=== PATIENT | male | born 1945 | race Caucasian/White ===

== ENCOUNTER 2016-07-13 10:50 | Inpatient (IN) | payer MEDICARE ==
[2016-07-13 11:05] LABS: Glucose,Whole Blood 506 mg/dL (75-99)
[2016-07-13] MEDS ORDERED: SODIUM CHLORIDE 0.9% 1,000 ML IV STA (11:10)
--- NOTE | 2016-07-13 11:18 | ED ---
General Adult HPI - General Chief complaint: Abdominal Pain Stated complaint: high sugar diabetes Time Seen by Provider: 07/13/16 11:02 Source: patient, RN notes reviewed Mode of arrival: ambulatory Limitations: no limitations - History of Present Illness Initial comments: 71-year-old male presents emergency Department chief complaint of feeling off. Her last week he has just not felt like himself. It's been getting worse. He has had high glucoses at home but he is taking his insulin as prescribed. Patient states he was concerned because he just continues to act abnormally. Patient states that nothing seems to make him better or worse. Patient states that it just continues to cause him problems as well so he thought that he should be evaluated. Patient states is not currently having any other symptoms at this time. Patient denies any recent fever, chills, shortness of breath, chest pain, back pain, abdominal pain, nausea vomiting, numbness or tingling, dysuria or hematuria, constipation or diarrhea, headaches or visual changes, or any other current symptoms. - Related Data Home Medications Medication Instructions Recorded Confirmed Atorvastatin [Lipitor] 40 mg PO HS 01/21/16 07/13/16 Bumetanide [BUMEX] 6 mg PO QAM 01/21/16 07/13/16 Carvedilol [Coreg] 25 mg PO BID 01/21/16 07/13/16 Cholecalciferol [Vitamin D3] 5,000 unit PO DAILY 01/21/16 07/13/16 Insulin Detemir [Levemir] 60 unit SQ BID 01/21/16 07/13/16 Isosorbide Dinitrate 40 mg PO BID 01/21/16 07/13/16 Magnesium Oxide [Mag-Ox] 250 mg PO DAILY 01/21/16 07/13/16 Nitroglycerin Sl Tabs [Nitrostat] 0.4 mg SUBLINGUAL Q5M PRN 01/21/16 07/13/16 Pantoprazole Sodium [Protonix] 40 mg PO DAILY 01/21/16 07/13/16 Potassium Chloride ER [K-Dur 20] 20 meq PO BID 01/21/16 07/13/16 Warfarin [Coumadin] 3 mg PO PC-SUPPER 01/21/16 07/13/16 Aspirin 81 mg PO DAILY 07/13/16 07/13/16 Bumetanide [BUMEX] 4 mg PO DAILY@1830 07/13/16 07/13/16 Digoxin [Digoxin] 250 mcg PO DAILY 07/13/16 07/13/16 Insulin Aspart [Novolog Flexpen] 30 - 42 unit SQ AC-TID 07/13/16 07/13/16 Multivitamins, Thera [Multivitamin 1 tab PO DAILY 07/13/16 07/13/16 (formulary)] Allergies Allergy/AdvReac Type Severity Reaction Status Date / Time alprazolam [From Xanax] AdvReac Confusion Verified 07/13/16 12:06 morphine AdvReac Hallucinati Verified 07/13/16 12:06 ons Review of Systems ROS Statement: Those systems with pertinent positive or pertinent negative responses have been documented in the HPI. ROS Other: All systems not noted in ROS Statement are negative. Past Medical History Past Medical History: Atrial Fibrillation, Coronary Artery Disease (CAD), Diabetes Mellitus, Hyperlipidemia, Hypertension, Myocardial Infarction ([place]), Prostate Disorder, Renal Disease Additional Past Medical History / Comment(s): AAA 4.3 CM. ASKED IF PT HAD CHF BEFORE PT/ STATED NO BUT HE HAD OPEN HEART. Last Myocardial Infarction Date:: 04/18/15 History of Any Multi-Drug Resistant Organisms: None Reported Past Surgical History: Coronary Bypass/CABG, Heart Catheterization, Joint Replacement, Orthopedic Surgery Additional Past Surgical History / Comment(s): bilateral knee replacement, RT ROTATOR CUFF SX, STATED:" I THINK HIS OPEN HEART WAS 3 VESSELS". Past Anesthesia/Blood Transfusion Reactions: No Reported Reaction Additional Past Anesthesia/Blood Transfusion Reaction / Comment(s): CLAUSTERPHOBIA Past Psychological History: No Psychological Hx Reported Additional Psychological History / Comment(s): lives in the family home with his and grandson in [place]. 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 Tobacco smoker stopping about 16 years ago. Denied significant alcohol abuse. Denied animals in the home. 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 Relates mother of cancer and father of myocardial infarction in his 60s Smoking Status: Former smoker Past Alcohol Use History: Heavy Additional Past Alcohol Use History / Comment(s): STARTED SMOKING AGE 12 SMOKED LESS THAN 1 PPD, QUIT 10 YEARS AGO. WHEN YOUNGER WAS HEAVY BEER DRINKER BUT QUIT >20 YEARS AGO. DENIES ANY RECREATIONAL DRUG USE. Past Drug Use History: None Reported - Past Family History Father Family Medical History: Myocardial Infarction ([place]) Mother Family Medical History: Cancer Additional Family Medical History / Comment(s): LUNG CANCER General Exam Limitations: no limitations General appearance: alert, in no apparent distress Head exam: Present: atraumatic, normocephalic, normal inspection Eye exam: Present: normal appearance, PERRL, EOMI. Absent: scleral icterus, conjunctival injection, periorbital swelling ENT exam: Present: normal exam, mucous membranes moist Neck exam: Present: normal inspection. Absent: tenderness, meningismus, lymphadenopathy Respiratory exam: Present: normal lung sounds bilaterally. Absent: respiratory distress, wheezes, rales, rhonchi, stridor Cardiovascular Exam: Present: regular rate, normal rhythm, normal heart sounds. Absent: systolic murmur, diastolic murmur, rubs, gallop, clicks Extremities exam: Present: normal inspection, full ROM, normal capillary refill. Absent: tenderness, pedal edema, joint swelling, calf tenderness Back exam: Present: normal inspection Neurological exam: Present: alert, oriented X3 Psychiatric exam: Present: normal affect, normal mood Skin exam: Present: warm, dry, intact, normal color. Absent: rash Course Vital Signs 07/13/16 10:56 Temperature 97.9 F Pulse Rate 74 Respiratory 17 Rate Blood Pressure 186/82 O2 Sat by Pulse 95 Oximetry EKG Findings - EKG Comments: EKG Findings:: Paced rhythm ventricular rate 86 1. A 116, Respiration 176 Medical Decision Making - Medical Decision Making 71-year-old male presents emergency department with a chief complaint of hyperglycemia. This time lab work was reviewed. At this time patient appears to have hypokalemia acute CHF as well as hyper glycemia with an elevated troponin. At this time patient is on warfarin and INR is close to therapeutic. We will continue the patient on the warfarin. At this time we did give the patient 10 units of insulin for hyperglycemia. His potassium has been replaced. We will repeat cardiac syndrome the patient Lasix for CHF. We will be admitting the patient at this time for continued care and observation. Patient is in agreement with plan. - Lab Data Result diagrams: 07/13/16 11:25 07/13/16 11:25 Lab Results 07/13/16 07/13/16 07/13/16 Range/Units 11:00 11:25 11:25 WBC (3.8-10.6) k/uL RBC (4.30-5.90) m/uL Hgb (13.0-17.5) gm/dL Hct (39.0-53.0) % MCV (80.0-100.0) fL MCH (25.0-35.0) pg MCHC (31.0-37.0) g/dL RDW (11.5-15.5) % Plt Count (150-450) k/uL Neutrophils % % Lymphocytes % % Monocytes % % Eosinophils % % Basophils % % Neutrophils # (1.3-7.7) k/uL Lymphocytes # (1.0-4.8) k/uL Monocytes # (0-1.0) k/uL Eosinophils # (0-0.7) k/uL Basophils # (0-0.2) k/uL Hyperchromasia Poikilocytosis Anisocytosis PT (9.0-12.0) sec INR (<1.1) APTT (22.0-30.0) sec Sodium 131 L (137-145) mmol/L Potassium 3.0 L* (3.5-5.1) mmol/L Chloride 90 L (98-107) mmol/L Carbon Dioxide 25 (22-30) mmol/L Anion Gap 16 mmol/L BUN 84 H* (9-20) mg/dL Creatinine 1.77 H (0.66-1.25) mg/dL Est GFR (MDRD) Af Amer 46 (>60 ml/min/1.73 sqM) Est GFR (MDRD) Non-Af 38 (>60 ml/min/1.73 sqM) Glucose 492 H* (74-99) mg/dL POC Glucose (mg/dL) 506 H (75-99) mg/dL POC Glu [employer] ID Radha Landaverde Calcium 9.3 (8.4-10.2) mg/dL Magnesium 1.8 (1.6-2.3) mg/dL Total Bilirubin 1.8 H (0.2-1.3) mg/dL AST 33 (17-59) U/L ALT 27 (21-72) U/L Alkaline Phosphatase 101 (38-126) U/L Total Creatine Kinase 215 H (55-170) U/L CK-MB (CK-2) 5.4 H* (0.0-2.4) ng/mL CK-MB (CK-2) Rel Index 2.5 Troponin I 0.664 H* (0.000-0.034) ng/mL NT-Pro-B Natriuret Pep pg/mL Total Protein 7.7 (6.3-8.2) g/dL Albumin 4.1 (3.5-5.0) g/dL Amylase 101 (30-110) U/L Lipase 262 (23-300) U/L Acetone, Qual Negative (Negative) 07/13/16 07/13/16 07/13/16 Range/Units 11:25 11:25 11:25 WBC 9.8 (3.8-10.6) k/uL RBC 5.11 (4.30-5.90) m/uL Hgb 14.6 (13.0-17.5) gm/dL Hct 42.4 (39.0-53.0) % MCV 82.9 (80.0-100.0) fL MCH 28.6 (25.0-35.0) pg MCHC 34.5 (31.0-37.0) g/dL RDW 18.0 H (11.5-15.5) % Plt Count 173 (150-450) k/uL Neutrophils % 72 % Lymphocytes % 14 % Monocytes % 7 % Eosinophils % 3 % Basophils % 1 % Neutrophils # 7.1 (1.3-7.7) k/uL Lymphocytes # 1.4 (1.0-4.8) k/uL Monocytes # 0.7 (0-1.0) k/uL Eosinophils # 0.3 (0-0.7) k/uL Basophils # 0.1 (0-0.2) k/uL Hyperchromasia Slight Poikilocytosis Marked Anisocytosis Slight PT 16.9 H (9.0-12.0) sec INR 1.7 (<1.1) APTT 26.8 (22.0-30.0) sec Sodium (137-145) mmol/L Potassium (3.5-5.1) mmol/L Chloride (98-107) mmol/L Carbon Dioxide (22-30) mmol/L Anion Gap mmol/L BUN (9-20) mg/dL Creatinine (0.66-1.25) mg/dL Est GFR (MDRD) Af Amer (>60 ml/min/1.73 sqM) Est GFR (MDRD) Non-Af (>60 ml/min/1.73 sqM) Glucose (74-99) mg/dL POC Glucose (mg/dL) (75-99) mg/dL POC Glu [employer] Dist[employer] ID Calcium (8.4-10.2) mg/dL Magnesium (1.6-2.3) mg/dL Total Bilirubin (0.2-1.3) mg/dL AST (17-59) U/L ALT (21-72) U/L Alkaline Phosphatase (38-126) U/L Total Creatine Kinase (55-170) U/L CK-MB (CK-2) (0.0-2.4) ng/mL CK-MB (CK-2) Rel Index Troponin I (0.000-0.034) ng/mL NT-Pro-B Natriuret Pep 6880 pg/mL Total Protein (6.3-8.2) g/dL Albumin (3.5-5.0) g/dL Amylase (30-110) U/L Lipase (23-300) U/L Acetone, Qual (Negative) Critical Care Time Critical Care Time: Yes (CHF, hypokalemia, hyperglycemia, elevated troponin) Total Critical Care Time: 45 Disposition Clinical Impression: MAGGIE (acute kidney injury), Acute congestive heart failure, Hyperglycemia, Hypokalemia Disposition: ADMITTED IP TO THIS HOSP Condition: Stable Referrals: Anu Velasquez MD [Primary Care Provider] - 1-2 days Time of Disposition: 13:04 Decision Date: 07/13/16 Decision Time: :04
[2016-07-13 11:42] LABS: Anisocytosis Slight; Basophils # (A) 0.1 k/uL (0-0.2); Basophils % (A) 1 %; CH 29.6; Eosinophils # (A) 0.3 k/uL (0-0.7); Eosinophils % (A) 3 %; HCT 42.4 % (39.0-53.0); HDW 4.75; HGB 14.6 gm/dL (13.0-17.5); Hyperchromasia Slight; Luc # (Auto) 0.32; Luc % (Auto) 3; Lymphocytes # (A) 1.4 k/uL (1.0-4.8); Lymphocytes % (A) 14 %; MCH 28.6 pg (25.0-35.0); MCHC 34.5 g/dL (31.0-37.0); MCV 82.9 fL (80.0-100.0); Mean Platelet Volume 7.7; Monocytes # (A) 0.7 k/uL (0-1.0); Monocytes % (A) 7 %; Neutrophils # (A) 7.1 k/uL (1.3-7.7); Neutrophils % (A) 72 %; Poikilocytosis Marked; RBC 5.11 m/uL (4.30-5.90); WBC 9.8 k/uL (3.8-10.6); WBC (Perox) 9.71
[2016-07-13 11:52] LABS: INR 1.7 (<1.1); Partial Thromboplastin Time 26.8 sec (22.0-30.0); Prothrombin Time 16.9 sec (9.0-12.0)
[2016-07-13 11:54] LABS: ALT 27 U/L (21-72); AST 33 U/L (17-59); Alkaline Phosphatase 101 U/L (38-126); Amylase 101 U/L (30-110); Anion Gap 16 mmol/L; Calcium 9.3 mg/dL (8.4-10.2); Carbon Dioxide 25 mmol/L (22-30); Chloride 90 mmol/L (98-107); Magnesium 1.8 mg/dL (1.6-2.3); Non-African American GFR(MDRD) 38 (>60 ml/min/1.73 sqM); Sodium 131 mmol/L (137-145); Total Bilirubin 1.8 mg/dL (0.2-1.3); Total Protein 7.7 g/dL (6.3-8.2)
[2016-07-13 12:11] LABS: Glucose 492 mg/dL (74-99)
[2016-07-13 12:13] LABS: Blood Urea Nitrogen 84 mg/dL (9-20)
--- NOTE | 2016-07-13 12:21 | CT ---
EXAMINATION TYPE: CT brain wo con DATE OF EXAM: 07/13/2016 12:05 PM COMPARISON: Previous study dated 05/21/2015. HISTORY: Elevated blood sugar CT DLP: 1108.4 mGycm Automated exposure control for dose reduction was used. FINDINGS: There are generalized changes of sulcal prominence and ventriculomegaly, compatible with at rophic change. There is diffuse periventricular white matter lucency, compatible with small vessel is chemic change. There is no acute focal lesion, mass effect or midline shift identified. I do not see evidence of intracranial blood. There is near complete opacification of the left maxillary antrum. There is an air-fluid level in the right maxillary antrum. There is mild mucoperiosteal disease involving the posterior ethmoid air paul ls on the right. The mastoid air cells are clear. No depressed skull fracture is seen. IMPRESSION: 1. NO ACUTE INTRACRANIAL ABNORMALITY. 2. ATROPHIC CHANGE. 3. SMALL VESSEL ISCHEMIC CHANGE. 4. ACUTE ON CHRONIC SINUS MUCOSAL DISEASE.
[2016-07-13 12:34] LABS: Creatine Kinase MB 5.4 ng/mL (0.0-2.4)
[2016-07-13] MEDS ORDERED: POTASSIUM CHLORIDE ORAL LIQUID 40 MEQ/30 ML CUP PO ONE (12:34)
[2016-07-13 12:35] LABS: Troponin I 0.664 ng/mL (0.000-0.034)
[2016-07-13] MEDS ORDERED: ASPIRIN 325 MG TAB PO STA (12:36)
[2016-07-13] MEDS ORDERED: INSULIN LISPRO (humaLOG) 300 UNIT/3 ML VIAL SQ ONE (13:02)
[2016-07-13] MEDS ORDERED: NITROGLYCERIN SL TABS 0.4 MG TAB SUBLINGUAL PRN (13:06)
--- NOTE | 2016-07-13 13:09 | XR ---
EXAMINATION TYPE: XR chest 2V DATE OF EXAM: 07/13/2016 12:53 PM COMPARISON: Prior chest x-ray first of January 2016 HISTORY: Chest pain TECHNIQUE: Frontal and lateral views of the chest are obtained. FINDINGS: There is no focal air space opacity, pleural effusion, or pneumothorax seen. The cardiac silhouette size is within normal limits. Intracardiac defibrillator leads are in stable position. Pa tient is post median sternotomy. Postop change again noted to the proximal right humerus. Prominent l saul volume may be indicative of COPD. There are coronary artery calcifications. The osseous structure s are intact. IMPRESSION: No acute cardiopulmonary process.
[2016-07-13] MEDS ORDERED: FUROSEMIDE 10 MG/ML 2 ML VIAL IV ONE (13:15)
[2016-07-13] MEDS: POTASSIUM CHLORIDE 10 MEQ, LIDOCAINE 2% INJ 10 MG in SODIUM CHLORIDE 0.9% 100 ML IVPB SCH ×2 (13:25→14:41)
[2016-07-13] MEDS: SODIUM CHLORIDE 0.9% 1,000 ML IV SCH (13:25)
[2016-07-13 13:27] LABS: Appearance,Urine Clear (Clear); Bilirubin,Urine Negative (Negative); Glucose,Urine (UA) 4+ (Negative); Ketones,Urine Negative (Negative); Leukocyte Esterase,Urine Negative (Negative); Nitrite,Urine Negative (Negative); PH, Urine 6.5 (5.0-8.0); Protein,Urine Negative (Negative); Specific Gravity,Urine 1.005 (1.001-1.035); UA Billing (MACRO vs. MICRO) CHEM; Urobilinogen,Urine <2.0 mg/dL (<2.0)
[2016-07-13 14:00] LABS: Glucose,Whole Blood 410 mg/dL (75-99)
[2016-07-13 15:18] LABS: Hemoglobin A1C 10.1 % (4.2-6.1)
[2016-07-13 16:16] LABS: Glucose,Whole Blood 431 mg/dL (75-99)
[2016-07-13 16:48] LABS: Glucose,Whole Blood 445 mg/dL (75-99)
[2016-07-13] MEDS ORDERED: INSULIN LISPRO (humaLOG) 300 UNIT/3 ML VIAL SQ SCH (17:30)
[2016-07-13 17:43] LABS: Troponin I 0.522 ng/mL (0.000-0.034)
[2016-07-13] MEDS ORDERED: WARFARIN 3 MG TAB PO SCH (18:00)
[2016-07-13] MEDS ORDERED: BUMETANIDE 1 MG TAB PO SCH (18:30)
[2016-07-13] MEDS ORDERED: ENOXAPARIN 100 MG/ML SYRINGE SQ STA (19:29)
[2016-07-13] MEDS: ATORVASTATIN 40 MG TAB PO SCH (20:41)
[2016-07-13] MEDS: FUROSEMIDE 10 MG/ML 4 ML VIAL IV SCH (20:41)
[2016-07-13] MEDS: ISOSORBIDE DINITRATE 20 MG TAB PO SCH (20:41)
[2016-07-13] MEDS: CARVEDILOL 12.5 MG TAB PO SCH (20:41)
[2016-07-13] MEDS: POTASSIUM CHLORIDE ER 20 MEQ TAB.ER PO SCH (20:41)
[2016-07-13] MEDS: INSULIN REGULAR 100 UNIT in SODIUM CHLORIDE 0.9% 100 ML IV SCH (20:51)
[2016-07-13 21:35] LABS: Glucose,Whole Blood 407 mg/dL (75-99)
[2016-07-13 22:05] LABS: Glucose,Whole Blood 403 mg/dL (75-99)
[2016-07-13 22:37] LABS: Glucose,Whole Blood 361 mg/dL (75-99)
[2016-07-13 23:14] LABS: Glucose,Whole Blood 353 mg/dL (75-99)
[2016-07-13 23:33] LABS: Glucose,Whole Blood 324 mg/dL (75-99)
[2016-07-14] MEDS: INSULIN REGULAR 100 UNIT in SODIUM CHLORIDE 0.9% 100 ML IV SCH ×3 (00:18→20:28)
[2016-07-14 00:22] LABS: Glucose,Whole Blood 318 mg/dL (75-99)
[2016-07-14 00:28] LABS: Troponin I 0.533 ng/mL (0.000-0.034)
[2016-07-14 00:29] LABS: Creatine Kinase MB 4.9 ng/mL (0.0-2.4)
[2016-07-14 00:49] LABS: Glucose,Whole Blood 296 mg/dL (75-99)
[2016-07-14 01:05] LABS: Glucose,Whole Blood 277 mg/dL (75-99)
[2016-07-14 01:35] LABS: Glucose,Whole Blood 276 mg/dL (75-99)
[2016-07-14 02:03] LABS: Glucose,Whole Blood 272 mg/dL (75-99)
[2016-07-14 02:33] LABS: Glucose,Whole Blood 245 mg/dL (75-99)
[2016-07-14 04:48] LABS: Glucose,Whole Blood 256 mg/dL (75-99)
[2016-07-14 06:27] LABS: Glucose,Whole Blood 268 mg/dL (75-99)
[2016-07-14] MEDS: PANTOPRAZOLE 40 MG TABLET PO SCH (06:29)
[2016-07-14 07:06] LABS: Anisocytosis Slight; Basophils # (A) 0.1 k/uL (0-0.2); Basophils % (A) 1 %; CH 29.1; CHCM 36.1; Eosinophils # (A) 0.3 k/uL (0-0.7); Eosinophils % (A) 3 %; HCT 41.8 % (39.0-53.0); HDW 4.81; HGB 14.8 gm/dL (13.0-17.5); Hyperchromasia Moderate; Luc # (Auto) 0.34; Luc % (Auto) 4; Lymphocytes # (A) 1.5 k/uL (1.0-4.8); Lymphocytes % (A) 19 %; MCH 28.9 pg (25.0-35.0); MCHC 35.5 g/dL (31.0-37.0); MCV 81.5 fL (80.0-100.0); Mean Platelet Volume 7.3; Monocytes # (A) 0.5 k/uL (0-1.0); Monocytes % (A) 7 %; Neutrophils # (A) 5.5 k/uL (1.3-7.7); Neutrophils % (A) 67 %; Poikilocytosis Marked; RBC 5.12 m/uL (4.30-5.90); WBC 8.2 k/uL (3.8-10.6); WBC (Perox) 8.28
[2016-07-14 07:19] LABS: INR 1.9 (<1.1); Prothrombin Time 18.7 sec (9.0-12.0)
[2016-07-14 07:23] LABS: Calcium 9.4 mg/dL (8.4-10.2); Total Bilirubin 1.3 mg/dL (0.2-1.3); Total Protein 7.3 g/dL (6.3-8.2)
[2016-07-14 07:33] LABS: Potassium 2.9 mmol/L (3.5-5.1)
[2016-07-14] MEDS: CARVEDILOL 12.5 MG TAB PO SCH ×2 (08:29→20:57)
[2016-07-14] MEDS: ISOSORBIDE DINITRATE 20 MG TAB PO SCH ×2 (08:30→20:56)
[2016-07-14] MEDS: MAGNESIUM OXIDE 400 MG TAB PO SCH (08:31)
[2016-07-14] MEDS: POTASSIUM CHLORIDE ER 20 MEQ TAB.ER PO SCH ×5 (08:31→20:57)
[2016-07-14] MEDS: CHOLECALCIFEROL 1,000 UNIT TAB PO SCH (08:31)
[2016-07-14] MEDS: MULTIVITAMINS, THERA 1 EACH TAB PO SCH (08:32)
[2016-07-14] MEDS: FUROSEMIDE 10 MG/ML 4 ML VIAL IV SCH ×2 (08:32→20:53)
[2016-07-14 08:43] LABS: Glucose,Whole Blood 268 mg/dL (75-99)
[2016-07-14] MEDS ORDERED: DIGOXIN 250 MCG TAB PO SCH (09:00)
[2016-07-14] MEDS ORDERED: ASPIRIN 325 MG TAB PO SCH (09:00)
[2016-07-14] MEDS ORDERED: BUMETANIDE 1 MG TAB PO SCH (09:00)
[2016-07-14] MEDS: MAGNESIUM SULFATE-D5W PMX 1 GM in DEXTROSE/WATER 1 100ML.BAG IVPB SCH ×2 (09:22→10:21)
[2016-07-14] MEDS: SODIUM CHLORIDE 0.9% 1,000 ML IV SCH (09:24)
--- NOTE | 2016-07-14 09:26 | P.CRDCN ---
<Ruth Schmitt E - Last Filed: 07/14/16 09:28> History of Present Illness Consult date: 07/14/16 Requesting physician: Thomas Coy Consult reason: congestive heart failure Chief complaint: Malaise and fatigue History of present illness: This is a 71-year-old gentleman who follows regularly with Dr. Elias at [facility], primary care doctor is Dr. Velasquez, he has a history of paroxysmal atrial fibrillation, coronary artery disease or bypass surgery in 2000, AICD, diabetes, hypertension, hyperlipidemia, renal disease, AAA, he presents to the hospital mainly with complaints of generalized malaise and tiredness. He also states that he feels more short of breath than usual, he denies any PND or orthopnea, denies any chest discomfort. No peripheral edema. According to the patient, he also states that his blood sugars have been quite high at home. EKG on arrival here shows a ventricular paced rhythm with a right bundle branch block pattern. Patient is noted to have brief runs of nonsustained VT on the monitor. Asked x-ray did not reveal any acute process. CAT scan of the brain did not reveal any acute intracranial abnormality, small vessel ischemic change noted. Blood pressure on arrival here 186/82 with a heart rate in the 70s. 95% on room air. White blood cell count 8.2, hemoglobin 14.8, platelet count 145. INR 1.9. Potassium on admission 3.4, 2.9 this morning. BUN on admission 84 creatinine 1.7, this morning 75 and 1.5 . blood glucose on arrival 492. Hemoglobin A1c 10.1. Magnesium level I.8. BNP level 6880. Troponins 0.6, 0.5, 0.5. Dig level 2.9. At the time of my examination this morning, patient still complains of mild shortness of breath, lying comfortably in bed at the time of my examination. Past Medical History Past Medical History: Atrial Fibrillation, Coronary Artery Disease (CAD), Heart Failure, Diabetes Mellitus, GERD/Reflux, Hyperlipidemia, Hypertension, Myocardial Infarction (SC), Prostate Disorder, Renal Disease Additional Past Medical History / Comment(s): AAA 4.3 CM. ASKED IF PT HAD CHF BEFORE PT/ STATED NO BUT HE HAD OPEN HEART., cellulitis/abcess rt groin post porcedure. Last Myocardial Infarction Date:: 04/18/15 History of Any Multi-Drug Resistant Organisms: None Reported Past Surgical History: Coronary Bypass/CABG, Heart Catheterization, Joint Replacement, Orthopedic Surgery Additional Past Surgical History / Comment(s): bilateral knee replacement, RT ROTATOR CUFF SX, STATED:" I THINK HIS OPEN HEART WAS 3 VESSELS".'dec 2015 had a procedure rt groin arterypt stated haresh faird it out" Past Anesthesia/Blood Transfusion Reactions: No Reported Reaction Additional Past Anesthesia/Blood Transfusion Reaction / Comment(s): CLAUSTERPHOBIA Past Psychological History: No Psychological Hx Reported Additional Psychological History / Comment(s): lives in the family home with his and grandson in [place]. 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 Tobacco smoker stopping about 16 years ago. Denied significant alcohol abuse. Denied animals in the home. Retired from the [employer] many years ago. Relates mother of cancer and father of myocardial infarction in his 60s Smoking Status: Former smoker Past Alcohol Use History: Heavy Additional Past Alcohol Use History / Comment(s): STARTED SMOKING AGE 12 SMOKED LESS THAN 1 PPD, QUIT 10 YEARS AGO. WHEN YOUNGER WAS HEAVY BEER DRINKER BUT QUIT >20 YEARS AGO. DENIES ANY RECREATIONAL DRUG USE. Past Drug Use History: None Reported - Past Family History Father Family Medical History: Myocardial Infarction (SC) Mother Family Medical History: Cancer Additional Family Medical History / Comment(s): LUNG CANCER Medications and Allergies Home Medications Medication Instructions Recorded Confirmed Type Atorvastatin [Lipitor] 40 mg PO HS 01/21/16 07/13/16 History Bumetanide [BUMEX] 6 mg PO QAM 01/21/16 07/13/16 History Carvedilol [Coreg] 25 mg PO BID 01/21/16 07/13/16 History Cholecalciferol [Vitamin D3] 5,000 unit PO DAILY 01/21/16 07/13/16 History Insulin Detemir [Levemir] 60 unit SQ BID 01/21/16 07/13/16 History Isosorbide Dinitrate 40 mg PO BID 01/21/16 07/13/16 History Magnesium Oxide [Mag-Ox] 250 mg PO DAILY 01/21/16 07/13/16 History Nitroglycerin Sl Tabs [Nitrostat] 0.4 mg SUBLINGUAL Q5M PRN 01/21/16 07/13/16 History Pantoprazole Sodium [Protonix] 40 mg PO DAILY 01/21/16 07/13/16 History Potassium Chloride ER [K-Dur 20] 20 meq PO BID 01/21/16 07/13/16 History Warfarin [Coumadin] 3 mg PO PC-SUPPER 01/21/16 07/13/16 History Aspirin 81 mg PO DAILY 07/13/16 07/13/16 History Bumetanide [BUMEX] 4 mg PO DAILY@1830 07/13/16 07/13/16 History Digoxin [Digoxin] 250 mcg PO DAILY 07/13/16 07/13/16 History Insulin Aspart [Novolog Flexpen] 30 - 42 unit SQ AC-TID 07/13/16 07/13/16 History Multivitamins, Thera [Multivitamin 1 tab PO DAILY 07/13/16 07/13/16 History (formulary)] Allergies Allergy/AdvReac Type Severity Reaction Status Date / Time alprazolam [From Xanax] AdvReac Confusion Verified 07/13/16 12:06 morphine AdvReac Hallucinati Verified 07/13/16 12:06 ons Physical Exam Vitals: Vital Signs Temp Pulse Pulse Resp BP BP Pulse Ox 07/14/16 04:00 88 16 132/67 93 L 07/14/16 00:00 54 L 18 146/64 95 07/13/16 20:00 97.4 F L 75 18 161/67 94 L 07/13/16 19:14 94 L 07/13/16 18:15 97.3 F L 104 H 18 140/75 94 L 07/13/16 16:25 97.7 F 65 16 140/65 96 07/13/16 16:23 97.7 F 65 16 140/65 96 07/13/16 13:26 82 18 150/67 97 07/13/16 10:56 97.9 F 74 17 186/82 95 Intake and Output 07/13/16 07/14/16 07/14/16 22:59 06:59 14:59 Intake Total 174.035 445.525 18.842 Balance 174.035 445.525 18.842 Intake: IV 350 Insulin Regular 100 unit 150 In Sodium Chloride 0.9% 100 ml @ Titrate IV .Q0M [facility] Rx#:[id number] Sodium Chloride 0.9% 1, 200 000 ml @ 20 mls/hr IV . Q24H [facility] Rx#:[id number] Intake, IV Titration 54.035 95.525 18.842 Amount Insulin Regular 100 unit 54.035 95.525 18.842 In Sodium Chloride 0.9% 100 ml @ Titrate IV .Q0M [facility] Rx#:[id number] Oral 120 Other: # Voids 1 2 Weight 100.9 kg 98.9 kg PHYSICAL EXAMINATION: HEENT: Head is atraumatic, normocephalic. Pupils equal, round. Neck is supple. There is no elevated jugular venous pressure. HEART EXAMINATION: Heart S1 and S2 systolic murmur heard CHEST EXAMINATION: Lungs are clear to auscultation and precussion. No chest wall tenderness is noted on palpation or with deep breathing. ABDOMEN: Soft, nontender. Bowel sounds are heard. No organomegaly noted. EXTREMITIES: 2+ peripheral pulses with no evidence of peripheral edema and no calf tenderness noted. NEUROLOGIC patient is awake, alert and oriented -3. . Results 07/14/16 06:47 07/14/16 06:47 Cardiac Enzymes 07/13/16 07/13/16 07/13/16 Range/Units 11:25 11:25 16:39 AST 33 (17-59) U/L CK-MB (CK-2) 5.4 H* 5.4 H* (0.0-2.4) ng/mL Troponin I 0.664 H* 0.522 H* (0.000-0.034) ng/mL 07/13/16 07/14/16 Range/Units 23:40 06:47 AST 34 (17-59) U/L CK-MB (CK-2) 4.9 H* (0.0-2.4) ng/mL Troponin I 0.533 H* (0.000-0.034) ng/mL Coagulation 07/13/16 07/14/16 Range/Units 11:25 06:47 PT 16.9 H 18.7 H (9.0-12.0) sec APTT 26.8 (22.0-30.0) sec CBC 07/13/16 07/14/16 Range/Units 11:25 06:47 WBC 9.8 8.2 (3.8-10.6) k/uL RBC 5.11 5.12 (4.30-5.90) m/uL Hgb 14.6 14.8 (13.0-17.5) gm/dL Hct 42.4 41.8 (39.0-53.0) % Plt Count 173 145 L (150-450) k/uL Comprehensive Metabolic Panel 07/13/16 07/13/16 07/14/16 Range/Units 11:25 16:39 06:47 Sodium 131 L 135 L (137-145) mmol/L Potassium 3.0 L* 3.4 L 2.9 L* (3.5-5.1) mmol/L Chloride 90 L 98 (98-107) mmol/L Carbon Dioxide 25 25 (22-30) mmol/L BUN 84 H* 75 H (9-20) mg/dL Creatinine 1.77 H 1.53 H (0.66-1.25) mg/dL Glucose 492 H* 247 H (74-99) mg/dL Calcium 9.3 9.4 (8.4-10.2) mg/dL AST 33 34 (17-59) U/L ALT 27 29 (21-72) U/L Alkaline Phosphatase 101 85 (38-126) U/L Total Protein 7.7 7.3 (6.3-8.2) g/dL Albumin 4.1 3.9 (3.5-5.0) g/dL Current Medications Generic Name Dose Route Start Last Admin Trade Name Freq PRN Reason Stop Dose Admin Aspirin 325 mg 07/14/16 09:00 07/14/16 08:29 Aspirin PO 325 mg DAILY [facility] Administration Atorvastatin Calcium 40 mg 07/13/16 21:00 07/13/16 20:41 Lipitor PO 40 mg HS [facility] Administration Bumetanide 4 mg 07/13/16 18:30 07/13/16 17:51 Bumex PO 4 mg DAILY@1830 [facility] Administration Bumetanide 6 mg 07/14/16 09:00 Bumex PO QAM [facility] Carvedilol 25 mg 07/13/16 21:00 07/14/16 08:29 Coreg PO 25 mg BID [facility] Administration Cholecalciferol 5,000 unit 07/14/16 09:00 07/14/16 08:31 Vitamin D3 PO 5,000 unit DAILY [facility] Administration Furosemide 40 mg 07/13/16 21:00 07/14/16 08:32 Lasix IV 40 mg Q12H [facility] Administration Sodium Chloride 1,000 mls @ 20 mls/hr 07/13/16 13:15 07/13/16 13:25 Saline 0.9% IV 20 mls/hr .Q24H [facility] Administration Insulin Human Regular 100 unit 101 mls @ 0 mls/hr 07/13/16 20:00 07/14/16 08: 40 / Sodium Chloride IV 8.41 units/hr .Q0M [facility] 8.5 mls/hr Protocol Titration Titrate Magnesium Sulfate/Dextrose 1 100 mls @ 100 mls/hr 07/14/16 09:00 gm/ IV Solution IVPB 07/14/16 10:59 Q1H [facility] Isosorbide Dinitrate 40 mg 07/13/16 21:00 07/14/16 08:30 Isordil PO 40 mg BID [facility] Administration Magnesium Oxide 400 mg 07/14/16 09:00 07/14/16 08:31 Mag-Ox PO 400 mg DAILY [facility] Administration Multivitamins 1 each 07/14/16 12:00 07/14/16 08:32 Theragran PO 1 each DAILY@1200 [facility] Administration Nitroglycerin 0.4 mg 07/13/16 13:06 Nitrostat SUBLINGUAL Q5M PRN Chest Pain Pantoprazole Sodium 40 mg 07/14/16 07:30 07/14/16 06:29 Protonix PO 40 mg AC-BRKFST [facility] Administration Potassium Chloride 20 meq 07/13/16 21:00 07/14/16 08:31 K-Dur 20 PO 20 meq BID [facility] Administration Warfarin Sodium 3 mg 07/13/16 18:00 07/13/16 17:51 Coumadin PO 3 mg DAILY@1800 [facility] Administration Intake and Output 07/13/16 07/14/16 07/14/16 22:59 06:59 14:59 Intake Total 174.035 445.525 18.842 Balance 174.035 445.525 18.842 Intake: IV 350 Insulin Regular 100 unit 150 In Sodium Chloride 0.9% 100 ml @ Titrate IV .Q0M [facility] Rx#:[id number] Sodium Chloride 0.9% 1, 200 000 ml @ 20 mls/hr IV . Q24H [facility] Rx#:[id number] Intake, IV Titration 54.035 95.525 18.842 Amount Insulin Regular 100 unit 54.035 95.525 18.842 In Sodium Chloride 0.9% 100 ml @ Titrate IV .Q0M [facility] Rx#:[id number] Oral 120 Other: # Voids 1 2 Weight 100.9 kg 98.9 kg 07/14/16 06:47 07/14/16 06:47 EKG Interpretations (text) EKG shows ventricular paced rhythm with right bundle branch block pattern PVCs. Assessment and Plan Plan: Assessment and Plan #1 symptoms of generalized malaise and fatigue #2 systolic congestive heart failure acute on chronic #3 hyperglycemia #4 known history of coronary artery disease with prior bypass surgery # 5 AICD implant #6 digitoxicity #7 hypokalemia #8 hypomagnesemia #9 acute on chronic renal failure #10 hypertension #11 diabetes history #12 paroxysmal atrial fibrillation, on Coumadin, INR subtherapeutic #13 hyperlipidemia #14 abnormal troponins not suggestive of acute coronary syndrome, no significant rise and fall noted. Patient denies having any chest discomfort could be secondary to abnormal renal function. Plan We'll request an echocardiogram with Doppler study be performed. Give 4mg of Coumadin today. Continue IV Lasix but hold the oral Bumex. Hold Lanoxin. Replace potassium and magnesium. Also obtain records from [facility]. Decrease aspirin 81 mg daily. Daily lytes BUN creatinine PT and INR. Further recommendations to follow. DNP note has been reviewed, I agree with a documented findings and plan of care. Patient was seen and examined. <George Lopez - Last Filed: 07/14/16 10:33> Physical Exam Vitals: Vital Signs Temp Pulse Pulse Resp BP BP Pulse Ox 07/14/16 09:23 94 L 07/14/16 08:00 97.0 F L 90 18 133/90 94 L 07/14/16 04:00 88 16 132/67 93 L 07/14/16 00:00 54 L 18 146/64 95 07/13/16 20:00 97.4 F L 75 18 161/67 94 L 07/13/16 19:14 94 L 07/13/16 18:15 97.3 F L 104 H 18 140/75 94 L 07/13/16 16:25 97.7 F 65 16 140/65 96 07/13/16 16:23 97.7 F 65 16 140/65 96 07/13/16 13:26 82 18 150/67 97 07/13/16 10:56 97.9 F 74 17 186/82 95 Intake and Output 07/13/16 07/14/16 07/14/16 22:59 06:59 14:59 Intake Total 174.035 445.525 18.842 Balance 174.035 445.525 18.842 Intake: IV 350 Insulin Regular 100 unit 150 In Sodium Chloride 0.9% 100 ml @ Titrate IV .Q0M [facility] Rx#:[id number] Sodium Chloride 0.9% 1, 200 000 ml @ 20 mls/hr IV . Q24H [facility] Rx#:[id number] Intake, IV Titration 54.035 95.525 18.842 Amount Insulin Regular 100 unit 54.035 95.525 18.842 In Sodium Chloride 0.9% 100 ml @ Titrate IV .Q0M [facility] Rx#:[id number] Oral 120 Other: # Voids 1 2 Weight 100.9 kg 98.9 kg Results 07/14/16 06:47 07/14/16 06:47 Cardiac Enzymes 07/13/16 07/13/16 07/13/16 Range/Units 11:25 11:25 16:39 AST 33 (17-59) U/L CK-MB (CK-2) 5.4 H* 5.4 H* (0.0-2.4) ng/mL Troponin I 0.664 H* 0.522 H* (0.000-0.034) ng/mL 07/13/16 07/14/16 Range/Units 23:40 06:47 AST 34 (17-59) U/L CK-MB (CK-2) 4.9 H* (0.0-2.4) ng/mL Troponin I 0.533 H* (0.000-0.034) ng/mL Coagulation 07/13/16 07/14/16 Range/Units 11:25 06:47 PT 16.9 H 18.7 H (9.0-12.0) sec APTT 26.8 (22.0-30.0) sec CBC 07/13/16 07/14/16 Range/Units 11:25 06:47 WBC 9.8 8.2 (3.8-10.6) k/uL RBC 5.11 5.12 (4.30-5.90) m/uL Hgb 14.6 14.8 (13.0-17.5) gm/dL Hct 42.4 41.8 (39.0-53.0) % Plt Count 173 145 L (150-450) k/uL Comprehensive Metabolic Panel 07/13/16 07/13/16 07/14/16 Range/Units 11:25 16:39 06:47 Sodium 131 L 135 L (137-145) mmol/L Potassium 3.0 L* 3.4 L 2.9 L* (3.5-5.1) mmol/L Chloride 90 L 98 (98-107) mmol/L Carbon Dioxide 25 25 (22-30) mmol/L BUN 84 H* 75 H (9-20) mg/dL Creatinine 1.77 H 1.53 H (0.66-1.25) mg/dL Glucose 492 H* 247 H (74-99) mg/dL Calcium 9.3 9.4 (8.4-10.2) mg/dL AST 33 34 (17-59) U/L ALT 27 29 (21-72) U/L Alkaline Phosphatase 101 85 (38-126) U/L Total Protein 7.7 7.3 (6.3-8.2) g/dL Albumin 4.1 3.9 (3.5-5.0) g/dL Current Medications Generic Name Dose Route Start Last Admin Trade Name Freq PRN Reason Stop Dose Admin Aspirin 81 mg 07/15/16 09:00 Aspirin PO DAILY [facility] Atorvastatin Calcium 40 mg 07/13/16 21:00 07/13/16 20:41 Lipitor PO 40 mg HS [facility] Administration Carvedilol 25 mg 07/13/16 21:00 07/14/16 08:29 Coreg PO 25 mg BID [facility] Administration Cholecalciferol 5,000 unit 07/14/16 09:00 07/14/16 08:31 Vitamin D3 PO 5,000 unit DAILY [facility] Administration Furosemide 40 mg 07/13/16 21:00 07/14/16 08:32 Lasix IV 40 mg Q12H [facility] Administration Sodium Chloride 1,000 mls @ 20 mls/hr 07/13/16 13:15 07/14/16 09:24 Saline 0.9% IV 20 mls/hr .Q24H [facility] Administration Insulin Human Regular 100 unit 101 mls @ 0 mls/hr 07/13/16 20:00 07/14/16 08: 40 / Sodium Chloride IV 8.41 units/hr .Q0M [facility] 8.5 mls/hr Protocol Titration Titrate Magnesium Sulfate/Dextrose 1 100 mls @ 100 mls/hr 07/14/16 09:00 07/14/16 10: 21 gm/ IV Solution IVPB 07/14/16 10:59 100 mls/hr Q1H [facility] Administration Isosorbide Dinitrate 40 mg 07/13/16 21:00 07/14/16 08:30 Isordil PO 40 mg BID [facility] Administration Magnesium Oxide 400 mg 07/14/16 09:00 07/14/16 08:31 Mag-Ox PO 400 mg DAILY [facility] Administration Multivitamins 1 each 07/14/16 12:00 07/14/16 08:32 Theragran PO 1 each DAILY@1200 [facility] Administration Nitroglycerin 0.4 mg 07/13/16 13:06 Nitrostat SUBLINGUAL Q5M PRN Chest Pain Pantoprazole Sodium 40 mg 07/14/16 07:30 07/14/16 06:29 Protonix PO 40 mg AC-BRKFST [facility] Administration Potassium Chloride 20 meq 07/13/16 21:00 07/14/16 08:31 K-Dur 20 PO 20 meq BID [facility] Administration Potassium Chloride 20 meq 07/14/16 10:00 07/14/16 10:21 K-Dur 20 PO 07/14/16 14:01 20 meq Q2HR [facility] Administration Warfarin Sodium 4 mg 07/14/16 18:00 Coumadin PO 07/14/16 18:01 ONCE@1800 [facility] Intake and Output 07/13/16 07/14/16 07/14/16 22:59 06:59 14:59 Intake Total 174.035 445.525 18.842 Balance 174.035 445.525 18.842 Intake: IV 350 Insulin Regular 100 unit 150 In Sodium Chloride 0.9% 100 ml @ Titrate IV .Q0M [facility] Rx#:[id number] Sodium Chloride 0.9% 1, 200 000 ml @ 20 mls/hr IV . Q24H [facility] Rx#:[id number] Intake, IV Titration 54.035 95.525 18.842 Amount Insulin Regular 100 unit 54.035 95.525 18.842 In Sodium Chloride 0.9% 100 ml @ Titrate IV .Q0M [facility] Rx#:[id number] Oral 120 Other: # Voids 1 2 Weight 100.9 kg 98.9 kg 07/14/16 06:47 07/14/16 06:47
[2016-07-14 11:56] LABS: Glucose,Whole Blood 385 mg/dL (75-99)
[2016-07-14] MEDS ORDERED: INSULIN DETEMIR 100 UNIT/ML 10 ML VIAL SQ SCH (12:00)
[2016-07-14] MEDS ORDERED: Potassium Replacement Protocol 1 EACH MISC MISCELLANE PRN (12:33)
[2016-07-14] MEDS ORDERED: Magnesium Replacement Protocol 1 EACH MISC MISCELLANE PRN (12:33)
--- NOTE | 2016-07-14 12:40 | P.HPIM ---
History of Present Illness H&P Date: 07/14/16 This is a 71-year-old gentleman with a history of paroxysmal atrial fibrillation, coronary artery disease or bypass surgery in 2000, AICD, diabetes , hypertension, hyperlipidemia, renal disease, AAA, he presents to the hospital mainly with complaints of generalized malaise and tiredness. He also states that he feels more short of breath than usual, he denies any PND or orthopnea, denies any chest discomfort. No peripheral edema. According to the patient, he also states that his blood sugars have been quite high at home. EKG on arrival here shows a ventricular paced rhythm with a right bundle branch block pattern. Patient is noted to have brief runs of nonsustained VT on the monitor. Chest x-ray did not reveal any acute process. CAT scan of the brain did not reveal any acute intracranial abnormality, small vessel ischemic change noted. Blood pressure on arrival on presentation 186/82 with a heart rate in the 70s. Blood glucose persisted Of 400 requiring insulin drip. Today, patient denies any chest pain. He said that he is mostly bloated and is having gas sensation. He is currently on Lasix IV twice daily. Echocardiogram ordered by cardiology Review of Systems Review of system: 14 points review of systems were obtained and were negative except to what were mentioned in the HPI. Past Medical History Past Medical History: Atrial Fibrillation, Coronary Artery Disease (CAD), Heart Failure, Diabetes Mellitus, GERD/Reflux, Hyperlipidemia, Hypertension, Myocardial Infarction ([place]), Prostate Disorder, Renal Disease Additional Past Medical History / Comment(s): AAA 4.3 CM. ASKED IF PT HAD CHF BEFORE PT/ STATED NO BUT HE HAD OPEN HEART., cellulitis/abcess rt groin post porcedure. Last Myocardial Infarction Date:: 04/18/15 History of Any Multi-Drug Resistant Organisms: None Reported Past Surgical History: Coronary Bypass/CABG, Heart Catheterization, Joint Replacement, Orthopedic Surgery Additional Past Surgical History / Comment(s): bilateral knee replacement, RT ROTATOR CUFF SX, STATED:" I THINK HIS OPEN HEART WAS 3 VESSELS".'dec 2015 had a procedure rt groin arterypt stated haresh faird it out" Past Anesthesia/Blood Transfusion Reactions: No Reported Reaction Additional Past Anesthesia/Blood Transfusion Reaction / Comment(s): CLAUSTERPHOBIA Past Psychological History: No Psychological Hx Reported Additional Psychological History / Comment(s): lives in the family home with his and grandson in [place]. 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 Tobacco smoker stopping about 16 years ago. Denied significant alcohol abuse. Denied animals in the home. Retired from the [employer] force many years ago. Relates mother of cancer and father of myocardial infarction in his 60s Smoking Status: Former smoker Past Alcohol Use History: Heavy Additional Past Alcohol Use History / Comment(s): STARTED SMOKING AGE 12 SMOKED LESS THAN 1 PPD, QUIT 10 YEARS AGO. WHEN YOUNGER WAS HEAVY BEER DRINKER BUT QUIT >20 YEARS AGO. DENIES ANY RECREATIONAL DRUG USE. Past Drug Use History: None Reported - Past Family History Father Family Medical History: Myocardial Infarction ([place]) Mother Family Medical History: Cancer Additional Family Medical History / Comment(s): LUNG CANCER Medications and Allergies Home Medications Medication Instructions Recorded Confirmed Type Atorvastatin [Lipitor] 40 mg PO HS 01/21/16 07/13/16 History Bumetanide [BUMEX] 6 mg PO QAM 01/21/16 07/13/16 History Carvedilol [Coreg] 25 mg PO BID 01/21/16 07/13/16 History Cholecalciferol [Vitamin D3] 5,000 unit PO DAILY 01/21/16 07/13/16 History Insulin Detemir [Levemir] 60 unit SQ BID 01/21/16 07/13/16 History Isosorbide Dinitrate 40 mg PO BID 01/21/16 07/13/16 History Magnesium Oxide [Mag-Ox] 250 mg PO DAILY 01/21/16 07/13/16 History Nitroglycerin Sl Tabs [Nitrostat] 0.4 mg SUBLINGUAL Q5M PRN 01/21/16 07/13/16 History Pantoprazole Sodium [Protonix] 40 mg PO DAILY 01/21/16 07/13/16 History Potassium Chloride ER [K-Dur 20] 20 meq PO BID 01/21/16 07/13/16 History Warfarin [Coumadin] 3 mg PO PC-SUPPER 01/21/16 07/13/16 History Aspirin 81 mg PO DAILY 07/13/16 07/13/16 History Bumetanide [BUMEX] 4 mg PO DAILY@1830 07/13/16 07/13/16 History Digoxin [Digoxin] 250 mcg PO DAILY 07/13/16 07/13/16 History Insulin Aspart [Novolog Flexpen] 30 - 42 unit SQ AC-TID 07/13/16 07/13/16 History Multivitamins, Thera [Multivitamin 1 tab PO DAILY 07/13/16 07/13/16 History (formulary)] Allergies Allergy/AdvReac Type Severity Reaction Status Date / Time alprazolam [From Xanax] AdvReac Confusion Verified 07/13/16 12:06 morphine AdvReac Hallucinati Verified 07/13/16 12:06 ons Physical Exam Vitals: Vital Signs Temp Pulse Pulse Resp BP BP Pulse Ox 07/14/16 09:23 94 L 07/14/16 08:00 97.0 F L 90 18 133/90 94 L 07/14/16 04:00 88 16 132/67 93 L 07/14/16 00:00 54 L 18 146/64 95 07/13/16 20:00 97.4 F L 75 18 161/67 94 L 07/13/16 19:14 94 L 07/13/16 18:15 97.3 F L 104 H 18 140/75 94 L 07/13/16 16:25 97.7 F 65 16 140/65 96 07/13/16 16:23 97.7 F 65 16 140/65 96 07/13/16 13:26 82 18 150/67 97 Intake and Output 07/13/16 07/14/16 07/14/16 22:59 06:59 14:59 Intake Total 174.035 445.525 38.330 Output Total 400 Balance 174.035 445.525 -361.670 Intake: IV 350 Insulin Regular 100 unit 150 In Sodium Chloride 0.9% 100 ml @ Titrate IV .Q0M [facility] Rx#:[id number] Sodium Chloride 0.9% 1, 200 000 ml @ 20 mls/hr IV . Q24H [facility] Rx#:[id number] Intake, IV Titration 54.035 95.525 38.330 Amount Insulin Regular 100 unit 54.035 95.525 38.330 In Sodium Chloride 0.9% 100 ml @ Titrate IV .Q0M [facility] Rx#:[id number] Oral 120 Output: Urine 400 Other: # Voids 1 2 # Bowel Movements 0 Weight 100.9 kg 98.9 kg 98.9 kg Patient Weight 07/15/16 06:59 Weight 98.9 kg General: The patient is awake and alert, in no distress Eye: there is normal conjunctiva bilaterally. Neck: The neck is supple, there is no JVD. Cardiovascular: Normal S1-S2, no S3-S4, no murmurs. Respiratory: Lungs clear to auscultation bilaterally Gastrointestinal: Abdomen is soft but distended with no tenderness Musculoskeletal: There is no pedal edema. Neurological:. Speech is normal. Skin: Skin is warm and dry Results CBC & Chem 7: 07/14/16 06:47 07/14/16 06:47 Labs: Abnormal Lab Results - Last 24 Hours (Table) 07/13/16 07/13/16 07/13/16 Range/Units 11:25 11:25 11:25 RDW (11.5-15.5) % Plt Count (150-450) k/uL PT (9.0-12.0) sec Sodium (137-145) mmol/L Potassium (3.5-5.1) mmol/L BUN (9-20) mg/dL Creatinine (0.66-1.25) mg/dL Glucose (74-99) mg/dL POC Glucose (mg/dL) (75-99) mg/dL Hemoglobin A1c 10.1 H (4.2-6.1) % Total Creatine Kinase 215 H (55-170) U/L CK-MB (CK-2) 5.4 H* (0.0-2.4) ng/mL Troponin I 0.664 H* (0.000-0.034) ng/mL Urine Glucose (UA) (Negative) Digoxin 2.9 H* ng/mL 07/13/16 07/13/16 07/13/16 Range/Units 13:05 13:52 16:12 RDW (11.5-15.5) % Plt Count (150-450) k/uL PT (9.0-12.0) sec Sodium (137-145) mmol/L Potassium (3.5-5.1) mmol/L BUN (9-20) mg/dL Creatinine (0.66-1.25) mg/dL Glucose (74-99) mg/dL POC Glucose (mg/dL) 410 H 431 H (75-99) mg/dL Hemoglobin A1c (4.2-6.1) % Total Creatine Kinase (55-170) U/L CK-MB (CK-2) (0.0-2.4) ng/mL Troponin I (0.000-0.034) ng/mL Urine Glucose (UA) 4+ H (Negative) Digoxin ng/mL 07/13/16 07/13/16 07/13/16 Range/Units 16:33 16:39 16:39 RDW (11.5-15.5) % Plt Count (150-450) k/uL PT (9.0-12.0) sec Sodium (137-145) mmol/L Potassium 3.4 L (3.5-5.1) mmol/L BUN (9-20) mg/dL Creatinine (0.66-1.25) mg/dL Glucose (74-99) mg/dL POC Glucose (mg/dL) 445 H (75-99) mg/dL Hemoglobin A1c (4.2-6.1) % Total Creatine Kinase (55-170) U/L CK-MB (CK-2) 5.4 H* (0.0-2.4) ng/mL Troponin I 0.522 H* (0.000-0.034) ng/mL Urine Glucose (UA) (Negative) Digoxin ng/mL 07/13/16 07/13/16 07/13/16 Range/Units 21:34 22:03 22:36 RDW (11.5-15.5) % Plt Count (150-450) k/uL PT (9.0-12.0) sec Sodium (137-145) mmol/L Potassium (3.5-5.1) mmol/L BUN (9-20) mg/dL Creatinine (0.66-1.25) mg/dL Glucose (74-99) mg/dL POC Glucose (mg/dL) 407 H 403 H 361 H (75-99) mg/dL Hemoglobin A1c (4.2-6.1) % Total Creatine Kinase (55-170) U/L CK-MB (CK-2) (0.0-2.4) ng/mL Troponin I (0.000-0.034) ng/mL Urine Glucose (UA) (Negative) Digoxin ng/mL 07/13/16 07/13/1617 Range/Units 23:02 23:31 23:40 RDW (11.5-15.5) % Plt Count (150-450) k/uL PT (9.0-12.0) sec Sodium (137-145) mmol/L Potassium (3.5-5.1) mmol/L BUN (9-20) mg/dL Creatinine (0.66-1.25) mg/dL Glucose (74-99) mg/dL POC Glucose (mg/dL) 353 H 324 H (75-99) mg/dL Hemoglobin A1c (4.2-6.1) % Total Creatine Kinase (55-170) U/L CK-MB (CK-2) 4.9 H* (0.0-2.4) ng/mL Troponin I 0.533 H* (0.000-0.034) ng/mL Urine Glucose (UA) (Negative) Digoxin ng/mL 07/14/16 07/14/16 07/14/16 Range/Units 00:08 00:37 01:03 RDW (11.5-15.5) % Plt Count (150-450) k/uL PT (9.0-12.0) sec Sodium (137-145) mmol/L Potassium (3.5-5.1) mmol/L BUN (9-20) mg/dL Creatinine (0.66-1.25) mg/dL Glucose (74-99) mg/dL POC Glucose (mg/dL) 318 H 296 H 277 H (75-99) mg/dL Hemoglobin A1c (4.2-6.1) % Total Creatine Kinase (55-170) U/L CK-MB (CK-2) (0.0-2.4) ng/mL Troponin I (0.000-0.034) ng/mL Urine Glucose (UA) (Negative) Digoxin ng/mL 07/14/16 07/14/16 07/14/16 Range/Units 01:33 02:02 02:32 RDW (11.5-15.5) % Plt Count (150-450) k/uL PT (9.0-12.0) sec Sodium (137-145) mmol/L Potassium (3.5-5.1) mmol/L BUN (9-20) mg/dL Creatinine (0.66-1.25) mg/dL Glucose (74-99) mg/dL POC Glucose (mg/dL) 276 H 272 H 245 H (75-99) mg/dL Hemoglobin A1c (4.2-6.1) % Total Creatine Kinase (55-170) U/L CK-MB (CK-2) (0.0-2.4) ng/mL Troponin I (0.000-0.034) ng/mL Urine Glucose (UA) (Negative) Digoxin ng/mL 07/14/16 07/14/16 07/14/16 Range/Units 04:36 06:26 06:47 RDW 18.0 H (11.5-15.5) % Plt Count 145 L (150-450) k/uL PT (9.0-12.0) sec Sodium (137-145) mmol/L Potassium (3.5-5.1) mmol/L BUN (9-20) mg/dL Creatinine (0.66-1.25) mg/dL Glucose (74-99) mg/dL POC Glucose (mg/dL) 256 H 268 H (75-99) mg/dL Hemoglobin A1c (4.2-6.1) % Total Creatine Kinase (55-170) U/L CK-MB (CK-2) (0.0-2.4) ng/mL Troponin I (0.000-0.034) ng/mL Urine Glucose (UA) (Negative) Digoxin ng/mL 07/14/16 07/14/16 07/14/16 Range/Units 06:47 06:47 08:40 RDW (11.5-15.5) % Plt Count (150-450) k/uL PT 18.7 H (9.0-12.0) sec Sodium 135 L (137-145) mmol/L Potassium 2.9 L* (3.5-5.1) mmol/L BUN 75 H (9-20) mg/dL Creatinine 1.53 H (0.66-1.25) mg/dL Glucose 247 H (74-99) mg/dL POC Glucose (mg/dL) 268 H (75-99) mg/dL Hemoglobin A1c (4.2-6.1) % Total Creatine Kinase (55-170) U/L CK-MB (CK-2) (0.0-2.4) ng/mL Troponin I (0.000-0.034) ng/mL Urine Glucose (UA) (Negative) Digoxin ng/mL 07/14/16 Range/Units 11:05 RDW (11.5-15.5) % Plt Count (150-450) k/uL PT (9.0-12.0) sec Sodium (137-145) mmol/L Potassium (3.5-5.1) mmol/L BUN (9-20) mg/dL Creatinine (0.66-1.25) mg/dL Glucose (74-99) mg/dL POC Glucose (mg/dL) 385 H (75-99) mg/dL Hemoglobin A1c (4.2-6.1) % Total Creatine Kinase (55-170) U/L CK-MB (CK-2) (0.0-2.4) ng/mL Troponin I (0.000-0.034) ng/mL Urine Glucose (UA) (Negative) Digoxin ng/mL Assessment and Plan Plan: 1. Acute systolic heart failure exacerbation currently on IV Lasix awaiting echocardiogram 2. Paroxysmal atrial fibrillation on anticoagulation with Coumadin. We will continue to monitor INR daily 3. Hypokalemia and hypomagnesemia, will be replaced by protocol 4. Type 2 diabetes mellitus, uncontrolled. A1c 10.6. Currently on insulin drip. Patient reports good compliance at home with his regimen. 5. Digoxin toxicity with slightly elevated digoxin level above therapeutic range. We will repeat levels today. 6. Acute on chronic kidney failure with monitor kidney function closely now that the patient is on IV Lasix 7. Elevated troponin most likely not thrombotic troponin leak. Patient was seen and evaluated by cardiology. Today, I reviewed his medication list and lab work results. Continue current regimen. Attempt to wean off insulin drip possibly toward the end of the day. Replace electrolytes by protocol. Repeat lab work in the morning. Continue telemetry monitoring.
[2016-07-14 12:42] LABS: Glucose,Whole Blood 397 mg/dL (75-99)
[2016-07-14 14:35] LABS: Creatine Kinase MB 5.4 ng/mL (0.0-2.4)
[2016-07-14 14:47] LABS: Glucose,Whole Blood 401 mg/dL (75-99)
[2016-07-14 16:52] LABS: Glucose,Whole Blood 357 mg/dL (75-99)
[2016-07-14] MEDS ORDERED: WARFARIN 2 MG TAB PO ONE (18:00)
[2016-07-14 19:10] LABS: Glucose,Whole Blood 334 mg/dL (75-99)
[2016-07-14 20:25] LABS: Glucose,Whole Blood 304 mg/dL (75-99)
[2016-07-14] MEDS: ATORVASTATIN 40 MG TAB PO SCH (20:56)
[2016-07-14] MEDS: INSULIN DETEMIR 100 UNIT/ML 10 ML VIAL SQ SCH (20:57)
[2016-07-14 22:27] LABS: Glucose,Whole Blood 259 mg/dL (75-99)
[2016-07-15 00:35] LABS: Glucose,Whole Blood 222 mg/dL (75-99)
[2016-07-15 02:26] LABS: Glucose,Whole Blood 235 mg/dL (75-99)
[2016-07-15 04:39] LABS: Glucose,Whole Blood 248 mg/dL (75-99)
[2016-07-15 06:29] LABS: Glucose,Whole Blood 291 mg/dL (75-99)
[2016-07-15] MEDS: PANTOPRAZOLE 40 MG TABLET PO SCH (06:29)
[2016-07-15 06:37] LABS: Anisocytosis Slight; Basophils # (A) 0.1 k/uL (0-0.2); Basophils % (A) 0 %; CH 29.5; CHCM 35.8; Eosinophils # (A) 0.4 k/uL (0-0.7); Eosinophils % (A) 3 %; HDW 4.79; HGB 15.1 gm/dL (13.0-17.5); Hyperchromasia Slight; INR 2.3 (<1.1); Luc # (Auto) 0.42; Luc % (Auto) 4; Lymphocytes # (A) 1.5 k/uL (1.0-4.8); Lymphocytes % (A) 14 %; MCH 28.6 pg (25.0-35.0); MCHC 34.4 g/dL (31.0-37.0); MCV 83.1 fL (80.0-100.0); Mean Platelet Volume 7.4; Monocytes # (A) 0.6 k/uL (0-1.0); Monocytes % (A) 6 %; Neutrophils # (A) 7.8 k/uL (1.3-7.7); Neutrophils % (A) 72 %; Poikilocytosis Marked; Prothrombin Time 21.7 sec (9.0-12.0); RDW 18.3 % (11.5-15.5); WBC 10.8 k/uL (3.8-10.6); WBC (Perox) 10.17
[2016-07-15 06:38] LABS: Calcium 9.7 mg/dL (8.4-10.2); Magnesium 2.1 mg/dL (1.6-2.3); Potassium 3.1 mmol/L (3.5-5.1)
[2016-07-15 08:29] LABS: Glucose,Whole Blood 412 mg/dL (75-99)
[2016-07-15] MEDS: INSULIN REGULAR 100 UNIT in SODIUM CHLORIDE 0.9% 100 ML IV SCH (08:29)
[2016-07-15] MEDS: CHOLECALCIFEROL 1,000 UNIT TAB PO SCH (08:35)
[2016-07-15] MEDS: CARVEDILOL 12.5 MG TAB PO SCH ×2 (08:35→20:53)
[2016-07-15] MEDS: FUROSEMIDE 10 MG/ML 4 ML VIAL IV SCH ×2 (08:36→20:53)
[2016-07-15] MEDS: ASPIRIN 81 MG CHEW PO SCH (08:36)
[2016-07-15] MEDS: ISOSORBIDE DINITRATE 20 MG TAB PO SCH ×2 (08:37→20:53)
[2016-07-15] MEDS: MULTIVITAMINS, THERA 1 EACH TAB PO SCH (08:37)
[2016-07-15] MEDS: MAGNESIUM OXIDE 400 MG TAB PO SCH (08:37)
[2016-07-15] MEDS: POTASSIUM CHLORIDE ER 20 MEQ TAB.ER PO SCH ×4 (08:38→20:54)
[2016-07-15] MEDS: INSULIN DETEMIR 100 UNIT/ML 10 ML VIAL SQ SCH ×2 (08:40→21:03)
--- NOTE | 2016-07-15 11:27 | P.PN ---
Subjective Patient is doing well today. He started on the insulin drip. His shortness of breath has improved since presentation. Echocardiogram is still pending. Objective - Vital Signs Vital signs: Vital Signs Temp 97.8 F 07/15/16 08:00 Pulse 72 07/15/16 08:00 Resp 18 07/15/16 08:00 BP 173/74 07/15/16 08:00 Pulse Ox 95 07/15/16 08:00 Intake & Output 07/14/16 07/15/16 07/15/16 18:59 06:59 18:59 Intake Total 959.330 278.957 19.425 Output Total 400 Balance 559.330 278.957 19.425 Weight 98.9 kg 98.2 kg Intake: IV 340 Insulin Regular 100 unit 100 In Sodium Chloride 0.9% 100 ml @ Titrate IV .Q0M [facility] Rx#:[id number] Sodium Chloride 0.9% 1, 240 000 ml @ 20 mls/hr IV . Q24H [facility] Rx#:[id number] Intake, IV Titration 139.330 78.957 19.425 Amount Insulin Regular 100 unit 139.330 78.957 19.425 In Sodium Chloride 0.9% 100 ml @ Titrate IV .Q0M [facility] Rx#:[id number] Oral 480 200 Output: Urine 400 Other: # Voids 1 # Bowel Movements 0 - Exam General: The patient is awake and alert, in no distress Eye: there is normal conjunctiva bilaterally. Neck: The neck is supple, there is no JVD. Cardiovascular: Normal S1-S2, no S3-S4, no murmurs. Respiratory: Lungs clear to auscultation bilaterally Gastrointestinal: Abdomen is soft, nontender. There is mild distention Musculoskeletal: There is no pedal edema. Neurological:. Speech is normal. Skin: Skin is warm and dry - Labs CBC & Chem 7: 07/15/16 05:47 07/15/16 05:47 Labs: Abnormal Lab Results - Last 24 Hours (Table) 07/13/16 07/14/16 07/14/16 Range/Units 16:39 11:05 12:30 WBC (3.8-10.6) k/uL RDW (11.5-15.5) % Neutrophils # (1.3-7.7) k/uL PT (9.0-12.0) sec Potassium (3.5-5.1) mmol/L Chloride (98-107) mmol/L BUN (9-20) mg/dL Creatinine (0.66-1.25) mg/dL Glucose (74-99) mg/dL POC Glucose (mg/dL) 385 H 397 H (75-99) mg/dL CK-MB (CK-2) 5.4 H* (0.0-2.4) ng/mL 07/14/16 07/14/16 07/14/16 Range/Units 14:35 16:21 18:49 WBC (3.8-10.6) k/uL RDW (11.5-15.5) % Neutrophils # (1.3-7.7) k/uL PT (9.0-12.0) sec Potassium (3.5-5.1) mmol/L Chloride (98-107) mmol/L BUN (9-20) mg/dL Creatinine (0.66-1.25) mg/dL Glucose (74-99) mg/dL POC Glucose (mg/dL) 401 H 357 H 334 H (75-99) mg/dL CK-MB (CK-2) (0.0-2.4) ng/mL 07/14/16 07/14/16 07/15/16 Range/Units 20:24 22:26 00:24 WBC (3.8-10.6) k/uL RDW (11.5-15.5) % Neutrophils # (1.3-7.7) k/uL PT (9.0-12.0) sec Potassium (3.5-5.1) mmol/L Chloride (98-107) mmol/L BUN (9-20) mg/dL Creatinine (0.66-1.25) mg/dL Glucose (74-99) mg/dL POC Glucose (mg/dL) 304 H 259 H 222 H (75-99) mg/dL CK-MB (CK-2) (0.0-2.4) ng/mL 07/15/16 07/15/16 07/15/16 Range/Units 02:25 04:27 05:47 WBC 10.8 H (3.8-10.6) k/uL RDW 18.3 H (11.5-15.5) % Neutrophils # 7.8 H (1.3-7.7) k/uL PT (9.0-12.0) sec Potassium (3.5-5.1) mmol/L Chloride (98-107) mmol/L BUN (9-20) mg/dL Creatinine (0.66-1.25) mg/dL Glucose (74-99) mg/dL POC Glucose (mg/dL) 235 H 248 H (75-99) mg/dL CK-MB (CK-2) (0.0-2.4) ng/mL 07/15/16 07/15/16 07/15/16 Range/Units 05:47 05:47 06:28 WBC (3.8-10.6) k/uL RDW (11.5-15.5) % Neutrophils # (1.3-7.7) k/uL PT 21.7 H (9.0-12.0) sec Potassium 3.1 L (3.5-5.1) mmol/L Chloride 97 L (98-107) mmol/L BUN 73 H (9-20) mg/dL Creatinine 1.64 H (0.66-1.25) mg/dL Glucose 250 H (74-99) mg/dL POC Glucose (mg/dL) 291 H (75-99) mg/dL CK-MB (CK-2) (0.0-2.4) ng/mL 07/15/16 Range/Units 08:25 WBC (3.8-10.6) k/uL RDW (11.5-15.5) % Neutrophils # (1.3-7.7) k/uL PT (9.0-12.0) sec Potassium (3.5-5.1) mmol/L Chloride (98-107) mmol/L BUN (9-20) mg/dL Creatinine (0.66-1.25) mg/dL Glucose (74-99) mg/dL POC Glucose (mg/dL) 412 H (75-99) mg/dL CK-MB (CK-2) (0.0-2.4) ng/mL Assessment and Plan Plan: 1. Acute systolic heart failure exacerbation currently on IV Lasix awaiting echocardiogram report 2. Paroxysmal atrial fibrillation on anticoagulation with Coumadin. We will continue to monitor INR daily 3. Hypokalemia and hypomagnesemia, will be replaced by protocol 4. Type 2 diabetes mellitus, uncontrolled. A1c 10.6. Currently on insulin drip. Patient reports good compliance at home with his regimen. 5. Digoxin toxicity with slightly elevated digoxin level above therapeutic range. We will repeat levels today. 6. Acute on chronic kidney failure with monitor kidney function closely now that the patient is on IV Lasix 7. Elevated troponin most likely not thrombotic troponin leak. Patient was seen and evaluated by cardiology. Today, I reviewed his medication list and lab work results. Continue current regimen. Discontinue insulin drip and start Levemir and Humalog as ordered. Replace electrolytes by protocol. Repeat lab work in the morning. Continue telemetry monitoring.
[2016-07-15 11:41] LABS: Glucose,Whole Blood 313 mg/dL (75-99)
[2016-07-15] MEDS: INSULIN LISPRO (humaLOG) 300 UNIT/3 ML VIAL SQ SCH ×5 (12:25→22:07)
[2016-07-15] MEDS: SODIUM CHLORIDE 0.9% 1,000 ML IV SCH (12:31)
--- NOTE | 2016-07-15 14:01 | P.PN ---
Subjective This is a 71-year-old gentleman who follows regularly with Dr. Elias at [facility], primary care doctor is Dr. Velasquez, he has a history of paroxysmal atrial fibrillation, coronary artery disease or bypass surgery in 2000, AICD, diabetes, hypertension, hyperlipidemia, renal disease, AAA, he presents to the hospital mainly with complaints of generalized malaise and tiredness. He also states that he feels more short of breath than usual, he denies any PND or orthopnea, denies any chest discomfort. No peripheral edema. According to the patient, he also states that his blood sugars have been quite high at home. EKG on arrival here shows a ventricular paced rhythm with a right bundle branch block pattern. Patient is noted to have brief runs of nonsustained VT on the monitor. Asked x-ray did not reveal any acute process. CAT scan of the brain did not reveal any acute intracranial abnormality, small vessel ischemic change noted. 07/15/2016 Patient has been diuresing well on IV Lasix. States that his breathing is improving, however after he eats he feels significantly bloated, has pressure in his upper abdominal area and feels short of breath. He also states that he feels very constipated. Blood pressure 173/74 this morning with a heart rate in the 70s. WBC 10.8, hemoglobin 15.1, INR 2.3, potassium 3.1, BUN 73, creatinine 1.6. Objective - Vital Signs Vital signs: Vital Signs Temp 97.8 F 07/15/16 08:00 Pulse 72 07/15/16 08:00 Resp 18 07/15/16 08:00 BP 173/74 07/15/16 08:00 Pulse Ox 95 07/15/16 08:00 Intake & Output 07/14/16 07/15/16 07/15/16 18:59 06:59 18:59 Intake Total 959.330 278.957 119.425 Output Total 400 Balance 559.330 278.957 119.425 Weight 98.9 kg 98.2 kg Intake: IV 340 Insulin Regular 100 unit 100 In Sodium Chloride 0.9% 100 ml @ Titrate IV .Q0M [facility] Rx#:[id number] Sodium Chloride 0.9% 1, 240 000 ml @ 20 mls/hr IV . Q24H [facility] Rx#:[id number] Intake, IV Titration 139.330 78.957 19.425 Amount Insulin Regular 100 unit 139.330 78.957 19.425 In Sodium Chloride 0.9% 100 ml @ Titrate IV .Q0M [facility] Rx#:[id number] Oral 480 200 100 Output: Urine 400 Other: # Voids 1 1 # Bowel Movements 0 - Exam PHYSICAL EXAMINATION: HEENT: Head is atraumatic, normocephalic. Pupils equal, round. Neck is supple. There is no elevated jugular venous pressure. HEART EXAMINATION: Heart S1 and S2 systolic murmur heard CHEST EXAMINATION: Lungs are clear to auscultation and precussion. No chest wall tenderness is noted on palpation or with deep breathing. ABDOMEN: Distended, mid upper abdominal tenderness and bloating EXTREMITIES: 2+ peripheral pulses with no evidence of peripheral edema and no calf tenderness noted. NEUROLOGIC patient is awake, alert and oriented -3. - Labs CBC & Chem 7: 07/15/16 05:47 07/15/16 05:47 Labs: Abnormal Lab Results - Last 24 Hours (Table) 07/13/16 07/14/16 07/14/16 Range/Units 16:39 14:35 16:21 WBC (3.8-10.6) k/uL RDW (11.5-15.5) % Neutrophils # (1.3-7.7) k/uL PT (9.0-12.0) sec Potassium (3.5-5.1) mmol/L Chloride (98-107) mmol/L BUN (9-20) mg/dL Creatinine (0.66-1.25) mg/dL Glucose (74-99) mg/dL POC Glucose (mg/dL) 401 H 357 H (75-99) mg/dL CK-MB (CK-2) 5.4 H* (0.0-2.4) ng/mL 07/14/16 07/14/16 07/14/16 Range/Units 18:49 20:24 22:26 WBC (3.8-10.6) k/uL RDW (11.5-15.5) % Neutrophils # (1.3-7.7) k/uL PT (9.0-12.0) sec Potassium (3.5-5.1) mmol/L Chloride (98-107) mmol/L BUN (9-20) mg/dL Creatinine (0.66-1.25) mg/dL Glucose (74-99) mg/dL POC Glucose (mg/dL) 334 H 304 H 259 H (75-99) mg/dL CK-MB (CK-2) (0.0-2.4) ng/mL 07/15/16 07/15/16 07/15/16 Range/Units 00:24 02:25 04:27 WBC (3.8-10.6) k/uL RDW (11.5-15.5) % Neutrophils # (1.3-7.7) k/uL PT (9.0-12.0) sec Potassium (3.5-5.1) mmol/L Chloride (98-107) mmol/L BUN (9-20) mg/dL Creatinine (0.66-1.25) mg/dL Glucose (74-99) mg/dL POC Glucose (mg/dL) 222 H 235 H 248 H (75-99) mg/dL CK-MB (CK-2) (0.0-2.4) ng/mL 07/15/16 07/15/16 07/15/16 Range/Units 05:47 05:47 05:47 WBC 10.8 H (3.8-10.6) k/uL RDW 18.3 H (11.5-15.5) % Neutrophils # 7.8 H (1.3-7.7) k/uL PT 21.7 H (9.0-12.0) sec Potassium 3.1 L (3.5-5.1) mmol/L Chloride 97 L (98-107) mmol/L BUN 73 H (9-20) mg/dL Creatinine 1.64 H (0.66-1.25) mg/dL Glucose 250 H (74-99) mg/dL POC Glucose (mg/dL) (75-99) mg/dL CK-MB (CK-2) (0.0-2.4) ng/mL 07/15/16 07/15/16 07/15/16 Range/Units 06:28 08:25 11:39 WBC (3.8-10.6) k/uL RDW (11.5-15.5) % Neutrophils # (1.3-7.7) k/uL PT (9.0-12.0) sec Potassium (3.5-5.1) mmol/L Chloride (98-107) mmol/L BUN (9-20) mg/dL Creatinine (0.66-1.25) mg/dL Glucose (74-99) mg/dL POC Glucose (mg/dL) 291 H 412 H 313 H (75-99) mg/dL CK-MB (CK-2) (0.0-2.4) ng/mL Assessment and Plan Plan: Assessment and Plan #1 symptoms of generalized malaise and fatigue #2 systolic congestive heart failure acute on chronic #3 hyperglycemia #4 known history of coronary artery disease with prior bypass surgery # 5 AICD implant #6 digitoxicity #7 hypokalemia #8 hypomagnesemia #9 acute on chronic renal failure #10 hypertension #11 diabetes history #12 paroxysmal atrial fibrillation, on Coumadin, INR subtherapeutic #13 hyperlipidemia #14 abnormal troponins not suggestive of acute coronary syndrome, no significant rise and fall noted. Patient denies having any chest discomfort could be secondary to abnormal renal function. Plan We'll continue IV Lasix for another 24 hours. Check lytes BUN and creatinine in the morning. DNP note has been reviewed, I agree with a documented findings and plan of care. Patient was seen and examined.
--- NOTE | 2016-07-15 15:42 | ECHOF ---
Referral Reason:chf MEASUREMENTS -------- HEIGHT: 182.9 cm WEIGHT: 98.9 kg BP: 132/67 RVIDd: 3.5 cm (< 3.3) Ao Diam: 3.5 cm (2.0 - 3.7) AV Cusp: 1.3 cm (1.5 - 2.6) LA Diam: 4.2 cm (2.7 - 3.8) MV E Jad: 0.46 m/s MV DecT: 133 ms MV A Jad: 0.66 m/s MV E/A Ratio: 0.70 AV maxP.56 mmHg AV meanP.50 mmHg FINDINGS -------- Sinus rhythm. This was a technically difficult study with suboptimal views. There is severe global hypokinesis of LV . Overall left ventricular systolic function is severely impaired with, an EF between 20 - 25 %. The right ventricle is mildly enlarged. The left atrium is mildly dilated. The right atrium was not well visualized. 1.5mg of Definity was utilized for enhancement of images Aortic valve is trileaflet and is mildly thickened. There is mild aortic stenosis present. Peak/mean gradient across the Aortic Valve is 17.56mmHg / 10.50mmHg. The mitral valve leaflets are mildly thickened. There is trace mitral regurgitation. Trace tricuspid regurgitation present. The right ventricular systolic pressure, as measured by Doppler, is {RVSP}. Pulmonic valve appears structurally normal. The aortic root size is normal. The pericardium is normal. CONCLUSIONS -------- 1. Sinus rhythm. 2. There is mild aortic stenosis present. 3. Peak/mean gradient across the Aortic Valve is 17.56mmHg / 10.50mmHg. 4. The mitral valve leaflets are mildly thickened. 5. There is trace mitral regurgitation. 6. Trace tricuspid regurgitation present. 7. The right ventricular systolic pressure, as measured by Doppler, is {RVSP}. 8. Pulmonic valve appears structurally normal. 9. The aortic root size is normal. 10. The pericardium is normal. 11. This was a technically difficult study with suboptimal views. 12. There is severe global hypokinesis of LV . 13. Overall left ventricular systolic function is severely impaired with, an EF between 20 - 25 %. 14. The right ventricle is mildly enlarged. 15. The left atrium is mildly dilated. 16. The right atrium was not well visualized. 17. 1.5mg of Definity was utilized for enhancement of images 18. Aortic valve is trileaflet and is mildly thickened. [employer]ER: Yadira Toscano RDCS
[2016-07-15 16:47] LABS: Glucose,Whole Blood 306 mg/dL (75-99)
[2016-07-15] MEDS: WARFARIN 3 MG TAB PO SCH (17:28)
[2016-07-15] MEDS: ATORVASTATIN 40 MG TAB PO SCH (20:53)
[2016-07-15 21:12] LABS: Glucose,Whole Blood 318 mg/dL (75-99)
[2016-07-15] MEDS ORDERED: POTASSIUM CHLORIDE ER 20 MEQ TAB.ER PO STA (22:10)
[2016-07-16] MEDS: INSULIN LISPRO (humaLOG) 300 UNIT/3 ML VIAL SQ SCH ×7 (06:22→21:20)
[2016-07-16 06:33] LABS: Anisocytosis Slight; Basophils % (A) 0 %; CHCM 35.3; Eosinophils # (A) 0.3 k/uL (0-0.7); Eosinophils % (A) 4 %; HCT 43.6 % (39.0-53.0); HDW 4.91; HGB 14.4 gm/dL (13.0-17.5); Hyperchromasia Slight; Luc # (Auto) 0.32; Luc % (Auto) 4; Lymphocytes # (A) 1.5 k/uL (1.0-4.8); Lymphocytes % (A) 17 %; MCH 27.3 pg (25.0-35.0); MCV 82.9 fL (80.0-100.0); Mean Platelet Volume 7.7; Monocytes # (A) 0.5 k/uL (0-1.0); Monocytes % (A) 6 %; Neutrophils # (A) 6.2 k/uL (1.3-7.7); Neutrophils % (A) 70 %; Poikilocytosis Marked; RBC 5.26 m/uL (4.30-5.90); RDW 18.5 % (11.5-15.5); WBC 8.9 k/uL (3.8-10.6); WBC (Perox) 9.34
[2016-07-16 06:43] LABS: INR 2.3 (<1.1); Prothrombin Time 21.9 sec (9.0-12.0)
[2016-07-16 06:45] LABS: Calcium 9.4 mg/dL (8.4-10.2); Magnesium 2.1 mg/dL (1.6-2.3); Potassium 3.4 mmol/L (3.5-5.1)
[2016-07-16 07:01] LABS: Glucose,Whole Blood 384 mg/dL (75-99)
[2016-07-16] MEDS: PANTOPRAZOLE 40 MG TABLET PO SCH (07:11)
[2016-07-16] MEDS: CARVEDILOL 12.5 MG TAB PO SCH ×2 (09:35→21:17)
[2016-07-16] MEDS: MAGNESIUM OXIDE 400 MG TAB PO SCH (09:35)
[2016-07-16] MEDS: ASPIRIN 81 MG CHEW PO SCH (09:35)
[2016-07-16] MEDS: FUROSEMIDE 10 MG/ML 4 ML VIAL IV SCH ×2 (09:35→21:17)
[2016-07-16] MEDS: CHOLECALCIFEROL 1,000 UNIT TAB PO SCH (09:35)
[2016-07-16] MEDS: POTASSIUM CHLORIDE ER 20 MEQ TAB.ER PO SCH ×4 (09:36→21:16)
[2016-07-16] MEDS: MULTIVITAMINS, THERA 1 EACH TAB PO SCH (09:36)
[2016-07-16] MEDS: ISOSORBIDE DINITRATE 20 MG TAB PO SCH ×2 (09:36→21:18)
[2016-07-16] MEDS: INSULIN DETEMIR 100 UNIT/ML 10 ML VIAL SQ SCH ×2 (09:39→21:17)
--- NOTE | 2016-07-16 11:35 | P.PN ---
Subjective This is a 71-year-old gentleman who follows regularly with Dr. Elias at [facility], primary care doctor is Dr. Velasquez, he has a history of paroxysmal atrial fibrillation, coronary artery disease or bypass surgery in 2000, AICD, diabetes, hypertension, hyperlipidemia, renal disease, AAA, he presents to the hospital mainly with complaints of generalized malaise and tiredness. He also states that he feels more short of breath than usual, he denies any PND or orthopnea, denies any chest discomfort. No peripheral edema. According to the patient, he also states that his blood sugars have been quite high at home. EKG on arrival here shows a ventricular paced rhythm with a right bundle branch block pattern. Patient is noted to have brief runs of nonsustained VT on the monitor. Asked x-ray did not reveal any acute process. CAT scan of the brain did not reveal any acute intracranial abnormality, small vessel ischemic change noted. 07/15/2016 Patient has been diuresing well on IV Lasix. States that his breathing is improving, however after he eats he feels significantly bloated, has pressure in his upper abdominal area and feels short of breath. He also states that he feels very constipated. Blood pressure 173/74 this morning with a heart rate in the 70s. WBC 10.8, hemoglobin 15.1, INR 2.3, potassium 3.1, BUN 73, creatinine 1.6. 07/16/2016. Patient continues to diurese well on IV Lasix. Creatinine today is 1.6. 2000 out through the night last night. We will add an [place] inhibitor to his medication regime. Check lytes BUN and creatinine in the morning. Objective - Vital Signs Vital signs: Vital Signs Temp 97.7 F 07/16/16 08:00 Pulse 97 07/16/16 08:00 Resp 18 07/16/16 08:00 BP 140/69 07/16/16 08:00 Pulse Ox 95 07/16/16 08:00 Intake & Output 07/15/16 07/16/16 07/16/16 18:59 06:59 18:59 Intake Total 359.425 560 Output Total 0 Balance 359.425 -1490 Weight 99.1 kg Intake: IV 160 Sodium Chloride 0.9% 1, 160 000 ml @ 20 mls/hr IV . Q24H [facility] Rx#:[id number] Intake, IV Titration 19.425 Amount Insulin Regular 100 unit 19.425 In Sodium Chloride 0.9% 100 ml @ Titrate IV .Q0M [facility] Rx#:[id number] Oral 340 400 Output: Urine 2049 Other: Voiding Method Toilet Toilet # Voids 1 1 - Exam PHYSICAL EXAMINATION: HEENT: Head is atraumatic, normocephalic. Pupils equal, round. Neck is supple. There is no elevated jugular venous pressure. HEART EXAMINATION: Heart S1 and S2 systolic murmur heard CHEST EXAMINATION: Lungs are clear to auscultation and precussion. No chest wall tenderness is noted on palpation or with deep breathing. ABDOMEN: Distended, mid upper abdominal tenderness and bloating EXTREMITIES: 2+ peripheral pulses with no evidence of peripheral edema and no calf tenderness noted. NEUROLOGIC patient is awake, alert and oriented -3. - Labs CBC & Chem 7: 07/16/16 06:18 07/16/16 06:18 Labs: Abnormal Lab Results - Last 24 Hours (Table) 07/15/16 07/15/16 07/15/16 Range/Units 11:39 16:46 21:10 RDW (11.5-15.5) % PT (9.0-12.0) sec Potassium (3.5-5.1) mmol/L Carbon Dioxide (22-30) mmol/L BUN (9-20) mg/dL Creatinine (0.66-1.25) mg/dL Glucose (74-99) mg/dL POC Glucose (mg/dL) 313 H 306 H 318 H (75-99) mg/dL 07/16/16 07/16/16 07/16/16 Range/Units 06:17 06:18 06:18 RDW 18.5 H (11.5-15.5) % PT 21.9 H (9.0-12.0) sec Potassium (3.5-5.1) mmol/L Carbon Dioxide (22-30) mmol/L BUN (9-20) mg/dL Creatinine (0.66-1.25) mg/dL Glucose (74-99) mg/dL POC Glucose (mg/dL) 384 H (75-99) mg/dL 07/16/16 Range/Units 06:18 RDW (11.5-15.5) % PT (9.0-12.0) sec Potassium 3.4 L (3.5-5.1) mmol/L Carbon Dioxide 21 L (22-30) mmol/L BUN 67 H (9-20) mg/dL Creatinine 1.61 H (0.66-1.25) mg/dL Glucose 343 H (74-99) mg/dL POC Glucose (mg/dL) (75-99) mg/dL Assessment and Plan Plan: Assessment and Plan #1 symptoms of generalized malaise and fatigue #2 systolic congestive heart failure acute on chronic #3 hyperglycemia #4 known history of coronary artery disease with prior bypass surgery # 5 AICD implant #6 digitoxicity #7 hypokalemia #8 hypomagnesemia #9 acute on chronic renal failure #10 hypertension #11 diabetes history #12 paroxysmal atrial fibrillation, on Coumadin, INR subtherapeutic #13 hyperlipidemia #14 abnormal troponins not suggestive of acute coronary syndrome, no significant rise and fall noted. Patient denies having any chest discomfort could be secondary to abnormal renal function. Plan We'll continue IV Lasix for another 24 hours. Check lytes BUN and creatinine in the morning. Add Prinivil 10 mg by mouth daily to his medication regime. DNP note has been reviewed, I agree with a documented findings and plan of care. Patient was seen and examined.
--- NOTE | 2016-07-16 11:37 | P.PN ---
Subjective patient is feeling slightly better today. He had a lot of relief after having a bowel movement earlier. Shortness of breath is improving. Objective - Vital Signs Vital signs: Vital Signs Temp 97.7 F 07/16/16 08:00 Pulse 97 07/16/16 08:00 Resp 18 07/16/16 08:00 BP 140/69 07/16/16 08:00 Pulse Ox 95 07/16/16 08:00 Intake & Output 07/15/16 07/16/16 07/16/16 18:59 06:59 18:59 Intake Total 359.425 560 Output Total 2049 Balance 359.425 -1490 Weight 99.1 kg Intake: IV 160 Sodium Chloride 0.9% 1, 160 000 ml @ 20 mls/hr IV . Q24H [facility] Rx#:[id number] Intake, IV Titration 19.425 Amount Insulin Regular 100 unit 19.425 In Sodium Chloride 0.9% 100 ml @ Titrate IV .Q0M [facility] Rx#:[id number] Oral 340 400 Output: Urine 2049 Other: Voiding Method Toilet Toilet # Voids 1 1 - Exam General: The patient is awake and alert, in no distress Eye: there is normal conjunctiva bilaterally. Neck: The neck is supple, there is no JVD. Cardiovascular: Normal S1-S2, no S3-S4, no murmurs. Respiratory: Lungs clear to auscultation bilaterally Gastrointestinal: Abdomen is soft, nontender. There is mild distention Musculoskeletal: There is no pedal edema. Neurological:. Speech is normal. Skin: Skin is warm and dry - Labs CBC & Chem 7: 07/16/16 06:18 07/16/16 06:18 Labs: Abnormal Lab Results - Last 24 Hours (Table) 07/15/16 07/15/16 07/15/16 Range/Units 11:39 16:46 21:10 RDW (11.5-15.5) % PT (9.0-12.0) sec Potassium (3.5-5.1) mmol/L Carbon Dioxide (22-30) mmol/L BUN (9-20) mg/dL Creatinine (0.66-1.25) mg/dL Glucose (74-99) mg/dL POC Glucose (mg/dL) 313 H 306 H 318 H (75-99) mg/dL 07/16/16 07/16/16 07/16/16 Range/Units 06:17 06:18 06:18 RDW 18.5 H (11.5-15.5) % PT 21.9 H (9.0-12.0) sec Potassium (3.5-5.1) mmol/L Carbon Dioxide (22-30) mmol/L BUN (9-20) mg/dL Creatinine (0.66-1.25) mg/dL Glucose (74-99) mg/dL POC Glucose (mg/dL) 384 H (75-99) mg/dL 07/16/16 Range/Units 06:18 RDW (11.5-15.5) % PT (9.0-12.0) sec Potassium 3.4 L (3.5-5.1) mmol/L Carbon Dioxide 21 L (22-30) mmol/L BUN 67 H (9-20) mg/dL Creatinine 1.61 H (0.66-1.25) mg/dL Glucose 343 H (74-99) mg/dL POC Glucose (mg/dL) (75-99) mg/dL Assessment and Plan Plan: 1. Acute systolic heart failure exacerbation currently on IV Lasix awaiting echocardiogram report 2. Paroxysmal atrial fibrillation on anticoagulation with Coumadin. We will continue to monitor INR daily 3. Hypokalemia and hypomagnesemia, will be replaced by protocol 4. Type 2 diabetes mellitus, uncontrolled. A1c 10.6. Insulin regimen adjusted given uncontrolled blood glucose. Increase Levemir 40 units twice a day. 5. Digoxin toxicity with slightly elevated digoxin level above therapeutic range. We will repeat levels today. 6. Acute on chronic kidney failure with monitor kidney function closely now that the patient is on IV Lasix 7. Elevated troponin most likely not thrombotic troponin leak. Patient was seen and evaluated by cardiology. Today, I reviewed his medication list and lab work results. Continue current regimen. Replace electrolytes by protocol. Repeat lab work in the morning. Continue telemetry monitoring.
[2016-07-16 11:40] LABS: Glucose,Whole Blood 481 mg/dL (75-99)
[2016-07-16] MEDS: SODIUM CHLORIDE 0.9% 1,000 ML IV SCH (13:06)
[2016-07-16 13:23] LABS: Glucose,Whole Blood 455 mg/dL (75-99)
[2016-07-16 14:19] LABS: Glucose,Whole Blood 451 mg/dL (75-99)
[2016-07-16 15:31] LABS: Glucose,Whole Blood 373 mg/dL (75-99)
[2016-07-16 16:25] LABS: Glucose,Whole Blood 373 mg/dL (75-99)
[2016-07-16] MEDS ORDERED: Potassium Replacement Protocol 1 EACH MISC MISCELLANE PRN (16:27)
[2016-07-16] MEDS: WARFARIN 3 MG TAB PO SCH (18:35)
[2016-07-16] MEDS: ATORVASTATIN 40 MG TAB PO SCH (21:16)
[2016-07-16 21:30] LABS: Glucose,Whole Blood 333 mg/dL (75-99)
[2016-07-16] MEDS ORDERED: POTASSIUM CHLORIDE ER 20 MEQ TAB.ER PO STA (21:35)
[2016-07-17 01:33] LABS: Glucose,Whole Blood 344 mg/dL (75-99)
[2016-07-17 06:11] LABS: Glucose,Whole Blood 372 mg/dL (75-99)
[2016-07-17 06:31] LABS: Anisocytosis Slight; Basophils % (A) 1 %; CH 29.6; CHCM 36.5; Eosinophils # (A) 0.3 k/uL (0-0.7); Eosinophils % (A) 3 %; HCT 38.4 % (39.0-53.0); HDW 5.11; HGB 13.6 gm/dL (13.0-17.5); Hyperchromasia Moderate; INR 2.5 (<1.1); Luc # (Auto) 0.33; Luc % (Auto) 4; Lymphocytes # (A) 1.6 k/uL (1.0-4.8); Lymphocytes % (A) 20 %; MCH 29.1 pg (25.0-35.0); MCHC 35.4 g/dL (31.0-37.0); MCV 82.1 fL (80.0-100.0); Mean Platelet Volume 7.5; Microcytosis Slight; Monocytes # (A) 0.5 k/uL (0-1.0); Monocytes % (A) 6 %; Neutrophils # (A) 5.2 k/uL (1.3-7.7); Neutrophils % (A) 65 %; Poikilocytosis Marked; Prothrombin Time 23.9 sec (9.0-12.0); RBC 4.67 m/uL (4.30-5.90); RDW 19.1 % (11.5-15.5); WBC (Perox) 8.35
[2016-07-17 06:35] LABS: Anion Gap 13 mmol/L; Blood Urea Nitrogen 52 mg/dL (9-20); Calcium 9.1 mg/dL (8.4-10.2); Carbon Dioxide 23 mmol/L (22-30); Chloride 101 mmol/L (98-107); Glucose 316 mg/dL (74-99); Magnesium 1.8 mg/dL (1.6-2.3); Non-African American GFR(MDRD) 50 (>60 ml/min/1.73 sqM); Potassium 3.3 mmol/L (3.5-5.1); Sodium 137 mmol/L (137-145)
[2016-07-17] MEDS: INSULIN LISPRO (humaLOG) 300 UNIT/3 ML VIAL SQ SCH ×7 (06:47→21:18)
[2016-07-17] MEDS: PANTOPRAZOLE 40 MG TABLET PO SCH (06:56)
[2016-07-17] MEDS: INSULIN DETEMIR 100 UNIT/ML 10 ML VIAL SQ SCH ×2 (09:30→21:17)
[2016-07-17] MEDS: POTASSIUM CHLORIDE ER 20 MEQ TAB.ER PO SCH ×6 (11:19→22:44)
[2016-07-17] MEDS: CHOLECALCIFEROL 1,000 UNIT TAB PO SCH (11:19)
[2016-07-17] MEDS: CARVEDILOL 12.5 MG TAB PO SCH ×2 (11:20→21:10)
[2016-07-17] MEDS: MULTIVITAMINS, THERA 1 EACH TAB PO SCH (11:20)
[2016-07-17] MEDS: FUROSEMIDE 10 MG/ML 4 ML VIAL IV SCH (11:20)
[2016-07-17] MEDS: MAGNESIUM OXIDE 400 MG TAB PO SCH (11:21)
[2016-07-17] MEDS: LISINOPRIL 10 MG TAB PO SCH (11:21)
[2016-07-17] MEDS: ASPIRIN 81 MG CHEW PO SCH (11:21)
[2016-07-17] MEDS: ISOSORBIDE DINITRATE 20 MG TAB PO SCH ×2 (11:21→21:10)
[2016-07-17] MEDS: SODIUM CHLORIDE 0.9% 1,000 ML IV SCH (11:22)
[2016-07-17 11:28] LABS: Glucose,Whole Blood 420 mg/dL (75-99)
--- NOTE | 2016-07-17 11:44 | PN ---
Mr. Taylor is doing well. He is lying flat in bed and is comfortable. Blood pressure 148/68 mmHg. Temperature 96.8 degrees Fahrenheit. Pulse rate in the 80s. Head and neck examination normal. Heart sounds are normal. Lungs are clear on auscultation. SUGGEST: Continue current medications and from a heart failure standpoint, he is definitely showing improvement. He normally takes Bumex 6 mg in the morning and 4 mg in the evening. This should be increased to 6 mg twice a day and Lasix will be discontinued in the next 12 to 24 hours. I will sign off. Please call as needed.
[2016-07-17 13:12] LABS: Glucose,Whole Blood 381 mg/dL (75-99)
--- NOTE | 2016-07-17 14:01 | P.PN ---
Subjective patient is feeling better today. Shortness of breath is improving. Objective - Vital Signs Vital signs: Vital Signs Temp 96.6 F L 07/17/16 12:00 Pulse 67 07/17/16 12:00 Resp 18 07/17/16 12:00 BP 164/77 07/17/16 12:00 Pulse Ox 94 L 07/17/16 12:00 Intake & Output 07/16/16 07/17/16 07/17/16 18:59 06:59 18:59 Intake Total 400 480 640 Output Total 400 1500 Balance 0 -1020 640 Weight 99 kg Intake: IV 160 160 Sodium Chloride 0.9% 1, 160 160 000 ml @ 20 mls/hr IV . Q24H [facility] Rx#:[id number] Oral 240 480 480 Output: Urine 400 1500 Other: Voiding Method Toilet Toilet Toilet # Voids 1 1 - Exam General: The patient is awake and alert, in no distress Eye: there is normal conjunctiva bilaterally. Neck: The neck is supple, there is no JVD. Cardiovascular: Normal S1-S2, no S3-S4, no murmurs. Respiratory: Lungs clear to auscultation bilaterally Gastrointestinal: Abdomen is soft, nontender. There is mild distention Musculoskeletal: There is no pedal edema. Neurological:. Speech is normal. Skin: Skin is warm and dry - Labs CBC & Chem 7: 07/17/16 06:14 07/17/16 06:14 Labs: Abnormal Lab Results - Last 24 Hours (Table) 07/16/16 07/16/16 07/16/16 Range/Units 14:06 15:26 16:21 Hct (39.0-53.0) % RDW (11.5-15.5) % Plt Count (150-450) k/uL PT (9.0-12.0) sec Potassium (3.5-5.1) mmol/L BUN (9-20) mg/dL Creatinine (0.66-1.25) mg/dL Glucose (74-99) mg/dL POC Glucose (mg/dL) 451 H 373 H 373 H (75-99) mg/dL 07/16/16 07/16/16 07/17/16 Range/Units 20:48 21:14 01:31 Hct (39.0-53.0) % RDW (11.5-15.5) % Plt Count (150-450) k/uL PT (9.0-12.0) sec Potassium 3.3 L (3.5-5.1) mmol/L BUN (9-20) mg/dL Creatinine (0.66-1.25) mg/dL Glucose (74-99) mg/dL POC Glucose (mg/dL) 333 H 344 H (75-99) mg/dL 07/17/16 07/17/16 07/17/16 Range/Units 05:59 06:14 06:14 Hct 38.4 L (39.0-53.0) % RDW 19.1 H (11.5-15.5) % Plt Count 139 L (150-450) k/uL PT 23.9 H (9.0-12.0) sec Potassium (3.5-5.1) mmol/L BUN (9-20) mg/dL Creatinine (0.66-1.25) mg/dL Glucose (74-99) mg/dL POC Glucose (mg/dL) 372 H (75-99) mg/dL 07/17/16 07/17/16 07/17/16 Range/Units 06:14 11:26 12:59 Hct (39.0-53.0) % RDW (11.5-15.5) % Plt Count (150-450) k/uL PT (9.0-12.0) sec Potassium 3.3 L (3.5-5.1) mmol/L BUN 52 H (9-20) mg/dL Creatinine 1.41 H (0.66-1.25) mg/dL Glucose 316 H (74-99) mg/dL POC Glucose (mg/dL) 420 H 381 H (75-99) mg/dL Assessment and Plan Plan: 1. Acute systolic heart failure exacerbation currently on IV Lasix awaiting echocardiogram report 2. Paroxysmal atrial fibrillation on anticoagulation with Coumadin. We will continue to monitor INR daily 3. Hypokalemia and hypomagnesemia, will be replaced by protocol 4. Type 2 diabetes mellitus, uncontrolled. A1c 10.6. Insulin regimen adjusted given uncontrolled blood glucose. Increase Levemir 40 units twice a day. 5. Digoxin toxicity with slightly elevated digoxin level above therapeutic range. We will repeat levels today. 6. Acute on chronic kidney failure with monitor kidney function closely now that the patient is on IV Lasix 7. Elevated troponin most likely not thrombotic troponin leak. Patient was seen and evaluated by cardiology. Today, I reviewed his medication list and lab work results. Change IV Lasix to oral Bumex 6 mg twice daily. Insulin regimen adjusted and increased. Continue current regimen otherwise. Replace electrolytes by protocol. Repeat lab work in the morning. Continue telemetry monitoring.
[2016-07-17 16:37] LABS: Glucose,Whole Blood 342 mg/dL (75-99)
[2016-07-17] MEDS: BUMETANIDE 1 MG TAB PO SCH (17:21)
[2016-07-17] MEDS: WARFARIN 3 MG TAB PO SCH (17:22)
[2016-07-17] MEDS: ATORVASTATIN 40 MG TAB PO SCH (21:10)
[2016-07-17 21:43] LABS: Glucose,Whole Blood 355 mg/dL (75-99)
[2016-07-18] MEDS ORDERED: Potassium Replacement Protocol 1 EACH MISC MISCELLANE PRN (01:42)
[2016-07-18] MEDS: POTASSIUM CHLORIDE ER 20 MEQ TAB.ER PO SCH ×4 (04:07→20:57)
[2016-07-18] MEDS: PANTOPRAZOLE 40 MG TABLET PO SCH (05:11)
[2016-07-18] MEDS: BUMETANIDE 1 MG TAB PO SCH (05:11)
[2016-07-18 05:51] LABS: Glucose,Whole Blood 277 mg/dL (75-99)
[2016-07-18 07:22] LABS: Anisocytosis Slight; Basophils % (A) 1 %; CH 29.2; CHCM 34.6; Eosinophils # (A) 0.3 k/uL (0-0.7); Eosinophils % (A) 3 %; HCT 39.5 % (39.0-53.0); HDW 4.83; HGB 13.4 gm/dL (13.0-17.5); Hyperchromasia Slight; Luc # (Auto) 0.33; Luc % (Auto) 4; Lymphocytes # (A) 1.5 k/uL (1.0-4.8); Lymphocytes % (A) 16 %; MCHC 33.9 g/dL (31.0-37.0); MCV 85.6 fL (80.0-100.0); Mean Platelet Volume 7.8; Monocytes # (A) 0.6 k/uL (0-1.0); Monocytes % (A) 6 %; Neutrophils # (A) 6.7 k/uL (1.3-7.7); Neutrophils % (A) 71 %; Poikilocytosis Marked; RBC 4.62 m/uL (4.30-5.90); RDW 19.6 % (11.5-15.5); WBC 9.4 k/uL (3.8-10.6); WBC (Perox) 9.64
[2016-07-18 07:26] LABS: INR 2.4 (<1.1); Prothrombin Time 22.9 sec (9.0-12.0)
[2016-07-18 07:28] LABS: Calcium 8.8 mg/dL (8.4-10.2); Magnesium 1.7 mg/dL (1.6-2.3)
[2016-07-18] MEDS: INSULIN LISPRO (humaLOG) 300 UNIT/3 ML VIAL SQ SCH ×7 (07:48→21:36)
[2016-07-18] MEDS: ISOSORBIDE DINITRATE 20 MG TAB PO SCH ×2 (08:51→20:57)
[2016-07-18] MEDS: ASPIRIN 81 MG CHEW PO SCH (08:51)
[2016-07-18] MEDS: CHOLECALCIFEROL 1,000 UNIT TAB PO SCH (08:51)
[2016-07-18] MEDS: MAGNESIUM OXIDE 400 MG TAB PO SCH (08:52)
[2016-07-18] MEDS: CARVEDILOL 12.5 MG TAB PO SCH ×2 (08:53→20:57)
[2016-07-18] MEDS: LISINOPRIL 10 MG TAB PO SCH (08:53)
[2016-07-18] MEDS: INSULIN DETEMIR 100 UNIT/ML 10 ML VIAL SQ SCH ×2 (09:12→20:58)
[2016-07-18 09:18] LABS: Glucose,Whole Blood 407 mg/dL (75-99)
[2016-07-18 11:58] LABS: Glucose,Whole Blood 384 mg/dL (75-99)
[2016-07-18] MEDS: MULTIVITAMINS, THERA 1 EACH TAB PO SCH (12:17)
--- NOTE | 2016-07-18 14:07 | P.PN ---
Subjective patient is feeling well today. Shortness of breath is improving. Blood glucose remained not well controlled. Creatinine has significantly worse overnight. Objective - Vital Signs Vital signs: Vital Signs Temp 97.5 F L 07/18/16 12:00 Pulse 62 07/18/16 12:00 Resp 18 07/18/16 12:00 BP 107/54 07/18/16 12:00 Pulse Ox 98 07/18/16 12:00 Intake & Output 07/17/16 07/18/16 07/18/16 18:59 06:59 18:59 Intake Total 640 920 320 Balance 640 920 320 Weight 98.5 kg Intake: IV 160 320 Sodium Chloride 0.9% 1, 160 320 000 ml @ 20 mls/hr IV . Q24H [facility] Rx#:[id number] Oral 480 600 320 Other: Voiding Method Toilet Toilet # Voids 2 1 - Exam General: The patient is awake and alert, in no distress Eye: there is normal conjunctiva bilaterally. Neck: The neck is supple, there is no JVD. Cardiovascular: Normal S1-S2, no S3-S4, no murmurs. Respiratory: Lungs clear to auscultation bilaterally Gastrointestinal: Abdomen is soft, nontender. There is mild distention Musculoskeletal: There is no pedal edema. Neurological:. Speech is normal. Skin: Skin is warm and dry - Labs CBC & Chem 7: 07/18/16 06:45 07/18/16 06:45 Labs: Abnormal Lab Results - Last 24 Hours (Table) 07/17/16 07/17/16 07/18/16 Range/Units 16:34 20:35 01:02 RDW (11.5-15.5) % Plt Count (150-450) k/uL PT (9.0-12.0) sec Sodium (137-145) mmol/L Potassium 3.4 L (3.5-5.1) mmol/L BUN (9-20) mg/dL Creatinine (0.66-1.25) mg/dL Glucose (74-99) mg/dL POC Glucose (mg/dL) 342 H 355 H (75-99) mg/dL 07/18/16 07/18/16 07/18/16 Range/Units 05:49 06:45 06:45 RDW 19.6 H (11.5-15.5) % Plt Count 148 L (150-450) k/uL PT 22.9 H (9.0-12.0) sec Sodium (137-145) mmol/L Potassium (3.5-5.1) mmol/L BUN (9-20) mg/dL Creatinine (0.66-1.25) mg/dL Glucose (74-99) mg/dL POC Glucose (mg/dL) 277 H (75-99) mg/dL 07/18/16 07/18/16 07/18/16 Range/Units 06:45 09:16 11:57 RDW (11.5-15.5) % Plt Count (150-450) k/uL PT (9.0-12.0) sec Sodium 134 L (137-145) mmol/L Potassium (3.5-5.1) mmol/L BUN 55 H (9-20) mg/dL Creatinine 2.76 H (0.66-1.25) mg/dL Glucose 259 H (74-99) mg/dL POC Glucose (mg/dL) 407 H 384 H (75-99) mg/dL Assessment and Plan Plan: 1. Acute systolic heart failure exacerbation currently on IV Lasix awaiting echocardiogram report 2. Paroxysmal atrial fibrillation on anticoagulation with Coumadin. We will continue to monitor INR daily 3. Hypokalemia and hypomagnesemia, will be replaced by protocol 4. Type 2 diabetes mellitus, uncontrolled. A1c 10.6. Insulin regimen adjusted given uncontrolled blood glucose. Increase Levemir 40 units twice a day. 5. Digoxin toxicity with slightly elevated digoxin level above therapeutic range. We will repeat levels today. 6. Acute on chronic kidney failure with monitor kidney function closely now that the patient is on IV Lasix 7. Elevated troponin most likely not thrombotic troponin leak. Patient was seen and evaluated by cardiology. Patient had an acute on chronic kidney injury with significantly elevated creatinine today. I would stop his nighttime dose of Bumex. Discontinue lisinopril. Repeat lab work in the morning. Today, I reviewed his medication list and lab work results. Insulin regimen adjusted and increased. Continue current regimen otherwise. Replace electrolytes by protocol. Repeat lab work in the morning. Continue telemetry monitoring.
[2016-07-18 14:54] LABS: Glucose,Whole Blood 346 mg/dL (75-99)
[2016-07-18 16:47] LABS: Glucose,Whole Blood 280 mg/dL (75-99)
[2016-07-18] MEDS: WARFARIN 3 MG TAB PO SCH (17:18)
[2016-07-18 20:32] LABS: Glucose,Whole Blood 240 mg/dL (75-99)
[2016-07-18] MEDS: ATORVASTATIN 40 MG TAB PO SCH (20:57)
[2016-07-19 06:20] LABS: Glucose,Whole Blood 255 mg/dL (75-99)
[2016-07-19 06:46] LABS: Anisocytosis Slight; Basophils % (A) 1 %; CHCM 34.4; Eosinophils # (A) 0.3 k/uL (0-0.7); Eosinophils % (A) 3 %; HGB 12.9 gm/dL (13.0-17.5); Hyperchromasia Slight; Luc # (Auto) 0.33; Luc % (Auto) 4; Lymphocytes # (A) 1.5 k/uL (1.0-4.8); Lymphocytes % (A) 18 %; MCH 28.3 pg (25.0-35.0); MCHC 33.1 g/dL (31.0-37.0); MCV 85.3 fL (80.0-100.0); Mean Platelet Volume 7.7; Monocytes # (A) 0.5 k/uL (0-1.0); Monocytes % (A) 6 %; Neutrophils # (A) 5.5 k/uL (1.3-7.7); Neutrophils % (A) 68 %; Poikilocytosis Marked; RBC 4.57 m/uL (4.30-5.90); RDW 19.5 % (11.5-15.5); WBC 8.2 k/uL (3.8-10.6); WBC (Perox) 8.41
[2016-07-19 06:51] LABS: Prothrombin Time 29.1 sec (9.0-12.0)
[2016-07-19 06:57] LABS: Calcium 8.7 mg/dL (8.4-10.2); Magnesium 1.7 mg/dL (1.6-2.3); Potassium 4.2 mmol/L (3.5-5.1)
[2016-07-19] MEDS: INSULIN LISPRO (humaLOG) 300 UNIT/3 ML VIAL SQ SCH ×7 (07:03→21:04)
[2016-07-19] MEDS: PANTOPRAZOLE 40 MG TABLET PO SCH (07:03)
[2016-07-19] MEDS: SODIUM CHLORIDE 0.9% 1,000 ML IV SCH ×2 (07:51→11:56)
[2016-07-19] MEDS: CARVEDILOL 12.5 MG TAB PO SCH ×2 (08:07→21:04)
[2016-07-19] MEDS: ASPIRIN 81 MG CHEW PO SCH (08:07)
[2016-07-19] MEDS: CHOLECALCIFEROL 1,000 UNIT TAB PO SCH (08:08)
[2016-07-19] MEDS: POTASSIUM CHLORIDE ER 20 MEQ TAB.ER PO SCH ×2 (08:08→21:05)
[2016-07-19] MEDS: ISOSORBIDE DINITRATE 20 MG TAB PO SCH ×2 (08:08→21:05)
[2016-07-19] MEDS: MAGNESIUM OXIDE 400 MG TAB PO SCH (08:09)
[2016-07-19] MEDS: MULTIVITAMINS, THERA 1 EACH TAB PO SCH (08:09)
[2016-07-19] MEDS: INSULIN DETEMIR 100 UNIT/ML 10 ML VIAL SQ SCH ×2 (08:12→21:04)
[2016-07-19] MEDS ORDERED: BUMETANIDE 1 MG TAB PO SCH (09:00)
--- NOTE | 2016-07-19 11:11 | P.PN ---
Subjective Unfortunately patient's creatinine continued to trend up to date. His postvoid residual did not exceed 80 mL when checked yesterday and this morning. Patient is drinking enough fluids throughout the day. His Bumex dose was decreased from 6 mg twice daily to 6 mg once a day and his lisinopril was discontinued but unfortunately kidney function continued to get worse. Objective - Vital Signs Vital signs: Vital Signs Temp 96.8 F L 07/19/16 08:00 Pulse 68 07/19/16 08:00 Resp 18 07/19/16 08:00 BP 125/60 07/19/16 08:00 Pulse Ox 97 07/19/16 08:00 Intake & Output 07/18/16 07/19/16 07/19/16 18:59 06:59 18:59 Intake Total 1220 180 Output Total 383 Balance 1220 -383 180 Weight 102.8 kg Intake: Oral 1220 180 Output: Urine 300 Post Void Residual 83 Other: Voiding Method Toilet Toilet Toilet # Voids 1 1 - Exam General: The patient is awake and alert, in no distress Eye: there is normal conjunctiva bilaterally. Neck: The neck is supple, there is no JVD. Cardiovascular: Normal S1-S2, no S3-S4, no murmurs. Respiratory: Lungs clear to auscultation bilaterally Gastrointestinal: Abdomen is soft, nontender. There is mild distention Musculoskeletal: There is no pedal edema. Neurological:. Speech is normal. Skin: Skin is warm and dry - Labs CBC & Chem 7: 07/19/16 06:12 07/19/16 06:12 Labs: Abnormal Lab Results - Last 24 Hours (Table) 07/18/16 07/18/16 07/18/16 Range/Units 11:57 14:42 16:46 Hgb (13.0-17.5) gm/dL RDW (11.5-15.5) % Plt Count (150-450) k/uL PT (9.0-12.0) sec Sodium (137-145) mmol/L BUN (9-20) mg/dL Creatinine (0.66-1.25) mg/dL Glucose (74-99) mg/dL POC Glucose (mg/dL) 384 H 346 H 280 H (75-99) mg/dL 07/18/16 07/19/16 07/19/16 Range/Units 20:26 06:12 06:12 Hgb 12.9 L (13.0-17.5) gm/dL RDW 19.5 H (11.5-15.5) % Plt Count 135 L (150-450) k/uL PT 29.1 H (9.0-12.0) sec Sodium (137-145) mmol/L BUN (9-20) mg/dL Creatinine (0.66-1.25) mg/dL Glucose (74-99) mg/dL POC Glucose (mg/dL) 240 H (75-99) mg/dL 07/19/16 07/19/16 Range/Units 06:12 06:18 Hgb (13.0-17.5) gm/dL RDW (11.5-15.5) % Plt Count (150-450) k/uL PT (9.0-12.0) sec Sodium 134 L (137-145) mmol/L BUN 61 H (9-20) mg/dL Creatinine 3.53 H (0.66-1.25) mg/dL Glucose 234 H (74-99) mg/dL POC Glucose (mg/dL) 255 H (75-99) mg/dL Assessment and Plan Plan: 1. Acute systolic heart failure exacerbation currently on IV Lasix awaiting echocardiogram report 2. Paroxysmal atrial fibrillation on anticoagulation with Coumadin. We will continue to monitor INR daily 3. Hypokalemia and hypomagnesemia, will be replaced by protocol 4. Type 2 diabetes mellitus, uncontrolled. A1c 10.6. Insulin regimen adjusted given uncontrolled blood glucose. Increase Levemir 40 units twice a day. 5. Digoxin toxicity with slightly elevated digoxin level above therapeutic range. We will repeat levels today. 6. Acute on chronic kidney failure with monitor kidney function closely now that the patient is on IV Lasix 7. Elevated troponin most likely not thrombotic troponin leak. Patient was seen and evaluated by cardiology. Patient had an acute on chronic kidney injury with significantly elevated creatinine today. I would discontinue Bumex and continue to hold lisinopril for now. I would order a kidney ultrasound. I would also consult nephrology. Acute kidney injury most likely related to diuretics. I would hold off on IV fluid hydration for now until evaluated by nephrology as patient is having good by mouth intake and has an ejection fraction of 20% Today, I reviewed his medication list and lab work results. Insulin regimen adjusted and increased. Continue current regimen otherwise. Replace electrolytes by protocol. Repeat lab work in the morning. Continue telemetry monitoring.
--- NOTE | 2016-07-19 11:36 | P.NPCON ---
History of Present Illness - Reason for Consult acute renal failure - History of Present Illness Reason for consultation: Acute kidney injury History of present illness: Patient is a 71-year-old male seen in renal consultation for acute kidney injury on chronic kidney disease. It appears patient has chronic kidney disease stage III. Baseline creatinine in the range of 1-1.2 due to cardiorenal syndrome. Patient does have systolic CHF with an ejection fraction of 20-25%. Patient came to the hospital on July 14 with generalized weakness. He should was dyspneic as well. Denies any lower extremity edema. Patient was receiving IV Lasix and then was receiving Bumex 6 mg twice daily. The Bumex was decreased to 6 mg once daily yesterday and has been held today. His creatinine was 1.7 on admission and came down to 1.4 as of July 17. However today's up to 3.53. He admits to good urine output without any hematuria or dysuria. There is no evidence of urinary retention as bladder scan this morning was only 80 mL. His urinalysis on admission was benign. Denies vomiting or diarrhea. Oral intake is good. Denies chest pain or shortness of breath. Vital signs are stable. General: The patient appeared well nourished and normally developed. HEENT: Head exam is unremarkable. Neck is without jugular venous distension. LUNGS: Lungs are clear to auscultation and percussion. Breath sounds decreased. HEART: Rate and Rhythm are regular. First and second heart sounds normal. No murmurs, rubs or gallops. ABDOMEN: Abdominal exam reveals normal bowel sounds. Non-tender and non- distended. No evidence of peritonitis. EXTREMITITES: No clubbing, cyanosis, or edema. Past Medical History Past Medical History: Atrial Fibrillation, Coronary Artery Disease (CAD), Heart Failure, Diabetes Mellitus, GERD/Reflux, Hyperlipidemia, Hypertension, Myocardial Infarction (CO), Prostate Disorder, Renal Disease Additional Past Medical History / Comment(s): AAA 4.3 CM. ASKED IF PT HAD CHF BEFORE PT/ STATED NO BUT HE HAD OPEN HEART., cellulitis/abcess rt groin post porcedure. Last Myocardial Infarction Date:: 04/18/15 History of Any Multi-Drug Resistant Organisms: None Reported Past Surgical History: Coronary Bypass/CABG, Heart Catheterization, Joint Replacement, Orthopedic Surgery Additional Past Surgical History / Comment(s): bilateral knee replacement, RT ROTATOR CUFF SX, STATED:" I THINK HIS OPEN HEART WAS 3 VESSELS".'dec 2015 had a procedure rt groin arterypt stated haresh faird it out" Past Anesthesia/Blood Transfusion Reactions: No Reported Reaction Additional Past Anesthesia/Blood Transfusion Reaction / Comment(s): CLAUSTERPHOBIA Past Psychological History: No Psychological Hx Reported Additional Psychological History / Comment(s): lives in the family home with his and grandson in [place]. 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 Tobacco smoker stopping about 16 years ago. Denied significant alcohol abuse. Denied animals in the home. Retired from the [employer] force many years ago. Relates mother of cancer and father of myocardial infarction in his 60s Smoking Status: Former smoker Past Alcohol Use History: Heavy Additional Past Alcohol Use History / Comment(s): STARTED SMOKING AGE 12 SMOKED LESS THAN 1 PPD, QUIT 10 YEARS AGO. WHEN YOUNGER WAS HEAVY BEER DRINKER BUT QUIT >20 YEARS AGO. DENIES ANY RECREATIONAL DRUG USE. Past Drug Use History: None Reported - Past Family History Father Family Medical History: Myocardial Infarction (CO) Mother Family Medical History: Cancer Additional Family Medical History / Comment(s): LUNG CANCER Medications and Allergies Home Medications Medication Instructions Recorded Confirmed Type Atorvastatin [Lipitor] 40 mg PO HS 01/21/16 07/13/16 History Bumetanide [BUMEX] 6 mg PO QAM 01/21/16 07/13/16 History Carvedilol [Coreg] 25 mg PO BID 01/21/16 07/13/16 History Cholecalciferol [Vitamin D3] 5,000 unit PO DAILY 01/21/16 07/13/16 History Insulin Detemir [Levemir] 60 unit SQ BID 01/21/16 07/13/16 History Isosorbide Dinitrate 40 mg PO BID 01/21/16 07/13/16 History Magnesium Oxide [Mag-Ox] 250 mg PO DAILY 01/21/16 07/13/16 History Nitroglycerin Sl Tabs [Nitrostat] 0.4 mg SUBLINGUAL Q5M PRN 01/21/16 07/13/16 History Pantoprazole Sodium [Protonix] 40 mg PO DAILY 01/21/16 07/13/16 History Potassium Chloride ER [K-Dur 20] 20 meq PO BID 01/21/16 07/13/16 History Warfarin [Coumadin] 3 mg PO PC-SUPPER 01/21/16 07/13/16 History Aspirin 81 mg PO DAILY 07/13/16 07/13/16 History Bumetanide [BUMEX] 4 mg PO DAILY@1830 07/13/16 07/13/16 History Digoxin [Digoxin] 250 mcg PO DAILY 07/13/16 07/13/16 History Insulin Aspart [Novolog Flexpen] 30 - 42 unit SQ AC-TID 07/13/16 07/13/16 History Multivitamins, Thera [Multivitamin 1 tab PO DAILY 07/13/16 07/13/16 History (formulary)] Allergies Allergy/AdvReac Type Severity Reaction Status Date / Time alprazolam [From Xanax] AdvReac Confusion Verified 07/13/16 12:06 morphine AdvReac Hallucinati Verified 07/13/16 12:06 ons Physical Exam Vitals: Vital Signs Temp Pulse Resp BP Pulse Ox 07/19/16 08:00 96.8 F L 67 18 125/60 97 07/19/16 03:10 96.5 F L 68 18 103/51 96 07/18/16 23:30 98.0 F 61 18 101/53 96 07/18/16 20:30 96.1 F L 69 18 161/82 97 07/18/16 16:00 98 F 68 18 118/58 96 07/18/16 12:00 97.5 F L 62 18 107/54 98 Intake and Output 07/18/16 07/19/16 07/19/16 22:59 06:59 14:59 Intake Total 900 180 Output Total 233 150 Balance 667 -150 180 Intake: Oral 900 180 Output: Urine 150 150 Post Void Residual 83 Other: Voiding Method Toilet Toilet Toilet # Voids 1 Weight 102.8 kg Results - Lab Results Most recent lab results Calcium 8.7 mg/dL (8.4-10.2) 07/19/16 06:12 Magnesium 1.7 mg/dL (1.6-2.3) 07/19/16 06:12 07/19/16 06:12 07/19/16 06:12 Assessment and Plan Plan: Assessment: #1. Nonoliguric acute kidney injury mostly prerenal in nature secondary to diuresis/hypovolemia. Creatinine 3.53 today. Urinalysis on admission noted to be benign. No evidence of urinary retention. #2. Chronic kidney disease stage III with baseline creatinine in the range of 1 -1.2 secondary to cardiorenal syndrome. #3. Systolic CHF with ejection fraction of 20-25%. Compensated. #4. Insulin-dependent diabetes mellitus. No evidence of proteinuria noted on UA. Plan: Hold all diuretics. Avoid nephrotoxic agents and hypotensive episodes. [place] inhibitor held. I will give him normal saline to be run at 50 mL an hour for 5 hours and then to Hep-Lock IV fluids. Encourage oral intake. Follow-up renal ultrasound. Repeat electrolytes in the morning. Thank you for the consultation. I will continue to follow the patient with you during his hospital stay.
--- NOTE | 2016-07-19 11:51 | US ---
EXAMINATION TYPE: US kidneys/renal and bladder DATE OF EXAM: 07/19/2016 COMPARISON: Previous ultrasound 05/15/2015 CLINICAL HISTORY: MAGGIE r/o hydro. EXAM MEASUREMENTS: Right Kidney: 12.7 x 6.0 x 5.4 cm Left Kidney: 13.4 x 6.2 x 5.6 cm Right Kidney: No hydronephrosis or masses seen, enlarged, cyst measuring 1.7 x 1.2 x 1.5cm Left Kidney: No hydronephrosis or masses seen, enlarged Bladder: not fully distended No nephrolithiasis is seen. No masses are identified. The urinary bladder is anechoic. Ureteral jet s were not identified. Cyst in the right kidney appears simple. Cortical medullary differentiation is maintained bilaterally. IMPRESSION: No abnormality evident to account for patient's symptoms. Possible cyst right kidney.
[2016-07-19 11:53] LABS: Glucose,Whole Blood 288 mg/dL (75-99)
[2016-07-19 16:55] LABS: Glucose,Whole Blood 294 mg/dL (75-99)
[2016-07-19] MEDS: WARFARIN 3 MG TAB PO SCH (17:09)
[2016-07-19 20:44] LABS: Glucose,Whole Blood 250 mg/dL (75-99)
[2016-07-19] MEDS: ATORVASTATIN 40 MG TAB PO SCH (21:04)
[2016-07-20 05:58] LABS: Glucose,Whole Blood 341 mg/dL (75-99)
[2016-07-20] MEDS: INSULIN LISPRO (humaLOG) 300 UNIT/3 ML VIAL SQ SCH ×7 (07:23→22:03)
[2016-07-20] MEDS: PANTOPRAZOLE 40 MG TABLET PO SCH (07:23)
[2016-07-20] MEDS: MULTIVITAMINS, THERA 1 EACH TAB PO SCH (08:15)
[2016-07-20] MEDS: ASPIRIN 81 MG CHEW PO SCH (08:15)
[2016-07-20] MEDS: CARVEDILOL 12.5 MG TAB PO SCH ×2 (08:16→22:02)
[2016-07-20] MEDS: POTASSIUM CHLORIDE ER 20 MEQ TAB.ER PO SCH ×2 (08:16→22:03)
[2016-07-20] MEDS: ISOSORBIDE DINITRATE 20 MG TAB PO SCH ×2 (08:16→22:03)
[2016-07-20] MEDS: MAGNESIUM OXIDE 400 MG TAB PO SCH (08:16)
[2016-07-20] MEDS: CHOLECALCIFEROL 1,000 UNIT TAB PO SCH (08:17)
[2016-07-20] MEDS: INSULIN DETEMIR 100 UNIT/ML 10 ML VIAL SQ SCH ×2 (08:18→22:02)
--- NOTE | 2016-07-20 09:25 | P.PN ---
Subjective Patient is seen in follow-up for acute kidney injury. Patient has chronic kidney disease stage III with baseline creatinine in the range of 1-1.2 secondary to cardiorenal syndrome. He does of systolic CHF with an ejection fraction of 20-25%. Patient was receiving high dose of Bumex at 6 mg twice daily this admission. His renal function gradually worsened and creatinine was up to 3.53 yesterday. Diuretics were held yesterday and he did receive 5 hours of hydration with 0.9 saline. Labs from today are pending at this time. He is currently resting in bed. Denies chest pain or shortness of breath. Admits to good urine output. Vital signs are stable. General: The patient appeared well nourished and normally developed. HEENT: Head exam is unremarkable. Neck is without jugular venous distension. LUNGS: Lungs are clear to auscultation and percussion. Breath sounds decreased. HEART: Rate and Rhythm are regular. First and second heart sounds normal. No murmurs, rubs or gallops. ABDOMEN: Abdominal exam reveals normal bowel sounds. Non-tender and non- distended. No evidence of peritonitis. EXTREMITITES: No clubbing, cyanosis, or edema. Objective - Vital Signs Vital signs: Vital Signs Temp 96.7 F L 07/20/16 08:00 Pulse 66 07/20/16 08:00 Resp 18 07/20/16 08:00 BP 121/53 07/20/16 08:00 Pulse Ox 98 07/20/16 08:00 Intake & Output 07/19/16 07/20/16 07/20/16 18:59 06:59 18:59 Intake Total 180 300 480 Output Total 820 Balance -640 300 480 Weight 103.7 kg Intake: Oral 180 300 480 Output: Urine 820 Other: Voiding Method Toilet Toilet Toilet # Voids 1 1 - Labs CBC & Chem 7: 07/19/16 06:12 07/19/16 06:12 Labs: Abnormal Lab Results - Last 24 Hours (Table) 07/19/16 07/19/16 07/19/16 Range/Units 11:51 16:50 20:42 POC Glucose (mg/dL) 288 H 294 H 250 H (75-99) mg/dL 07/20/16 Range/Units 05:56 POC Glucose (mg/dL) 341 H (75-99) mg/dL Assessment and Plan Plan: Assessment: #1. Nonoliguric acute kidney injury mostly prerenal in nature secondary to diuresis/hypovolemia. Creatinine 3.53 yesterday. Urinalysis on admission noted to be benign. No evidence of urinary retention. No hydronephrosis on renal ultrasound. #2. Chronic kidney disease stage III with baseline creatinine in the range of 1 -1.2 secondary to cardiorenal syndrome. #3. Systolic CHF with ejection fraction of 20-25%. Compensated. #4. Insulin-dependent diabetes mellitus. No evidence of proteinuria noted on UA. Plan: Hold all diuretics. Avoid nephrotoxic agents and hypotensive episodes. [place] inhibitor held. Encourage oral intake. Follow-up morning labs. He did receive 5 hours of IV hydration yesterday.
[2016-07-20 09:45] LABS: INR 3.6 (<1.1); Prothrombin Time 34.6 sec (9.0-12.0)
[2016-07-20 10:04] LABS: Calcium 9.1 mg/dL (8.4-10.2); Potassium 4.5 mmol/L (3.5-5.1)
[2016-07-20 10:28] LABS: Anisocytosis Slight; Basophils % (A) 0 %; CHCM 33.4; Eosinophils # (A) 0.3 k/uL (0-0.7); Eosinophils % (A) 4 %; HCT 43.3 % (39.0-53.0); HGB 14.1 gm/dL (13.0-17.5); Hypochromasia Slight; Luc # (Auto) 0.14; Luc % (Auto) 2; Lymphocytes # (A) 1.2 k/uL (1.0-4.8); Lymphocytes % (A) 16 %; MCH 28.6 pg (25.0-35.0); MCHC 32.5 g/dL (31.0-37.0); MCV 88.1 fL (80.0-100.0); Monocytes # (A) 0.3 k/uL (0-1.0); Monocytes % (A) 5 %; Neutrophils # (A) 5.4 k/uL (1.3-7.7); Neutrophils % (A) 73 %; Poikilocytosis Moderate; RBC 4.92 m/uL (4.30-5.90); RDW 19.5 % (11.5-15.5); WBC 7.4 k/uL (3.8-10.6); WBC (Perox) 6.93
--- NOTE | 2016-07-20 10:58 | P.PN ---
Subjective Patient is doing well today. No events overnight. Blood glucose remained not well controlled. Objective - Vital Signs Vital signs: Vital Signs Temp 96.7 F L 07/20/16 08:00 Pulse 66 07/20/16 08:00 Resp 18 07/20/16 08:00 BP 121/53 07/20/16 08:00 Pulse Ox 98 07/20/16 08:00 Intake & Output 07/19/16 07/20/16 07/20/16 18:59 06:59 18:59 Intake Total 180 300 480 Output Total 820 Balance -640 300 480 Weight 103.7 kg Intake: Oral 180 300 480 Output: Urine 820 Other: Voiding Method Toilet Toilet Toilet # Voids 1 1 - Exam General: The patient is awake and alert, in no distress Eye: there is normal conjunctiva bilaterally. Neck: The neck is supple, there is no JVD. Cardiovascular: Normal S1-S2, no S3-S4, no murmurs. Respiratory: Lungs clear to auscultation bilaterally Gastrointestinal: Abdomen is soft, nontender. There is mild distention Musculoskeletal: There is no pedal edema. Neurological:. Speech is normal. Skin: Skin is warm and dry - Labs CBC & Chem 7: 07/20/16 09:22 07/20/16 09:22 Labs: Abnormal Lab Results - Last 24 Hours (Table) 07/19/16 07/19/16 07/19/16 Range/Units 11:51 16:50 20:42 RDW (11.5-15.5) % PT (9.0-12.0) sec Sodium (137-145) mmol/L Carbon Dioxide (22-30) mmol/L BUN (9-20) mg/dL Creatinine (0.66-1.25) mg/dL Glucose (74-99) mg/dL POC Glucose (mg/dL) 288 H 294 H 250 H (75-99) mg/dL 07/20/16 07/20/16 07/20/16 Range/Units 05:56 09:22 09:22 RDW 19.5 H (11.5-15.5) % PT (9.0-12.0) sec Sodium 136 L (137-145) mmol/L Carbon Dioxide 20 L (22-30) mmol/L BUN 61 H (9-20) mg/dL Creatinine 2.77 H (0.66-1.25) mg/dL Glucose 390 H (74-99) mg/dL POC Glucose (mg/dL) 341 H (75-99) mg/dL 07/20/16 Range/Units 09:22 RDW (11.5-15.5) % PT 34.6 H (9.0-12.0) sec Sodium (137-145) mmol/L Carbon Dioxide (22-30) mmol/L BUN (9-20) mg/dL Creatinine (0.66-1.25) mg/dL Glucose (74-99) mg/dL POC Glucose (mg/dL) (75-99) mg/dL Assessment and Plan Plan: 1. Acute systolic heart failure exacerbation currently on IV Lasix awaiting echocardiogram report 2. Paroxysmal atrial fibrillation on anticoagulation with Coumadin. We will continue to monitor INR daily 3. Hypokalemia and hypomagnesemia, will be replaced by protocol 4. Type 2 diabetes mellitus, uncontrolled. A1c 10.6. Insulin regimen adjusted given uncontrolled blood glucose. Increase Levemir 40 units twice a day. 5. Digoxin toxicity with slightly elevated digoxin level above therapeutic range. We will repeat levels today. 6. Acute on chronic kidney failure with monitor kidney function closely now that the patient is on IV Lasix 7. Elevated troponin most likely not thrombotic troponin leak. Patient was seen and evaluated by cardiology. Creatinine level is trending down. Diuretics and lisinopril remain on hold. Kidney ultrasound showed normal evidence of hydronephrosis. No evidence of urinary retention on PVR. Awaiting nephrology recommendation for diuretics and possible discharge home tomorrow. Today, I reviewed his medication list and lab work results. Insulin regimen adjusted and increased. Continue current regimen otherwise. Replace electrolytes by protocol. Repeat lab work in the morning. Continue telemetry monitoring.
[2016-07-20 11:45] LABS: Glucose,Whole Blood 333 mg/dL (75-99)
[2016-07-20] MEDS: glipiZIDE 5 MG TAB PO SCH ×2 (11:54→17:30)
[2016-07-20] MEDS: SODIUM CHLORIDE 0.9% 1,000 ML IV SCH (11:55)
[2016-07-20 16:48] LABS: Glucose,Whole Blood 256 mg/dL (75-99)
[2016-07-20 20:51] LABS: Glucose,Whole Blood 210 mg/dL (75-99)
[2016-07-20] MEDS: ATORVASTATIN 40 MG TAB PO SCH (22:02)
[2016-07-21 06:06] LABS: Glucose,Whole Blood 234 mg/dL (75-99)
[2016-07-21 06:41] LABS: Anisocytosis Slight; Basophils % (A) 0 %; CH 28.9; CHCM 34.1; Eosinophils # (A) 0.2 k/uL (0-0.7); Eosinophils % (A) 3 %; HCT 37.7 % (39.0-53.0); HDW 4.48; HGB 12.4 gm/dL (13.0-17.5); Luc # (Auto) 0.21; Luc % (Auto) 4; Lymphocytes # (A) 1.1 k/uL (1.0-4.8); Lymphocytes % (A) 18 %; MCH 28.2 pg (25.0-35.0); MCHC 32.8 g/dL (31.0-37.0); MCV 85.8 fL (80.0-100.0); Mean Platelet Volume 7.8; Monocytes # (A) 0.4 k/uL (0-1.0); Monocytes % (A) 6 %; Neutrophils # (A) 4.1 k/uL (1.3-7.7); Neutrophils % (A) 68 %; Poikilocytosis Moderate; RDW 19.4 % (11.5-15.5); WBC (Perox) 6.11
[2016-07-21 06:50] LABS: Calcium 9.1 mg/dL (8.4-10.2); Potassium 4.5 mmol/L (3.5-5.1)
[2016-07-21 06:58] LABS: INR 3.2 (<1.1); Prothrombin Time 30.6 sec (9.0-12.0)
[2016-07-21] MEDS: INSULIN LISPRO (humaLOG) 300 UNIT/3 ML VIAL SQ SCH ×4 (07:34→12:48)
[2016-07-21] MEDS: glipiZIDE 5 MG TAB PO SCH (07:35)
[2016-07-21] MEDS: PANTOPRAZOLE 40 MG TABLET PO SCH (07:35)
[2016-07-21 08:14] VITALS: TEMP 97.1
[2016-07-21] MEDS: CARVEDILOL 12.5 MG TAB PO SCH (08:29)
[2016-07-21] MEDS: ISOSORBIDE DINITRATE 20 MG TAB PO SCH (08:29)
[2016-07-21] MEDS: CHOLECALCIFEROL 1,000 UNIT TAB PO SCH (08:29)
[2016-07-21] MEDS: POTASSIUM CHLORIDE ER 20 MEQ TAB.ER PO SCH (08:29)
[2016-07-21] MEDS: ASPIRIN 81 MG CHEW PO SCH (08:29)
[2016-07-21] MEDS: MAGNESIUM OXIDE 400 MG TAB PO SCH (08:29)
[2016-07-21] MEDS: INSULIN DETEMIR 100 UNIT/ML 10 ML VIAL SQ SCH (08:30)
--- NOTE | 2016-07-21 11:27 | P.DS ---
Providers Date of admission: 07/13/16 13:18 Expected date of discharge: 07/21/16 Attending physician: Thoams Coy Consults: 07/13/16 13:04 Consult Physician Routine Consulting Provider: Mor Nolan Consult Reason/Comments: CHF Do you want consulting provider notified?: Yes 07/19/16 10:16 Consult Physician Routine Consulting Provider: Ramandeep Stroud Consult Reason/Comments: MAGGIE on CKD Do you want consulting provider notified?: Yes Primary care physician: Aun [facility] Hospital Course: This is a 71-year-old gentleman with past medical history noted below who presented to the hospital initially with shortness of breath and bloating. Patient was found to have acute systolic heart failure exacerbation and was admitted to the hospital was seen and evaluated by cardiology. He was started on IV diuresis but unfortunately kidney function deteriorated so diuresis was stopped. He was seen by multiple specialists including cardiology and nephrology. Kidney function improved and was back to normal baseline creatinine. Patient has chronic kidney disease and his creatinine usually is around 1.5-1.8. He was also noted to have uncontrolled diabetes and his insulin regimen was adjusted. Please refer to the medication reconciliation form for medication list. Patient will be discharged home in a stable condition. He will follow-up with his primary care physician for repeat creatinine within the next 2-3 days. Below is a list of his medical problems addressed during this hospitalization. 1. Acute systolic heart failure exacerbation 2. Paroxysmal atrial fibrillation on anticoagulation with Coumadin. 3. Hypokalemia and hypomagnesemia, replaced by hospital protocol 4. Type 2 diabetes mellitus, uncontrolled. A1c 10.6. Insulin regimen adjusted 5. Digoxin toxicity with slightly elevated digoxin level above therapeutic range. Digoxin was discontinued 6. Acute on chronic kidney failure 7. Elevated troponin most likely not thrombotic troponin leak. Patient was seen and evaluated by cardiology. Patient Condition at Discharge: Stable Plan - Discharge Summary New Discharge Prescriptions: New glipiZIDE [Glucotrol] 5 mg PO AC-BID #60 tab Warfarin Sodium [Coumadin] 2.5 mg PO HS #30 tablet Continue Nitroglycerin Sl Tabs [Nitrostat] 0.4 mg SUBLINGUAL Q5M PRN PRN Reason: Chest Pain Magnesium Oxide [Mag-Ox] 250 mg PO DAILY Insulin Detemir [Levemir] 60 unit SQ BID Cholecalciferol [Vitamin D3] 5,000 unit PO DAILY Potassium Chloride ER [K-Dur 20] 20 meq PO BID Pantoprazole Sodium [Protonix] 40 mg PO DAILY Carvedilol [Coreg] 25 mg PO BID Isosorbide Dinitrate 40 mg PO BID Atorvastatin [Lipitor] 40 mg PO HS Aspirin 81 mg PO DAILY Multivitamins, Thera [Multivitamin (formulary)] 1 tab PO DAILY Changed Bumetanide [BUMEX] 4 mg PO QAM #0 Bumetanide [BUMEX] 2 mg PO DAILY@1830 #0 Insulin Aspart [NovoLOG Flexpen] 40 unit SQ AC-TID #0 Discontinued Warfarin [Coumadin] 3 mg PO PC-SUPPER Digoxin [Digoxin] 250 mcg PO DAILY Discharge Medication List Atorvastatin [Lipitor] 40 mg PO HS 01/21/16 [History] Carvedilol [Coreg] 25 mg PO BID 01/21/16 [History] Cholecalciferol [Vitamin D3] 5,000 unit PO DAILY 01/21/16 [History] Insulin Detemir [Levemir] 60 unit SQ BID 01/21/16 [History] Isosorbide Dinitrate 40 mg PO BID 01/21/16 [History] Magnesium Oxide [Mag-Ox] 250 mg PO DAILY 01/21/16 [History] Nitroglycerin Sl Tabs [Nitrostat] 0.4 mg SUBLINGUAL Q5M PRN 01/21/16 [History] Pantoprazole Sodium [Protonix] 40 mg PO DAILY 01/21/16 [History] Potassium Chloride ER [K-Dur 20] 20 meq PO BID 01/21/16 [History] Aspirin 81 mg PO DAILY 07/13/16 [History] Multivitamins, Thera [Multivitamin (formulary)] 1 tab PO DAILY 07/13/16 [History ] Bumetanide [BUMEX] 2 mg PO DAILY@1830 #0 07/21/16 [Rx] Bumetanide [BUMEX] 4 mg PO QAM #0 07/21/16 [Rx] Insulin Aspart [NovoLOG Flexpen] 40 unit SQ AC-TID #0 07/21/16 [Rx] Warfarin Sodium [Coumadin] 2.5 mg PO HS #30 tablet 07/21/16 [Rx] glipiZIDE [Glucotrol] 5 mg PO AC-BID #60 tab 07/21/16 [Rx] Follow up Appointment(s)/Referral(s): Anu Velasquez MD [Primary Care Provider] - 1-2 days Discharge Disposition: HOME SELF-CARE
[2016-07-21 11:34] VITALS: BMI 32.6
[2016-07-21 11:57] LABS: Glucose,Whole Blood 271 mg/dL (75-99)
[2016-07-21 12:10] VITALS: BP 131/71; PULSE 71; RESP 16
[2016-07-21] MEDS: MULTIVITAMINS, THERA 1 EACH TAB PO SCH (12:48)
--- NOTE | 2016-07-22 07:12 | PN ---
Patient is seen for followup for acute kidney injury. His renal function has improved with creatinine down to 1.8 from 3.5 mg/dL. He may be actually going home today. On examination, the patient is comfortable. Blood pressure is 131/71, heart rate 71 per minute. He is afebrile. EXAMINATION OF THE HEART: S1 and S2. EXAMINATION OF THE LUNGS: Bilateral breath sounds are heard. ABDOMEN: Soft, nontender. Examination of the lower extremities shows no significant edema. Labs show sodium 140, potassium 4.5, BUN 48, serum creatinine 1.8. Hemoglobin 12.4 g/dL. ASSESSMENT: 1. Acute kidney injury mainly prerenal, currently improved. 2. Chronic kidney disease stage III with baseline creatinine about 1 to 1.2 mg/dL, mainly secondary to cardiorenal syndrome. 3. Systolic heart failure with ejection fraction 20% to 25%. PLAN: The patient is stable for discharge. Follow up as outpatient if renal function does not improve.
== END 2016-07-21 14:08 | disposition home or self-care (01) | DRG 291 ==
LOC: EC 10:50 → 6SEL 13:18
PROVIDERS: ADMIT Internal Medicine; ATTEND Internal Medicine
DX: I13.0 Hypertensive heart and chronic kidney disease with heart failure and stage 1 through stage 4 chronic kidney disease, or unspecified chronic kidney disease (principal); I50.23 Acute on chronic systolic (congestive) heart failure; N17.9 Acute kidney failure, unspecified; E11.22 Type 2 diabetes mellitus with diabetic chronic kidney disease; E11.65 Type 2 diabetes mellitus with hyperglycemia; E86.1 Hypovolemia; I48.0 Paroxysmal atrial fibrillation; E78.5 Hyperlipidemia, unspecified; E83.42 Hypomagnesemia; E87.6 Hypokalemia; I25.2 Old myocardial infarction; I25.10 Atherosclerotic heart disease of native coronary artery without angina pectoris; I45.10 Unspecified right bundle-branch block; K21.9 Gastro-esophageal reflux disease without esophagitis; K59.00 Constipation, unspecified; N18.3 Chronic kidney disease, stage 3 (moderate); T46.0X5A Adverse effect of cardiac-stimulant glycosides and drugs of similar action, initial encounter; T50.2X5A Adverse effect of carbonic-anhydrase inhibitors, benzothiadiazides and other diuretics, initial encounter; Z96.653 Presence of artificial knee joint, bilateral; Z79.01 Long term (current) use of anticoagulants; Z79.4 Long term (current) use of insulin; Z79.82 Long term (current) use of aspirin; Z79.899 Other long term (current) drug therapy; Z80.1 Family history of malignant neoplasm of trachea, bronchus and lung; Z82.49 Family history of ischemic heart disease and other diseases of the circulatory system; Z87.891 Personal history of nicotine dependence; Z95.1 Presence of aortocoronary bypass graft; Z95.810 Presence of automatic (implantable) cardiac defibrillator
CPT/HCPCS: 36415; 70450; 71020; 76770; 80048; 80053; 80162; 81003; 82009; 82150; 82550; 82553; 83036; 83690; 83735; 83880; 84132; 84484; 85025; 85610; 85730; 93005; 93306; 94760

== ENCOUNTER 2016-07-30 07:45 | Inpatient (IN) | payer MEDICARE ==
[2016-07-30] MEDS ORDERED: NITROGLYCERIN OINT 1 INCH/GM PACKET TOPICAL STA (08:25)
[2016-07-30] MEDS ORDERED: FUROSEMIDE 10 MG/ML 4 ML VIAL IV STA (08:25)
[2016-07-30 09:00] LABS: Anisocytosis Slight; Basophils % (A) 0 %; CH 29.2; CHCM 34.1; Eosinophils # (A) 0.3 k/uL (0-0.7); Eosinophils % (A) 3 %; HCT 39.2 % (39.0-53.0); HDW 4.06; HGB 13.3 gm/dL (13.0-17.5); Luc # (Auto) 0.23; Luc % (Auto) 3; Lymphocytes % (A) 12 %; MCH 29.3 pg (25.0-35.0); MCHC 33.9 g/dL (31.0-37.0); MCV 86.3 fL (80.0-100.0); Mean Platelet Volume 7.3; Monocytes # (A) 0.5 k/uL (0-1.0); Monocytes % (A) 5 %; Neutrophils # (A) 6.7 k/uL (1.3-7.7); Neutrophils % (A) 77 %; Poikilocytosis Moderate; RBC 4.55 m/uL (4.30-5.90); WBC 8.7 k/uL (3.8-10.6); WBC (Perox) 9.09
--- NOTE | 2016-07-30 09:12 | XR ---
EXAMINATION TYPE: XR chest 2V DATE OF EXAM: 07/30/2016 COMPARISON: Chest x-ray July 13, 2016. HISTORY: Shortness of breath. TECHNIQUE: Frontal and lateral views of the chest are obtained. FINDINGS: Sternal wires are redemonstrated. Cardiac silhouette size is upper limits of normal curren tly with multi lead pacemaker redemonstrated. There is chronic parenchymal change without suspicious new focal airspace opacity, pleural effusion, or pneumothorax seen. Degenerative change right glenohu meral joint is present. Metallic anchors from rotator cuff surgery right humeral head are redemonstra ricci. IMPRESSION: Chronic emphysematous change without acute pulmonary process.
[2016-07-30 09:15] LABS: INR 1.7 (<1.1); Partial Thromboplastin Time 26.6 sec (22.0-30.0); Prothrombin Time 16.5 sec (9.0-12.0)
[2016-07-30 09:44] LABS: Creatine Kinase MB 3.1 ng/mL (0.0-2.4)
[2016-07-30 09:45] LABS: Troponin I 0.129 ng/mL (0.000-0.034)
[2016-07-30 10:26] LABS: ALT 74 U/L (21-72); AST 68 U/L (17-59); Alkaline Phosphatase 100 U/L (38-126); Anion Gap 13 mmol/L; Blood Urea Nitrogen 23 mg/dL (9-20); Calcium 7.9 mg/dL (8.4-10.2); Carbon Dioxide 24 mmol/L (22-30); Chloride 104 mmol/L (98-107); Glucose 297 mg/dL (74-99); Non-African American GFR(MDRD) 57 (>60 ml/min/1.73 sqM); Potassium 3.7 mmol/L (3.5-5.1); Sodium 141 mmol/L (137-145); Total Bilirubin 2.6 mg/dL (0.2-1.3); Total Protein 7.1 g/dL (6.3-8.2)
--- NOTE | 2016-07-30 10:30 | ED ---
SOB HPI - General Chief Complaint: Shortness of Breath Stated Complaint: SOB Time Seen by Provider: 07/30/16 08:17 Source: patient Mode of arrival: wheelchair Limitations: no limitations - History of Present Illness Initial Comments: Shortness of breath for the last 3 days, worse today I denies any chest pain does have a bit of discomfort when he takes a deep breath no fever no chills no nausea no vomiting no cold sweats history of heart disease and wheezes status post CABG as well as pacemaker and defibrillator and he has smoked off and on for 30+ years according to the patient. Some of changes is made in his medications I he thinks his Bumex dose was decreased recently and since then he has gained some weight he is wondering if this if heart failure - Related Data Home Medications Medication Instructions Recorded Confirmed Atorvastatin [Lipitor] 40 mg PO HS 01/21/16 07/30/16 Carvedilol [Coreg] 25 mg PO BID 01/21/16 07/30/16 Cholecalciferol [Vitamin D3] 5,000 unit PO DAILY 01/21/16 07/30/16 Insulin Detemir [Levemir] 55 unit SQ BID 01/21/16 07/30/16 Isosorbide Dinitrate 40 mg PO BID 01/21/16 07/30/16 Magnesium Oxide [Mag-Ox] 250 mg PO DAILY 01/21/16 07/30/16 Nitroglycerin Sl Tabs [Nitrostat] 0.4 mg SUBLINGUAL Q5M PRN 01/21/16 07/30/16 Pantoprazole Sodium [Protonix] 40 mg PO DAILY 01/21/16 07/30/16 Potassium Chloride ER [K-Dur 20] 20 meq PO BID 01/21/16 07/30/16 Aspirin 81 mg PO DAILY 07/13/16 07/30/16 Multivitamins, Thera [Multivitamin 1 tab PO DAILY 07/13/16 07/30/16 (formulary)] Insulin Aspart [NovoLOG Flexpen] See Protocol SQ AC-TID 07/30/16 07/30/16 Previous Rx's Medication Instructions Recorded Bumetanide [BUMEX] 2 mg PO DAILY@1830 #0 07/21/16 Bumetanide [BUMEX] 4 mg PO QAM #0 07/21/16 Warfarin Sodium [Coumadin] 2.5 mg PO HS #30 tablet 07/21/16 glipiZIDE [Glucotrol] 5 mg PO AC-BID #60 tab 07/21/16 Allergies Allergy/AdvReac Type Severity Reaction Status Date / Time alprazolam [From Xanax] AdvReac Confusion Verified 07/30/16 10:28 morphine AdvReac Hallucinati Verified 07/30/16 10:28 ons Review of Systems ROS Statement: Those systems with pertinent positive or pertinent negative responses have been documented in the HPI. ROS Other: All systems not noted in ROS Statement are negative. Past Medical History Past Medical History: Atrial Fibrillation, Coronary Artery Disease (CAD), Heart Failure, Diabetes Mellitus, GERD/Reflux, Hyperlipidemia, Hypertension, Myocardial Infarction ([place]), Prostate Disorder, Renal Disease Additional Past Medical History / Comment(s): AAA 4.3 CM. ASKED IF PT HAD CHF BEFORE PT/ STATED NO BUT HE HAD OPEN HEART., cellulitis/abcess rt groin post porcedure. Last Myocardial Infarction Date:: 04/18/15 History of Any Multi-Drug Resistant Organisms: None Reported Past Surgical History: Coronary Bypass/CABG, Heart Catheterization, Joint Replacement, Orthopedic Surgery Additional Past Surgical History / Comment(s): bilateral knee replacement, RT ROTATOR CUFF SX, STATED:" I THINK HIS OPEN HEART WAS 3 VESSELS".'dec 2015 had a procedure rt groin arterypt stated haresh faird it out" Past Anesthesia/Blood Transfusion Reactions: No Reported Reaction Additional Past Anesthesia/Blood Transfusion Reaction / Comment(s): CLAUSTERPHOBIA Past Psychological History: No Psychological Hx Reported Additional Psychological History / Comment(s): lives in the family home with his and grandson in [place]. 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 Tobacco smoker stopping about 16 years ago. Denied significant alcohol abuse. Denied animals in the home. 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 Relates mother of cancer and father of myocardial infarction in his 60s Smoking Status: Former smoker Past Alcohol Use History: Heavy Additional Past Alcohol Use History / Comment(s): STARTED SMOKING AGE 12 SMOKED LESS THAN 1 PPD, QUIT 10 YEARS AGO. WHEN YOUNGER WAS HEAVY BEER DRINKER BUT QUIT >20 YEARS AGO. DENIES ANY RECREATIONAL DRUG USE. Past Drug Use History: None Reported - Past Family History Father Family Medical History: Myocardial Infarction ([place]) Mother Family Medical History: Cancer Additional Family Medical History / Comment(s): LUNG CANCER General Exam - General Exam Comments Initial Comments: General: The patient is awake and alert, in no distress, and does not appear acutely ill. Skin: Skin is warm and dry and no rashes or lesions are noted. Eye: Pupils are equal, round and reactive to light, extra-ocular movements are intact; there is normal conjunctiva bilaterally. Ears, nose, mouth and throat: There are moist mucous membranes and no oral lesions. Neck: The neck is supple, there is no tenderness Cardiovascular: There is a regular rate and rhythm. No murmur, rub or gallop is appreciated. Respiratory: To auscultation bilateral, consistent with some COPD Gastrointestinal: Soft, non-distended, non-tender abdomen without masses or organomegaly noted. There is no rebound or guarding present. Bowel sounds are unremarkable. Back: There is no tenderness to palpation in the midline. There is no obvious deformity. Musculoskeletal: Normal ROM, no tenderness, There is no pedal edema. There is no calf tenderness or swelling. No cords were appreciated. Neurological: CN II-XII intact, Cranial nerves III through XII are intact. There are no obvious motor or sensory deficits. Coordination appears grossly intact. Speech is normal. Psychiatric: Cooperative, appropriate mood & affect, normal judgment. Limitations: no limitations Course Vital Signs 07/30/16 07/30/16 07/30/16 07:47 07:55 08:25 Temperature 97.8 F Pulse Rate 86 84 86 Respiratory 22 Rate Blood Pressure 126/92 122/65 130/72 O2 Sat by Pulse 96 98 Oximetry 07/30/16 07/30/16 07/30/16 08:51 08:55 09:25 Temperature Pulse Rate 86 86 Respiratory 20 Rate Blood Pressure 139/79 133/78 O2 Sat by Pulse 96 95 Oximetry 07/30/16 09:55 Temperature Pulse Rate 84 Respiratory Rate Blood Pressure 134/76 O2 Sat by Pulse 96 Oximetry His EKG is paced, ventricular rate is 86 AR interval is 150 QRS duration is 140 QT/QTc is 440/495 Medical Decision Making - Lab Data Result diagrams: 07/30/16 08:10 07/30/16 08:10 Lab Results 07/30/16 07/30/16 07/30/16 Range/Units 08:10 08:10 08:10 WBC 8.7 (3.8-10.6) k/uL RBC 4.55 (4.30-5.90) m/uL Hgb 13.3 (13.0-17.5) gm/dL Hct 39.2 (39.0-53.0) % MCV 86.3 (80.0-100.0) fL MCH 29.3 (25.0-35.0) pg MCHC 33.9 (31.0-37.0) g/dL RDW 19.0 H (11.5-15.5) % Plt Count 170 (150-450) k/uL Neutrophils % 77 % Lymphocytes % 12 % Monocytes % 5 % Eosinophils % 3 % Basophils % 0 % Neutrophils # 6.7 (1.3-7.7) k/uL Lymphocytes # 1.0 (1.0-4.8) k/uL Monocytes # 0.5 (0-1.0) k/uL Eosinophils # 0.3 (0-0.7) k/uL Basophils # 0.0 (0-0.2) k/uL Poikilocytosis Moderate Anisocytosis Slight PT (9.0-12.0) sec INR (<1.1) APTT (22.0-30.0) sec D-Dimer (<0.60) mg/L FEU Sodium 141 (137-145) mmol/L Potassium 3.7 (3.5-5.1) mmol/L Chloride 104 (98-107) mmol/L Carbon Dioxide 24 (22-30) mmol/L Anion Gap 13 mmol/L BUN 23 H (9-20) mg/dL Creatinine 1.25 (0.66-1.25) mg/dL Est GFR (MDRD) Af Amer >60 (>60 ml/min/1.73 sqM) Est GFR (MDRD) Non-Af 57 (>60 ml/min/1.73 sqM) Glucose 297 H (74-99) mg/dL Calcium 7.9 L (8.4-10.2) mg/dL Total Bilirubin 2.6 H (0.2-1.3) mg/dL AST 68 H (17-59) U/L ALT 74 H (21-72) U/L Alkaline Phosphatase 100 (38-126) U/L Total Creatine Kinase 248 H (55-170) U/L CK-MB (CK-2) 3.1 H* (0.0-2.4) ng/mL CK-MB (CK-2) Rel Index 1.3 Troponin I 0.129 H* (0.000-0.034) ng/mL NT-Pro-B Natriuret Pep pg/mL Total Protein 7.1 (6.3-8.2) g/dL Albumin 3.9 (3.5-5.0) g/dL 07/30/16 07/30/16 Range/Units 08:10 08:10 WBC (3.8-10.6) k/uL RBC (4.30-5.90) m/uL Hgb (13.0-17.5) gm/dL Hct (39.0-53.0) % MCV (80.0-100.0) fL MCH (25.0-35.0) pg MCHC (31.0-37.0) g/dL RDW (11.5-15.5) % Plt Count (150-450) k/uL Neutrophils % % Lymphocytes % % Monocytes % % Eosinophils % % Basophils % % Neutrophils # (1.3-7.7) k/uL Lymphocytes # (1.0-4.8) k/uL Monocytes # (0-1.0) k/uL Eosinophils # (0-0.7) k/uL Basophils # (0-0.2) k/uL Poikilocytosis Anisocytosis PT 16.5 H (9.0-12.0) sec INR 1.7 (<1.1) APTT 26.6 (22.0-30.0) sec D-Dimer 0.49 (<0.60) mg/L FEU Sodium (137-145) mmol/L Potassium (3.5-5.1) mmol/L Chloride (98-107) mmol/L Carbon Dioxide (22-30) mmol/L Anion Gap mmol/L BUN (9-20) mg/dL Creatinine (0.66-1.25) mg/dL Est GFR (MDRD) Af Amer (>60 ml/min/1.73 sqM) Est GFR (MDRD) Non-Af (>60 ml/min/1.73 sqM) Glucose (74-99) mg/dL Calcium (8.4-10.2) mg/dL Total Bilirubin (0.2-1.3) mg/dL AST (17-59) U/L ALT (21-72) U/L Alkaline Phosphatase (38-126) U/L Total Creatine Kinase (55-170) U/L CK-MB (CK-2) (0.0-2.4) ng/mL CK-MB (CK-2) Rel Index Troponin I (0.000-0.034) ng/mL NT-Pro-B Natriuret Pep 9830 pg/mL Total Protein (6.3-8.2) g/dL Albumin (3.5-5.0) g/dL Critical Care Time Total Critical Care Time: 45 Critical Care Time: Center presented with a distended, he has a history of congestive heart failure as well as coronary artery disease as well as CABG and pacemaker and defibrillator placement. His chest x-ray is compatible with some mom COPD and his troponin is elevated his 0.129 his EKG is paced considering his a history of heart disease and shortness of breath him an environment heparinized him. Middle of the Dr. Contreras and cardiology consult will be on as well. He is on a Coumadin for is history of atrial fibrillation so will hold off the heparin at this point and let the geomagnetician decide we will definitely get his aspirin and now nitro in the beta blockers and [place] inhibitor is part of his ACLS protocol Disposition Clinical Impression: Myocardial infarction, COPD exacerbation Disposition: ADMITTED IP TO THIS HOSP Referrals: Anu Velasquez MD [Primary Care Provider] - 1-2 days
[2016-07-30] MEDS ORDERED: RX INFO: IV CONTRAST WAS GIVEN 1 EACH MISC MISCELLANE PRN (10:39)
[2016-07-30] MEDS ORDERED: NITROGLYCERIN SL TABS 0.4 MG TAB SUBLINGUAL PRN (10:45)
[2016-07-30] MEDS: SODIUM CHLORIDE 0.9% 1,000 ML IV SCH (11:17)
--- NOTE | 2016-07-30 11:35 | CT ---
EXAMINATION TYPE: CT abdomen pelvis w con DATE OF EXAM: 07/30/2016 COMPARISON: NONE HISTORY: Right upper quadrant pain for the past month. CT DLP: 1680.3 mGycm, Automated Exposure Control for Dose Reduction was Utilized. CONTRAST: CT scan of the abdomen and pelvis is performed with oral and with IV Contrast, patient injected with 100 mL of Omnipaque 300. FINDINGS: LUNG BASES: There is tiny left-sided pleural effusion. There is partial visualization of pacemaker/de fibrillator wires throughout the heart. LIVER/GB: Liver is diffusely low dense consistent with fatty infiltration. Some low dense lesions lef t hepatic lobe are felt to reflect small cysts. Calcified gallstones are seen in gallbladder. Suggestion of perhaps mild wall thickening and surround ing inflammatory change seen best on coronal images with blurring of the adjacent fat planes. Acute c holecystitis needs to BE considered given patient history. No biliary dilatation is identified. PANCREAS: No significant abnormality is seen. SPLEEN: Spleen is mildly enlarged at 14.3 cm on long axis on coronal image 64. ADRENALS: No significant abnormality is seen. KIDNEYS: There is 1.6 cm simple appearing cyst laterally mid pole level right kidney on axial image 4 5 series 3. BOWEL: Evaluation bowel is slightly suboptimal secondary to lack of enteric contrast. Normal-appearin g appendix is seen from cecum. There is no suspicious small or large bowel dilatation. Stomach is poo rly distended and thus suboptimally evaluated. Diverticula are seen in the sigmoid colon. There is mi ld fat stranding and fluid along course of the left colon, A colitis at this level is not entirely ex cluded. Similar small amount of fluid left infracolic gutter and upper pelvis near axial image 67 is noted. PROSTATE/SEMINAL VESICLES: Prostate gland is heterogeneous appears enlarged in size bulging on bladde r base, underlying BPH is suspected, clinical correlation advised. LYMPH NODES: No greater than 1cm abdominal or pelvic lymph nodes are appreciated. OSSEOUS STRUCTURES: There is multilevel spurring throughout the thoracolumbar spine. There is grade 1 retrolisthesis L3 and L4. There is moderate multilevel disc space narrowing with vacuum disc phenome non most prominent at L3-L4 and L4-L5 levels. Multilevel facet arthropathy is present. There is spina l canal stenosis L3-L4 and L4-L5 levels noted. OTHER: There is moderate to severe atherosclerotic change of the abdominal aorta extending into branc h vessels. There is focal aneurysm of the infrarenal abdominal aorta measuring 4.3 x 3.7 cm on axial image 41 noted. Length of the aneurysm is 3 to 4 cm on coronal image 59 and sagittal image 63. IMPRESSION: 1. Gallstones with secondary CT findings suggesting acute cholecystitis especially given patient's sy mptoms of right upper quadrant pain. Consider surgical exploration. 2. Possible mild left-sided and/or sigmoid colitis, clinical correlation advised. 3. Note is made of 4.3 cm focal aneurysm is infrarenal abdominal aorta
[2016-07-30 11:54] LABS: Glucose,Whole Blood 192 mg/dL (75-99)
[2016-07-30] MEDS ORDERED: cefTRIAXone 2,000 MG in SODIUM CHLORIDE 0.9% 100 ML IVPB STA (12:19)
[2016-07-30] MEDS: INSULIN LISPRO (humaLOG) 300 UNIT/3 ML VIAL SQ SCH ×3 (13:51→21:51)
[2016-07-30 15:02] LABS: Creatine Kinase MB 2.8 ng/mL (0.0-2.4)
[2016-07-30 15:03] LABS: Troponin I 0.115 ng/mL (0.000-0.034)
[2016-07-30] MEDS ORDERED: MAGNESIUM SULFATE-D5W PMX 1 GM in DEXTROSE/WATER 1 100ML.BAG IVPB ONE (16:15)
[2016-07-30 16:41] LABS: Glucose,Whole Blood 268 mg/dL (75-99)
[2016-07-30 17:24] LABS: Hemoglobin A1C 8.7 % (4.2-6.1)
[2016-07-30] MEDS: BUMETANIDE 1 MG TAB PO SCH (17:47)
[2016-07-30] MEDS: glipiZIDE 5 MG TAB PO SCH (17:48)
[2016-07-30] MEDS: POTASSIUM CHLORIDE ER 20 MEQ TAB.ER PO SCH ×3 (17:48→21:52)
[2016-07-30] MEDS: CARVEDILOL 12.5 MG TAB PO SCH (17:48)
[2016-07-30] MEDS ORDERED: WARFARIN 2.5 MG TAB PO SCH (18:00)
[2016-07-30 20:57] LABS: Creatine Kinase MB 3.1 ng/mL (0.0-2.4); Troponin I 0.102 ng/mL (0.000-0.034)
[2016-07-30] MEDS ORDERED: METOPROLOL TARTRATE 25 MG TAB PO SCH (21:00)
[2016-07-30] MEDS ORDERED: ATORVASTATIN 40 MG TAB PO SCH (21:00)
[2016-07-30 21:05] LABS: Glucose,Whole Blood 254 mg/dL (75-99)
[2016-07-30] MEDS: INSULIN DETEMIR 100 UNIT/ML 10 ML VIAL SQ SCH (21:51)
[2016-07-30] MEDS: ISOSORBIDE DINITRATE 20 MG TAB PO SCH (21:52)
[2016-07-30] MEDS: IPRATROPIUM-ALBUTEROL 3 ML NEB INHALATION SCH (22:34)
[2016-07-31] MEDS: IPRATROPIUM-ALBUTEROL 3 ML NEB INHALATION SCH ×5 (03:54→20:34)
[2016-07-31 06:05] LABS: Anisocytosis Slight; Basophils % (A) 0 %; CH 28.8; CHCM 34.6; Eosinophils # (A) 0.3 k/uL (0-0.7); Eosinophils % (A) 3 %; HCT 37.1 % (39.0-53.0); HDW 4.13; HGB 12.6 gm/dL (13.0-17.5); Luc # (Auto) 0.23; Luc % (Auto) 3; Lymphocytes # (A) 1.1 k/uL (1.0-4.8); Lymphocytes % (A) 13 %; MCH 28.7 pg (25.0-35.0); MCV 84.2 fL (80.0-100.0); Mean Platelet Volume 7.7; Monocytes # (A) 0.4 k/uL (0-1.0); Monocytes % (A) 5 %; Neutrophils # (A) 6.4 k/uL (1.3-7.7); Neutrophils % (A) 76 %; Poikilocytosis Moderate; RBC 4.41 m/uL (4.30-5.90); RDW 18.7 % (11.5-15.5); WBC 8.5 k/uL (3.8-10.6); WBC (Perox) 9.07
[2016-07-31 06:20] LABS: Glucose,Whole Blood 182 mg/dL (75-99)
[2016-07-31 06:22] LABS: ALT 76 U/L (21-72); AST 44 U/L (17-59); Alkaline Phosphatase 94 U/L (38-126); Anion Gap 13 mmol/L; Blood Urea Nitrogen 24 mg/dL (9-20); Calcium 8.6 mg/dL (8.4-10.2); Carbon Dioxide 24 mmol/L (22-30); Chloride 105 mmol/L (98-107); Cholesterol 127 mg/dL (<200); Glucose 177 mg/dL (74-99); HDL Cholesterol 37 mg/dL (40-60); Magnesium 1.5 mg/dL (1.6-2.3); Non-African American GFR(MDRD) >60 (>60 ml/min/1.73 sqM); Potassium 3.9 mmol/L (3.5-5.1); Sodium 142 mmol/L (137-145); Total Bilirubin 1.5 mg/dL (0.2-1.3); Triglycerides 223 mg/dL (<150)
[2016-07-31] MEDS: PANTOPRAZOLE 40 MG TABLET PO SCH (06:47)
[2016-07-31] MEDS: INSULIN LISPRO (humaLOG) 300 UNIT/3 ML VIAL SQ SCH ×5 (06:47→21:38)
[2016-07-31] MEDS: CARVEDILOL 12.5 MG TAB PO SCH ×2 (06:47→16:39)
[2016-07-31] MEDS: BUMETANIDE 1 MG TAB PO SCH (08:37)
[2016-07-31] MEDS: POTASSIUM CHLORIDE ER 20 MEQ TAB.ER PO SCH ×2 (08:38→21:30)
[2016-07-31] MEDS: glipiZIDE 5 MG TAB PO SCH ×2 (08:38→16:39)
[2016-07-31] MEDS: ISOSORBIDE DINITRATE 20 MG TAB PO SCH ×2 (08:38→21:30)
[2016-07-31] MEDS: CHOLECALCIFEROL 1,000 UNIT TAB PO SCH (08:40)
[2016-07-31] MEDS: MAGNESIUM OXIDE 400 MG TAB PO SCH (08:40)
[2016-07-31] MEDS: MULTIVITAMINS, THERA 1 EACH TAB PO SCH (08:41)
[2016-07-31] MEDS: INSULIN DETEMIR 100 UNIT/ML 10 ML VIAL SQ SCH ×2 (08:45→21:30)
[2016-07-31] MEDS: SODIUM CHLORIDE 0.9% 1,000 ML IV SCH (08:45)
--- NOTE | 2016-07-31 08:56 | US ---
EXAMINATION TYPE: US abdomen limited DATE OF EXAM: 07/31/2016 COMPARISON: CT abdomen and pelvis from yesterday. CLINICAL HISTORY: Rule out cholecystitis. Epigastric pain, history of gallstone EXAM MEASUREMENTS: Liver Length: 21.8cm Gallbladder Wall: 0.4cm CBD: 0.3cm Right Kidney: 12.6 x 5.8 x 5.5cm Pancreas: tail obscured by overlying bowel content, possible cystic area body = 1.1 x 0.9 x 1.0cm Liver: enlarged, attenuating Gallbladder: stones noted, thickened edematous wall Evidence for sonographic Stockton's sign: Yes CBD: appears wnl Right Kidney: enlarged, with cystic area laterally = 2.4 x 1.5 x 2.1cm Liver is heterogeneously hyperechoic in appearance consistent with diffuse fatty infiltration as seen on recent CT. No worrisome intrahepatic ductal dilatation is seen. Shadowing mobile gallstones are s een in gallbladder. Gallbladder wall is mildly to minimally thickened up to almost 5 mm. No perichole cystic fluid is present. Sonographic Stockton's sign is positive. IMPRESSION: Gallstones with abnormal gallbladder wall thickening and positive sonographic Stockton's si gn all increase suspicion for acute cholecystitis as suspected on recent CT
[2016-07-31] MEDS ORDERED: Magnesium Replacement Protocol 1 EACH MISC MISCELLANE PRN ×2 (10:54→13:18)
[2016-07-31 11:33] LABS: Glucose,Whole Blood 273 mg/dL (75-99)
[2016-07-31] MEDS: FUROSEMIDE 10 MG/ML 4 ML VIAL IV SCH ×3 (11:55→23:28)
[2016-07-31] MEDS: MAGNESIUM SULFATE-D5W PMX 1 GM in DEXTROSE/WATER 1 100ML.BAG IVPB SCH ×4 (11:56→20:22)
[2016-07-31] MEDS: LOSARTAN 25 MG TAB PO SCH (11:56)
--- NOTE | 2016-07-31 12:30 | P.GSCN ---
History of Present Illness Consult date: 07/31/16 Reason for Consult: Cholecystitis History of present illness: Patient presents to the hospital yesterday evening with progressive shortness of breath. He apparently was told he has atrial fibrillation and pulmonary edema. He was taking exostosis of his diuretics while at home. In the ER apparently he was found to have slight tenderness in the upper abdomen. A CAT scan was performed which suggests the presence of acute cholecystitis. An ultrasound was done this morning which also shows inflammatory changes of the gallbladder. The patient admits to having mild upper abdominal pain intermittently over the last several months. Denies fevers or chills. No change in the color of his skin urine or stool. He does take Coumadin. INR yesterday was 1.7. White blood cell count is normal. His bilirubin was elevated initially at 2.6 today is 1.5. No nausea or vomiting. No change in appetite. The patient states he was surprised to hear that there was anything wrong with his gallbladder. Review of Systems The patient denies any acute changes in his vision or hearing, no dysphagia or odynophagia, no dysuria or hematuria, no headache, no runny nose, no rectal bleeding or melena, no unexplained weight loss Past Medical History Past Medical History: Atrial Fibrillation, Coronary Artery Disease (CAD), Heart Failure, Diabetes Mellitus, GERD/Reflux, Hyperlipidemia, Hypertension, Myocardial Infarction ([place]), Prostate Disorder, Renal Disease Additional Past Medical History / Comment(s): AAA 4.3 CM. ASKED IF PT HAD CHF BEFORE PT/ STATED NO BUT HE HAD OPEN HEART., cellulitis/abcess rt groin post porcedure. Last Myocardial Infarction Date:: 04/18/15 History of Any Multi-Drug Resistant Organisms: None Reported Past Surgical History: Coronary Bypass/CABG, Heart Catheterization, Joint Replacement, Orthopedic Surgery Additional Past Surgical History / Comment(s): bilateral knee replacement, RT ROTATOR CUFF SX, STATED:" I THINK HIS OPEN HEART WAS 3 VESSELS".'dec 2015 had a procedure rt groin arterypt stated haresh faird it out" Past Anesthesia/Blood Transfusion Reactions: No Reported Reaction Additional Past Anesthesia/Blood Transfusion Reaction / Comm: CLAUSTERPHOBIA Past Psychological History: No Psychological Hx Reported Additional Psychological History / Comment(s): lives in the family home with his and grandson in [place]. 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 Tobacco smoker stopping about 16 years ago. Denied significant alcohol abuse. Denied animals in the home. Retired from the [employer] force many years ago. Relates mother of cancer and father of myocardial infarction in his 60s Smoking Status: Former smoker Past Alcohol Use History: Heavy Additional Past Alcohol Use History / Comment(s): STARTED SMOKING AGE 12 SMOKED LESS THAN 1 PPD, QUIT 10 YEARS AGO. WHEN YOUNGER WAS HEAVY BEER DRINKER BUT QUIT >20 YEARS AGO. DENIES ANY RECREATIONAL DRUG USE. Past Drug Use History: None Reported - Past Family History Father Family Medical History: Myocardial Infarction ([place]) Mother Family Medical History: Cancer Additional Family Medical History / Comment(s): LUNG CANCER Medications and Allergies Home Medications Medication Instructions Recorded Confirmed Type Atorvastatin [Lipitor] 40 mg PO HS 01/21/16 07/30/16 History Carvedilol [Coreg] 25 mg PO BID 01/21/16 07/30/16 History Cholecalciferol [Vitamin D3] 5,000 unit PO DAILY 01/21/16 07/30/16 History Insulin Detemir [Levemir] 55 unit SQ BID 01/21/16 07/30/16 History Isosorbide Dinitrate 40 mg PO BID 01/21/16 07/30/16 History Magnesium Oxide [Mag-Ox] 250 mg PO DAILY 01/21/16 07/30/16 History Nitroglycerin Sl Tabs [Nitrostat] 0.4 mg SUBLINGUAL Q5M PRN 01/21/16 07/30/16 History Pantoprazole Sodium [Protonix] 40 mg PO DAILY 01/21/16 07/30/16 History Potassium Chloride ER [K-Dur 20] 20 meq PO BID 01/21/16 07/30/16 History Aspirin 81 mg PO DAILY 07/13/16 07/30/16 History Multivitamins, Thera [Multivitamin 1 tab PO DAILY 07/13/16 07/30/16 History (formulary)] Insulin Aspart [NovoLOG Flexpen] See Protocol SQ AC-TID 07/30/16 07/30/16 History Allergies Allergy/AdvReac Type Severity Reaction Status Date / Time alprazolam [From Xanax] AdvReac Confusion Verified 07/30/16 10:28 morphine AdvReac Hallucinati Verified 07/30/16 10:28 ons Surgical - Exam Vital Signs Temp Pulse Resp BP Pulse Ox 97.8 F 86 22 126/92 96 07/30/16 07:47 07/30/16 07:47 07/30/16 07:47 07/30/16 07:47 07/30/16 07:47 Physical exam: General: Well-developed, well-nourished HEENT: Normocephalic, sclerae nonicteric Abdomen: Very mild upper abdominal tenderness, nondistended Extremities: No edema Neuro: Alert and oriented Results - Labs 07/31/16 05:48 07/31/16 05:46 Abnormal Lab Results - Last 24 Hours (Table) 07/30/16 07/30/16 07/30/16 Range/Units 08:10 08:10 14:02 Hgb (13.0-17.5) gm/dL Hct (39.0-53.0) % RDW (11.5-15.5) % Plt Count (150-450) k/uL BUN (9-20) mg/dL Glucose (74-99) mg/dL POC Glucose (mg/dL) (75-99) mg/dL Hemoglobin A1c 8.7 H (4.2-6.1) % Magnesium 1.2 L (1.6-2.3) mg/dL Total Bilirubin (0.2-1.3) mg/dL ALT (21-72) U/L Total Creatine Kinase 234 H (55-170) U/L CK-MB (CK-2) 2.8 H* (0.0-2.4) ng/mL Troponin I 0.115 H* (0.000-0.034) ng/mL Triglycerides (<150) mg/dL HDL Cholesterol (40-60) mg/dL 07/30/16 07/30/16 07/30/16 Range/Units 16:40 19:53 21:03 Hgb (13.0-17.5) gm/dL Hct (39.0-53.0) % RDW (11.5-15.5) % Plt Count (150-450) k/uL BUN (9-20) mg/dL Glucose (74-99) mg/dL POC Glucose (mg/dL) 268 H 254 H (75-99) mg/dL Hemoglobin A1c (4.2-6.1) % Magnesium (1.6-2.3) mg/dL Total Bilirubin (0.2-1.3) mg/dL ALT (21-72) U/L Total Creatine Kinase 206 H (55-170) U/L CK-MB (CK-2) 3.1 H* (0.0-2.4) ng/mL Troponin I 0.102 H* (0.000-0.034) ng/mL Triglycerides (<150) mg/dL HDL Cholesterol (40-60) mg/dL 07/31/16 07/31/16 07/31/16 Range/Units 05:46 05:48 06:19 Hgb 12.6 L (13.0-17.5) gm/dL Hct 37.1 L (39.0-53.0) % RDW 18.7 H (11.5-15.5) % Plt Count 148 L (150-450) k/uL BUN 24 H (9-20) mg/dL Glucose 177 H (74-99) mg/dL POC Glucose (mg/dL) 182 H (75-99) mg/dL Hemoglobin A1c (4.2-6.1) % Magnesium 1.5 L (1.6-2.3) mg/dL Total Bilirubin 1.5 H (0.2-1.3) mg/dL ALT 76 H (21-72) U/L Total Creatine Kinase (55-170) U/L CK-MB (CK-2) (0.0-2.4) ng/mL Troponin I (0.000-0.034) ng/mL Triglycerides 223 H (<150) mg/dL HDL Cholesterol 37 L (40-60) mg/dL 07/31/16 Range/Units 11:31 Hgb (13.0-17.5) gm/dL Hct (39.0-53.0) % RDW (11.5-15.5) % Plt Count (150-450) k/uL BUN (9-20) mg/dL Glucose (74-99) mg/dL POC Glucose (mg/dL) 273 H (75-99) mg/dL Hemoglobin A1c (4.2-6.1) % Magnesium (1.6-2.3) mg/dL Total Bilirubin (0.2-1.3) mg/dL ALT (21-72) U/L Total Creatine Kinase (55-170) U/L CK-MB (CK-2) (0.0-2.4) ng/mL Troponin I (0.000-0.034) ng/mL Triglycerides (<150) mg/dL HDL Cholesterol (40-60) mg/dL Diabetes panel 07/30/16 07/31/16 Range/Units 08:10 05:46 Sodium 142 (137-145) mmol/L Potassium 3.9 (3.5-5.1) mmol/L Chloride 105 (98-107) mmol/L Carbon Dioxide 24 (22-30) mmol/L BUN 24 H (9-20) mg/dL Creatinine 1.10 (0.66-1.25) mg/dL Glucose 177 H (74-99) mg/dL Hemoglobin A1c 8.7 H (4.2-6.1) % Calcium 8.6 (8.4-10.2) mg/dL AST 44 (17-59) U/L ALT 76 H (21-72) U/L Alkaline Phosphatase 94 (38-126) U/L Total Protein 7.0 (6.3-8.2) g/dL Albumin 3.9 (3.5-5.0) g/dL Triglycerides 223 H (<150) mg/dL HDL Cholesterol 37 L (40-60) mg/dL Calcium panel 07/31/16 Range/Units 05:46 Calcium 8.6 (8.4-10.2) mg/dL Albumin 3.9 (3.5-5.0) g/dL Pituitary panel 07/31/16 Range/Units 05:46 Sodium 142 (137-145) mmol/L Potassium 3.9 (3.5-5.1) mmol/L Chloride 105 (98-107) mmol/L Carbon Dioxide 24 (22-30) mmol/L BUN 24 H (9-20) mg/dL Creatinine 1.10 (0.66-1.25) mg/dL Glucose 177 H (74-99) mg/dL Calcium 8.6 (8.4-10.2) mg/dL Adrenal panel 07/31/16 Range/Units 05:46 Sodium 142 (137-145) mmol/L Potassium 3.9 (3.5-5.1) mmol/L Chloride 105 (98-107) mmol/L Carbon Dioxide 24 (22-30) mmol/L BUN 24 H (9-20) mg/dL Creatinine 1.10 (0.66-1.25) mg/dL Glucose 177 H (74-99) mg/dL Calcium 8.6 (8.4-10.2) mg/dL Total Bilirubin 1.5 H (0.2-1.3) mg/dL AST 44 (17-59) U/L ALT 76 H (21-72) U/L Alkaline Phosphatase 94 (38-126) U/L Total Protein 7.0 (6.3-8.2) g/dL Albumin 3.9 (3.5-5.0) g/dL Assessment and Plan (1) Cholecystitis Narrative/Plan: The clinical scenario was discussed in detail with the patient. His CAT scan and ultrasound reports were reviewed. We will resume IV antibiotics. Once the patient is medically stable would consider cholecystectomy. Associated risks were reviewed. Status: Acute
--- NOTE | 2016-07-31 13:17 | P.HPIM ---
History of Present Illness H&P Date: 07/31/16 Chief Complaint: Right upper quadrant pain This is a 71-year-old gentleman with a complex past medical history noted below who was recently discharged from the hospital and was doing fairly well up until couple of days ago when he noted that he is having right upper quadrant pain and what he described as right-sided chest pain. Patient presented to the emergency room and was evaluated. Repeat EKG showed no acute ischemic changes. Troponin was elevated but significantly lower and appeared to be trending down since his last admission when he was treated for an acute myocardial infarction. With further evaluation patient was found to have evidence of acute cholecystitis with positive Stock[place] sign. Patient was admitted to the hospital was seen and evaluated by general surgery and cardiology. He is complaining of some shortness of breath this morning. Review of Systems Review of system: 14 points review of systems were obtained and were negative except to what were mentioned in the HPI. Past Medical History Past Medical History: Atrial Fibrillation, Coronary Artery Disease (CAD), Heart Failure, Diabetes Mellitus, GERD/Reflux, Hyperlipidemia, Hypertension, Myocardial Infarction (MO), Prostate Disorder, Renal Disease Additional Past Medical History / Comment(s): AAA 4.3 CM. ASKED IF PT HAD CHF BEFORE PT/ STATED NO BUT HE HAD OPEN HEART., cellulitis/abcess rt groin post porcedure. Last Myocardial Infarction Date:: 04/18/15 History of Any Multi-Drug Resistant Organisms: None Reported Past Surgical History: Coronary Bypass/CABG, Heart Catheterization, Joint Replacement, Orthopedic Surgery Additional Past Surgical History / Comment(s): bilateral knee replacement, RT ROTATOR CUFF SX, STATED:" I THINK HIS OPEN HEART WAS 3 VESSELS".'dec 2015 had a procedure rt groin arterypt stated haresh faird it out" Past Anesthesia/Blood Transfusion Reactions: No Reported Reaction Additional Past Anesthesia/Blood Transfusion Reaction / Comment(s): CLAUSTERPHOBIA Past Psychological History: No Psychological Hx Reported Additional Psychological History / Comment(s): lives in the family home with his and grandson in [place]. 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 Tobacco smoker stopping about 16 years ago. Denied significant alcohol abuse. Denied animals in the home. Retired from the [employer] force many years ago. Relates mother of cancer and father of myocardial infarction in his 60s Smoking Status: Former smoker Past Alcohol Use History: Heavy Additional Past Alcohol Use History / Comment(s): STARTED SMOKING AGE 12 SMOKED LESS THAN 1 PPD, QUIT 10 YEARS AGO. WHEN YOUNGER WAS HEAVY BEER DRINKER BUT QUIT >20 YEARS AGO. DENIES ANY RECREATIONAL DRUG USE. Past Drug Use History: None Reported - Past Family History Father Family Medical History: Myocardial Infarction (MO) Mother Family Medical History: Cancer Additional Family Medical History / Comment(s): LUNG CANCER Medications and Allergies Home Medications Medication Instructions Recorded Confirmed Type Atorvastatin [Lipitor] 40 mg PO HS 01/21/16 07/30/16 History Carvedilol [Coreg] 25 mg PO BID 01/21/16 07/30/16 History Cholecalciferol [Vitamin D3] 5,000 unit PO DAILY 01/21/16 07/30/16 History Insulin Detemir [Levemir] 55 unit SQ BID 01/21/16 07/30/16 History Isosorbide Dinitrate 40 mg PO BID 01/21/16 07/30/16 History Magnesium Oxide [Mag-Ox] 250 mg PO DAILY 01/21/16 07/30/16 History Nitroglycerin Sl Tabs [Nitrostat] 0.4 mg SUBLINGUAL Q5M PRN 01/21/16 07/30/16 History Pantoprazole Sodium [Protonix] 40 mg PO DAILY 01/21/16 07/30/16 History Potassium Chloride ER [K-Dur 20] 20 meq PO BID 01/21/16 07/30/16 History Aspirin 81 mg PO DAILY 07/13/16 07/30/16 History Multivitamins, Thera [Multivitamin 1 tab PO DAILY 07/13/16 07/30/16 History (formulary)] Insulin Aspart [NovoLOG Flexpen] See Protocol SQ AC-TID 07/30/16 07/30/16 History Allergies Allergy/AdvReac Type Severity Reaction Status Date / Time alprazolam [From Xanax] AdvReac Confusion Verified 07/30/16 10:28 morphine AdvReac Hallucinati Verified 07/30/16 10:28 ons Physical Exam Vitals: Vital Signs Temp Pulse Pulse Resp BP Pulse Ox 07/31/16 11:12 96 07/31/16 11:04 96 96 07/31/16 03:57 92 07/31/16 03:56 98.2 F 96 20 122/58 96 07/31/16 03:48 92 07/31/16 00:00 96.7 F L 92 20 115/67 94 L 07/30/16 22:38 80 07/30/16 22:26 80 07/30/16 20:00 96.6 F L 96 18 155/73 96 07/30/16 16:00 97.1 F L 86 18 130/68 97 Intake and Output 07/30/16 07/31/16 07/31/16 22:59 06:59 14:59 Intake Total 488 260 400 Balance 488 260 400 Intake: IV 248 260 Magnesium Sulfate-D5w Pmx 105 100 1 gm In Dextrose/Water 1 100ml.bag @ 100 mls/hr IVPB ONCE ONE Rx#: [id number] Sodium Chloride 0.9% 1, 40 160 000 ml @ 20 mls/hr IV . Q24H [facility] Rx#:[id number] cefTRIAXone 2,000 mg In 103 Sodium Chloride 0.9% 100 ml @ 100 mls/hr IVPB ONCE STA Rx#:[id number] Oral 240 400 Other: Voiding Method Toilet Urinal # Voids 1 1 Weight 104.1 kg General: The patient is awake and alert, in no distress Eye: there is normal conjunctiva bilaterally. Neck: The neck is supple, there is no JVD. Cardiovascular: Normal S1-S2, no S3-S4, no murmurs. Respiratory: Lungs clear to auscultation bilaterally Gastrointestinal: Abdomen is soft, nontender Musculoskeletal: There is no pedal edema. Neurological:. Speech is normal. Skin: Skin is warm and dry Results CBC & Chem 7: 07/31/16 05:48 07/31/16 05:46 Labs: Abnormal Lab Results - Last 24 Hours (Table) 07/30/16 07/30/16 07/30/16 Range/Units 08:10 08:10 14:02 Hgb (13.0-17.5) gm/dL Hct (39.0-53.0) % RDW (11.5-15.5) % Plt Count (150-450) k/uL BUN (9-20) mg/dL Glucose (74-99) mg/dL POC Glucose (mg/dL) (75-99) mg/dL Hemoglobin A1c 8.7 H (4.2-6.1) % Magnesium 1.2 L (1.6-2.3) mg/dL Total Bilirubin (0.2-1.3) mg/dL ALT (21-72) U/L Total Creatine Kinase 234 H (55-170) U/L CK-MB (CK-2) 2.8 H* (0.0-2.4) ng/mL Troponin I 0.115 H* (0.000-0.034) ng/mL Triglycerides (<150) mg/dL HDL Cholesterol (40-60) mg/dL 07/30/16 07/30/16 07/30/16 Range/Units 16:40 19:53 21:03 Hgb (13.0-17.5) gm/dL Hct (39.0-53.0) % RDW (11.5-15.5) % Plt Count (150-450) k/uL BUN (9-20) mg/dL Glucose (74-99) mg/dL POC Glucose (mg/dL) 268 H 254 H (75-99) mg/dL Hemoglobin A1c (4.2-6.1) % Magnesium (1.6-2.3) mg/dL Total Bilirubin (0.2-1.3) mg/dL ALT (21-72) U/L Total Creatine Kinase 206 H (55-170) U/L CK-MB (CK-2) 3.1 H* (0.0-2.4) ng/mL Troponin I 0.102 H* (0.000-0.034) ng/mL Triglycerides (<150) mg/dL HDL Cholesterol (40-60) mg/dL 07/31/16 07/31/16 07/31/16 Range/Units 05:46 05:48 06:19 Hgb 12.6 L (13.0-17.5) gm/dL Hct 37.1 L (39.0-53.0) % RDW 18.7 H (11.5-15.5) % Plt Count 148 L (150-450) k/uL BUN 24 H (9-20) mg/dL Glucose 177 H (74-99) mg/dL POC Glucose (mg/dL) 182 H (75-99) mg/dL Hemoglobin A1c (4.2-6.1) % Magnesium 1.5 L (1.6-2.3) mg/dL Total Bilirubin 1.5 H (0.2-1.3) mg/dL ALT 76 H (21-72) U/L Total Creatine Kinase (55-170) U/L CK-MB (CK-2) (0.0-2.4) ng/mL Troponin I (0.000-0.034) ng/mL Triglycerides 223 H (<150) mg/dL HDL Cholesterol 37 L (40-60) mg/dL 07/31/16 Range/Units 11:31 Hgb (13.0-17.5) gm/dL Hct (39.0-53.0) % RDW (11.5-15.5) % Plt Count (150-450) k/uL BUN (9-20) mg/dL Glucose (74-99) mg/dL POC Glucose (mg/dL) 273 H (75-99) mg/dL Hemoglobin A1c (4.2-6.1) % Magnesium (1.6-2.3) mg/dL Total Bilirubin (0.2-1.3) mg/dL ALT (21-72) U/L Total Creatine Kinase (55-170) U/L CK-MB (CK-2) (0.0-2.4) ng/mL Troponin I (0.000-0.034) ng/mL Triglycerides (<150) mg/dL HDL Cholesterol (40-60) mg/dL Thrombosis Risk Factor Assmnt - Choose All That Apply Each Factor Represents 1 point: Heart failure (<1month) Each Risk Factor Represents 2 Points: Age 61-74 years Thrombosis Risk Factor Assessment Total Risk Factor Score: 3 Thrombosis Risk Factor Assessment Level: Moderate Risk Assessment and Plan Plan: 1. Acute cholecystitis: Seen and evaluated by neurosurgery. Awaiting cardiology clearance for possible cholecystectomy 2. Paroxysmal atrial fibrillation on anticoagulation with Coumadin at home currently on hold with anticipation of possible surgery 3. Ischemic cardiomyopathy with evidence of acute systolic heart failure exacerbation and to give 3 doses of IV Lasix as ordered by cardiology: 4. Type 2 diabetes mellitus, uncontrolled. A1c 10.6. continue home dose of Levemir and sliding scale insulin 5. elevated troponin: Trending down since last admission.
[2016-07-31] MEDS ORDERED: Potassium Replacement Protocol 1 EACH MISC MISCELLANE PRN (13:18)
[2016-07-31] MEDS: PIPERACILLIN-TAZOBACTAM 3.375 GM in DEXTROSE/WATER 1 50ML.BAG IVPB SCH ×2 (13:23→23:25)
[2016-07-31 16:48] LABS: Glucose,Whole Blood 237 mg/dL (75-99)
--- NOTE | 2016-07-31 17:45 | CONS ---
DATE OF CONSULTATION: This is a 71-year-old gentleman came in through the emergency room with increasing shortness of breath for the last 3 days, denied chest pain, had some sharp pains in the chest when he took a deep breath. No fever or chills. He has a history of CAD, previous bypass surgery and known ejection fraction in the 25% range with the defibrillator. He sees a parts runner in the [place] area by the name of Dr. Sepulveda. He thinks his Bumex dose was decreased. He came in with mainly increasing shortness of breath. He has a modest elevation of his BNP. He also had troponins that were higher but they were all pretty much flat. After arrival, he also complained of some right upper quadrant pain and was found to have some tenderness went on to have ultrasound, which reveals evidence of gallstones. He has had ischemic cardiomyopathy with possible acute or subacute cholecystitis with history of diabetes. However, the patient is resting comfortably. He seems to be comfortable and not in any distress. Denies any chest pain. Laboratory data suggested that his troponin was elevated and all of them were 0.1, 0.1 and 0.1. His BNP was elevated to over 9000. PAST MEDICAL HISTORY: 1. Ischemic heart disease with prior bypass surgery and known ejection fraction of 25% with ICD. 2. He has persistent atrial fibrillation. 3. Hypertension. 4. Hyperlipidemia. 5. Benign prosthetic hypertrophy. 6. He is also known to have stable abdominal aortic aneurysm of less than 4.5 cm. Medications at home include: 1. Atorvastatin 40 mg daily. 2. Carvedilol 25 mg b.i.d. 3. Levemir insulin. 4. Magnesium oxide tablets. 5. Imdur 40 mg daily. 6. Potassium supplements. 7. Protonix. 8. Insulin for his diabetes. On examination, blood pressure is 128/70, pulse rate is about 80 per minute. HEENT: Unremarkable. Fundus was not examined by me. Neck is supple. There is JVD of 1 cm. No carotid bruit. Heart exam reveals S1, S2 with a short systolic murmur at the base. Lungs reveal diminished air entry. Abdomen distended. There is mild right upper quadrant tenderness. Lower extremities reveal diminished pulses. Central nervous system is normal. EKG revealed sinus ventricular paced rhythm with nonspecific ST abnormality. IMPRESSION: 1. Abnormal troponin. Profile does not suggest any myocardial injury. 2. History of cholecystitis. 3. Ischemic cardiomyopathy with ICD and previous bypass surgery. RECOMMENDATIONS: I am recommending that we will continue to supplement his magnesium. Rhythm strip reviewed suggests a run of wide QRS tachycardia. We will optimize and arrange for potassium to be supplemented, and magnesium also to be supplemented. We will give him some magnesium supplements. Recheck levels in the morning. I explained to the patient that if the surgeon wishes to proceed with cholecystectomy, the risk is high, given multiple comorbid conditions, but no absolute contraindications. We will await input from surgeon. Cardiac-mercado he is stable. We will give same medications, but I will also switch him over to Lasix 40 mg IV push q.8 hours for 3 doses, then switch him back to oral medications in the form of Bumex as before. Will check a BMP in the morning. Thank you very much for the consult.
[2016-07-31 21:15] LABS: Glucose,Whole Blood 158 mg/dL (75-99)
[2016-08-01 06:03] LABS: Glucose,Whole Blood 117 mg/dL (75-99)
[2016-08-01] MEDS: INSULIN LISPRO (humaLOG) 300 UNIT/3 ML VIAL SQ SCH ×7 (06:10→21:09)
[2016-08-01 07:16] LABS: INR 1.3 (<1.1); Prothrombin Time 13.1 sec (9.0-12.0)
[2016-08-01] MEDS: PANTOPRAZOLE 40 MG TABLET PO SCH (07:18)
[2016-08-01] MEDS: CARVEDILOL 12.5 MG TAB PO SCH ×2 (07:18→18:23)
[2016-08-01] MEDS: glipiZIDE 5 MG TAB PO SCH ×2 (07:18→17:55)
[2016-08-01 07:26] LABS: Anisocytosis Slight; Basophils % (A) 1 %; CH 29.3; Eosinophils # (A) 0.3 k/uL (0-0.7); Eosinophils % (A) 5 %; HCT 34.2 % (39.0-53.0); HDW 3.93; HGB 11.5 gm/dL (13.0-17.5); Luc # (Auto) 0.16; Luc % (Auto) 2; Lymphocytes # (A) 1.1 k/uL (1.0-4.8); Lymphocytes % (A) 16 %; MCHC 33.5 g/dL (31.0-37.0); MCV 86.8 fL (80.0-100.0); Mean Platelet Volume 7.5; Monocytes # (A) 0.4 k/uL (0-1.0); Monocytes % (A) 5 %; Neutrophils # (A) 4.9 k/uL (1.3-7.7); Neutrophils % (A) 71 %; Poikilocytosis Slight; RBC 3.95 m/uL (4.30-5.90); RDW 18.7 % (11.5-15.5); WBC 6.9 k/uL (3.8-10.6); WBC (Perox) 7.28
[2016-08-01 07:34] LABS: Calcium 8.7 mg/dL (8.4-10.2); Magnesium 2.2 mg/dL (1.6-2.3); Total Bilirubin 1.6 mg/dL (0.2-1.3); Total Protein 6.1 g/dL (6.3-8.2)
[2016-08-01] MEDS: PIPERACILLIN-TAZOBACTAM 3.375 GM in DEXTROSE/WATER 1 50ML.BAG IVPB SCH ×3 (08:12→23:17)
[2016-08-01] MEDS: BUMETANIDE 1 MG TAB PO SCH ×2 (08:12→17:55)
[2016-08-01] MEDS: POTASSIUM CHLORIDE ER 20 MEQ TAB.ER PO SCH ×2 (08:13→21:12)
[2016-08-01] MEDS: ISOSORBIDE DINITRATE 20 MG TAB PO SCH ×2 (08:13→21:11)
[2016-08-01] MEDS: LOSARTAN 25 MG TAB PO SCH (08:13)
[2016-08-01] MEDS: IPRATROPIUM-ALBUTEROL 3 ML NEB INHALATION SCH ×4 (08:34→20:25)
[2016-08-01] MEDS: SODIUM CHLORIDE 0.9% 1,000 ML IV SCH (10:33)
[2016-08-01] MEDS: INSULIN DETEMIR 100 UNIT/ML 10 ML VIAL SQ SCH ×2 (10:33→21:09)
[2016-08-01 11:31] LABS: Glucose,Whole Blood 120 mg/dL (75-99)
--- NOTE | 2016-08-01 11:38 | P.PN ---
Subjective Patient reported that his shortness of breath is not improving today. He had an acute kidney injury this morning with elevated creatinine. No abdominal pain at this time. Objective - Vital Signs Vital signs: Vital Signs Temp 97 F L 08/01/16 08:00 Pulse 88 08/01/16 08:47 Resp 18 08/01/16 08:00 BP 111/68 08/01/16 08:00 Pulse Ox 96 08/01/16 08:00 Intake & Output 07/31/16 08/01/16 08/01/16 18:59 06:59 18:59 Intake Total 880 250 240 Balance 880 250 240 Weight 105.6 kg Intake: IV 250 Magnesium Sulfate-D5w Pmx 200 1 gm In Dextrose/Water 1 100ml.bag @ 100 mls/hr IVPB Q1H [facility] Rx#: [id number] Piperacillin-Tazobactam 3 50 .375 gm In Dextrose/Water 1 50ml.bag @ 12.5 mls/hr IVPB Q8HR [facility] Rx#: [id number] Oral 880 240 Other: Voiding Method Toilet # Voids 1 1 - Exam General: The patient is awake and alert, in no distress Eye: there is normal conjunctiva bilaterally. Neck: The neck is supple, there is no JVD. Cardiovascular: Normal S1-S2, no S3-S4, no murmurs. Respiratory: Lungs clear to auscultation bilaterally Gastrointestinal: Abdomen is soft, nontender Musculoskeletal: There is no pedal edema. Neurological:. Speech is normal. Skin: Skin is warm and dry - Labs CBC & Chem 7: 08/01/16 06:12 08/01/16 06:12 Labs: Abnormal Lab Results - Last 24 Hours (Table) 07/31/16 07/31/16 08/01/16 Range/Units 16:47 21:14 06:02 RBC (4.30-5.90) m/uL Hgb (13.0-17.5) gm/dL Hct (39.0-53.0) % RDW (11.5-15.5) % Plt Count (150-450) k/uL PT (9.0-12.0) sec BUN (9-20) mg/dL Creatinine (0.66-1.25) mg/dL Glucose (74-99) mg/dL POC Glucose (mg/dL) 237 H 158 H 117 H (75-99) mg/dL Total Bilirubin (0.2-1.3) mg/dL Total Protein (6.3-8.2) g/dL Albumin (3.5-5.0) g/dL 08/01/16 08/01/16 08/01/16 Range/Units 06:12 06:12 06:12 RBC 3.95 L (4.30-5.90) m/uL Hgb 11.5 L (13.0-17.5) gm/dL Hct 34.2 L (39.0-53.0) % RDW 18.7 H (11.5-15.5) % Plt Count 142 L (150-450) k/uL PT 13.1 H (9.0-12.0) sec BUN 33 H (9-20) mg/dL Creatinine 1.89 H (0.66-1.25) mg/dL Glucose 106 H (74-99) mg/dL POC Glucose (mg/dL) (75-99) mg/dL Total Bilirubin 1.6 H (0.2-1.3) mg/dL Total Protein 6.1 L (6.3-8.2) g/dL Albumin 3.3 L (3.5-5.0) g/dL 08/01/16 Range/Units 11:24 RBC (4.30-5.90) m/uL Hgb (13.0-17.5) gm/dL Hct (39.0-53.0) % RDW (11.5-15.5) % Plt Count (150-450) k/uL PT (9.0-12.0) sec BUN (9-20) mg/dL Creatinine (0.66-1.25) mg/dL Glucose (74-99) mg/dL POC Glucose (mg/dL) 120 H (75-99) mg/dL Total Bilirubin (0.2-1.3) mg/dL Total Protein (6.3-8.2) g/dL Albumin (3.5-5.0) g/dL Assessment and Plan Plan: 1. Acute cholecystitis: Seen and evaluated by neurosurgery. Awaiting cardiology clearance for possible cholecystectomy 2. Paroxysmal atrial fibrillation on anticoagulation with Coumadin at home currently on hold with anticipation of possible surgery 3. Ischemic cardiomyopathy with evidence of acute systolic heart failure exacerbation given 3 doses of IV Lasix as ordered by cardiology: 4. Type 2 diabetes mellitus, uncontrolled. A1c 10.6. continue home dose of Levemir and sliding scale insulin 5. elevated troponin: Trending down since last admission. 6. Acute kidney injury: Secondary to diuretic use. Discontinue diuretics for now. Encouraged oral hydration. Repeat lab work in the morning.
[2016-08-01] MEDS: MULTIVITAMINS, THERA 1 EACH TAB PO SCH (13:00)
[2016-08-01] MEDS: CHOLECALCIFEROL 1,000 UNIT TAB PO SCH (13:00)
[2016-08-01] MEDS: MAGNESIUM OXIDE 400 MG TAB PO SCH (13:01)
--- NOTE | 2016-08-01 15:21 | P.PN ---
Subjective Principal diagnosis: Shortness of breath This is a 71-year-old gentleman who presented to the hospital with symptoms of progressively worsening shortness of breath but, he denied having any chest discomfort. Patient has known history of coronary artery disease with prior bypass surgery, ischemic cardiomyopathy with prior defibrillator. He follows with a formula mixer in the [place] area. Patient also has history of chronic persistent atrial fibrillation, hypertension, hyperlipidemia, and stable aortic aneurysm of less than 4.5 cm. After arrival here patient did complain of some right upper quadrant abdominal pain, ultrasound of the abdomen revealed gallstones with abnormal gallbladder wall thickening and positive sonographic Murphyy sign. All increasing the suspicion for acute cholecystitis. Patient was eating in consultation by surgery. He was also seen yesterday in consultation by SONYA Nolan and obdulia to proceed with surgery if necessary. Objective - Vital Signs Vital signs: Vital Signs Temp 97 F L 08/01/16 08:00 Pulse 92 08/01/16 12:34 Resp 18 08/01/16 12:00 BP 99/60 08/01/16 12:00 Pulse Ox 96 08/01/16 12:00 Intake & Output 07/31/16 08/01/16 08/01/16 18:59 06:59 18:59 Intake Total 880 250 760 Balance 880 250 760 Weight 105.6 kg Intake: IV 250 160 Magnesium Sulfate-D5w Pmx 200 1 gm In Dextrose/Water 1 100ml.bag @ 100 mls/hr IVPB Q1H [facility] Rx#: [id number] Piperacillin-Tazobactam 3 50 25 .375 gm In Dextrose/Water 1 50ml.bag @ 12.5 mls/hr IVPB Q8HR [facility] Rx#: [id number] Sodium Chloride 0.9% 1, 135 000 ml @ 20 mls/hr IV . Q24H [facility] Rx#:[id number] Oral 880 600 Other: Voiding Method Toilet # Voids 1 1 1 - Exam PHYSICAL EXAMINATION: HEENT: Head is atraumatic, normocephalic. Pupils equal, round. Neck is supple. There is no elevated jugular venous pressure. HEART EXAMINATION: Heart S1 S2 1 systolic murmur is heard. CHEST EXAMINATION: Lungs reveal diminished air entry bilaterally. ABDOMEN: Soft, postiive RUQ tenderness. Bowel sounds are heard. No organomegaly noted. EXTREMITIES: 2+ peripheral pulses with no evidence of peripheral edema and no calf tenderness noted. NEUROLOGIC patient is awake, alert and oriented -3.] . - Labs CBC & Chem 7: 08/01/16 06:12 08/01/16 06:12 Labs: Abnormal Lab Results - Last 24 Hours (Table) 07/31/16 07/31/16 08/01/16 Range/Units 16:47 21:14 06:02 RBC (4.30-5.90) m/uL Hgb (13.0-17.5) gm/dL Hct (39.0-53.0) % RDW (11.5-15.5) % Plt Count (150-450) k/uL PT (9.0-12.0) sec BUN (9-20) mg/dL Creatinine (0.66-1.25) mg/dL Glucose (74-99) mg/dL POC Glucose (mg/dL) 237 H 158 H 117 H (75-99) mg/dL Total Bilirubin (0.2-1.3) mg/dL Total Protein (6.3-8.2) g/dL Albumin (3.5-5.0) g/dL 08/01/16 08/01/16 08/01/16 Range/Units 06:12 06:12 06:12 RBC 3.95 L (4.30-5.90) m/uL Hgb 11.5 L (13.0-17.5) gm/dL Hct 34.2 L (39.0-53.0) % RDW 18.7 H (11.5-15.5) % Plt Count 142 L (150-450) k/uL PT 13.1 H (9.0-12.0) sec BUN 33 H (9-20) mg/dL Creatinine 1.89 H (0.66-1.25) mg/dL Glucose 106 H (74-99) mg/dL POC Glucose (mg/dL) (75-99) mg/dL Total Bilirubin 1.6 H (0.2-1.3) mg/dL Total Protein 6.1 L (6.3-8.2) g/dL Albumin 3.3 L (3.5-5.0) g/dL 08/01/16 Range/Units 11:24 RBC (4.30-5.90) m/uL Hgb (13.0-17.5) gm/dL Hct (39.0-53.0) % RDW (11.5-15.5) % Plt Count (150-450) k/uL PT (9.0-12.0) sec BUN (9-20) mg/dL Creatinine (0.66-1.25) mg/dL Glucose (74-99) mg/dL POC Glucose (mg/dL) 120 H (75-99) mg/dL Total Bilirubin (0.2-1.3) mg/dL Total Protein (6.3-8.2) g/dL Albumin (3.5-5.0) g/dL Assessment and Plan (1) Shortness of breath Status: Acute (2) Elevated troponin Status: Acute (3) Acute cholecystitis Status: Acute (4) Ischemic cardiomyopathy Status: Acute (5) AICD (automatic cardioverter/defibrillator) present Status: Acute (6) Ischemic cardiomyopathy Status: Acute Plan: From cardiology's perspective, although at increased risks patient may proceed with cholecystectomy. DNP note has been reviewed, I agree with a documented findings and plan of care. Patient was seen and examined.
[2016-08-01 16:07] LABS: Glucose,Whole Blood 104 mg/dL (75-99)
--- NOTE | 2016-08-01 18:19 | P.PN ---
Subjective Principal diagnosis: Cholecystitis Patient transferred from [facility]. Denies abdominal pain. INR 1.6. Bilirubin 1.3. Shortness of breath is about the same may be slightly worse today he states. Objective - Vital Signs Vital signs: Vital Signs Temp 98.3 F 08/01/16 16:47 Pulse 83 08/01/16 16:47 Resp 19 08/01/16 16:47 BP 96/63 08/01/16 16:47 Pulse Ox 94 L 08/01/16 16:47 Intake & Output 07/31/16 08/01/16 08/01/16 18:59 06:59 18:59 Intake Total 880 250 760 Balance 880 250 760 Weight 105.6 kg Intake: IV 250 160 Magnesium Sulfate-D5w Pmx 200 1 gm In Dextrose/Water 1 100ml.bag @ 100 mls/hr IVPB Q1H [facility] Rx#: [id number] Piperacillin-Tazobactam 3 50 25 .375 gm In Dextrose/Water 1 50ml.bag @ 12.5 mls/hr IVPB Q8HR [facility] Rx#: [id number] Sodium Chloride 0.9% 1, 135 000 ml @ 20 mls/hr IV . Q24H [facility] Rx#:[id number] Oral 880 600 Other: Voiding Method Toilet # Voids 1 1 1 - Exam Abdomen: Soft, nondistended, nontender - Labs CBC & Chem 7: 08/01/16 06:12 08/01/16 06:12 Labs: Abnormal Lab Results - Last 24 Hours (Table) 07/31/16 08/01/16 08/01/16 Range/Units 21:14 06:02 06:12 RBC 3.95 L (4.30-5.90) m/uL Hgb 11.5 L (13.0-17.5) gm/dL Hct 34.2 L (39.0-53.0) % RDW 18.7 H (11.5-15.5) % Plt Count 142 L (150-450) k/uL PT (9.0-12.0) sec BUN (9-20) mg/dL Creatinine (0.66-1.25) mg/dL Glucose (74-99) mg/dL POC Glucose (mg/dL) 158 H 117 H (75-99) mg/dL Total Bilirubin (0.2-1.3) mg/dL Total Protein (6.3-8.2) g/dL Albumin (3.5-5.0) g/dL 08/01/16 08/01/16 08/01/16 Range/Units 06:12 06:12 11:24 RBC (4.30-5.90) m/uL Hgb (13.0-17.5) gm/dL Hct (39.0-53.0) % RDW (11.5-15.5) % Plt Count (150-450) k/uL PT 13.1 H (9.0-12.0) sec BUN 33 H (9-20) mg/dL Creatinine 1.89 H (0.66-1.25) mg/dL Glucose 106 H (74-99) mg/dL POC Glucose (mg/dL) 120 H (75-99) mg/dL Total Bilirubin 1.6 H (0.2-1.3) mg/dL Total Protein 6.1 L (6.3-8.2) g/dL Albumin 3.3 L (3.5-5.0) g/dL 08/01/16 Range/Units 16:06 RBC (4.30-5.90) m/uL Hgb (13.0-17.5) gm/dL Hct (39.0-53.0) % RDW (11.5-15.5) % Plt Count (150-450) k/uL PT (9.0-12.0) sec BUN (9-20) mg/dL Creatinine (0.66-1.25) mg/dL Glucose (74-99) mg/dL POC Glucose (mg/dL) 104 H (75-99) mg/dL Total Bilirubin (0.2-1.3) mg/dL Total Protein (6.3-8.2) g/dL Albumin (3.5-5.0) g/dL Assessment and Plan (1) Cholecystitis Narrative/Plan: Continue antibiotics for suspected cholecystitis. Continue to optimize the patient from a respiratory and cardiac standpoint. Status: Acute
[2016-08-01 20:53] LABS: Glucose,Whole Blood 166 mg/dL (75-99)
[2016-08-02] MEDS: ZOLPIDEM 5 MG TAB PO PRN ×2 (03:30→23:33)
[2016-08-02 07:19] LABS: Glucose,Whole Blood 103 mg/dL (75-99)
[2016-08-02] MEDS: INSULIN LISPRO (humaLOG) 300 UNIT/3 ML VIAL SQ SCH ×7 (07:20→21:04)
[2016-08-02] MEDS: IPRATROPIUM-ALBUTEROL 3 ML NEB INHALATION SCH ×4 (07:47→19:40)
[2016-08-02 08:17] LABS: Anisocytosis Slight; Basophils % (A) 1 %; CH 28.9; CHCM 32.7; Eosinophils # (A) 0.4 k/uL (0-0.7); Eosinophils % (A) 6 %; HCT 36.7 % (39.0-53.0); HDW 3.76; Hypochromasia Slight; Luc # (Auto) 0.18; Luc % (Auto) 3; Lymphocytes # (A) 0.9 k/uL (1.0-4.8); Lymphocytes % (A) 14 %; MCHC 32.6 g/dL (31.0-37.0); MCV 89.1 fL (80.0-100.0); Mean Platelet Volume 7.8; Monocytes # (A) 0.3 k/uL (0-1.0); Monocytes % (A) 5 %; Neutrophils # (A) 4.8 k/uL (1.3-7.7); Neutrophils % (A) 72 %; Poikilocytosis Slight; RBC 4.12 m/uL (4.30-5.90); RDW 18.5 % (11.5-15.5); WBC 6.7 k/uL (3.8-10.6); WBC (Perox) 6.98
[2016-08-02 08:28] LABS: INR 1.2 (<1.1)
[2016-08-02 08:32] LABS: Calcium 8.9 mg/dL (8.4-10.2); Magnesium 2.1 mg/dL (1.6-2.3); Potassium 4.3 mmol/L (3.5-5.1); Total Bilirubin 1.3 mg/dL (0.2-1.3); Total Protein 6.7 g/dL (6.3-8.2)
[2016-08-02] MEDS: CHOLECALCIFEROL 1,000 UNIT TAB PO SCH (08:44)
[2016-08-02] MEDS: PANTOPRAZOLE 40 MG TABLET PO SCH (08:44)
[2016-08-02] MEDS: MULTIVITAMINS, THERA 1 EACH TAB PO SCH (08:44)
[2016-08-02] MEDS: CARVEDILOL 12.5 MG TAB PO SCH ×2 (08:44→16:40)
[2016-08-02] MEDS: glipiZIDE 5 MG TAB PO SCH (08:45)
[2016-08-02] MEDS: LOSARTAN 25 MG TAB PO SCH (08:45)
[2016-08-02] MEDS: ISOSORBIDE DINITRATE 20 MG TAB PO SCH ×2 (08:45→20:57)
[2016-08-02] MEDS: MAGNESIUM OXIDE 400 MG TAB PO SCH (08:45)
[2016-08-02] MEDS: POTASSIUM CHLORIDE ER 20 MEQ TAB.ER PO SCH ×2 (08:45→20:58)
[2016-08-02] MEDS: INSULIN DETEMIR 100 UNIT/ML 10 ML VIAL SQ SCH ×2 (08:50→21:07)
[2016-08-02] MEDS: PIPERACILLIN-TAZOBACTAM 3.375 GM in DEXTROSE/WATER 1 50ML.BAG IVPB SCH ×3 (09:44→23:13)
[2016-08-02] MEDS: SODIUM CHLORIDE 0.9% 1,000 ML IV SCH (09:46)
[2016-08-02 12:01] LABS: Glucose,Whole Blood 140 mg/dL (75-99)
--- NOTE | 2016-08-02 13:07 | P.PN ---
Subjective Principal diagnosis: Cholecystitis Patient is still complaining shortness of breath. Denies any significant abdominal pain. Tolerating his diet. Today creatinine has elevated. White blood cell count normal. Bilirubin is normal. Objective - Vital Signs Vital signs: Vital Signs Temp 96.2 F L 08/02/16 07:00 Pulse 82 08/02/16 11:45 Resp 19 08/02/16 08:00 BP 109/66 08/02/16 07:00 Pulse Ox 91 L 08/02/16 07:00 Intake & Output 08/01/16 08/02/16 08/02/16 18:59 06:59 18:59 Intake Total 760 360 Balance 760 360 Weight 106.6 kg Intake: IV 160 Piperacillin-Tazobactam 3 25 .375 gm In Dextrose/Water 1 50ml.bag @ 12.5 mls/hr IVPB Q8HR [facility] Rx#: [id number] Sodium Chloride 0.9% 1, 135 000 ml @ 20 mls/hr IV . Q24H [facility] Rx#:[id number] Oral 600 360 Other: Voiding Method Toilet # Voids 1 2 - Exam Abdomen: Soft, nondistended, mild right upper quadrant tenderness - Labs CBC & Chem 7: 08/02/16 07:46 08/02/16 07:46 Labs: Abnormal Lab Results - Last 24 Hours (Table) 08/01/16 08/01/16 08/02/16 Range/Units 16:06 20:51 07:10 RBC (4.30-5.90) m/uL Hgb (13.0-17.5) gm/dL Hct (39.0-53.0) % RDW (11.5-15.5) % Lymphocytes # (1.0-4.8) k/uL BUN (9-20) mg/dL Creatinine (0.66-1.25) mg/dL POC Glucose (mg/dL) 104 H 166 H 103 H (75-99) mg/dL 08/02/16 08/02/16 08/02/16 Range/Units 07:46 07:46 11:52 RBC 4.12 L (4.30-5.90) m/uL Hgb 12.0 L (13.0-17.5) gm/dL Hct 36.7 L (39.0-53.0) % RDW 18.5 H (11.5-15.5) % Lymphocytes # 0.9 L (1.0-4.8) k/uL BUN 37 H (9-20) mg/dL Creatinine 2.07 H (0.66-1.25) mg/dL POC Glucose (mg/dL) 140 H (75-99) mg/dL Assessment and Plan (1) Cholecystitis Narrative/Plan: Continue antibiotics. Continue to optimize medically. Tentatively plan cholecystectomy in the next 24-48 hours. Status: Acute
[2016-08-02] MEDS: DEXTROSE 5%-0.45% NACL 1,000 ML IV SCH (13:08)
--- NOTE | 2016-08-02 14:13 | P.PN ---
Subjective Patient is doing fairly well today. He said that his shortness of breath has improved. He still complaining of abdominal discomfort and bloating. kidney function did not improve significantly compared to yesterday. Objective - Vital Signs Vital signs: Vital Signs Temp 96.2 F L 08/02/16 07:00 Pulse 82 08/02/16 11:45 Resp 19 08/02/16 08:00 BP 109/66 08/02/16 07:00 Pulse Ox 91 L 08/02/16 07:00 Intake & Output 08/01/16 08/02/16 08/02/16 18:59 06:59 18:59 Intake Total 760 360 Balance 760 360 Weight 106.6 kg 106.6 kg Intake: IV 160 Piperacillin-Tazobactam 3 25 .375 gm In Dextrose/Water 1 50ml.bag @ 12.5 mls/hr IVPB Q8HR [facility] Rx#: [id number] Sodium Chloride 0.9% 1, 135 000 ml @ 20 mls/hr IV . Q24H [facility] Rx#:[id number] Oral 600 360 Other: Voiding Method Toilet # Voids 1 2 2 - Exam General: The patient is awake and alert, in no distress Eye: there is normal conjunctiva bilaterally. Neck: The neck is supple, there is no JVD. Cardiovascular: Normal S1-S2, no S3-S4, no murmurs. Respiratory: Lungs clear to auscultation bilaterally Gastrointestinal: Abdomen is soft, nontender Musculoskeletal: There is no pedal edema. Neurological:. Speech is normal. Skin: Skin is warm and dry - Labs CBC & Chem 7: 08/02/16 07:46 08/02/16 07:46 Labs: Abnormal Lab Results - Last 24 Hours (Table) 08/01/16 08/01/16 08/02/16 Range/Units 16:06 20:51 07:10 RBC (4.30-5.90) m/uL Hgb (13.0-17.5) gm/dL Hct (39.0-53.0) % RDW (11.5-15.5) % Lymphocytes # (1.0-4.8) k/uL BUN (9-20) mg/dL Creatinine (0.66-1.25) mg/dL POC Glucose (mg/dL) 104 H 166 H 103 H (75-99) mg/dL 08/02/16 08/02/16 08/02/16 Range/Units 07:46 07:46 11:52 RBC 4.12 L (4.30-5.90) m/uL Hgb 12.0 L (13.0-17.5) gm/dL Hct 36.7 L (39.0-53.0) % RDW 18.5 H (11.5-15.5) % Lymphocytes # 0.9 L (1.0-4.8) k/uL BUN 37 H (9-20) mg/dL Creatinine 2.07 H (0.66-1.25) mg/dL POC Glucose (mg/dL) 140 H (75-99) mg/dL Assessment and Plan Plan: 1. Acute cholecystitis: Seen and evaluated by general surgery. 2. Paroxysmal atrial fibrillation on anticoagulation with Coumadin at home currently on hold with anticipation of possible surgery 3. Ischemic cardiomyopathy with estimated ejection fraction of 20% 4. Type 2 diabetes mellitus, uncontrolled. A1c 10.6. continue home dose of Levemir and sliding scale insulin 5. elevated troponin: Trending down since last admission. 6. Acute kidney injury: Secondary to diuretic use. Discontinue diuretics for now. Encouraged oral hydration. Repeat lab work in the morning. Today, I had a prolonged discussion with the patient and his . I truly believe that most of his shortness of breath secondary to underlying emphysema and is chronic. There is no evidence of fluid overload either now nor on presentation. I truly doubt that the patient is in the chest of heart failure exacerbation based on the clinical evidence. I advised to hydrate him gently with IV fluids in an attempt to improve his kidney function. If that improved within the next day or 2 and his creatinine is below 2 I believe that the patient would be at an acceptable risk according to the revised cardiac risk index for preoperative risk. I discussed with him and his that he will remain at the risk about an average patient given his underlying comorbidities with congestive heart failure and type 2 diabetes.
[2016-08-02 17:43] LABS: Glucose,Whole Blood 91 mg/dL (75-99)
[2016-08-02 21:19] LABS: Glucose,Whole Blood 79 mg/dL (75-99)
[2016-08-03 05:04] LABS: Glucose,Whole Blood 132 mg/dL (75-99)
[2016-08-03 07:27] LABS: Glucose,Whole Blood 172 mg/dL (75-99)
[2016-08-03] MEDS: IPRATROPIUM-ALBUTEROL 3 ML NEB INHALATION SCH ×4 (07:35→20:26)
[2016-08-03] MEDS: PIPERACILLIN-TAZOBACTAM 3.375 GM in DEXTROSE/WATER 1 50ML.BAG IVPB SCH ×2 (08:41→16:13)
[2016-08-03] MEDS: CARVEDILOL 12.5 MG TAB PO SCH ×2 (08:41→17:59)
[2016-08-03] MEDS: POTASSIUM CHLORIDE ER 20 MEQ TAB.ER PO SCH ×2 (08:41→22:37)
[2016-08-03] MEDS: LOSARTAN 25 MG TAB PO SCH (08:41)
[2016-08-03] MEDS: PANTOPRAZOLE 40 MG TABLET PO SCH (08:42)
[2016-08-03] MEDS: INSULIN LISPRO (humaLOG) 300 UNIT/3 ML VIAL SQ SCH ×7 (08:42→22:40)
[2016-08-03] MEDS: ISOSORBIDE DINITRATE 20 MG TAB PO SCH ×2 (08:42→22:37)
[2016-08-03] MEDS: INSULIN DETEMIR 100 UNIT/ML 10 ML VIAL SQ SCH (08:44)
[2016-08-03] MEDS: DEXTROSE 5%-0.45% NACL 1,000 ML IV SCH (08:49)
[2016-08-03 09:09] LABS: INR 1.2 (<1.1); Prothrombin Time 12.4 sec (9.0-12.0)
[2016-08-03 09:12] LABS: Anisocytosis Slight; Basophils # (A) 0.1 k/uL (0-0.2); Basophils % (A) 1 %; CH 28.7; CHCM 32.8; Eosinophils # (A) 0.4 k/uL (0-0.7); Eosinophils % (A) 5 %; HCT 40.7 % (39.0-53.0); HDW 3.92; Hypochromasia Slight; Luc # (Auto) 0.25; Luc % (Auto) 3; Lymphocytes # (A) 1.4 k/uL (1.0-4.8); Lymphocytes % (A) 15 %; MCH 28.2 pg (25.0-35.0); MCV 88.2 fL (80.0-100.0); Mean Platelet Volume 7.3; Monocytes # (A) 0.5 k/uL (0-1.0); Monocytes % (A) 5 %; Neutrophils # (A) 6.3 k/uL (1.3-7.7); Neutrophils % (A) 71 %; Poikilocytosis Slight; RBC 4.62 m/uL (4.30-5.90); RDW 18.3 % (11.5-15.5); WBC 8.8 k/uL (3.8-10.6); WBC (Perox) 8.84
[2016-08-03 09:29] LABS: Calcium 9.4 mg/dL (8.4-10.2); Magnesium 2.1 mg/dL (1.6-2.3); Potassium 4.9 mmol/L (3.5-5.1); Total Bilirubin 1.5 mg/dL (0.2-1.3); Total Protein 7.2 g/dL (6.3-8.2)
[2016-08-03 12:30] LABS: Glucose,Whole Blood 145 mg/dL (75-99)
--- NOTE | 2016-08-03 12:44 | P.PN ---
Subjective Patient continues to complain of shortness of breath today. His O2 sat duration is within acceptable range on room air. He appeared dyspneic when I saw him. He was dozing off. His at bedside told me that he is diagnosed with obstructive sleep apnea but never uses CPAP machine at home. His kidney function is not significantly better since yesterday despite stopping his diuretics and giving him 24 hours of IV fluid hydration. Objective - Vital Signs Vital signs: Vital Signs Temp 96.3 F L 08/03/16 07:00 Pulse 84 08/03/16 07:47 Resp 16 08/03/16 07:00 BP 132/84 08/03/16 07:00 Pulse Ox 97 08/03/16 07:00 Intake & Output 08/02/16 08/03/16 08/03/16 18:59 06:59 18:59 Intake Total 720 500 Output Total 500 Balance 720 0 Weight 106.6 kg 108.3 kg Intake: Oral 720 500 Output: Urine 500 Other: Voiding Method Toilet # Voids 3 4 1 - Exam General: The patient is awake and alert, in no distress Eye: there is normal conjunctiva bilaterally. Neck: The neck is supple, there is no JVD. Cardiovascular: Normal S1-S2, no S3-S4, no murmurs. Respiratory: Lungs clear to auscultation bilaterally Gastrointestinal: Abdomen is soft, nontender Musculoskeletal: There is no pedal edema. Neurological:. Speech is normal. Skin: Skin is warm and dry - Labs CBC & Chem 7: 08/03/16 08:25 08/03/16 08:25 Labs: Abnormal Lab Results - Last 24 Hours (Table) 08/03/16 08/03/16 08/03/16 Range/Units 05:00 07:25 08:25 RDW (11.5-15.5) % PT 12.4 H (9.0-12.0) sec BUN (9-20) mg/dL Creatinine (0.66-1.25) mg/dL Glucose (74-99) mg/dL POC Glucose (mg/dL) 132 H 172 H (75-99) mg/dL Total Bilirubin (0.2-1.3) mg/dL AST (17-59) U/L ALT (21-72) U/L Alkaline Phosphatase (38-126) U/L 06/08/03/16 08/03/16 Range/Units 08:25 08:25 12:24 RDW 18.3 H (11.5-15.5) % PT (9.0-12.0) sec BUN 39 H (9-20) mg/dL Creatinine 1.83 H (0.66-1.25) mg/dL Glucose 171 H (74-99) mg/dL POC Glucose (mg/dL) 145 H (75-99) mg/dL Total Bilirubin 1.5 H (0.2-1.3) mg/dL AST 162 H (17-59) U/L ALT 185 H (21-72) U/L Alkaline Phosphatase 155 H (38-126) U/L Assessment and Plan Plan: 1. Acute cholecystitis: Seen and evaluated by general surgery. Surgery on hold awaiting to optimize his overall medical condition. 2. Paroxysmal atrial fibrillation on anticoagulation with Coumadin at home currently on hold with anticipation of possible surgery 3. Ischemic cardiomyopathy with estimated ejection fraction of 20%: Now with suspected exacerbation. I am very limited with diuretic use given acute kidney failure. Patient had an acute kidney failure after being given IV Lasix on presentation. I would obtain a repeat chest x-ray and BNP level. I will start low-dose Lasix 20 mg every 8 hours. 4. Type 2 diabetes mellitus, uncontrolled. A1c 10.6. continue home dose of Levemir and sliding scale insulin 5. elevated troponin: Trending down since last admission. 6. Acute kidney injury: Secondary to diuretic use. I would consult nephrology Patient and his said that he was diagnosed with obstructive sleep apnea untreated at home. He is dozing off while I was talking to him today in the room. X-ray showed evidence of emphysema and patient has a long history of smoking. There is no wheezing on exam. I will consult pulmonology for further evaluation I would recommend to hold off on surgery right now.
--- NOTE | 2016-08-03 13:06 | P.PN ---
Subjective Principal diagnosis: Cholecystitis Patient with increased shortness of breath today. Denies abdominal pain. Bilirubin and liver enzymes are slightly elevated today. Objective - Vital Signs Vital signs: Vital Signs Temp 96.3 F L 08/03/16 07:00 Pulse 84 08/03/16 07:47 Resp 16 08/03/16 07:00 BP 132/84 08/03/16 07:00 Pulse Ox 97 08/03/16 07:00 Intake & Output 08/02/16 08/03/16 08/03/16 18:59 06:59 18:59 Intake Total 720 500 Output Total 500 Balance 720 0 Weight 106.6 kg 108.3 kg Intake: Oral 720 500 Output: Urine 500 Other: Voiding Method Toilet # Voids 3 4 1 - Exam Abdomen: Soft, nondistended, nontender - Labs CBC & Chem 7: 08/03/16 08:25 08/03/16 08:25 Labs: Abnormal Lab Results - Last 24 Hours (Table) 08/03/16 08/03/16 08/03/16 Range/Units 05:00 07:25 08:25 RDW (11.5-15.5) % PT 12.4 H (9.0-12.0) sec BUN (9-20) mg/dL Creatinine (0.66-1.25) mg/dL Glucose (74-99) mg/dL POC Glucose (mg/dL) 132 H 172 H (75-99) mg/dL Total Bilirubin (0.2-1.3) mg/dL AST (17-59) U/L ALT (21-72) U/L Alkaline Phosphatase (38-126) U/L 08/03/16 08/03/16 08/03/16 Range/Units 08:25 08:25 12:24 RDW 18.3 H (11.5-15.5) % PT (9.0-12.0) sec BUN 39 H (9-20) mg/dL Creatinine 1.83 H (0.66-1.25) mg/dL Glucose 171 H (74-99) mg/dL POC Glucose (mg/dL) 145 H (75-99) mg/dL Total Bilirubin 1.5 H (0.2-1.3) mg/dL AST 162 H (17-59) U/L ALT 185 H (21-72) U/L Alkaline Phosphatase 155 H (38-126) U/L Assessment and Plan (1) Cholecystitis Narrative/Plan: Agree with plans for pulmonary evaluation. Await chest x-ray results. Repeat CMP tomorrow. Will follow. Status: Acute
--- NOTE | 2016-08-03 13:07 | XR ---
EXAMINATION TYPE: XR chest 2V DATE OF EXAM: 08/03/2016 COMPARISON: 07/30/2016 TECHNIQUE: PA and lateral views submitted. HISTORY: Shortness of breath FINDINGS: The lungs are clear and there is no pneumothorax, pleural effusion, or focal pneumonia. Heart is en larged. Multiple lead cardiac device and postsurgical changes are seen. Leads are stable in position. Previous surgery involving the right shoulder and bilateral shoulder arthropathy. Underlying COPD noted. Rib deformities and pleural based thickening is noted on the right and appears stable. Hypertrophic and degenerative change of the spine. IMPRESSION: 1. No acute process. Correlate for COPD. 2. Stable pleural-based thickening laterally on the right. 3. Cardiomegaly.
[2016-08-03] MEDS: CHOLECALCIFEROL 1,000 UNIT TAB PO SCH (13:14)
[2016-08-03] MEDS: MAGNESIUM OXIDE 400 MG TAB PO SCH (13:15)
[2016-08-03] MEDS: MULTIVITAMINS, THERA 1 EACH TAB PO SCH (13:15)
[2016-08-03] MEDS: SODIUM CHLORIDE 0.9% 1,000 ML IV SCH (13:17)
--- NOTE | 2016-08-03 13:32 | P.CNPUL ---
History of Present Illness Consult date: 08/03/16 Requesting physician: Thomas Coy Reason for consult: dyspnea Chief complaint: Shortness of breath History of present illness: This is a 71-year-old white male with a remote smoking history, patient had a 30 -pack-year smoking history, quit smoking over 21 years ago. Patient is also known to have history of ischemic cardiomyopathy, documented coronary artery disease and previous CABG, history of ICD placement history of chronic atrial fibrillation, history of chronic congestive heart failure, previous [place], history of hypertension, and history of cardiorenal syndrome. Patient was recently in the hospital for acute on chronic systolic congestive heart failure, and acute on chronic kidney failure. Patient was discharged home on acute on chronic systolic heart failure multiple medications including Bumex 2 mg in a.m., and 4 mg in p.m. Coronary to the patient he was usually on a higher dose of Bumex which was given to him by his instructor private Dr. Elias in [place]. Patient was also discharged home on multiple meds including Coreg, isosorbide dinitrate, Coumadin, and glipizide as well as insulin. Over the last few days, patient has been developing more shortness of breath, cough which is productive with whitish and sometimes brownish phlegm, a few pillows orthopnea, increased abdominal bloating and some swelling in lower extremities. patient has been using his nebulizer medication at home and seems to be making his shortness of breath even worse. Patient becomes more anxious and more tachycardic with every updraft treatment that he takes. Hence he was brought in back on 2016, chest x-ray showed mild prominence of the interstitium, no evidence of focal airspace disease or pleural effusion noted. His proBNP level was significantly elevated, ultrasound of the abdomen showed gallstones with abnormal gallbladder wall thickening and felt that the patient may have acute cholecystitis. Hence patient was seen by Dr. brewer on consultation, recommended antibiotics and recommended surgery was the patient is medically stable and cleared by cardiology for cholecystectomy. Cardiac consultation was done on 12/[address] SONYA Nolan, he recommended Lasix 40 mg IV push every 8 hours for 3 doses, and he planned to switch him to Bumex/his usual dose on outpatient basis. However the patient developed worsening renal profile and worsening liver profile over the last few days since admission. Chest x-ray done today continues to show mild prominence of the pulmonary vasculature, no evidence of pleural effusions, there is evidence of cardiomegaly, and possibly some component of COPD. D-dimer on admission was normal. Patient remains on DuoNeb which is not benefiting the patient much, he remains on Coreg, Lasix 20 mg IV push every 8 hours, insulin, Isordil, Cozaar, Zosyn, and Protonix. Patient continues to have shortness of breath, seems to be getting worse over the last 1 year, and more so in the last few days. Again the patient has symptoms of orthopnea, PND, and chronic intermittent swelling in lower extremities. Considering his shortness of breath, I was asked to see him on consultation. I have recommended a bedside PFT I have also recommended ABG on room air to be done on this patient. Clinically however, I believe his shortness of breath is mostly secondary to chronic LV dysfunction/ischemic cardiomyopathy and intermittently some component of congestive heart failure. Review of Systems 14 point review of systems were obtained, please refer to pertinent positives and negatives in HPI. Past Medical History Past Medical History: Atrial Fibrillation, Coronary Artery Disease (CAD), Heart Failure, Diabetes Mellitus, GERD/Reflux, Hyperlipidemia, Hypertension, Myocardial Infarction ([place]), Prostate Disorder, Renal Disease Additional Past Medical History / Comment(s): AAA 4.3 CM. ASKED IF PT HAD CHF BEFORE PT/ STATED NO BUT HE HAD OPEN HEART., cellulitis/abcess rt groin post porcedure. Last Myocardial Infarction Date:: 04/18/15 History of Any Multi-Drug Resistant Organisms: None Reported Past Surgical History: Coronary Bypass/CABG, Heart Catheterization, Joint Replacement, Orthopedic Surgery Additional Past Surgical History / Comment(s): bilateral knee replacement, RT ROTATOR CUFF SX, STATED:" I THINK HIS OPEN HEART WAS 3 VESSELS".'dec 2015 had a procedure rt groin arterypt stated haresh faird it out" Past Anesthesia/Blood Transfusion Reactions: No Reported Reaction Additional Past Anesthesia/Blood Transfusion Reaction / Comment(s): CLAUSTERPHOBIA Past Psychological History: No Psychological Hx Reported Additional Psychological History / Comment(s): lives in the family home with his and grandson in [place]. 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 Tobacco smoker stopping about 16 years ago. Denied significant alcohol abuse. Denied animals in the home. Retired from the [employer] force many years ago. Relates mother of cancer and father of myocardial infarction in his 60s Smoking Status: Former smoker Past Alcohol Use History: Heavy Additional Past Alcohol Use History / Comment(s): STARTED SMOKING AGE 12 SMOKED LESS THAN 1 PPD, QUIT 10 YEARS AGO. WHEN YOUNGER WAS HEAVY BEER DRINKER BUT QUIT >20 YEARS AGO. DENIES ANY RECREATIONAL DRUG USE. Past Drug Use History: None Reported - Past Family History Father Family Medical History: Myocardial Infarction ([place]) Mother Family Medical History: Cancer Additional Family Medical History / Comment(s): LUNG CANCER Medications and Allergies Home Medications Medication Instructions Recorded Confirmed Type Atorvastatin [Lipitor] 40 mg PO HS 01/21/16 07/30/16 History Carvedilol [Coreg] 25 mg PO BID 01/21/16 07/30/16 History Cholecalciferol [Vitamin D3] 5,000 unit PO DAILY 01/21/16 07/30/16 History Insulin Detemir [Levemir] 55 unit SQ BID 01/21/16 07/30/16 History Isosorbide Dinitrate 40 mg PO BID 01/21/16 07/30/16 History Magnesium Oxide [Mag-Ox] 250 mg PO DAILY 01/21/16 07/30/16 History Nitroglycerin Sl Tabs [Nitrostat] 0.4 mg SUBLINGUAL Q5M PRN 01/21/16 07/30/16 History Pantoprazole Sodium [Protonix] 40 mg PO DAILY 01/21/16 07/30/16 History Potassium Chloride ER [K-Dur 20] 20 meq PO BID 01/21/16 07/30/16 History Aspirin 81 mg PO DAILY 07/13/16 07/30/16 History Multivitamins, Thera [Multivitamin 1 tab PO DAILY 07/13/16 07/30/16 History (formulary)] Insulin Aspart [NovoLOG Flexpen] See Protocol SQ AC-TID 07/30/16 07/30/16 History Allergies Allergy/AdvReac Type Severity Reaction Status Date / Time alprazolam [From Xanax] AdvReac Confusion Verified 07/30/16 10:28 morphine AdvReac Hallucinati Verified 07/30/16 10:28 ons Physical Exam Vitals: Vital Signs Temp Pulse Pulse Resp BP BP Pulse Ox 08/03/16 07:47 84 08/03/16 07:37 84 08/03/16 07:00 96.3 F L 91 16 132/84 97 08/02/16 23:00 96.6 F L 84 20 133/56 96 08/02/16 20:56 84 119/82 08/02/16 19:49 88 08/02/16 19:40 84 08/02/16 17:06 93 19 08/02/16 16:08 88 08/02/16 15:55 88 08/02/16 15:00 96.8 F L 93 19 98/66 90 L Intake and Output 08/02/16 08/03/16 08/03/16 22:59 06:59 14:59 Intake Total 760 100 Output Total 500 Balance 760 -400 Intake: Oral 760 100 Output: Urine 500 Other: Voiding Method Toilet # Voids 3 4 1 Weight 106.6 kg 108.3 kg Physical Exam: Revealed a 71-year-old white male, obese, in no distress at rest , noted to be dyspneic with any activity. HEENT:[Neck is supple.] [No neck masses.] [No thyromegaly.] [No JVD.] Chest: [Minimal fine crackles at the bases, no rhonchi, no wheezes.] Cardiac Exam: [Irregular irregular rhythm Normal S1 and S2, no S3 gallop, no murmur.] Abdomen: [Obese, Soft, nontender, no megaly, no rebound, no guarding, normal bowel sounds.] Extremities: [No clubbing, 1+ bipedal edema, no cyanosis.] Neurological Exam: [No focal neurologic deficit.] Results - Laboratory Findings CBC and BMP: 08/03/16 08:25 08/03/16 08:25 PT/INR, D-dimer PT 12.4 sec (9.0-12.0) H 08/03/16 08:25 INR 1.2 (<1.1) 08/03/16 08:25 D-Dimer 0.49 mg/L FEU (<0.60) 07/30/16 08:10 Abnormal lab findings: Abnormal Labs 07/30/16 07/30/16 07/30/16 08:10 08:10 08:10 RBC Hgb Hct RDW 19.0 H Plt Count Lymphocytes # PT BUN 23 H Creatinine Glucose 297 H POC Glucose (mg/dL) Hemoglobin A1c Calcium 7.9 L Magnesium Total Bilirubin 2.6 H AST 68 H ALT 74 H Alkaline Phosphatase Total Creatine Kinase 248 H CK-MB (CK-2) 3.1 H* Troponin I 0.129 H* Total Protein Albumin Triglycerides HDL Cholesterol 07/30/16 07/30/16 07/30/16 08:10 08:10 08:10 RBC Hgb Hct RDW Plt Count Lymphocytes # PT 16.5 H BUN Creatinine Glucose POC Glucose (mg/dL) Hemoglobin A1c 8.7 H Calcium Magnesium 1.2 L Total Bilirubin AST ALT Alkaline Phosphatase Total Creatine Kinase CK-MB (CK-2) Troponin I Total Protein Albumin Triglycerides HDL Cholesterol 07/30/16 07/30/16 07/30/16 11:52 14:02 16:40 RBC Hgb Hct RDW Plt Count Lymphocytes # PT BUN Creatinine Glucose POC Glucose (mg/dL) 192 H 268 H Hemoglobin A1c Calcium Magnesium Total Bilirubin AST ALT Alkaline Phosphatase Total Creatine Kinase 234 H CK-MB (CK-2) 2.8 H* Troponin I 0.115 H* Total Protein Albumin Triglycerides HDL Cholesterol 07/30/16 07/30/16 07/31/16 19:53 21:03 05:46 RBC Hgb Hct RDW Plt Count Lymphocytes # PT BUN 24 H Creatinine Glucose 177 H POC Glucose (mg/dL) 254 H Hemoglobin A1c Calcium Magnesium 1.5 L Total Bilirubin 1.5 H AST ALT 76 H Alkaline Phosphatase Total Creatine Kinase 206 H CK-MB (CK-2) 3.1 H* Troponin I 0.102 H* Total Protein Albumin Triglycerides 223 H HDL Cholesterol 37 L 07/31/16 07/31/16 07/31/16 05:48 06:19 11:31 RBC Hgb 12.6 L Hct 37.1 L RDW 18.7 H Plt Count 148 L Lymphocytes # PT BUN Creatinine Glucose POC Glucose (mg/dL) 182 H 273 H Hemoglobin A1c Calcium Magnesium Total Bilirubin AST ALT Alkaline Phosphatase Total Creatine Kinase CK-MB (CK-2) Troponin I Total Protein Albumin Triglycerides HDL Cholesterol 07/31/16 07/31/16 08/01/16 16:47 21:14 06:02 RBC Hgb Hct RDW Plt Count Lymphocytes # PT BUN Creatinine Glucose POC Glucose (mg/dL) 237 H 158 H 117 H Hemoglobin A1c Calcium Magnesium Total Bilirubin AST ALT Alkaline Phosphatase Total Creatine Kinase CK-MB (CK-2) Troponin I Total Protein Albumin Triglycerides HDL Cholesterol 08/01/16 08/01/16 08/01/16 06:12 06:12 06:12 RBC 3.95 L Hgb 11.5 L Hct 34.2 L RDW 18.7 H Plt Count 142 L Lymphocytes # PT 13.1 H BUN 33 H Creatinine 1.89 H Glucose 106 H POC Glucose (mg/dL) Hemoglobin A1c Calcium Magnesium Total Bilirubin 1.6 H AST ALT Alkaline Phosphatase Total Creatine Kinase CK-MB (CK-2) Troponin I Total Protein 6.1 L Albumin 3.3 L Triglycerides HDL Cholesterol 08/01/16 08/01/16 08/01/16 11:24 16:06 20:51 RBC Hgb Hct RDW Plt Count Lymphocytes # PT BUN Creatinine Glucose POC Glucose (mg/dL) 120 H 104 H 166 H Hemoglobin A1c Calcium Magnesium Total Bilirubin AST ALT Alkaline Phosphatase Total Creatine Kinase CK-MB (CK-2) Troponin I Total Protein Albumin Triglycerides HDL Cholesterol 08/02/16 08/02/16 08/02/16 07:10 07:46 07:46 RBC 4.12 L Hgb 12.0 L Hct 36.7 L RDW 18.5 H Plt Count Lymphocytes # 0.9 L PT BUN 37 H Creatinine 2.07 H Glucose POC Glucose (mg/dL) 103 H Hemoglobin A1c Calcium Magnesium Total Bilirubin AST ALT Alkaline Phosphatase Total Creatine Kinase CK-MB (CK-2) Troponin I Total Protein Albumin Triglycerides HDL Cholesterol 08/02/16 08/03/16 08/03/16 11:52 05:00 07:25 RBC Hgb Hct RDW Plt Count Lymphocytes # PT BUN Creatinine Glucose POC Glucose (mg/dL) 140 H 132 H 172 H Hemoglobin A1c Calcium Magnesium Total Bilirubin AST ALT Alkaline Phosphatase Total Creatine Kinase CK-MB (CK-2) Troponin I Total Protein Albumin Triglycerides HDL Cholesterol 08/03/16 08/03/16 08/03/16 08:25 08:25 08:25 RBC Hgb Hct RDW 18.3 H Plt Count Lymphocytes # PT 12.4 H BUN 39 H Creatinine 1.83 H Glucose 171 H POC Glucose (mg/dL) Hemoglobin A1c Calcium Magnesium Total Bilirubin 1.5 H AST 162 H ALT 185 H Alkaline Phosphatase 155 H Total Creatine Kinase CK-MB (CK-2) Troponin I Total Protein Albumin Triglycerides HDL Cholesterol 08/03/16 12:24 RBC Hgb Hct RDW Plt Count Lymphocytes # PT BUN Creatinine Glucose POC Glucose (mg/dL) 145 H Hemoglobin A1c Calcium Magnesium Total Bilirubin AST ALT Alkaline Phosphatase Total Creatine Kinase CK-MB (CK-2) Troponin I Total Protein Albumin Triglycerides HDL Cholesterol - Diagnostic Findings Chest x-ray: image reviewed (Cardiomegaly, mild prominence of the interstitium, possibly some component of COPD) Assessment and Plan Plan: Impression: 1 acute on chronic shortness of breath multifactorial, but mostly secondary to chronic systolic cardiac dysfunction and ischemic cardiomyopathy. Patient had a previous ICD placement over a year ago. 2 suspect some component of COPD, however based on the clinical history, and based on the fact that the patient does not improve much with bronchodilators, and based on the fact that the patient quit smoking over 21 years ago, I believe his shortness of breath is mostly cardiac in nature. 3 acute cardiorenal syndrome, worsened with aggressive diuresis. Apparently the patient had previous issues with Lasix, but did not have the same issue with Bumex, hence I would recommend avoiding Lasix and adjust the Bumex dose accordingly. With strict I's and O's and daily weights. 4 morbid obesity and chronic deconditioning is also another contributing factor to his chronic shortness of breath. 5 acute cholecystitis 6 worsening liver enzymes, suspect congestive hepatopathy. 7 acute on chronic renal failure related to his underlying congestive heart failure/cardiorenal, and worsened with diuretics/Lasix. 8 history of chronic atrial fibrillation, patient has been on anticoagulation therapy Recommendation: Continue present treatment plan, in the meantime the patient will need to be reevaluated by cardiology to clear for surgery, pulmonary-mercado patient will have a bedside PFT and would have room air ABG done and we will address accordingly. Prognosis is definitely poor and guarded, patient is definitely high surgical risk based on his underlying severe cardiomyopathy and renal failure. We will continue to follow. Discussed his condition with him and his at bedside. Time with Patient: Greater than 30
[2016-08-03 13:45] LABS: ABG PH 7.48 (7.35-7.45)
[2016-08-03 13:46] LABS: ABG Base Excess -2.3 mmol/L; ABG HCO3 21 mmol/L (21-25); ABG Oxygen Saturation 95.5 % (94-97); ABG PCO2 29 mmHg (35-45); ABG PO2 71 mmHg (83-108); ABG TCO2 22 mmol/L (19-24)
[2016-08-03] MEDS: FUROSEMIDE 10 MG/ML 2 ML VIAL IV SCH (16:13)
[2016-08-03 17:09] LABS: Glucose,Whole Blood 80 mg/dL (75-99)
[2016-08-03 20:42] LABS: Glucose,Whole Blood 91 mg/dL (75-99)
[2016-08-03] MEDS: MELATONIN 3 MG TABLET PO SCH (22:38)
[2016-08-04] MEDS: PIPERACILLIN-TAZOBACTAM 3.375 GM in DEXTROSE/WATER 1 50ML.BAG IVPB SCH ×3 (00:06→15:49)
[2016-08-04] MEDS: FUROSEMIDE 10 MG/ML 2 ML VIAL IV SCH ×3 (00:06→15:49)
[2016-08-04 00:37] LABS: Glucose,Whole Blood 131 mg/dL (75-99)
[2016-08-04] MEDS: INSULIN DETEMIR 100 UNIT/ML 10 ML VIAL SQ SCH ×3 (01:03→21:26)
[2016-08-04] MEDS: IPRATROPIUM-ALBUTEROL 3 ML NEB INHALATION SCH ×4 (07:27→20:17)
[2016-08-04 07:55] LABS: Glucose,Whole Blood 79 mg/dL (75-99)
[2016-08-04] MEDS: INSULIN LISPRO (humaLOG) 300 UNIT/3 ML VIAL SQ SCH ×7 (08:44→21:26)
[2016-08-04 08:51] LABS: Anisocytosis Slight; Basophils % (A) 0 %; CH 28.7; CHCM 32.4; Eosinophils # (A) 0.4 k/uL (0-0.7); Eosinophils % (A) 5 %; HCT 40.1 % (39.0-53.0); HDW 3.71; HGB 12.7 gm/dL (13.0-17.5); Hypochromasia Slight; INR 1.2 (<1.1); Luc % (Auto) 2; Lymphocytes # (A) 1.2 k/uL (1.0-4.8); Lymphocytes % (A) 14 %; MCH 28.3 pg (25.0-35.0); MCHC 31.7 g/dL (31.0-37.0); MCV 89.3 fL (80.0-100.0); Mean Platelet Volume 7.8; Monocytes # (A) 0.4 k/uL (0-1.0); Monocytes % (A) 5 %; Neutrophils # (A) 6.7 k/uL (1.3-7.7); Neutrophils % (A) 74 %; Poikilocytosis Slight; Prothrombin Time 12.2 sec (9.0-12.0); RBC 4.49 m/uL (4.30-5.90); RDW 18.4 % (11.5-15.5); WBC (Perox) 9.02
[2016-08-04 09:15] LABS: Calcium 9.3 mg/dL (8.4-10.2); Magnesium 2.2 mg/dL (1.6-2.3); Potassium 4.4 mmol/L (3.5-5.1); Total Bilirubin 1.6 mg/dL (0.2-1.3); Total Protein 7.1 g/dL (6.3-8.2)
[2016-08-04] MEDS: CARVEDILOL 12.5 MG TAB PO SCH ×2 (09:20→17:16)
[2016-08-04] MEDS: PANTOPRAZOLE 40 MG TABLET PO SCH (09:20)
[2016-08-04] MEDS: POTASSIUM CHLORIDE ER 20 MEQ TAB.ER PO SCH ×2 (09:22→21:27)
[2016-08-04] MEDS: ISOSORBIDE DINITRATE 20 MG TAB PO SCH ×2 (09:22→21:27)
[2016-08-04] MEDS: SODIUM CHLORIDE 0.9% 1,000 ML IV SCH (09:30)
[2016-08-04] MEDS: LOSARTAN 25 MG TAB PO SCH (09:34)
--- NOTE | 2016-08-04 10:19 | ECHOF ---
Referral Reason:elevated trop MEASUREMENTS -------- HEIGHT: 182.9 cm WEIGHT: 102.5 kg BP: Ao Diam: 3.4 cm (2.0 - 3.7) AV Cusp: 1.5 cm (1.5 - 2.6) LA Diam: 4.5 cm (2.7 - 3.8) MV EXCURSION: 17.961 mm (> 18.000) MV EF SLOPE: 124 mm/s (70 - 150) EPSS: 1.1 cm MV E Jad: 0.85 m/s MV DecT: 213 ms MV A Jad: 0.33 m/s MV E/A Ratio: 2.55 AV maxP.71 mmHg AV meanP.35 mmHg RAP: 5.00 mmHg RVSP: 18.70 mmHg FINDINGS -------- Sinus rhythm. AICD This was a technically difficult study with suboptimal views. No subcostals due to surgery Ejection fraction difficult to estimate due to cardiac arrhythmia. Overall left ventricular systolic function is moderately impaired with, an EF between 35 - 40 %. [place] Hypokinesis. The RV was not well visualized. The left atrium is moderately dilated. The right atrium was not well visualized. 1.5mg of Definity was utilized for enhancement of images Aortic valve is trileaflet and is mildly thickened. There is mild aortic stenosis present. Peak/mean gradient across the Aortic Valve is 17.71mmHg / 11.35mmHg. The mitral valve leaflets are mildly thickened. Mild mitral regurgitation is present. Mild tricuspid regurgitation present. The right ventricular systolic pressure, as measured by Doppler, is 18.70mmHg. Pulmonic valve appears structurally normal. The pericardium is normal. CONCLUSIONS -------- 1. Sinus rhythm. 2. There is mild aortic stenosis present. 3. Peak/mean gradient across the Aortic Valve is 17.71mmHg / 11.35mmHg. 4. The mitral valve leaflets are mildly thickened. 5. Mild mitral regurgitation is present. 6. Mild tricuspid regurgitation present. 7. The right ventricular systolic pressure, as measured by Doppler, is 18.70mmHg. 8. Pulmonic valve appears structurally normal. 9. The pericardium is normal. 10. AICD 11. This was a technically difficult study with suboptimal views. 12. [place] Hypokinesis. 13. The RV was not well visualized. 14. The left atrium is moderately dilated. 15. The right atrium was not well visualized. 16. 1.5mg of Definity was utilized for enhancement of images 17. Aortic valve is trileaflet and is mildly thickened. MEMBER OF THE LEGISLATIVE COUNCIL: Yadira Toscano RDCS
[2016-08-04] MEDS: MULTIVITAMINS, THERA 1 EACH TAB PO SCH (11:45)
[2016-08-04] MEDS: CHOLECALCIFEROL 1,000 UNIT TAB PO SCH (11:45)
[2016-08-04] MEDS: MAGNESIUM OXIDE 400 MG TAB PO SCH (11:45)
[2016-08-04 12:40] LABS: Glucose,Whole Blood 138 mg/dL (75-99)
--- NOTE | 2016-08-04 13:47 | P.PN ---
Subjective This is a 71-year-old white male with a remote smoking history, patient had a 30 -pack-year smoking history, quit smoking over 21 years ago. Patient is also known to have history of ischemic cardiomyopathy, documented coronary artery disease and previous CABG, history of ICD placement history of chronic atrial fibrillation, history of chronic congestive heart failure, previous ME, history of hypertension, and history of cardiorenal syndrome. Patient was recently in the hospital for acute on chronic systolic congestive heart failure, and acute on chronic kidney failure. Patient was discharged home on acute on chronic systolic heart failure multiple medications including Bumex 2 mg in a.m., and 4 mg in p.m. Coronary to the patient he was usually on a higher dose of Bumex which was given to him by his target setter Dr. Elias in [place]. Patient was also discharged home on multiple meds including Coreg, isosorbide dinitrate, Coumadin, and glipizide as well as insulin. Over the last few days, patient has been developing more shortness of breath, cough which is productive with whitish and sometimes brownish phlegm, a few pillows orthopnea, increased abdominal bloating and some swelling in lower extremities. patient has been using his nebulizer medication at home and seems to be making his shortness of breath even worse. Patient becomes more anxious and more tachycardic with every updraft treatment that he takes. Hence he was brought in back on 2016, chest x-ray showed mild prominence of the interstitium, no evidence of focal airspace disease or pleural effusion noted. His proBNP level was significantly elevated, ultrasound of the abdomen showed gallstones with abnormal gallbladder wall thickening and felt that the patient may have acute cholecystitis. Hence patient was seen by Dr. brewer on consultation, recommended antibiotics and recommended surgery was the patient is medically stable and cleared by cardiology for cholecystectomy. Cardiac consultation was done on 12/[address] SONYA Nolan, he recommended Lasix 40 mg IV push every 8 hours for 3 doses, and he planned to switch him to Bumex/his usual dose on outpatient basis. However the patient developed worsening renal profile and worsening liver profile over the last few days since admission. Chest x-ray done today continues to show mild prominence of the pulmonary vasculature, no evidence of pleural effusions, there is evidence of cardiomegaly, and possibly some component of COPD. D-dimer on admission was normal. Patient remains on DuoNeb which is not benefiting the patient much, he remains on Coreg, Lasix 20 mg IV push every 8 hours, insulin, Isordil, Cozaar, Zosyn, and Protonix. Patient continues to have shortness of breath, seems to be getting worse over the last 1 year, and more so in the last few days. Again the patient has symptoms of orthopnea, PND, and chronic intermittent swelling in lower extremities. Considering his shortness of breath, I was asked to see him on consultation. I have recommended a bedside PFT I have also recommended ABG on room air to be done on this patient. Clinically however, I believe his shortness of breath is mostly secondary to chronic LV dysfunction/ischemic cardiomyopathy and intermittently some component of congestive heart failure. The patient is seen again today 08/04/2016 in follow-up on the regular medical floor. He is awake and alert in no acute distress. He is breathing easier today as compared to yesterday. He is maintaining good O2 saturations in the 90s on room air. He's been afebrile. FEV1 value is 45% of predicted. Gold stage III COPD. Arterial blood gases revealed a PaO2 of 71, pCO2 29, pH 7.48. These were on room air. Bicarb is 25, no significant hypercapnia. He is tolerating his bronchodilators today. Continues to be diuresed with Lasix 20 mg IV every 8 hours. Currently in a negative balance. Current creatinine 1.71. LFTs continue to climb. Objective - Vital Signs Vital signs: Vital Signs Temp 97.9 F 08/04/16 07:00 Pulse 88 08/04/16 11:27 Resp 14 08/04/16 07:00 BP 112/66 08/04/16 07:00 Pulse Ox 92 L 08/04/16 07:00 Intake & Output 08/03/16 08/04/16 08/04/16 18:59 06:59 18:59 Output Total 450 650 Balance -450 -650 Weight 84.5 kg Output: Urine 450 650 Other: Voiding Method Toilet # Voids 1 - Exam GENERAL EXAM: Morbidly obese. Alert, comfortable in no apparent distress. HEAD: Normocephalic. EYES: Normal reaction of pupils, equal size. NOSE: Clear with pink turbinates. THROAT: Some crowding of the posterior pharynx. No erythema or exudates. NECK: Short. No masses, positive JVD. CHEST: No chest wall deformity. LUNGS: Equal air entry with no crackles, wheeze, rhonchi or dullness. Diminished. CVS: S1 and S2 normal with no audible mumurs, regular rhythm. ABDOMEN: Obese, distended, normal bowel sounds, no guarding or rigidity. SPINE: No scoliosis or deformity SKIN: No rashes CENTRAL NERVOUS SYSTEM: No focal deficits, tone is normal in all 4 extremities. Extremities: There is 1-2+ lower extremity peripheral edema. No clubbing, no cyanosis. Peripheral pulses are intact. - Labs CBC & Chem 7: 08/04/16 08:04 08/04/16 08:04 Labs: Abnormal Lab Results - Last 24 Hours (Table) 08/03/16 08/04/16 08/04/16 Range/Units 13:36 00:35 08:04 Hgb (13.0-17.5) gm/dL RDW (11.5-15.5) % PT 12.2 H (9.0-12.0) sec ABG pH 7.48 H (7.35-7.45) ABG pCO2 29 L (35-45) mmHg ABG pO2 71 L (83-108) mmHg BUN (9-20) mg/dL Creatinine (0.66-1.25) mg/dL POC Glucose (mg/dL) 131 H (75-99) mg/dL Total Bilirubin (0.2-1.3) mg/dL AST (17-59) U/L ALT (21-72) U/L Alkaline Phosphatase (38-126) U/L 08/04/16 08/04/16 08/04/16 Range/Units 08:04 08:04 12:34 Hgb 12.7 L (13.0-17.5) gm/dL RDW 18.4 H (11.5-15.5) % PT (9.0-12.0) sec ABG pH (7.35-7.45) ABG pCO2 (35-45) mmHg ABG pO2 (83-108) mmHg BUN 36 H (9-20) mg/dL Creatinine 1.71 H (0.66-1.25) mg/dL POC Glucose (mg/dL) 138 H (75-99) mg/dL Total Bilirubin 1.6 H (0.2-1.3) mg/dL AST 181 H (17-59) U/L ALT 219 H (21-72) U/L Alkaline Phosphatase 133 H (38-126) U/L Assessment and Plan Plan: Impression: 1 acute on chronic shortness of breath multifactorial, but mostly secondary to chronic systolic cardiac dysfunction and ischemic cardiomyopathy. Patient had a previous ICD placement over a year ago. 2 suspect some component of COPD, FEV1 45% of predicted. 3 acute cardiorenal syndrome, worsened with aggressive diuresis. Apparently the patient had previous issues with Lasix, but did not have the same issue with Bumex, hence I would recommend avoiding Lasix and adjust the Bumex dose accordingly. With strict I's and O's and daily weights. 4 morbid obesity and chronic deconditioning is also another contributing factor to his chronic shortness of breath. 5 acute cholecystitis 6 worsening liver enzymes, suspect congestive hepatopathy. 7 acute on chronic renal failure related to his underlying congestive heart failure/cardiorenal, and worsened with diuretics/Lasix. 8 history of chronic atrial fibrillation, patient has been on anticoagulation therapy Plan: The patient was seen and evaluated by Dr. Alvarado. The patient is FEV1 value is 45% of predicted. ABGs were reviewed. We'll continue with DuoNeb inhalations 4 times a day and when necessary. We will add Pulmicort and Perforomist inhalations twice a day. He could follow-up in our office for full pulmonary function testing to make recommendations for maintenance medications at that time. We will await further input and clearance from cardiology in regards to the planned cholecystectomy. We'll continue to follow and make further recommendations based on his clinical status.
[2016-08-04] MEDS: SIMETHICONE 80 MG CHEWABLE PO SCH ×3 (15:43→21:28)
[2016-08-04 15:50] LABS: Appearance,Urine Clear (Clear); Bilirubin,Urine Negative (Negative); Glucose,Urine (UA) Negative (Negative); Ketones,Urine Negative (Negative); Leukocyte Esterase,Urine Negative (Negative); Nitrite,Urine Negative (Negative); PH, Urine 5.5 (5.0-8.0); Protein,Urine Negative (Negative); Specific Gravity,Urine 1.013 (1.001-1.035); UA Billing (MACRO vs. MICRO) CHEM; Urobilinogen,Urine <2.0 mg/dL (<2.0)
--- NOTE | 2016-08-04 16:18 | CONS ---
DATE OF CONSULTATION: REASON FOR CONSULTATION: Renal failure. HISTORY OF PRESENT ILLNESS: Patient is a 71-year-old male who was admitted initially on 07/30/2016 with complaints of shortness of breath. He appeared to be fluid-overloaded and was diuresed. Patient also had abdominal pain in the right upper quadrant at the time of admission. He was noted to have acute cholecystitis and is being evaluated by General Surgery. Serum creatinine was 1.7 mg/dL today. It was 1.25 at the time of admission and peaked to 2.07 on 08/02/2016. Patient's blood pressure has been running on the lower side with systolic around 103 to 112 mmHg. He is currently not on any IV fluids. Patient had been on Cozaar, which has been held. Past medical history is significant for: 1. Coronary artery disease. 2. Cardiomyopathy. 3. Type 2 diabetes. 4. Hypertension. 5. Hyperlipidemia. 6. Abdominal aortic aneurysm. 7. Osteoarthritis. PAST SURGICAL HISTORY: 1. Bilateral knee arthroplasty. 2. Rotator cuff surgery. 3. Cardiac catheterization. 4. Coronary artery bypass surgery. SOCIAL HISTORY: Patient is an ex-smoker. No history of drug abuse or alcohol abuse. Medications prior to admission included: 1. Lipitor. 2. Coreg. 3. Vitamin D3. 4. Insulin. 5. Magnesium. 6. Nitrostat. 7. Protonix. 8. Potassium. 9. Aspirin. 10. Multivitamins. ALLERGIES include XANAX. REVIEW OF SYSTEMS: Negative for fevers or chills. Patient did have abdominal pain. No current chest pains. Shortness of breath has improved. No urinary symptoms. No dizziness, lightheadedness. On examination, patient is currently comfortable, awake, not in any acute distress. Blood pressure is 130/71, heart rate 78 per minute. He is afebrile. EXAMINATION OF THE HEART: S1 and S2. EXAMINATION OF THE LUNGS: Bilateral breath sounds are heard. ABDOMEN: Soft, nontender. Examination of lower extremities shows no significant edema. GENERAL COUNSELOR exam is grossly intact. Patient is moving all 4 extremities. Labs reveal from today sodium 142, potassium 4.4, chloride 105, BUN 36, serum creatinine 1.7. Hemoglobin 12.7 g/dL. UA is not available from this admission. Previous UA on his last admission about 2 weeks ago showed no protein, no blood. He had significant WBCs with a urinary tract infection. ASSESSMENT: 1. Acute kidney injury, prerenal, associated with hypoperfusion. Blood pressure had been low. Currently it is improved. Cozaar is held. Serum creatinine is down from 2.0 to 1.7 mg/dL now. Patient is being diuresed, which we can continue. 2. Volume overload on initial admission, currently improved. Chest x-ray from yesterday shows no acute process. 3. Cholecystitis, being followed by Surgery and awaiting pulmonary clearance for surgery. 4. Acute kidney injury during his last admission about 2 weeks ago, which had improved with creatinine down to 1.1 mg/dL on 07/31/2016. PLAN: Continue off of Cozaar. Consider decreasing Lasix by tomorrow. Renal function so far continues to improve. Repeat labs in a.m. Check urinalysis again this admission. Thank you for this consultation. Will continue to follow the patient with you during his hospitalization.
--- NOTE | 2016-08-04 16:33 | P.PN ---
Subjective Principal diagnosis: Cholecystitis Patient complaining of shortness of breath. Also complaining today of some indigestion and gassy comfort. Discomfort seems to be centralized in the upper mid abdomen. Liver enzymes today is without significant change. Objective - Vital Signs Vital signs: Vital Signs Temp 97.1 F L 08/04/16 15:00 Pulse 82 08/04/16 15:00 Resp 16 08/04/16 15:00 BP 107/72 08/04/16 15:00 Pulse Ox 93 L 08/04/16 15:00 Intake & Output 08/03/16 08/04/16 08/04/16 18:59 06:59 18:59 Output Total 450 650 Balance -450 -650 Weight 84.5 kg Output: Urine 450 650 Other: Voiding Method Toilet # Voids 1 3 - Exam Abdomen: Soft, slightly distended, mild epigastric tenderness - Labs CBC & Chem 7: 08/04/16 08:04 08/04/16 08:04 Labs: Abnormal Lab Results - Last 24 Hours (Table) 08/04/16 08/04/16 08/04/16 Range/Units 00:35 08:04 08:04 Hgb 12.7 L (13.0-17.5) gm/dL RDW 18.4 H (11.5-15.5) % PT 12.2 H (9.0-12.0) sec BUN (9-20) mg/dL Creatinine (0.66-1.25) mg/dL POC Glucose (mg/dL) 131 H (75-99) mg/dL Total Bilirubin (0.2-1.3) mg/dL AST (17-59) U/L ALT (21-72) U/L Alkaline Phosphatase (38-126) U/L 08/04/16 08/04/16 Range/Units 08:04 12:34 Hgb (13.0-17.5) gm/dL RDW (11.5-15.5) % PT (9.0-12.0) sec BUN 36 H (9-20) mg/dL Creatinine 1.71 H (0.66-1.25) mg/dL POC Glucose (mg/dL) 138 H (75-99) mg/dL Total Bilirubin 1.6 H (0.2-1.3) mg/dL AST 181 H (17-59) U/L ALT 219 H (21-72) U/L Alkaline Phosphatase 133 H (38-126) U/L Assessment and Plan (1) Cholecystitis Narrative/Plan: Continue antibiotics for suspected cholecystitis. Recheck CMP and will add amylase and lipase for tomorrow's lab values. We'll make patient nothing by mouth after midnight in case the patient is optimized for surgical intervention. Status: Acute
[2016-08-04 17:13] LABS: Glucose,Whole Blood 97 mg/dL (75-99)
[2016-08-04] MEDS: FORMOTEROL FUMARATE 20 MCG/2 ML NEBU INHALATION SCH (20:17)
[2016-08-04] MEDS: BUDESONIDE 1 MG/2 ML NEBU INHALATION SCH (20:17)
[2016-08-04 20:44] LABS: Glucose,Whole Blood 176 mg/dL (75-99)
[2016-08-04] MEDS: MELATONIN 3 MG TABLET PO SCH (21:27)
[2016-08-05] MEDS: PIPERACILLIN-TAZOBACTAM 3.375 GM in DEXTROSE/WATER 1 50ML.BAG IVPB SCH ×3 (00:28→15:16)
[2016-08-05] MEDS: FUROSEMIDE 10 MG/ML 2 ML VIAL IV SCH ×2 (00:28→07:59)
[2016-08-05 07:21] LABS: Glucose,Whole Blood 93 mg/dL (75-99)
[2016-08-05] MEDS: IPRATROPIUM-ALBUTEROL 3 ML NEB INHALATION SCH ×4 (07:23→20:28)
[2016-08-05] MEDS: FORMOTEROL FUMARATE 20 MCG/2 ML NEBU INHALATION SCH ×2 (07:23→20:28)
[2016-08-05] MEDS: BUDESONIDE 1 MG/2 ML NEBU INHALATION SCH ×2 (07:23→20:28)
[2016-08-05] MEDS: INSULIN LISPRO (humaLOG) 300 UNIT/3 ML VIAL SQ SCH ×7 (07:58→22:17)
[2016-08-05] MEDS: INSULIN DETEMIR 100 UNIT/ML 10 ML VIAL SQ SCH ×2 (07:58→22:17)
[2016-08-05] MEDS: POTASSIUM CHLORIDE ER 20 MEQ TAB.ER PO SCH ×2 (07:59→22:18)
[2016-08-05] MEDS: ISOSORBIDE DINITRATE 20 MG TAB PO SCH ×2 (07:59→22:17)
[2016-08-05] MEDS: CARVEDILOL 12.5 MG TAB PO SCH ×2 (07:59→17:07)
[2016-08-05] MEDS: PANTOPRAZOLE 40 MG TABLET PO SCH (07:59)
[2016-08-05] MEDS: SIMETHICONE 80 MG CHEWABLE PO SCH ×4 (08:00→22:18)
[2016-08-05 08:35] LABS: Anisocytosis Slight; Basophils # (A) 0.1 k/uL (0-0.2); Basophils % (A) 1 %; CH 28.6; CHCM 31.5; Eosinophils # (A) 0.4 k/uL (0-0.7); Eosinophils % (A) 4 %; HDW 3.64; HGB 12.8 gm/dL (13.0-17.5); Hypochromasia Moderate; Luc # (Auto) 0.22; Luc % (Auto) 2; Lymphocytes # (A) 1.2 k/uL (1.0-4.8); Lymphocytes % (A) 13 %; MCH 27.7 pg (25.0-35.0); MCHC 30.3 g/dL (31.0-37.0); MCV 91.4 fL (80.0-100.0); Mean Platelet Volume 8.1; Monocytes # (A) 0.6 k/uL (0-1.0); Monocytes % (A) 6 %; Neutrophils # (A) 7.3 k/uL (1.3-7.7); Neutrophils % (A) 75 %; Poikilocytosis Slight; RDW 18.5 % (11.5-15.5); WBC 9.8 k/uL (3.8-10.6); WBC (Perox) 9.74
[2016-08-05 08:40] LABS: INR 1.2 (<1.1)
[2016-08-05 08:41] LABS: Prothrombin Time 12.2 sec (9.0-12.0)
[2016-08-05 08:52] LABS: Calcium 9.2 mg/dL (8.4-10.2); Magnesium 2.2 mg/dL (1.6-2.3); Potassium 4.3 mmol/L (3.5-5.1); Total Bilirubin 1.7 mg/dL (0.2-1.3); Total Protein 7.3 g/dL (6.3-8.2)
[2016-08-05] MEDS: SODIUM CHLORIDE 0.9% 1,000 ML IV SCH (10:39)
[2016-08-05] MEDS: CHOLECALCIFEROL 1,000 UNIT TAB PO SCH (11:11)
[2016-08-05] MEDS: MAGNESIUM OXIDE 400 MG TAB PO SCH (11:11)
[2016-08-05] MEDS: MULTIVITAMINS, THERA 1 EACH TAB PO SCH (11:11)
[2016-08-05 12:19] LABS: Glucose,Whole Blood 90 mg/dL (75-99)
--- NOTE | 2016-08-05 13:27 | PN ---
Patient is seen for followup for acute kidney injury which appeared to be mainly prerenal. Patient's blood pressure had been running low. His angiotensin receptor blockers were held. Serum creatinine was up to 2.0, it is now down to 1.7 mg/dL. It has been as low as 1.1 on 07/31/2016. Patient is being evaluated for possible surgery for cholecystitis. He remains on antibiotics currently. On examination, he is comfortable this morning, not in any acute distress. He denies any pain, nausea or vomiting. Blood pressure is 127/74, heart rate 82 per minute. He is afebrile. EXAMINATION OF THE HEART: S1 and S2. EXAMINATION OF THE LUNGS: Bilateral breath sounds are heard. ABDOMEN: Soft, nontender. Examination of lower extremities shows no evidence of edema. GEOTECHNICAL LABORATORY TECHNICIAN exam is grossly intact. Labs show sodium 143, potassium 4.3, BUN 35, serum creatinine 1.7. Hemoglobin 12.8 g/dL. ASSESSMENT: 1. Acute kidney injury, prerenal associated with hypoperfusion. Serum creatinine has improved; however, it is staying at 1.7 since yesterday. Patient has good urine output. He is maintained on Lasix, which we can decrease and switch to p.o. Lasix. 2. Cholecystitis, awaiting decision regarding surgery. Currently maintained on IV antibiotics. PLAN: Switch Lasix to p.o. and repeat labs in a.m.
--- NOTE | 2016-08-05 13:46 | P.PN ---
Subjective Patient presented with right upper quadrant abdominal pain. Abdominal ultrasound showing abnormal gallbladder with gallstones with gallbladder wall thickening and positive [place] sign. A suspicious for acute cholecystitis. Patient does have right upper quadrant abdominal pain and elevated LFTs. He is being followed for possible cholecystectomy today. He has been seen by cardiology and pulmonary service. Patient is a high risk for surgery. But he has been cleared to proceed with surgery. Objective - Vital Signs Vital signs: Vital Signs Temp 98.0 F 08/05/16 07:00 Pulse 84 08/05/16 11:44 Resp 18 08/05/16 07:00 BP 127/74 08/05/16 07:00 Pulse Ox 96 08/05/16 07:00 Intake & Output 08/04/16 08/05/16 08/05/16 18:59 06:59 18:59 Output Total 1200 Balance -1200 Weight 67 kg Output: Urine 1200 Other: Voiding Method Toilet # Voids 3 3 # Bowel Movements 1 - Exam Head normocephalic Neck supple Lungs diminished bilaterally Heart regular rate and rhythm S1-S2, no rub or gallop Abdomen is soft right upper quadrant tenderness nondistended positive bowel sounds no hepatosplenomegaly Extremities no edema Neuro alert and orientated to 3 - Labs CBC & Chem 7: 08/05/16 08:13 08/05/16 08:13 Labs: Abnormal Lab Results - Last 24 Hours (Table) 08/04/16 08/05/16 08/05/16 Range/Units 20:43 08:13 08:13 Hgb 12.8 L (13.0-17.5) gm/dL MCHC 30.3 L (31.0-37.0) g/dL RDW 18.5 H (11.5-15.5) % PT 12.2 H (9.0-12.0) sec BUN (9-20) mg/dL Creatinine (0.66-1.25) mg/dL POC Glucose (mg/dL) 176 H (75-99) mg/dL Total Bilirubin (0.2-1.3) mg/dL AST (17-59) U/L ALT (21-72) U/L Alkaline Phosphatase (38-126) U/L 08/05/16 Range/Units 08:13 Hgb (13.0-17.5) gm/dL MCHC (31.0-37.0) g/dL RDW (11.5-15.5) % PT (9.0-12.0) sec BUN 35 H (9-20) mg/dL Creatinine 1.77 H (0.66-1.25) mg/dL POC Glucose (mg/dL) (75-99) mg/dL Total Bilirubin 1.7 H (0.2-1.3) mg/dL AST 110 H (17-59) U/L ALT 195 H (21-72) U/L Alkaline Phosphatase 150 H (38-126) U/L Microbiology - Last 24 Hours (Table) 08/04/16 15:30 Urine Culture - Preliminary Urine,Clean Catch Assessment and Plan Plan: 1. Acute cholecystitis: Seen and evaluated by general surgery. Possible cholecystectomy later today. Continue IV antibiotics 2. Paroxysmal atrial fibrillation on anticoagulation with Coumadin at home currently on hold with anticipation of possible surgery 3. Ischemic cardiomyopathy with estimated ejection fraction of 20%: Now with suspected exacerbation. I am very limited with diuretic use given acute kidney failure. Patient had an acute kidney failure after being given IV Lasix on presentation. I would obtain a repeat chest x-ray and BNP level. I will start low-dose Lasix 20 mg every 8 hours. 4. Type 2 diabetes mellitus, uncontrolled. A1c 10.6. continue home dose of Levemir and sliding scale insulin 5. elevated troponin: Trending down since last admission. Recent myocardial infarction on last mission. Has been evaluated by cardiology. They reported that patient is high risk for surgery. 6. Acute kidney injury: Finger to diuretics and hypoperfusion. Nephrology is following. They switched him over to oral Lasix. Cozaar on hold. Creatinine 1.77 7. Shortness of breath lately secondary to CHF exacerbation and ischemic cardiomyopathy. Patient was evaluated by pulmonary service and cardiology 8. Acute on chronic systolic CHF exacerbation. Patient is been switched over to oral Lasix. 9. Acute cardiorenal syndrome 10. Morbid obesity can also be contributing to patient's chronic shortness of breath. 11. COPD with mild exacerbation continue [facility]. Pulmonary following. They will follow with him outpatient for further pulmonary function test I performed an examination of the patient and discussed their management with the physician Marine Steamfitter. I have reviewed the Physician Marine Steamfitter's notes and agree with the documented findings and plan of care
--- NOTE | 2016-08-05 14:14 | P.PN ---
Subjective This is a 71-year-old white male with a remote smoking history, patient had a 30 -pack-year smoking history, quit smoking over 21 years ago. Patient is also known to have history of ischemic cardiomyopathy, documented coronary artery disease and previous CABG, history of ICD placement history of chronic atrial fibrillation, history of chronic congestive heart failure, previous [place], history of hypertension, and history of cardiorenal syndrome. Patient was recently in the hospital for acute on chronic systolic congestive heart failure, and acute on chronic kidney failure. Patient was discharged home on acute on chronic systolic heart failure multiple medications including Bumex 2 mg in a.m., and 4 mg in p.m. Coronary to the patient he was usually on a higher dose of Bumex which was given to him by his facility maintenance worker Dr. Elias in [place]. Patient was also discharged home on multiple meds including Coreg, isosorbide dinitrate, Coumadin, and glipizide as well as insulin. Over the last few days, patient has been developing more shortness of breath, cough which is productive with whitish and sometimes brownish phlegm, a few pillows orthopnea, increased abdominal bloating and some swelling in lower extremities. patient has been using his nebulizer medication at home and seems to be making his shortness of breath even worse. Patient becomes more anxious and more tachycardic with every updraft treatment that he takes. Hence he was brought in back on 2016, chest x-ray showed mild prominence of the interstitium, no evidence of focal airspace disease or pleural effusion noted. His proBNP level was significantly elevated, ultrasound of the abdomen showed gallstones with abnormal gallbladder wall thickening and felt that the patient may have acute cholecystitis. Hence patient was seen by Dr. brewer on consultation, recommended antibiotics and recommended surgery was the patient is medically stable and cleared by cardiology for cholecystectomy. Cardiac consultation was done on 12/[address] SONYA Nolan, he recommended Lasix 40 mg IV push every 8 hours for 3 doses, and he planned to switch him to Bumex/his usual dose on outpatient basis. However the patient developed worsening renal profile and worsening liver profile over the last few days since admission. Chest x-ray done today continues to show mild prominence of the pulmonary vasculature, no evidence of pleural effusions, there is evidence of cardiomegaly, and possibly some component of COPD. D-dimer on admission was normal. Patient remains on DuoNeb which is not benefiting the patient much, he remains on Coreg, Lasix 20 mg IV push every 8 hours, insulin, Isordil, Cozaar, Zosyn, and Protonix. Patient continues to have shortness of breath, seems to be getting worse over the last 1 year, and more so in the last few days. Again the patient has symptoms of orthopnea, PND, and chronic intermittent swelling in lower extremities. Considering his shortness of breath, I was asked to see him on consultation. I have recommended a bedside PFT I have also recommended ABG on room air to be done on this patient. Clinically however, I believe his shortness of breath is mostly secondary to chronic LV dysfunction/ischemic cardiomyopathy and intermittently some component of congestive heart failure. The patient is seen again today 08/04/2016 in follow-up on the regular medical floor. He is awake and alert in no acute distress. He is breathing easier today as compared to yesterday. He is maintaining good O2 saturations in the 90s on room air. He's been afebrile. FEV1 value is 45% of predicted. Gold stage III COPD. Arterial blood gases revealed a PaO2 of 71, pCO2 29, pH 7.48. These were on room air. Bicarb is 25, no significant hypercapnia. He is tolerating his bronchodilators today. Continues to be diuresed with Lasix 20 mg IV every 8 hours. Currently in a negative balance. Current creatinine 1.71. LFTs continue to climb. The patient was seen again today 08/05/2016 in follow-up on the regular medical floor. He states he is feeling better today as compared to yesterday as his breathing is concerned. He is less short of breath. Dr. Dorsey does feel most of his dyspnea is secondary to his cardiac disease. He does have some restrictive lung disease which is also secondary to the congestive heart failure. He continues to diurese well. He remains in a negative balance. He is currently maintaining good O2 saturations in the 90s on room air. He is afebrile. No leukocytosis. He continues to have some epigastric discomfort. Liver enzymes and alk phos remain elevated. The plan is for possible cholecystectomy by Dr. Hernandez today. Objective - Vital Signs Vital signs: Vital Signs Temp 98.0 F 08/05/16 07:00 Pulse 84 08/05/16 11:44 Resp 18 08/05/16 07:00 BP 127/74 08/05/16 07:00 Pulse Ox 96 08/05/16 07:00 Intake & Output 08/04/16 08/05/16 08/05/16 18:59 06:59 18:59 Output Total 1200 Balance -1200 Weight 67 kg Output: Urine 1200 Other: Voiding Method Toilet # Voids 3 3 # Bowel Movements 1 - Exam GENERAL EXAM: Morbidly obese. Alert, comfortable in no apparent distress. HEAD: Normocephalic. EYES: Normal reaction of pupils, equal size. NOSE: Clear with pink turbinates. THROAT: Some crowding of the posterior pharynx. No erythema or exudates. NECK: Short. No masses, positive JVD. CHEST: No chest wall deformity. LUNGS: Equal air entry with no crackles, wheeze, rhonchi or dullness. Diminished. CVS: S1 and S2 normal with no audible mumurs, regular rhythm. ABDOMEN: Obese, distended, normal bowel sounds, no guarding or rigidity with some epigastric discomfort. SPINE: No scoliosis or deformity SKIN: No rashes CENTRAL NERVOUS SYSTEM: No focal deficits, tone is normal in all 4 extremities. Extremities: There is 1-2+ lower extremity peripheral edema. No clubbing, no cyanosis. Peripheral pulses are intact. - Labs CBC & Chem 7: 08/05/16 08:13 08/05/16 08:13 Labs: Abnormal Lab Results - Last 24 Hours (Table) 08/04/16 08/05/16 08/05/16 Range/Units 20:43 08:13 08:13 Hgb 12.8 L (13.0-17.5) gm/dL MCHC 30.3 L (31.0-37.0) g/dL RDW 18.5 H (11.5-15.5) % PT 12.2 H (9.0-12.0) sec BUN (9-20) mg/dL Creatinine (0.66-1.25) mg/dL POC Glucose (mg/dL) 176 H (75-99) mg/dL Total Bilirubin (0.2-1.3) mg/dL AST (17-59) U/L ALT (21-72) U/L Alkaline Phosphatase (38-126) U/L 08/05/16 Range/Units 08:13 Hgb (13.0-17.5) gm/dL MCHC (31.0-37.0) g/dL RDW (11.5-15.5) % PT (9.0-12.0) sec BUN 35 H (9-20) mg/dL Creatinine 1.77 H (0.66-1.25) mg/dL POC Glucose (mg/dL) (75-99) mg/dL Total Bilirubin 1.7 H (0.2-1.3) mg/dL AST 110 H (17-59) U/L ALT 195 H (21-72) U/L Alkaline Phosphatase 150 H (38-126) U/L Microbiology - Last 24 Hours (Table) 08/04/16 15:30 Urine Culture - Preliminary Urine,Clean Catch Assessment and Plan Plan: Impression: 1 acute on chronic shortness of breath multifactorial, but mostly secondary to chronic systolic cardiac dysfunction and ischemic cardiomyopathy. Patient had a previous ICD placement over a year ago. 2 suspect some component of COPD, FEV1 45% of predicted. 3 acute cardiorenal syndrome, worsened with aggressive diuresis. With strict I 's and O's and daily weights. 4 morbid obesity and chronic deconditioning is also another contributing factor to his chronic shortness of breath. 5 acute cholecystitis 6 worsening liver enzymes, suspect congestive hepatopathy. 7 acute on chronic renal failure related to his underlying congestive heart failure/cardiorenal, and worsened with diuretics/Lasix. 8 history of chronic atrial fibrillation, patient has been on anticoagulation therapy Plan: The patient was seen and evaluated by Dr. Alvarado. He is cleared for cholecystectomy from the pulmonary standpoint. We'll continue with DuoNeb inhalations 4 times a day and when necessary and Pulmicort and Perforomist inhalations twice a day. We'll continue to follow and make further recommendations based on his clinical status.
--- NOTE | 2016-08-05 14:23 | P.PN ---
Subjective Principal diagnosis: Cholecystitis Patient feels better today from a shortness of breath standpoint and also from and indigestion/pain standpoint his liver enzymes remain slightly elevated. He has been cleared although high risk from cardiology and pulmonary. Patient's is present at the bedside. They're expressing an interest in proceeding with surgery at this time. Objective - Vital Signs Vital signs: Vital Signs Temp 98.0 F 08/05/16 07:00 Pulse 84 08/05/16 11:44 Resp 18 08/05/16 07:00 BP 127/74 08/05/16 07:00 Pulse Ox 96 08/05/16 07:00 Intake & Output 08/04/16 08/05/16 08/05/16 18:59 06:59 18:59 Output Total 1200 Balance -1200 Weight 67 kg Output: Urine 1200 Other: Voiding Method Toilet # Voids 3 3 # Bowel Movements 1 - Exam Abdomen: Soft, nondistended, mild epigastric tenderness - Labs CBC & Chem 7: 08/05/16 08:13 08/05/16 08:13 Labs: Abnormal Lab Results - Last 24 Hours (Table) 08/04/16 08/05/16 08/05/16 Range/Units 20:43 08:13 08:13 Hgb 12.8 L (13.0-17.5) gm/dL MCHC 30.3 L (31.0-37.0) g/dL RDW 18.5 H (11.5-15.5) % PT 12.2 H (9.0-12.0) sec BUN (9-20) mg/dL Creatinine (0.66-1.25) mg/dL POC Glucose (mg/dL) 176 H (75-99) mg/dL Total Bilirubin (0.2-1.3) mg/dL AST (17-59) U/L ALT (21-72) U/L Alkaline Phosphatase (38-126) U/L 08/05/16 Range/Units 08:13 Hgb (13.0-17.5) gm/dL MCHC (31.0-37.0) g/dL RDW (11.5-15.5) % PT (9.0-12.0) sec BUN 35 H (9-20) mg/dL Creatinine 1.77 H (0.66-1.25) mg/dL POC Glucose (mg/dL) (75-99) mg/dL Total Bilirubin 1.7 H (0.2-1.3) mg/dL AST 110 H (17-59) U/L ALT 195 H (21-72) U/L Alkaline Phosphatase 150 H (38-126) U/L Microbiology - Last 24 Hours (Table) 08/04/16 15:30 Urine Culture - Preliminary Urine,Clean Catch Assessment and Plan (1) Cholecystitis Narrative/Plan: Clinical scenario once again discussed with the patient and his . We decided to proceed with cholecystectomy at this time. We will attempt a laparoscopic approach. Conversion to an open procedure is a real possibility given the CAT scan findings. The risks of bleeding, infection, bile duct injury , bile leak, retained common bile duct stone, respiratory failure, cardiac failure, and were all discussed. He understands and wishes to proceed. Status: Acute
[2016-08-05] MEDS ORDERED: IV FLUID CONTINUATION 1,000 ML IV ONE (16:59)
[2016-08-05 17:36] LABS: Glucose,Whole Blood 78 mg/dL (75-99)
[2016-08-05] MEDS ORDERED: HEPARIN SODIUM,PORCINE 5,000 UNIT/ML 1 ML VIAL SQ ONE (17:49)
[2016-08-05] MEDS ORDERED: ROCURONIUM BROMIDE 10 MG/ML 10 ML VIAL IV ONE (17:57)
[2016-08-05] MEDS ORDERED: NEOSTIGMINE 1 MG/ML 10 ML VIAL ONE (17:57)
[2016-08-05] MEDS ORDERED: GLYCOPYRROLATE 0.2 MG/ML 2 ML VIAL ONE (17:57)
[2016-08-05] MEDS ORDERED: SUCCINYLCHOLINE CHLORIDE 100 MG/5 ML SYR IV ONE (17:57)
[2016-08-05] MEDS ORDERED: PROPOFOL 10 MG/ML 20 ML VIAL IV ONE (17:57)
[2016-08-05] MEDS ORDERED: fentaNYL (PF) 50 MCG/ML 2 ML AMP ONE (17:57)
[2016-08-05] MEDS ORDERED: LIDOCAINE 1% INJ 10MG/ML (20 ML MDV) ONE (17:57)
[2016-08-05] MEDS ORDERED: PHENYLEPHRINE-0.9% NACL SYG 1 MG/10 ML SYRINGE ONE (17:57)
[2016-08-05] MEDS ORDERED: LACTATED RINGERS 1,000 ML IV ONE (18:04)
[2016-08-05] MEDS ORDERED: BUPIVACAIN-EPI 0.25%-1:200,000 30 ML VIAL SQ ONE ×2 (18:17)
[2016-08-05] MEDS ORDERED: traMADol 50 MG TAB PO PRN (19:22)
--- NOTE | 2016-08-05 19:24 | P.OP ---
Date of Procedure: 08/05/16 Preoperative Diagnosis: Postoperative Diagnosis: Procedure(s) Performed: PREOPERATIVE DIAGNOSIS: Acute cholecystitis POSTOPERATIVE DIAGNOSIS: Same PROCEDURE: Laparoscopic cholecystectomy SURGEON: David EBL: Minimal see anesthesia record ANESTHESIA: Gen. COMPLICATIONS: None OPERATIVE PROCEDURE: The patient was brought and placed on the operating room table in the supine position. The patient was placed under general anesthesia at that time. The abdomen was prepped and draped in the usual sterile fashion. A small horizontal supraumbilical incision was made. The fascia was grasped with the Bruno forceps. The fascia was retracted anteriorly. The Veress needle was advanced into the peritoneal cavity. The saline drop test was normal. Insufflation took place up to 15 mmHg. A 5 mm optical trocar was advanced and the peritoneal cavity. 2 additional 5 mm trochars were placed in the right upper quadrant under direct visualization. A 10 mm trocar was advanced into the epigastric incision site. The liver had a very congested almost ischemic appearance. There was evidence of significant fatty infiltration of the liver as well. There was a large amount of fat surrounding the gallbladder that required careful dissection using both blunt dissection and cautery. The gallbladder was retracted superiorly and laterally. The peritoneum overlying the infundibulum was bluntly dissected. The patient's cystic duct was visualized. The junction between the cystic duct common and hepatic duct was identified. The cystic duct was then divided after placement of 3 12 mm clips on the patient's side and one on the specimen side. The cystic artery was identified and clipped as well. A small vessel was seen along the gallbladder fossa and clipped as well. The gallbladder was then removed from the liver bed using electrocautery. The gallbladder was then removed from the epigastric trocar site with an Endo Catch bag. The gallbladder fossa was irrigated with saline. There was no evidence of any bleeding or biliary drainage seen. The trochars were then removed. The fascia at the 12 millimeter site was closed using a Feliz-Oscar 0 Vicryl stitch. The skin at all 4 sites was closed using a 4-0 Monocryl stitch. At the end of this procedure the sponge and needle counts were correct. DISPOSITION: Stable to the recovery room Implants: Indications for Procedure: Operative Findings: Description of Procedure:
[2016-08-05 21:42] LABS: Glucose,Whole Blood 107 mg/dL (75-99)
[2016-08-05] MEDS: MELATONIN 3 MG TABLET PO SCH ×2 (22:18→23:47)
[2016-08-06] MEDS: PIPERACILLIN-TAZOBACTAM 3.375 GM in DEXTROSE/WATER 1 50ML.BAG IVPB SCH ×4 (00:51→23:21)
[2016-08-06] MEDS: HYDROmorphone 1 MG/ML 1 ML SYRINGE IVP PRN (03:54)
[2016-08-06 04:57] LABS: Anisocytosis Slight; Basophils % (A) 0 %; CH 28.5; CHCM 31.8; Eosinophils # (A) 0.2 k/uL (0-0.7); Eosinophils % (A) 3 %; HCT 38.6 % (39.0-53.0); HGB 12.1 gm/dL (13.0-17.5); Hypochromasia Moderate; Luc # (Auto) 0.21; Luc % (Auto) 2; Lymphocytes % (A) 12 %; MCH 28.5 pg (25.0-35.0); MCHC 31.5 g/dL (31.0-37.0); MCV 90.6 fL (80.0-100.0); Monocytes # (A) 0.5 k/uL (0-1.0); Monocytes % (A) 6 %; Neutrophils # (A) 6.8 k/uL (1.3-7.7); Neutrophils % (A) 77 %; Poikilocytosis Slight; RBC 4.26 m/uL (4.30-5.90); RDW 18.5 % (11.5-15.5); WBC 8.9 k/uL (3.8-10.6); WBC (Perox) 9.33
[2016-08-06 05:15] LABS: Magnesium 2.1 mg/dL (1.6-2.3); Phosphorous 4.9 mg/dL (2.5-4.5); Potassium 4.4 mmol/L (3.5-5.1); Total Bilirubin 1.8 mg/dL (0.2-1.3); Total Protein 6.2 g/dL (6.3-8.2)
--- NOTE | 2016-08-06 07:58 | XR ---
EXAMINATION TYPE: XR chest 1V DATE OF EXAM: 08/06/2016 COMPARISON: 08/03/2016 HISTORY: Shortness of breath TECHNIQUE: Single frontal view of the chest is obtained. FINDINGS: Heart is enlarged and there is postoperative change and cardiac device. Left lower lobe in filtrate and small effusion noted. Rib deformities are seen and pleural-based thickening with changes of COPD noted. Arthropathy of the shoulders. IMPRESSION: 1. There now is evidence of left lower lobe infiltrate and small effusion. 2. Cardiomegaly. 3. Correlate for COPD.
[2016-08-06] MEDS: CHOLECALCIFEROL 1,000 UNIT TAB PO SCH (08:13)
[2016-08-06] MEDS: PANTOPRAZOLE 40 MG TABLET PO SCH (08:14)
[2016-08-06] MEDS: SIMETHICONE 80 MG CHEWABLE PO SCH ×4 (08:14→20:54)
[2016-08-06] MEDS: MULTIVITAMINS, THERA 1 EACH TAB PO SCH (08:14)
[2016-08-06] MEDS: CARVEDILOL 12.5 MG TAB PO SCH ×2 (08:14→17:24)
[2016-08-06] MEDS: ISOSORBIDE DINITRATE 20 MG TAB PO SCH ×2 (08:14→20:54)
[2016-08-06] MEDS: ENOXAPARIN 40 MG/0.4 ML SYRINGE SQ SCH (08:15)
[2016-08-06] MEDS: MAGNESIUM OXIDE 400 MG TAB PO SCH (08:15)
[2016-08-06] MEDS: IPRATROPIUM-ALBUTEROL 3 ML NEB INHALATION SCH ×4 (08:44→19:57)
[2016-08-06] MEDS: FORMOTEROL FUMARATE 20 MCG/2 ML NEBU INHALATION SCH ×2 (08:46→19:57)
[2016-08-06] MEDS: BUDESONIDE 1 MG/2 ML NEBU INHALATION SCH ×2 (08:46→19:57)
[2016-08-06] MEDS ORDERED: FUROSEMIDE 40 MG TAB PO SCH (09:00)
--- NOTE | 2016-08-06 09:37 | P.PN ---
Progress Note - Text The patient had a laparoscopic cholecystectomy yesterday. Fairly stable. He feels hungry. No nausea or vomiting. On examination patient is stable awake alert in no distress. Abdomen the somewhat obese. No localized tenderness or guarding. Lap isacc sites the fine with no evidence of infection or complication. Impression. From a surgical standpoint patient is doing fairly well. We will advance his diet to a low fat type diet. Continued the monitoring of his the multiple & complex medical issues.
[2016-08-06] MEDS: INSULIN LISPRO (humaLOG) 300 UNIT/3 ML VIAL SQ SCH ×7 (10:01→20:53)
--- NOTE | 2016-08-06 10:05 | PN ---
Patient is seen for followup for acute kidney injury. He is currently status post laparoscopic cholecystectomy. He is doing fairly well. Blood pressure 107/55, heart rate 72 per minute. He is afebrile. HEART: S1 and S2. LUNGS: Bilateral breath sounds are heard. ABDOMEN: Soft, mildly tender. Lower extremities show no significant edema. Labs show sodium 143, potassium 4.4, chloride 109, BUN 33, serum creatinine 1.7. Hemoglobin 12.1 g/dL. ASSESSMENT: 1. Acute kidney injury secondary to hypotension secondary to hypoperfusion, currently off of angiotensin receptor razia, serum creatinine staying at about 1.7 mg/dL. Patient is maintained on oral Lasix. He is not on any IV fluids. His Lasix was decreased yesterday and we can hold off on Lasix for tomorrow. He did get his dose today. 2. Status post laparoscopic cholecystectomy for cholecystitis. 3. Volume overload, currently improved. PLAN: Hold Lasix after today's dose. Repeat labs in a.m. The patient is stable for transfer out of the ICU.
--- NOTE | 2016-08-06 11:09 | P.PN ---
Subjective Principal diagnosis: Acute on chronic congestive heart failure This is a 71-year-old white male with a remote smoking history, patient had a 30 -pack-year smoking history, quit smoking over 21 years ago. Patient is also known to have history of ischemic cardiomyopathy, documented coronary artery disease and previous CABG, history of ICD placement history of chronic atrial fibrillation, history of chronic congestive heart failure, previous [place], history of hypertension, and history of cardiorenal syndrome. Patient was recently in the hospital for acute on chronic systolic congestive heart failure, and acute on chronic kidney failure. Patient was discharged home on acute on chronic systolic heart failure multiple medications including Bumex 2 mg in a.m., and 4 mg in p.m. Coronary to the patient he was usually on a higher dose of Bumex which was given to him by his signal and communications maintainer Dr. Elias in [place]. Patient was also discharged home on multiple meds including Coreg, isosorbide dinitrate, Coumadin, and glipizide as well as insulin. Over the last few days, patient has been developing more shortness of breath, cough which is productive with whitish and sometimes brownish phlegm, a few pillows orthopnea, increased abdominal bloating and some swelling in lower extremities. patient has been using his nebulizer medication at home and seems to be making his shortness of breath even worse. Patient becomes more anxious and more tachycardic with every updraft treatment that he takes. Hence he was brought in back on 2016, chest x-ray showed mild prominence of the interstitium, no evidence of focal airspace disease or pleural effusion noted. His proBNP level was significantly elevated, ultrasound of the abdomen showed gallstones with abnormal gallbladder wall thickening and felt that the patient may have acute cholecystitis. Hence patient was seen by Dr. brewer on consultation, recommended antibiotics and recommended surgery was the patient is medically stable and cleared by cardiology for cholecystectomy. Cardiac consultation was done on 12/[address] SONYA Nolan, he recommended Lasix 40 mg IV push every 8 hours for 3 doses, and he planned to switch him to Bumex/his usual dose on outpatient basis. However the patient developed worsening renal profile and worsening liver profile over the last few days since admission. Chest x-ray done today continues to show mild prominence of the pulmonary vasculature, no evidence of pleural effusions, there is evidence of cardiomegaly, and possibly some component of COPD. D-dimer on admission was normal. Patient remains on DuoNeb which is not benefiting the patient much, he remains on Coreg, Lasix 20 mg IV push every 8 hours, insulin, Isordil, Cozaar, Zosyn, and Protonix. Patient continues to have shortness of breath, seems to be getting worse over the last 1 year, and more so in the last few days. Again the patient has symptoms of orthopnea, PND, and chronic intermittent swelling in lower extremities. Considering his shortness of breath, I was asked to see him on consultation. I have recommended a bedside PFT I have also recommended ABG on room air to be done on this patient. Clinically however, I believe his shortness of breath is mostly secondary to chronic LV dysfunction/ischemic cardiomyopathy and intermittently some component of congestive heart failure. The patient is seen again today 08/04/2016 in follow-up on the regular medical floor. He is awake and alert in no acute distress. He is breathing easier today as compared to yesterday. He is maintaining good O2 saturations in the 90s on room air. He's been afebrile. FEV1 value is 45% of predicted. Gold stage III COPD. Arterial blood gases revealed a PaO2 of 71, pCO2 29, pH 7.48. These were on room air. Bicarb is 25, no significant hypercapnia. He is tolerating his bronchodilators today. Continues to be diuresed with Lasix 20 mg IV every 8 hours. Currently in a negative balance. Current creatinine 1.71. LFTs continue to climb. The patient was seen again today 08/05/2016 in follow-up on the regular medical floor. He states he is feeling better today as compared to yesterday as his breathing is concerned. He is less short of breath. I felt most of his dyspnea is secondary to his cardiac disease. He does have some restrictive lung disease which is also secondary to the congestive heart failure. He continues to diurese well. He remains in a negative balance. He is currently maintaining good O2 saturations in the 90s on room air. He is afebrile. No leukocytosis. He continues to have some epigastric discomfort. Liver enzymes and alk phos remain elevated. The plan is for possible cholecystectomy by Dr. Hernandez today. Patient was reevaluated yet today on 08/06/2016, patient is now in the intensive care unit, he underwent laparoscopic cholecystectomy yesterday, and postoperatively he was extubated and transferred to the ICU. Doing quite well, asymptomatic. No cough no wheezing no shortness of breath at rest, chest x-ray showed minimal left basilar atelectasis, no evidence of pulmonary edema, and no evidence of pneumonia. CBC is relatively unremarkable, electrolytes are normal BUN is 33 creatinine is 1.70 which is about his baseline. Objective - Vital Signs Vital signs: Vital Signs Temp 98.2 F 08/06/16 08:00 Pulse 88 08/06/16 09:05 Resp 20 08/06/16 09:00 BP 107/55 08/06/16 09:00 Pulse Ox 100 08/06/16 09:00 Intake & Output 08/05/16 08/06/16 08/06/16 18:59 06:59 18:59 Intake Total 400 315.0 40 Output Total 25 30 Balance 400 290.0 10 Weight 67 kg 106.8 kg Intake: IV 400 315.0 40 Piperacillin-Tazobactam 3 25.0 .375 gm In Dextrose/Water 1 50ml.bag @ 12.5 mls/hr IVPB Q8HR [facility] Rx#: [id number] Sodium Chloride 0.9% 1, 140 40 000 ml @ 20 mls/hr IV . Q24H [facility] Rx#:[id number] Output: Urine 0 30 Estimated Blood Loss 25 Other: Voiding Method Toilet Urinal Urinal # Voids 3 - Exam GENERAL EXAM: Morbidly obese. Alert, comfortable in no apparent distress. HEAD: Normocephalic. EYES: Normal reaction of pupils, equal size. NOSE: Clear with pink turbinates. THROAT: Some crowding of the posterior pharynx. No erythema or exudates. NECK: Short. No masses, positive JVD. CHEST: No chest wall deformity. LUNGS: Equal air entry with no crackles, wheeze, rhonchi or dullness. Diminished. CVS: S1 and S2 normal with no audible mumurs, regular rhythm. ABDOMEN: Obese, distended, normal bowel sounds, no guarding or rigidity with some epigastric discomfort. SPINE: No scoliosis or deformity SKIN: No rashes CENTRAL NERVOUS SYSTEM: No focal deficits, tone is normal in all 4 extremities. Extremities: There is trace of bipedal edema no clubbing, no cyanosis. - Labs CBC & Chem 7: 08/06/16 04:31 08/06/16 04:31 Labs: Abnormal Lab Results - Last 24 Hours (Table) 08/05/16 08/06/16 08/06/16 Range/Units 21:41 04:31 04:31 RBC 4.26 L (4.30-5.90) m/uL Hgb 12.1 L (13.0-17.5) gm/dL Hct 38.6 L (39.0-53.0) % RDW 18.5 H (11.5-15.5) % Chloride 109 H (98-107) mmol/L Carbon Dioxide 21 L (22-30) mmol/L BUN 33 H (9-20) mg/dL Creatinine 1.70 H (0.66-1.25) mg/dL POC Glucose (mg/dL) 107 H (75-99) mg/dL Phosphorus 4.9 H (2.5-4.5) mg/dL Total Bilirubin 1.8 H (0.2-1.3) mg/dL AST 111 H (17-59) U/L ALT 190 H (21-72) U/L Alkaline Phosphatase 128 H (38-126) U/L Total Protein 6.2 L (6.3-8.2) g/dL Albumin 3.4 L (3.5-5.0) g/dL Microbiology - Last 24 Hours (Table) 08/04/16 15:30 Urine Culture - Final Urine,Clean Catch Assessment and Plan Plan: Impression: 1 acute on chronic shortness of breath multifactorial, but mostly secondary to chronic systolic cardiac dysfunction and ischemic cardiomyopathy. Patient had a previous ICD placement over a year ago. 2 suspect some component of COPD, however based on the clinical history, and based on the fact that the patient does not improve much with bronchodilators, and based on the fact that the patient quit smoking over 21 years ago, I believe his shortness of breath is mostly cardiac in nature. Not to mention the bedside spirometry showed mostly restrictive and very minimal obstructive airway disease. 3 acute cardiorenal syndrome, worsened with aggressive diuresis. 4 morbid obesity and chronic deconditioning is also another contributing factor to his chronic shortness of breath. 5 acute cholecystitis, status post laparoscopic cholecystectomy postoperative day #1. 6 worsening liver enzymes, suspect congestive hepatopathy. 7 acute on chronic renal failure related to his underlying congestive heart failure/cardiorenal, and worsened with diuretics/Lasix. 8 history of chronic atrial fibrillation, patient has been on anticoagulation therapy Recommendation: Transfer patient out of the ICU to a monitored bed on selective care, possible discharge planning in the next 24-48 hours. We'll continue to follow. Time with Patient: Less than 30
[2016-08-06 12:07] LABS: Glucose,Whole Blood 128 mg/dL (75-99)
[2016-08-06] MEDS: INSULIN DETEMIR 100 UNIT/ML 10 ML VIAL SQ SCH ×2 (13:21→20:53)
[2016-08-06] MEDS: POTASSIUM CHLORIDE ER 20 MEQ TAB.ER PO SCH ×2 (13:22→20:54)
[2016-08-06] MEDS: SODIUM CHLORIDE 0.9% 1,000 ML IV SCH (14:47)
--- NOTE | 2016-08-06 16:07 | P.PN ---
Subjective Patient was seen and examined on 08/06/2016 patient is now in the intensive care unit, he underwent laparoscopic cholecystectomy yesterday, and postoperatively he was extubated and transferred to the ICU. On Review of systems No fever or chills, no chest pain No cough no wheezing no shortness of breath at rest No nausea or vomiting no abdominal pain Objective - Vital Signs Vital signs: Vital Signs Temp 96.9 F L 08/06/16 15:42 Pulse 83 08/06/16 15:42 Resp 18 08/06/16 15:42 BP 121/73 08/06/16 15:42 Pulse Ox 96 08/06/16 15:42 Intake & Output 08/05/16 08/06/16 08/06/16 18:59 06:59 18:59 Intake Total 400 315.0 170 Output Total 25 1030 Balance 400 290.0 -860 Weight 67 kg 106.8 kg Intake: IV 400 315.0 170 Piperacillin-Tazobactam 3 25.0 50 .375 gm In Dextrose/Water 1 50ml.bag @ 12.5 mls/hr IVPB Q8HR [facility] Rx#: [id number] Sodium Chloride 0.9% 1, 140 120 000 ml @ 20 mls/hr IV . Q24H [facility] Rx#:[id number] Output: Urine 0 1030 Estimated Blood Loss 25 Other: Voiding Method Toilet Urinal Indwelling Catheter # Voids 3 - Exam In general patient is alert and oriented 3 in no apparent distress HEENT head normocephalic and atraumatic Neck is supple no JVD no goiter no lymphadenopathy Chest exam is clear to auscultation no crackles no wheezing Cardiac exam reveals regular heart sounds no gallops no murmurs Abdomen is soft nontender no organomegaly with normal bowel sounds Extremity exam reveals no edema no cyanosis or clubbing - Labs CBC & Chem 7: 08/06/16 04:31 08/06/16 04:31 Labs: Abnormal Lab Results - Last 24 Hours (Table) 08/05/16 08/06/16 08/06/16 Range/Units 21:41 04:31 04:31 RBC 4.26 L (4.30-5.90) m/uL Hgb 12.1 L (13.0-17.5) gm/dL Hct 38.6 L (39.0-53.0) % RDW 18.5 H (11.5-15.5) % Chloride 109 H (98-107) mmol/L Carbon Dioxide 21 L (22-30) mmol/L BUN 33 H (9-20) mg/dL Creatinine 1.70 H (0.66-1.25) mg/dL POC Glucose (mg/dL) 107 H (75-99) mg/dL Phosphorus 4.9 H (2.5-4.5) mg/dL Total Bilirubin 1.8 H (0.2-1.3) mg/dL AST 111 H (17-59) U/L ALT 190 H (21-72) U/L Alkaline Phosphatase 128 H (38-126) U/L Total Protein 6.2 L (6.3-8.2) g/dL Albumin 3.4 L (3.5-5.0) g/dL 08/06/16 Range/Units 12:06 RBC (4.30-5.90) m/uL Hgb (13.0-17.5) gm/dL Hct (39.0-53.0) % RDW (11.5-15.5) % Chloride (98-107) mmol/L Carbon Dioxide (22-30) mmol/L BUN (9-20) mg/dL Creatinine (0.66-1.25) mg/dL POC Glucose (mg/dL) 128 H (75-99) mg/dL Phosphorus (2.5-4.5) mg/dL Total Bilirubin (0.2-1.3) mg/dL AST (17-59) U/L ALT (21-72) U/L Alkaline Phosphatase (38-126) U/L Total Protein (6.3-8.2) g/dL Albumin (3.5-5.0) g/dL Microbiology - Last 24 Hours (Table) 08/04/16 15:30 Urine Culture - Final Urine,Clean Catch Assessment and Plan Plan: 1. Acute cholecystitis: Seen and evaluated by general surgery. Patient had lap cholecystectomy yesterday. Continue IV antibiotics 2. Paroxysmal atrial fibrillation on anticoagulation with Coumadin at home currently on hold with anticipation of possible surgery 3. Ischemic cardiomyopathy with estimated ejection fraction of 20%: Now with suspected exacerbation. I am very limited with diuretic use given acute kidney failure. Patient had an acute kidney failure after being given IV Lasix on presentation. I would obtain a repeat chest x-ray and BNP level. I will start low-dose Lasix 20 mg every 8 hours. 4. Type 2 diabetes mellitus, uncontrolled. A1c 10.6. continue home dose of Levemir and sliding scale insulin 5. elevated troponin: Trending down since last admission. Recent myocardial infarction on last mission. Has been evaluated by cardiology. They reported that patient is high risk for surgery. 6. Acute kidney injury: Finger to diuretics and hypoperfusion. Nephrology is following. They switched him over to oral Lasix. Cozaar on hold. Creatinine 1.70 7. Shortness of breath lately secondary to CHF exacerbation and ischemic cardiomyopathy. Patient was evaluated by pulmonary service and cardiology 8. Acute on chronic systolic CHF exacerbation. Patient is been switched over to oral Lasix. 9. Acute cardiorenal syndrome 10. Morbid obesity can also be contributing to patient's chronic shortness of breath. 11. COPD with mild exacerbation [facility] following. They will follow with him outpatient for further pulmonary function test
[2016-08-06 17:35] LABS: Glucose,Whole Blood 150 mg/dL (75-99)
[2016-08-06 20:44] LABS: Glucose,Whole Blood 122 mg/dL (75-99)
[2016-08-07] MEDS: HYDROmorphone 1 MG/ML 1 ML SYRINGE IVP PRN ×3 (03:38→22:42)
[2016-08-07 06:24] LABS: Glucose,Whole Blood 128 mg/dL (75-99)
[2016-08-07 06:41] LABS: Anisocytosis Slight; Basophils % (A) 0 %; CH 28.6; CHCM 32.3; Eosinophils # (A) 0.3 k/uL (0-0.7); Eosinophils % (A) 3 %; HCT 38.9 % (39.0-53.0); HDW 3.86; HGB 12.4 gm/dL (13.0-17.5); Hypochromasia Slight; Luc # (Auto) 0.32; Luc % (Auto) 3; Lymphocytes # (A) 1.3 k/uL (1.0-4.8); Lymphocytes % (A) 13 %; MCH 28.4 pg (25.0-35.0); MCHC 31.8 g/dL (31.0-37.0); MCV 89.2 fL (80.0-100.0); Mean Platelet Volume 7.5; Monocytes # (A) 0.7 k/uL (0-1.0); Monocytes % (A) 6 %; Neutrophils # (A) 7.7 k/uL (1.3-7.7); Neutrophils % (A) 75 %; Poikilocytosis Slight; RBC 4.36 m/uL (4.30-5.90); RDW 18.2 % (11.5-15.5); WBC 10.3 k/uL (3.8-10.6); WBC (Perox) 10.83
[2016-08-07] MEDS: INSULIN LISPRO (humaLOG) 300 UNIT/3 ML VIAL SQ SCH ×8 (06:41→21:34)
[2016-08-07 06:58] LABS: Magnesium 2.2 mg/dL (1.6-2.3); Total Bilirubin 2.8 mg/dL (0.2-1.3); Total Protein 6.2 g/dL (6.3-8.2)
[2016-08-07] MEDS: IPRATROPIUM-ALBUTEROL 3 ML NEB INHALATION SCH ×4 (07:34→19:17)
[2016-08-07] MEDS: BUDESONIDE 1 MG/2 ML NEBU INHALATION SCH ×2 (07:34→19:17)
[2016-08-07] MEDS: FORMOTEROL FUMARATE 20 MCG/2 ML NEBU INHALATION SCH ×2 (07:34→19:17)
[2016-08-07] MEDS: PANTOPRAZOLE 40 MG TABLET PO SCH (07:36)
[2016-08-07] MEDS: CARVEDILOL 12.5 MG TAB PO SCH ×2 (08:09→17:12)
[2016-08-07] MEDS: ISOSORBIDE DINITRATE 20 MG TAB PO SCH ×2 (08:09→21:37)
[2016-08-07] MEDS: INSULIN DETEMIR 100 UNIT/ML 10 ML VIAL SQ SCH ×2 (08:09→21:34)
[2016-08-07] MEDS: POTASSIUM CHLORIDE ER 20 MEQ TAB.ER PO SCH ×2 (08:09→21:37)
[2016-08-07] MEDS: SIMETHICONE 80 MG CHEWABLE PO SCH ×4 (08:09→21:38)
[2016-08-07] MEDS: ENOXAPARIN 40 MG/0.4 ML SYRINGE SQ SCH (08:10)
[2016-08-07] MEDS: PIPERACILLIN-TAZOBACTAM 3.375 GM in DEXTROSE/WATER 1 50ML.BAG IVPB SCH ×3 (08:35→23:10)
--- NOTE | 2016-08-07 09:46 | P.PN ---
Progress Note - Text The patient is day 2 post laparoscopic cholecystectomy. His tolerating a regular diet. Usual abdominal discomfort. Abdomen is quite soft the. Rather obese. Trocar sites are fine. No fever. Vitals otherwise stable. Impression. Stable post lap isacc. Multiple medical issues. Recommendation continued low-fat diet. May shower. The Heredia catheter can be discontinued the from the surgical standpoint.
--- NOTE | 2016-08-07 10:53 | P.PN ---
Subjective Principal diagnosis: Acute on chronic congestive heart failure This is a 71-year-old white male with a remote smoking history, patient had a 30 -pack-year smoking history, quit smoking over 21 years ago. Patient is also known to have history of ischemic cardiomyopathy, documented coronary artery disease and previous CABG, history of ICD placement history of chronic atrial fibrillation, history of chronic congestive heart failure, previous PR, history of hypertension, and history of cardiorenal syndrome. Patient was recently in the hospital for acute on chronic systolic congestive heart failure, and acute on chronic kidney failure. Patient was discharged home on acute on chronic systolic heart failure multiple medications including Bumex 2 mg in a.m., and 4 mg in p.m. 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 Elias in [place]. Patient was also discharged home on multiple meds including Coreg, isosorbide dinitrate, Coumadin, and glipizide as well as insulin. Over the last few days, patient has been developing more shortness of breath, cough which is productive with whitish and sometimes brownish phlegm, a few pillows orthopnea, increased abdominal bloating and some swelling in lower extremities. patient has been using his nebulizer medication at home and seems to be making his shortness of breath even worse. Patient becomes more anxious and more tachycardic with every updraft treatment that he takes. Hence he was brought in back on 2016, chest x-ray showed mild prominence of the interstitium, no evidence of focal airspace disease or pleural effusion noted. His proBNP level was significantly elevated, ultrasound of the abdomen showed gallstones with abnormal gallbladder wall thickening and felt that the patient may have acute cholecystitis. Hence patient was seen by Dr. brewer on consultation, recommended antibiotics and recommended surgery was the patient is medically stable and cleared by cardiology for cholecystectomy. Cardiac consultation was done on 12/[address] SONYA Nolan, he recommended Lasix 40 mg IV push every 8 hours for 3 doses, and he planned to switch him to Bumex/his usual dose on outpatient basis. However the patient developed worsening renal profile and worsening liver profile over the last few days since admission. Chest x-ray done today continues to show mild prominence of the pulmonary vasculature, no evidence of pleural effusions, there is evidence of cardiomegaly, and possibly some component of COPD. D-dimer on admission was normal. Patient remains on DuoNeb which is not benefiting the patient much, he remains on Coreg, Lasix 20 mg IV push every 8 hours, insulin, Isordil, Cozaar, Zosyn, and Protonix. Patient continues to have shortness of breath, seems to be getting worse over the last 1 year, and more so in the last few days. Again the patient has symptoms of orthopnea, PND, and chronic intermittent swelling in lower extremities. Considering his shortness of breath, I was asked to see him on consultation. I have recommended a bedside PFT I have also recommended ABG on room air to be done on this patient. Clinically however, I believe his shortness of breath is mostly secondary to chronic LV dysfunction/ischemic cardiomyopathy and intermittently some component of congestive heart failure. The patient is seen again today 08/04/2016 in follow-up on the regular medical floor. He is awake and alert in no acute distress. He is breathing easier today as compared to yesterday. He is maintaining good O2 saturations in the 90s on room air. He's been afebrile. FEV1 value is 45% of predicted. Gold stage III COPD. Arterial blood gases revealed a PaO2 of 71, pCO2 29, pH 7.48. These were on room air. Bicarb is 25, no significant hypercapnia. He is tolerating his bronchodilators today. Continues to be diuresed with Lasix 20 mg IV every 8 hours. Currently in a negative balance. Current creatinine 1.71. LFTs continue to climb. The patient was seen again today 08/05/2016 in follow-up on the regular medical floor. He states he is feeling better today as compared to yesterday as his breathing is concerned. He is less short of breath. I felt most of his dyspnea is secondary to his cardiac disease. He does have some restrictive lung disease which is also secondary to the congestive heart failure. He continues to diurese well. He remains in a negative balance. He is currently maintaining good O2 saturations in the 90s on room air. He is afebrile. No leukocytosis. He continues to have some epigastric discomfort. Liver enzymes and alk phos remain elevated. The plan is for possible cholecystectomy by Dr. Hernandez today. Patient was reevaluated yet today on 08/06/2016, patient is now in the intensive care unit, he underwent laparoscopic cholecystectomy yesterday, and postoperatively he was extubated and transferred to the ICU. Doing quite well, asymptomatic. No cough no wheezing no shortness of breath at rest, chest x-ray showed minimal left basilar atelectasis, no evidence of pulmonary edema, and no evidence of pneumonia. CBC is relatively unremarkable, electrolytes are normal BUN is 33 creatinine is 1.70 which is about his baseline. Patient was reevaluated today on 08/07/2016, doing quite well, no cough no wheezing no shortness of breath. Patient does have chronic dyspnea on exertion related to his underlying cardiomyopathy and systolic LV dysfunction. Labs are reviewed and his creatinine is up to 1.88. BUN is 40. CBC is relatively unremarkable. Objective - Vital Signs Vital signs: Vital Signs Temp 96.9 F L 08/07/16 08:00 Pulse 77 08/07/16 08:00 Resp 18 08/07/16 08:00 BP 125/80 08/07/16 08:00 Pulse Ox 95 08/07/16 08:00 Intake & Output 08/06/16 08/07/16 08/07/16 18:59 06:59 18:59 Intake Total 170 130 236 Output Total 1030 200 Balance -860 -70 236 Weight 108.3 kg Intake: IV 170 130 Piperacillin-Tazobactam 3 50 50 .375 gm In Dextrose/Water 1 50ml.bag @ 12.5 mls/hr IVPB Q8HR [facility] Rx#: [id number] Sodium Chloride 0.9% 1, 120 80 000 ml @ 20 mls/hr IV . Q24H [facility] Rx#:[id number] Oral 236 Output: Urine 1030 200 Other: Voiding Method Indwelling Catheter Indwelling Catheter Indwelling Catheter # Voids 200 - Exam GENERAL EXAM: Morbidly obese. Alert, comfortable in no apparent distress. HEAD: Normocephalic. EYES: Normal reaction of pupils, equal size. NOSE: Clear with pink turbinates. THROAT: Some crowding of the posterior pharynx. No erythema or exudates. NECK: Short. No masses, positive JVD. CHEST: No chest wall deformity. LUNGS: Equal air entry with no crackles, wheeze, rhonchi or dullness. Diminished. CVS: S1 and S2 normal with no audible mumurs, regular rhythm. ABDOMEN: Obese, distended, normal bowel sounds, no guarding or rigidity with some epigastric discomfort. SPINE: No scoliosis or deformity SKIN: No rashes CENTRAL NERVOUS SYSTEM: No focal deficits, tone is normal in all 4 extremities. Extremities: There is trace of bipedal edema no clubbing, no cyanosis. - Labs CBC & Chem 7: 08/07/16 05:26 08/07/16 05:26 Labs: Abnormal Lab Results - Last 24 Hours (Table) 08/06/16 08/06/16 08/06/16 Range/Units 12:06 17:09 20:42 Hgb (13.0-17.5) gm/dL Hct (39.0-53.0) % RDW (11.5-15.5) % Sodium (137-145) mmol/L Carbon Dioxide (22-30) mmol/L BUN (9-20) mg/dL Creatinine (0.66-1.25) mg/dL Glucose (74-99) mg/dL POC Glucose (mg/dL) 128 H 150 H 122 H (75-99) mg/dL Phosphorus (2.5-4.5) mg/dL Total Bilirubin (0.2-1.3) mg/dL AST (17-59) U/L ALT (21-72) U/L Alkaline Phosphatase (38-126) U/L Total Protein (6.3-8.2) g/dL Albumin (3.5-5.0) g/dL 08/07/16 08/07/16 08/07/16 Range/Units 05:26 05:26 06:23 Hgb 12.4 L (13.0-17.5) gm/dL Hct 38.9 L (39.0-53.0) % RDW 18.2 H (11.5-15.5) % Sodium 133 L (137-145) mmol/L Carbon Dioxide 19 L (22-30) mmol/L BUN 40 H (9-20) mg/dL Creatinine 1.88 H (0.66-1.25) mg/dL Glucose 115 H (74-99) mg/dL POC Glucose (mg/dL) 128 H (75-99) mg/dL Phosphorus 5.0 H (2.5-4.5) mg/dL Total Bilirubin 2.8 H (0.2-1.3) mg/dL AST 395 H (17-59) U/L ALT 443 H (21-72) U/L Alkaline Phosphatase 180 H (38-126) U/L Total Protein 6.2 L (6.3-8.2) g/dL Albumin 3.3 L (3.5-5.0) g/dL Microbiology - Last 24 Hours (Table) 08/04/16 15:30 Urine Culture - Final Urine,Clean Catch Yeast species Assessment and Plan Plan: Impression: 1 acute on chronic shortness of breath multifactorial, but mostly secondary to chronic systolic cardiac dysfunction and ischemic cardiomyopathy. Patient had a previous ICD placement over a year ago. 2 suspect some component of COPD, however based on the clinical history, and based on the fact that the patient does not improve much with bronchodilators, and based on the fact that the patient quit smoking over 21 years ago, I believe his shortness of breath is mostly cardiac in nature. Not to mention the bedside spirometry showed mostly restrictive and very minimal obstructive airway disease. 3 acute cardiorenal syndrome, worsened with aggressive diuresis. 4 morbid obesity and chronic deconditioning is also another contributing factor to his chronic shortness of breath. 5 acute cholecystitis, status post laparoscopic cholecystectomy postoperative day #2 6 worsening liver enzymes, suspect congestive hepatopathy. 7 acute on chronic renal failure related to his underlying congestive heart failure/cardiorenal, and worsened with diuretics/Lasix. 8 history of chronic atrial fibrillation, patient has been on anticoagulation therapy Recommendation: Continue present treatment plan, consider discharge planning in the next 24 hours if cleared by all different consultants including cardiology and surgery. Time with Patient: Less than 30
--- NOTE | 2016-08-07 11:23 | P.PN ---
Subjective Patient was seen and examined on 08/06/2016 patient is now in the intensive care unit, he underwent laparoscopic cholecystectomy yesterday, and postoperatively he was extubated and transferred to the ICU. On Review of systems No fever or chills, no chest pain No cough no wheezing no shortness of breath at rest No nausea or vomiting no abdominal pain Objective - Vital Signs Vital signs: Vital Signs Temp 96.9 F L 08/07/16 08:00 Pulse 77 08/07/16 08:00 Resp 18 08/07/16 08:00 BP 125/80 08/07/16 08:00 Pulse Ox 95 08/07/16 08:00 Intake & Output 08/06/16 08/07/16 08/07/16 18:59 06:59 18:59 Intake Total 170 130 236 Output Total 1030 200 Balance -860 -70 236 Weight 108.3 kg Intake: IV 170 130 Piperacillin-Tazobactam 3 50 50 .375 gm In Dextrose/Water 1 50ml.bag @ 12.5 mls/hr IVPB Q8HR [facility] Rx#: [id number] Sodium Chloride 0.9% 1, 120 80 000 ml @ 20 mls/hr IV . Q24H [facility] Rx#:[id number] Oral 236 Output: Urine 1030 200 Other: Voiding Method Indwelling Catheter Indwelling Catheter Indwelling Catheter # Voids 200 - Exam In general patient is alert and oriented 3 in no apparent distress HEENT head normocephalic and atraumatic Neck is supple no JVD no goiter no lymphadenopathy Chest exam is clear to auscultation no crackles no wheezing Cardiac exam reveals regular heart sounds no gallops no murmurs Abdomen is soft nontender no organomegaly with normal bowel sounds Extremity exam reveals no edema no cyanosis or clubbing - Labs CBC & Chem 7: 08/07/16 05:26 08/07/16 05:26 Labs: Abnormal Lab Results - Last 24 Hours (Table) 08/06/16 08/06/16 08/06/16 Range/Units 12:06 17:09 20:42 Hgb (13.0-17.5) gm/dL Hct (39.0-53.0) % RDW (11.5-15.5) % Sodium (137-145) mmol/L Carbon Dioxide (22-30) mmol/L BUN (9-20) mg/dL Creatinine (0.66-1.25) mg/dL Glucose (74-99) mg/dL POC Glucose (mg/dL) 128 H 150 H 122 H (75-99) mg/dL Phosphorus (2.5-4.5) mg/dL Total Bilirubin (0.2-1.3) mg/dL AST (17-59) U/L ALT (21-72) U/L Alkaline Phosphatase (38-126) U/L Total Protein (6.3-8.2) g/dL Albumin (3.5-5.0) g/dL 08/07/16 08/07/16 08/07/16 Range/Units 05:26 05:26 06:23 Hgb 12.4 L (13.0-17.5) gm/dL Hct 38.9 L (39.0-53.0) % RDW 18.2 H (11.5-15.5) % Sodium 133 L (137-145) mmol/L Carbon Dioxide 19 L (22-30) mmol/L BUN 40 H (9-20) mg/dL Creatinine 1.88 H (0.66-1.25) mg/dL Glucose 115 H (74-99) mg/dL POC Glucose (mg/dL) 128 H (75-99) mg/dL Phosphorus 5.0 H (2.5-4.5) mg/dL Total Bilirubin 2.8 H (0.2-1.3) mg/dL AST 395 H (17-59) U/L ALT 443 H (21-72) U/L Alkaline Phosphatase 180 H (38-126) U/L Total Protein 6.2 L (6.3-8.2) g/dL Albumin 3.3 L (3.5-5.0) g/dL Microbiology - Last 24 Hours (Table) 08/04/16 15:30 Urine Culture - Final Urine,Clean Catch Yeast species Assessment and Plan Plan: 1. Acute cholecystitis: Seen and evaluated by general surgery. Patient had lap cholecystectomy yesterday. Continue IV antibiotics today liver enzymes and bilirubin are more elevated we will monitor closely patient was evaluated by Dr. Rosen no intervention recommended at this time 2. Paroxysmal atrial fibrillation on anticoagulation with Coumadin at home. Coumadin still on hold post surgery 3. Ischemic cardiomyopathy with estimated ejection fraction of 20%: Now with suspected exacerbation. I am very limited with diuretic use given acute kidney failure. 4. Type 2 diabetes mellitus, uncontrolled. A1c 10.6. continue home dose of Levemir and sliding scale insulin 5. elevated troponin: Trending down since last admission. Recent myocardial infarction on last mission. Has been evaluated by cardiology. 6. Acute kidney injury: Finger to diuretics and hypoperfusion. Nephrology is following. They switched him over to oral Lasix. Cozaar on hold. Creatinine 1.70 7. Shortness of breath lately secondary to CHF exacerbation and ischemic cardiomyopathy. Patient was evaluated by pulmonary service and cardiology 8. Acute on chronic systolic CHF exacerbation. Patient is been switched over to oral Lasix. 9. Acute cardiorenal syndrome 10. Morbid obesity can also be contributing to patient's chronic shortness of breath. 11. COPD with mild exacerbation continue [facility]ana [facility]. Pulmonary following. They will follow with him outpatient for further pulmonary function test Continue to hold Coumadin at this time due to elevated liver enzymes Will recheck labs in a.m. Will follow very closely
[2016-08-07 11:51] LABS: Glucose,Whole Blood 174 mg/dL (75-99)
[2016-08-07] MEDS: MULTIVITAMINS, THERA 1 EACH TAB PO SCH (12:21)
[2016-08-07] MEDS: CHOLECALCIFEROL 1,000 UNIT TAB PO SCH (12:21)
[2016-08-07] MEDS: MAGNESIUM OXIDE 400 MG TAB PO SCH (12:21)
--- NOTE | 2016-08-07 14:57 | PN ---
Patient is seen for follow-up for acute kidney injury. His serum creatinine went up from around 1.1 mg/dL on 07/31 to 1.89 the next day and peaked at 2.07. Patient was mildly hypotensive and was maintained on angiotensin receptor blockers, which she is off now. He is status post laparoscopic cholecystectomy. Yesterday he was noted to have urine retention and a Heredia catheter was placed. Patient had about 700 mL of urine retention. His blood pressure has not been low. He has been transferred out of the ICU. His serum creatinine has been staying at about 1.7 mg/dL for the last few days. On examination, blood pressure is 125/80, heart rate 77 per minute. The patient is afebrile. Examination of the heart: S1 and S2. Examination of lungs: bilateral breath sounds are heard. Abdomen is soft, nontender. Examination of lower extremities shows no evidence of edema. SATELLITE MANAGER exam is grossly intact. Labs show sodium 133, potassium 5.0, BUN 40, serum creatinine 1.8. Hemoglobin 12.4 g/dL. ASSESSMENT: 1. Acute kidney injury associated with hypoperfusion as well as urine retention most recently. Heredia catheter was placed yesterday. Currently patient has had good urine output. He is not on any nephrotoxic medications and his blood pressure is not low. We will repeat labs in a.m. The patient is stable for discharge from nephrology standpoint with repeat labs as outpatient and follow up as outpatient as well. 2. Status post laparoscopic cholecystectomy. 3. Volume overload, currently improved. Lasix has been discontinued. PLAN: Continue off of Lasix. Encourage increased oral intake try voiding trials again, possibly tomorrow and repeat labs in a.m. Patient will need follow-up as outpatient post discharge.
[2016-08-07] MEDS: SODIUM CHLORIDE 0.9% 1,000 ML IV SCH (15:51)
[2016-08-07 16:48] LABS: Glucose,Whole Blood 115 mg/dL (75-99)
[2016-08-07 20:54] LABS: Glucose,Whole Blood 92 mg/dL (75-99)
[2016-08-07] MEDS: MELATONIN 3 MG TABLET PO SCH (21:37)
[2016-08-08] MEDS: HYDROmorphone 1 MG/ML 1 ML SYRINGE IVP PRN (02:27)
[2016-08-08 06:00] LABS: Glucose,Whole Blood 71 mg/dL (75-99)
[2016-08-08] MEDS: INSULIN LISPRO (humaLOG) 300 UNIT/3 ML VIAL SQ SCH ×7 (06:36→21:08)
[2016-08-08] MEDS: PANTOPRAZOLE 40 MG TABLET PO SCH (06:37)
[2016-08-08] MEDS: CARVEDILOL 12.5 MG TAB PO SCH ×2 (06:37→17:17)
[2016-08-08 06:48] LABS: Anisocytosis Slight; Basophils % (A) 0 %; CH 28.5; CHCM 32.3; Eosinophils # (A) 0.4 k/uL (0-0.7); Eosinophils % (A) 4 %; HGB 12.1 gm/dL (13.0-17.5); Hypochromasia Slight; Luc # (Auto) 0.27; Luc % (Auto) 3; Lymphocytes # (A) 1.3 k/uL (1.0-4.8); Lymphocytes % (A) 14 %; MCH 28.2 pg (25.0-35.0); MCHC 31.8 g/dL (31.0-37.0); MCV 88.8 fL (80.0-100.0); Monocytes # (A) 0.5 k/uL (0-1.0); Monocytes % (A) 6 %; Neutrophils % (A) 74 %; Poikilocytosis Slight; RBC 4.28 m/uL (4.30-5.90); RDW 18.1 % (11.5-15.5); WBC 9.5 k/uL (3.8-10.6); WBC (Perox) 9.65
[2016-08-08 06:55] LABS: INR 1.4 (<1.1); Prothrombin Time 13.9 sec (9.0-12.0)
[2016-08-08 07:05] LABS: Calcium 8.9 mg/dL (8.4-10.2); Magnesium 2.3 mg/dL (1.6-2.3); Phosphorous 6.8 mg/dL (2.5-4.5); Potassium 5.5 mmol/L (3.5-5.1); Total Bilirubin 3.5 mg/dL (0.2-1.3); Total Protein 6.4 g/dL (6.3-8.2)
[2016-08-08] MEDS: ISOSORBIDE DINITRATE 20 MG TAB PO SCH ×2 (08:17→21:11)
[2016-08-08] MEDS: SIMETHICONE 80 MG CHEWABLE PO SCH ×4 (08:18→21:11)
[2016-08-08] MEDS: ENOXAPARIN 40 MG/0.4 ML SYRINGE SQ SCH (08:18)
[2016-08-08] MEDS: INSULIN DETEMIR 100 UNIT/ML 10 ML VIAL SQ SCH ×2 (08:26→21:09)
[2016-08-08] MEDS: PIPERACILLIN-TAZOBACTAM 3.375 GM in DEXTROSE/WATER 1 50ML.BAG IVPB SCH (08:26)
[2016-08-08] MEDS ORDERED: LACTULOSE 20 GM/30 ML CUP PO PRN (08:46)
[2016-08-08] MEDS ORDERED: FUROSEMIDE 10 MG/ML 10 ML VIAL IV STA (08:46)
--- NOTE | 2016-08-08 08:49 | P.PN ---
Subjective Patient is seen in follow-up for acute kidney injury on chronic kidney disease. Patient has chronic kidney disease stage III with baseline creatinine in the range 1-1.2 secondary to nephrosclerosis. Patient underwent a laparoscopic cholecystectomy this admission. His oral intake is improving. Heerdia catheter was discontinued and his bladder scan this morning reveals 180 mL of urine. His renal function is also worsened with creatinine up to 2.59 today. He does admit to constipation. Does admit to dyspnea. Patient does have history of systolic CHF with ejection fraction of 35%. Vital signs are stable. General: The patient appeared well nourished and normally developed. HEENT: Head exam is unremarkable. Neck is without jugular venous distension. LUNGS: Lungs are clear to auscultation and percussion. Breath sounds decreased. HEART: Rate and Rhythm are regular. First and second heart sounds normal. No murmurs, rubs or gallops. ABDOMEN: Abdominal exam reveals normal bowel sounds. Obese. EXTREMITITES: Trace edema. Objective - Vital Signs Vital signs: Vital Signs Temp 97.6 F 08/08/16 08:00 Pulse 66 08/08/16 08:00 Resp 20 08/08/16 08:00 BP 86/52 08/08/16 08:00 Pulse Ox 98 08/08/16 08:00 Intake & Output 08/07/16 08/08/16 08/08/16 18:59 06:59 18:59 Intake Total 416 290 Output Total 500 Balance -84 290 Weight 109.9 kg Intake: IV 290 Piperacillin-Tazobactam 3 50 .375 gm In Dextrose/Water 1 50ml.bag @ 12.5 mls/hr IVPB Q8HR [facility] Rx#: [id number] Sodium Chloride 0.9% 1, 240 000 ml @ 20 mls/hr IV . Q24H [facility] Rx#:[id number] Oral 416 Output: Urine 400 Post Void Residual 100 Other: Voiding Method Indwelling Catheter Indwelling Catheter # Voids 1 - Labs CBC & Chem 7: 08/08/16 06:24 08/08/16 06:24 Labs: Abnormal Lab Results - Last 24 Hours (Table) 08/07/16 08/07/16 08/08/16 Range/Units 11:36 16:36 05:59 RBC (4.30-5.90) m/uL Hgb (13.0-17.5) gm/dL Hct (39.0-53.0) % RDW (11.5-15.5) % PT (9.0-12.0) sec Sodium (137-145) mmol/L Potassium (3.5-5.1) mmol/L BUN (9-20) mg/dL Creatinine (0.66-1.25) mg/dL Glucose (74-99) mg/dL POC Glucose (mg/dL) 174 H 115 H 71 L (75-99) mg/dL Phosphorus (2.5-4.5) mg/dL Total Bilirubin (0.2-1.3) mg/dL AST (17-59) U/L ALT (21-72) U/L Alkaline Phosphatase (38-126) U/L Albumin (3.5-5.0) g/dL 08/08/16 08/08/16 08/08/16 Range/Units 06:24 06:24 06:24 RBC 4.28 L (4.30-5.90) m/uL Hgb 12.1 L (13.0-17.5) gm/dL Hct 38.0 L (39.0-53.0) % RDW 18.1 H (11.5-15.5) % PT 13.9 H (9.0-12.0) sec Sodium 135 L (137-145) mmol/L Potassium 5.5 H (3.5-5.1) mmol/L BUN 53 H (9-20) mg/dL Creatinine 2.59 H (0.66-1.25) mg/dL Glucose 72 L (74-99) mg/dL POC Glucose (mg/dL) (75-99) mg/dL Phosphorus 6.8 H (2.5-4.5) mg/dL Total Bilirubin 3.5 H (0.2-1.3) mg/dL AST 1424 H (17-59) U/L ALT 1317 H (21-72) U/L Alkaline Phosphatase 289 H (38-126) U/L Albumin 3.4 L (3.5-5.0) g/dL Microbiology - Last 24 Hours (Table) 08/04/16 15:30 Urine Culture - Final Urine,Clean Catch Yeast species Assessment and Plan Plan: Assessment: #1. Acute kidney injury secondary to ischemic ATN secondary to hypotension as well as component of urinary retention. Renal function worsened with creatinine up to 2.59 today. Also component of underlying cardiorenal syndrome. Urinalysis noted to be benign. #2. Hyperkalemia secondary to acute kidney injury and potassium supplementation. #3. Urinary retention status post Heredia catheter insertion and removal. Straight catheterization this morning drained 125 mL of urine. #4. Systolic CHF with ejection fraction of 35%. #5. Insulin-dependent diabetes mellitus. #6. Constipation. #7. Status post laparoscopic cholecystectomy. Plan: Discontinue potassium supplementation. Lasix 60 mg IV once today. Strict I's and os. Encourage oral intake. Low potassium diet. Avoid nephrotoxic agents and hypotensive episodes. Lactulose as needed for constipation. Repeat electrolytes in the morning.
[2016-08-08] MEDS: FORMOTEROL FUMARATE 20 MCG/2 ML NEBU INHALATION SCH (09:30)
[2016-08-08] MEDS: BUDESONIDE 1 MG/2 ML NEBU INHALATION SCH (09:30)
[2016-08-08] MEDS: IPRATROPIUM-ALBUTEROL 3 ML NEB INHALATION SCH ×4 (09:30→20:08)
[2016-08-08 11:31] LABS: Glucose,Whole Blood 124 mg/dL (75-99)
--- NOTE | 2016-08-08 11:47 | P.PN ---
Subjective Patient is doing well today. He is maintained on BiPAP when I saw him. He was straight cathetered earlier with approximately a 20 MLS. After PVR bladder scan showed 170 mL. He received 1 dose of IV Lasix. He denies significant shortness of breath. Objective - Vital Signs Vital signs: Vital Signs Temp 97.6 F 08/08/16 08:00 Pulse 60 08/08/16 11:24 Resp 18 08/08/16 11:24 BP 92/54 08/08/16 11:23 Pulse Ox 100 08/08/16 11:23 Intake & Output 08/07/16 08/08/16 08/08/16 18:59 06:59 18:59 Intake Total 416 450 Output Total 500 125 Balance -84 325 Weight 109.9 kg Intake: IV 290 Piperacillin-Tazobactam 3 50 .375 gm In Dextrose/Water 1 50ml.bag @ 12.5 mls/hr IVPB Q8HR [facility] Rx#: [id number] Sodium Chloride 0.9% 1, 240 000 ml @ 20 mls/hr IV . Q24H [facility] Rx#:[id number] Oral 416 160 Output: Urine 400 125 Straight 125 Post Void Residual 100 Other: Voiding Method Indwelling Catheter Indwelling Catheter # Voids 1 - Exam General: The patient is awake and alert, in no distress Eye: there is normal conjunctiva bilaterally. Neck: The neck is supple, there is no JVD. Cardiovascular: Normal S1-S2, no S3-S4, no murmurs. Respiratory: Lungs clear to auscultation bilaterally Gastrointestinal: Abdomen is soft, nontender Musculoskeletal: There is no pedal edema. Neurological:. Speech is normal. Skin: Skin is warm and dry - Labs CBC & Chem 7: 08/08/16 06:24 08/08/16 06:24 Labs: Abnormal Lab Results - Last 24 Hours (Table) 08/07/16 08/07/16 08/08/16 Range/Units 11:36 16:36 05:59 RBC (4.30-5.90) m/uL Hgb (13.0-17.5) gm/dL Hct (39.0-53.0) % RDW (11.5-15.5) % PT (9.0-12.0) sec Sodium (137-145) mmol/L Potassium (3.5-5.1) mmol/L BUN (9-20) mg/dL Creatinine (0.66-1.25) mg/dL Glucose (74-99) mg/dL POC Glucose (mg/dL) 174 H 115 H 71 L (75-99) mg/dL Phosphorus (2.5-4.5) mg/dL Total Bilirubin (0.2-1.3) mg/dL AST (17-59) U/L ALT (21-72) U/L Alkaline Phosphatase (38-126) U/L Albumin (3.5-5.0) g/dL 08/08/16 08/08/16 08/08/16 Range/Units 06:24 06:24 06:24 RBC 4.28 L (4.30-5.90) m/uL Hgb 12.1 L (13.0-17.5) gm/dL Hct 38.0 L (39.0-53.0) % RDW 18.1 H (11.5-15.5) % PT 13.9 H (9.0-12.0) sec Sodium 135 L (137-145) mmol/L Potassium 5.5 H (3.5-5.1) mmol/L BUN 53 H (9-20) mg/dL Creatinine 2.59 H (0.66-1.25) mg/dL Glucose 72 L (74-99) mg/dL POC Glucose (mg/dL) (75-99) mg/dL Phosphorus 6.8 H (2.5-4.5) mg/dL Total Bilirubin 3.5 H (0.2-1.3) mg/dL AST 1424 H (17-59) U/L ALT 1317 H (21-72) U/L Alkaline Phosphatase 289 H (38-126) U/L Albumin 3.4 L (3.5-5.0) g/dL 08/08/16 Range/Units 11:30 RBC (4.30-5.90) m/uL Hgb (13.0-17.5) gm/dL Hct (39.0-53.0) % RDW (11.5-15.5) % PT (9.0-12.0) sec Sodium (137-145) mmol/L Potassium (3.5-5.1) mmol/L BUN (9-20) mg/dL Creatinine (0.66-1.25) mg/dL Glucose (74-99) mg/dL POC Glucose (mg/dL) 124 H (75-99) mg/dL Phosphorus (2.5-4.5) mg/dL Total Bilirubin (0.2-1.3) mg/dL AST (17-59) U/L ALT (21-72) U/L Alkaline Phosphatase (38-126) U/L Albumin (3.5-5.0) g/dL Microbiology - Last 24 Hours (Table) 08/04/16 15:30 Urine Culture - Final Urine,Clean Catch Yeast species Assessment and Plan Plan: 1. Acute cholecystitis: Status post laparoscopic cholecystectomy. Surgery following closely. Liver enzymes trending up 2. Paroxysmal atrial fibrillation on anticoagulation with Coumadin. I would restart his Coumadin tonight. 3. Ischemic cardiomyopathy with estimated ejection fraction of 20%: Now with suspected exacerbation. IV diuretics managed by nephrology 4. Type 2 diabetes mellitus, uncontrolled. A1c 10.6. continue home dose of Levemir and sliding scale insulin 5. elevated troponin: Trending down since last admission. 6. Acute kidney injury: Secondary to diuretic use, suspect ATN, suspect cardiorenal syndrome. Nephrology following closely. Today, I reviewed his medication list and will result. Continue current regimen. Continue to monitor postvoid residual with bladder scan. Resume Coumadin tonight and recheck INR in the morning. Repeat lab work in the morning.
[2016-08-08] MEDS: SODIUM CHLORIDE 0.9% 1,000 ML IV SCH (11:51)
[2016-08-08] MEDS: CHOLECALCIFEROL 1,000 UNIT TAB PO SCH (11:51)
[2016-08-08] MEDS: MULTIVITAMINS, THERA 1 EACH TAB PO SCH (11:52)
[2016-08-08] MEDS: MAGNESIUM OXIDE 400 MG TAB PO SCH (11:52)
[2016-08-08 16:52] LABS: Glucose,Whole Blood 92 mg/dL (75-99)
--- NOTE | 2016-08-08 17:27 | PN ---
This is a 71-year-old gentleman who has been seeing my partner. He has a history of acute on chronic shortness of breath which is multifactorial but mostly in part related to underlying chronic systolic CHF with ischemic cardiomyopathy. The patient also has a component of COPD, and that is contributing to his shortness of breath. In addition, he has a history of acute cardiorenal syndrome, morbid obesity, acute cholecystitis, worsening liver enzymes secondary to congestive hepatopathy and acute on chronic renal insufficiency. The patient also has chronic atrial fibrillation. He is doing relatively well today. He is less short of breath than before. He was seen by Dr. Alvarado yesterday, and he agreed that the patient was doing better and feeling better. Current vital signs include temperature 97.6, heart rate 66, respiratory rate 20, blood pressure 108/59, mean 75, and room-air saturation 98%. Appears in no acute distress. HEENT examination is grossly unremarkable. Mucous membranes are moist. No oral lesions. NECK: Supple. Full range of motion. No adenopathy or thyromegaly. Cardiovascular examination reveals regular rhythm and rate. S1, S2 normal. Soft systolic murmur heard. No S3 or S4. Lungs reveal a few scattered rhonchi. Some mild crackles at the bases. Breath sounds are diminished. They are equal. ABDOMEN: Soft. Bowel sounds are heard. EXTREMITIES: Intact. Mild edema. Skin without rash. Lab data is reviewed. White count 9.5, hemoglobin 12.1, hematocrit 38.0, platelet count 221,000. PT and INR were 13.9 and 1.4. Sodium and potassium were 135 and 5.5. Chloride 101. CO2 22. BUN and creatinine were 53 and 2.59. The AST and ALT were 1424 and 1317. These are elevated. No recent x-rays to report. ASSESSMENT: 1. Shortness of breath, multifactorial, in part related to chronic systolic cardiac dysfunction and ischemic cardiomyopathy. 2. Status post previous implantable cardioverter-defibrillator placement. 3. Chronic obstructive pulmonary disease exacerbation. 4. Acute cardiorenal syndrome. 5. Morbid obesity. 6. Acute cholecystitis, status post laparoscopic cholecystectomy, postoperative day number 3. 7. Worsening liver enzymes, likely related to underlying congestive hepatopathy. 8. Acute on chronic renal insufficiency. 9. Atrial fibrillation. PLAN: Will continue to follow. Prognosis is guarded. Liver enzymes will have to be watched closely. Respiratory status is more stable. Medications are reviewed. Labs are reviewed. X-rays are reviewed.
[2016-08-08] MEDS ORDERED: WARFARIN 5 MG TAB PO ONE (18:00)
[2016-08-08] MEDS: SYMBICORT 160-4.5 MCG INHALER INHALATION SCH (20:08)
[2016-08-08 21:10] LABS: Glucose,Whole Blood 125 mg/dL (75-99)
[2016-08-08] MEDS: MELATONIN 3 MG TABLET PO SCH (21:11)
[2016-08-09 06:05] LABS: Glucose,Whole Blood 100 mg/dL (75-99)
[2016-08-09 06:08] LABS: Glucose,Whole Blood 100 mg/dL (75-99)
[2016-08-09 06:26] LABS: Anisocytosis Slight; Basophils % (A) 0 %; CH 28.7; CHCM 32.6; Eosinophils # (A) 0.4 k/uL (0-0.7); Eosinophils % (A) 4 %; HCT 38.4 % (39.0-53.0); HDW 3.77; Hypochromasia Slight; Luc # (Auto) 0.21; Luc % (Auto) 2; Lymphocytes # (A) 0.9 k/uL (1.0-4.8); Lymphocytes % (A) 10 %; MCH 27.7 pg (25.0-35.0); MCHC 31.2 g/dL (31.0-37.0); MCV 88.7 fL (80.0-100.0); Monocytes # (A) 0.4 k/uL (0-1.0); Monocytes % (A) 4 %; Neutrophils # (A) 7.5 k/uL (1.3-7.7); Neutrophils % (A) 80 %; Poikilocytosis Slight; RBC 4.33 m/uL (4.30-5.90); RDW 18.2 % (11.5-15.5); WBC 9.4 k/uL (3.8-10.6); WBC (Perox) 9.69
[2016-08-09 06:41] LABS: Calcium 8.9 mg/dL (8.4-10.2); Magnesium 2.3 mg/dL (1.6-2.3); Phosphorous 6.2 mg/dL (2.5-4.5); Potassium 4.9 mmol/L (3.5-5.1)
[2016-08-09] MEDS: INSULIN LISPRO (humaLOG) 300 UNIT/3 ML VIAL SQ SCH ×7 (06:48→21:05)
[2016-08-09] MEDS: PANTOPRAZOLE 40 MG TABLET PO SCH (06:49)
[2016-08-09] MEDS: CARVEDILOL 12.5 MG TAB PO SCH ×2 (06:49→16:17)
[2016-08-09] MEDS: SYMBICORT 160-4.5 MCG INHALER INHALATION SCH ×2 (07:13→20:27)
[2016-08-09] MEDS: IPRATROPIUM-ALBUTEROL 3 ML NEB INHALATION SCH ×4 (07:13→20:27)
[2016-08-09 07:33] LABS: INR 1.4 (<1.1); Prothrombin Time 13.9 sec (9.0-12.0)
[2016-08-09] MEDS: ISOSORBIDE DINITRATE 20 MG TAB PO SCH ×2 (08:22→20:11)
[2016-08-09] MEDS: ENOXAPARIN 40 MG/0.4 ML SYRINGE SQ SCH (08:23)
[2016-08-09] MEDS: SIMETHICONE 80 MG CHEWABLE PO SCH ×4 (08:23→20:11)
[2016-08-09] MEDS: INSULIN DETEMIR 100 UNIT/ML 10 ML VIAL SQ SCH ×2 (08:25→22:07)
[2016-08-09] MEDS ORDERED: FUROSEMIDE 10 MG/ML 10 ML VIAL IV STA (08:36)
--- NOTE | 2016-08-09 08:49 | P.PN ---
Subjective Patient is seen in follow-up for acute kidney injury on chronic kidney disease. Patient has chronic kidney disease stage III with baseline creatinine in the range 1-1.2 secondary to nephrosclerosis. Patient underwent a laparoscopic cholecystectomy this admission. His oral intake is improving. Heredia catheter was discontinued and postvoid residual was only 30 mL and straight catheterization only drained 125 mL of urine. His renal function is also worsened with creatinine up to 2.99 today. Does admit to dyspnea. Patient does have history of systolic CHF with ejection fraction of 35%. Complaining of swelling in his ankles. Urine output in the last 24 hours was about 650 mL. Vital signs are stable. General: The patient appeared well nourished and normally developed. HEENT: Head exam is unremarkable. Neck is without jugular venous distension. LUNGS: Lungs are clear to auscultation and percussion. Breath sounds decreased. HEART: Rate and Rhythm are regular. First and second heart sounds normal. No murmurs, rubs or gallops. ABDOMEN: Abdominal exam reveals normal bowel sounds. Obese. EXTREMITITES: Trace edema. Objective - Vital Signs Vital signs: Vital Signs Temp 96.7 F L 08/09/16 08:00 Pulse 70 08/09/16 08:00 Resp 20 08/09/16 08:00 BP 92/54 08/09/16 08:00 Pulse Ox 100 08/09/16 08:00 Intake & Output 08/08/16 08/09/16 08/09/16 18:59 06:59 18:59 Intake Total 1230 100 Output Total 555 100 Balance 675 -100 100 Weight 115.5 kg Intake: IV 290 Piperacillin-Tazobactam 3 50 .375 gm In Dextrose/Water 1 50ml.bag @ 12.5 mls/hr IVPB Q8HR [facility] Rx#: [id number] Sodium Chloride 0.9% 1, 240 000 ml @ 20 mls/hr IV . Q24H [facility] Rx#:[id number] Oral 940 100 Output: Urine 525 100 Straight 125 Post Void Residual 30 Other: Voiding Method Toilet Toilet Urinal Urinal # Voids 1 1 # Bowel Movements 2 1 - Labs CBC & Chem 7: 08/09/16 05:45 08/09/16 05:45 Labs: Abnormal Lab Results - Last 24 Hours (Table) 06/08/08/16 08/09/16 Range/Units 11:30 21:07 05:45 Hgb 12.0 L (13.0-17.5) gm/dL Hct 38.4 L (39.0-53.0) % RDW 18.2 H (11.5-15.5) % Lymphocytes # 0.9 L (1.0-4.8) k/uL PT (9.0-12.0) sec Sodium (137-145) mmol/L Carbon Dioxide (22-30) mmol/L BUN (9-20) mg/dL Creatinine (0.66-1.25) mg/dL POC Glucose (mg/dL) 124 H 125 H (75-99) mg/dL Phosphorus (2.5-4.5) mg/dL 08/09/16 08/09/16 08/09/16 Range/Units 05:45 05:45 06:01 Hgb (13.0-17.5) gm/dL Hct (39.0-53.0) % RDW (11.5-15.5) % Lymphocytes # (1.0-4.8) k/uL PT 13.9 H (9.0-12.0) sec Sodium 134 L (137-145) mmol/L Carbon Dioxide 19 L (22-30) mmol/L BUN 64 H (9-20) mg/dL Creatinine 2.99 H (0.66-1.25) mg/dL POC Glucose (mg/dL) 100 H (75-99) mg/dL Phosphorus 6.2 H (2.5-4.5) mg/dL 08/09/16 Range/Units 06:07 Hgb (13.0-17.5) gm/dL Hct (39.0-53.0) % RDW (11.5-15.5) % Lymphocytes # (1.0-4.8) k/uL PT (9.0-12.0) sec Sodium (137-145) mmol/L Carbon Dioxide (22-30) mmol/L BUN (9-20) mg/dL Creatinine (0.66-1.25) mg/dL POC Glucose (mg/dL) 100 H (75-99) mg/dL Phosphorus (2.5-4.5) mg/dL Assessment and Plan Plan: Assessment: #1. Acute kidney injury secondary to ischemic ATN secondary to hypotension as well as component of urinary retention. Renal function worsened with creatinine up to 2.99 today. Also component of underlying cardiorenal syndrome. Urinalysis noted to be benign. #2. Hyperkalemia secondary to acute kidney injury and potassium supplementation. Proved. #3. Urinary retention status post Heredia catheter insertion and removal. Straight catheterization drained 125 mL of urine and postvoid residual was only 30 mL. #4. Systolic CHF with ejection fraction of 35%. #5. Insulin-dependent diabetes mellitus. #6. Constipation. Improved. #7. Status post laparoscopic cholecystectomy. #8. Elevated liver enzymes likely related to underlying hypotension. Plan: Check chest x-ray. Start dopamine infusion as patient is quite hypotensive. This was discussed with cardiology. I will also add Midodrine 10 mg 3 times a day for now. Strict I's and os. Start Lasix 60 mg IV twice daily. Encourage oral intake. Avoid nephrotoxic agents and hypotensive episodes. Lactulose as needed for constipation. Repeat electrolytes in the morning.
[2016-08-09] MEDS: DOPamine DRIP 800 MG in DEXTROSE/WATER 1 500ML.BAG IV SCH (08:56)
--- NOTE | 2016-08-09 09:04 | XR ---
EXAMINATION TYPE: XR chest 1V portable DATE OF EXAM: 08/09/2016 COMPARISON: NONE HISTORY: CHF TECHNIQUE: Single frontal view of the chest is obtained. FINDINGS: The heart is enlarged and is postoperative change and cardiac device. Postsurgical change involving the right shoulder with shoulder arthropathy seen. No overt failure. No pneumothorax. No sizable pleural effusion. Subsegmental changes at the left lung base. IMPRESSION: 1. Severe cardiomegaly 2. Subsegmental changes at the left lung base may represent atelectasis rather than pneumonia correla te clinically.
--- NOTE | 2016-08-09 11:26 | P.PN ---
Subjective This is a 71-year-old white male with a remote smoking history, patient had a 30 -pack-year smoking history, quit smoking over 21 years ago. Patient is also known to have history of ischemic cardiomyopathy, documented coronary artery disease and previous CABG, history of ICD placement history of chronic atrial fibrillation, history of chronic congestive heart failure, previous NM, history of hypertension, and history of cardiorenal syndrome. Patient was recently in the hospital for acute on chronic systolic congestive heart failure, and acute on chronic kidney failure. Patient was discharged home on acute on chronic systolic heart failure multiple medications including Bumex 2 mg in a.m., and 4 mg in p.m. Coronary to the patient he was usually on a higher dose of Bumex which was given to him by his vp information technology Dr. Elias in [place]. Patient was also discharged home on multiple meds including Coreg, isosorbide dinitrate, Coumadin, and glipizide as well as insulin. Over the last few days, patient has been developing more shortness of breath, cough which is productive with whitish and sometimes brownish phlegm, a few pillows orthopnea, increased abdominal bloating and some swelling in lower extremities. patient has been using his nebulizer medication at home and seems to be making his shortness of breath even worse. Patient becomes more anxious and more tachycardic with every updraft treatment that he takes. Hence he was brought in back on 2016, chest x-ray showed mild prominence of the interstitium, no evidence of focal airspace disease or pleural effusion noted. His proBNP level was significantly elevated, ultrasound of the abdomen showed gallstones with abnormal gallbladder wall thickening and felt that the patient may have acute cholecystitis. Hence patient was seen by Dr. brewer on consultation, recommended antibiotics and recommended surgery was the patient is medically stable and cleared by cardiology for cholecystectomy. Cardiac consultation was done on 12/[address] SONYA Nolan, he recommended Lasix 40 mg IV push every 8 hours for 3 doses, and he planned to switch him to Bumex/his usual dose on outpatient basis. However the patient developed worsening renal profile and worsening liver profile over the last few days since admission. Chest x-ray done today continues to show mild prominence of the pulmonary vasculature, no evidence of pleural effusions, there is evidence of cardiomegaly, and possibly some component of COPD. D-dimer on admission was normal. Patient remains on DuoNeb which is not benefiting the patient much, he remains on Coreg, Lasix 20 mg IV push every 8 hours, insulin, Isordil, Cozaar, Zosyn, and Protonix. Patient continues to have shortness of breath, seems to be getting worse over the last 1 year, and more so in the last few days. Again the patient has symptoms of orthopnea, PND, and chronic intermittent swelling in lower extremities. Considering his shortness of breath, I was asked to see him on consultation. I have recommended a bedside PFT I have also recommended ABG on room air to be done on this patient. Clinically however, I believe his shortness of breath is mostly secondary to chronic LV dysfunction/ischemic cardiomyopathy and intermittently some component of congestive heart failure. The patient is seen again today 08/04/2016 in follow-up on the regular medical floor. He is awake and alert in no acute distress. He is breathing easier today as compared to yesterday. He is maintaining good O2 saturations in the 90s on room air. He's been afebrile. FEV1 value is 45% of predicted. Gold stage III COPD. Arterial blood gases revealed a PaO2 of 71, pCO2 29, pH 7.48. These were on room air. Bicarb is 25, no significant hypercapnia. He is tolerating his bronchodilators today. Continues to be diuresed with Lasix 20 mg IV every 8 hours. Currently in a negative balance. Current creatinine 1.71. LFTs continue to climb. The patient was seen again today 08/05/2016 in follow-up on the regular medical floor. He states he is feeling better today as compared to yesterday as his breathing is concerned. He is less short of breath. Dr. Dorsey does feel most of his dyspnea is secondary to his cardiac disease. He does have some restrictive lung disease which is also secondary to the congestive heart failure. He continues to diurese well. He remains in a negative balance. He is currently maintaining good O2 saturations in the 90s on room air. He is afebrile. No leukocytosis. He continues to have some epigastric discomfort. Liver enzymes and alk phos remain elevated. The plan is for possible cholecystectomy by Dr. Hernandez today. Patient was reevaluated yet today on 08/06/2016, patient is now in the intensive care unit, he underwent laparoscopic cholecystectomy yesterday, and postoperatively he was extubated and transferred to the ICU. Doing quite well, asymptomatic. No cough no wheezing no shortness of breath at rest, chest x-ray showed minimal left basilar atelectasis, no evidence of pulmonary edema, and no evidence of pneumonia. CBC is relatively unremarkable, electrolytes are normal BUN is 33 creatinine is 1.70 which is about his baseline. Patient was reevaluated today on 08/07/2016, doing quite well, no cough no wheezing no shortness of breath. Patient does have chronic dyspnea on exertion related to his underlying cardiomyopathy and systolic LV dysfunction. Labs are reviewed and his creatinine is up to 1.88. BUN is 40. CBC is relatively unremarkable. The patient is seen again today 08/09/2016 in follow-up on the selective care unit. He is awake and alert in no acute distress. He is sitting up at the bedside. He denies any worsening shortness of breath, cough or congestion. His surgical pain is well controlled. He denies any abdominal discomfort currently. His chest x-ray today reveals severe cardiomegaly with subsegmental changes at the left lung base most likely atelectasis versus pneumonia. No leukocytosis. Hemoglobin stable. Creatinine continues to rise at 2.99. Objective - Vital Signs Vital signs: Vital Signs Temp 96.7 F L 08/09/16 08:00 Pulse 70 08/09/16 08:00 Resp 20 08/09/16 08:00 BP 92/54 08/09/16 08:00 Pulse Ox 100 08/09/16 08:00 Intake & Output 08/08/16 08/09/16 08/09/16 18:59 06:59 18:59 Intake Total 1230 340 Output Total 555 100 Balance 675 -100 340 Weight 115.5 kg Intake: IV 290 Piperacillin-Tazobactam 3 50 .375 gm In Dextrose/Water 1 50ml.bag @ 12.5 mls/hr IVPB Q8HR [facility] Rx#: [id number] Sodium Chloride 0.9% 1, 240 000 ml @ 20 mls/hr IV . Q24H [facility] Rx#:[id number] Intake, IV Titration 240 Amount Sodium Chloride 0.9% 1, 240 000 ml @ 20 mls/hr IV . Q24H [facility] Rx#:[id number] Oral 940 100 Output: Urine 525 100 Straight 125 Post Void Residual 30 Other: Voiding Method Toilet Toilet Urinal Urinal # Voids 1 1 # Bowel Movements 2 1 - Exam GENERAL EXAM: Morbidly obese. Alert, comfortable in no apparent distress. HEAD: Normocephalic. EYES: Normal reaction of pupils, equal size. NOSE: Clear with pink turbinates. THROAT: Some crowding of the posterior pharynx. No erythema or exudates. NECK: Short. No masses, positive JVD. CHEST: No chest wall deformity. LUNGS: Equal air entry with no crackles, wheeze, rhonchi or dullness. Diminished. CVS: S1 and S2 normal with an audible murmur, regular rhythm. ABDOMEN: Obese, normal bowel sounds, no guarding or rigidity. SPINE: No scoliosis or deformity SKIN: No rashes CENTRAL NERVOUS SYSTEM: No focal deficits, tone is normal in all 4 extremities. Extremities: There is 1-2+ lower extremity peripheral edema. No clubbing, no cyanosis. Peripheral pulses are intact. - Labs CBC & Chem 7: 08/09/16 05:45 08/09/16 05:45 Labs: Abnormal Lab Results - Last 24 Hours (Table) 08/08/16 08/08/16 08/09/16 Range/Units 11:30 21:07 05:45 Hgb 12.0 L (13.0-17.5) gm/dL Hct 38.4 L (39.0-53.0) % RDW 18.2 H (11.5-15.5) % Lymphocytes # 0.9 L (1.0-4.8) k/uL PT (9.0-12.0) sec Sodium (137-145) mmol/L Carbon Dioxide (22-30) mmol/L BUN (9-20) mg/dL Creatinine (0.66-1.25) mg/dL POC Glucose (mg/dL) 124 H 125 H (75-99) mg/dL Phosphorus (2.5-4.5) mg/dL 08/09/16 08/09/16 08/09/16 Range/Units 05:45 05:45 06:01 Hgb (13.0-17.5) gm/dL Hct (39.0-53.0) % RDW (11.5-15.5) % Lymphocytes # (1.0-4.8) k/uL PT 13.9 H (9.0-12.0) sec Sodium 134 L (137-145) mmol/L Carbon Dioxide 19 L (22-30) mmol/L BUN 64 H (9-20) mg/dL Creatinine 2.99 H (0.66-1.25) mg/dL POC Glucose (mg/dL) 100 H (75-99) mg/dL Phosphorus 6.2 H (2.5-4.5) mg/dL 08/09/16 Range/Units 06:07 Hgb (13.0-17.5) gm/dL Hct (39.0-53.0) % RDW (11.5-15.5) % Lymphocytes # (1.0-4.8) k/uL PT (9.0-12.0) sec Sodium (137-145) mmol/L Carbon Dioxide (22-30) mmol/L BUN (9-20) mg/dL Creatinine (0.66-1.25) mg/dL POC Glucose (mg/dL) 100 H (75-99) mg/dL Phosphorus (2.5-4.5) mg/dL Assessment and Plan Plan: Impression: 1 acute on chronic shortness of breath multifactorial, but mostly secondary to chronic systolic cardiac dysfunction and ischemic cardiomyopathy. Patient had a previous ICD placement over a year ago. 2 suspect some component of COPD, FEV1 45% of predicted. 3 acute cardiorenal syndrome, worsened with aggressive diuresis. Current creatinine 2.99. 4 morbid obesity and chronic deconditioning is also another contributing factor to his chronic shortness of breath. 5 acute cholecystitis status post laparoscopic cholecystectomy on 08/05/2016 6 worsening liver enzymes, suspect congestive hepatopathy. 7 acute on chronic renal failure related to his underlying congestive heart failure/cardiorenal, and worsened with diuretics/Lasix. 8 history of chronic atrial fibrillation, patient has been on anticoagulation therapy Plan: The patient was seen and evaluated by Dr. Jacobo. We will continue with DuoNeb inhalations 4 times a day and when necessary and Pulmicort and Perforomist inhalations twice a day. He is again encouraged regarding the increased use of the incentive spirometer and cough and deep breathing exercises. BiPAP remains at the bedside. We'll continue to follow and make further recommendations based on his clinical status.
[2016-08-09 11:42] LABS: Glucose,Whole Blood 177 mg/dL (75-99)
--- NOTE | 2016-08-09 12:17 | P.PN ---
Subjective Patient reported that his shortness of breath is slightly better today. He was started on a dopamine drip. Kidney function is not improving as of yet. His at bedside. Objective - Vital Signs Vital signs: Vital Signs Temp 96.7 F L 08/09/16 08:00 Pulse 70 08/09/16 08:00 Resp 20 08/09/16 08:00 BP 92/54 08/09/16 08:00 Pulse Ox 100 08/09/16 08:00 Intake & Output 08/08/16 08/09/16 08/09/16 18:59 06:59 18:59 Intake Total 1230 340 Output Total 555 100 Balance 675 -100 340 Weight 115.5 kg Intake: IV 290 Piperacillin-Tazobactam 3 50 .375 gm In Dextrose/Water 1 50ml.bag @ 12.5 mls/hr IVPB Q8HR [facility] Rx#: [id number] Sodium Chloride 0.9% 1, 240 000 ml @ 20 mls/hr IV . Q24H [facility] Rx#:[id number] Intake, IV Titration 240 Amount Sodium Chloride 0.9% 1, 240 000 ml @ 20 mls/hr IV . Q24H [facility] Rx#:[id number] Oral 940 100 Output: Urine 525 100 Straight 125 Post Void Residual 30 Other: Voiding Method Toilet Toilet Urinal Urinal # Voids 1 1 # Bowel Movements 2 1 - Exam General: The patient is awake and alert, in no distress Eye: there is normal conjunctiva bilaterally. Neck: The neck is supple, there is no JVD. Cardiovascular: Normal S1-S2, no S3-S4, no murmurs. Respiratory: Lungs clear to auscultation bilaterally Gastrointestinal: Abdomen is soft, nontender Musculoskeletal: There is no pedal edema. Neurological:. Speech is normal. Skin: Skin is warm and dry - Labs CBC & Chem 7: 08/09/16 05:45 08/09/16 05:45 Labs: Abnormal Lab Results - Last 24 Hours (Table) 08/08/16 08/09/16 08/09/16 Range/Units 21:07 05:45 05:45 Hgb 12.0 L (13.0-17.5) gm/dL Hct 38.4 L (39.0-53.0) % RDW 18.2 H (11.5-15.5) % Lymphocytes # 0.9 L (1.0-4.8) k/uL PT (9.0-12.0) sec Sodium 134 L (137-145) mmol/L Carbon Dioxide 19 L (22-30) mmol/L BUN 64 H (9-20) mg/dL Creatinine 2.99 H (0.66-1.25) mg/dL POC Glucose (mg/dL) 125 H (75-99) mg/dL Phosphorus 6.2 H (2.5-4.5) mg/dL 08/09/16 08/09/16 08/09/16 Range/Units 05:45 06:01 06:07 Hgb (13.0-17.5) gm/dL Hct (39.0-53.0) % RDW (11.5-15.5) % Lymphocytes # (1.0-4.8) k/uL PT 13.9 H (9.0-12.0) sec Sodium (137-145) mmol/L Carbon Dioxide (22-30) mmol/L BUN (9-20) mg/dL Creatinine (0.66-1.25) mg/dL POC Glucose (mg/dL) 100 H 100 H (75-99) mg/dL Phosphorus (2.5-4.5) mg/dL 08/09/16 Range/Units 11:41 Hgb (13.0-17.5) gm/dL Hct (39.0-53.0) % RDW (11.5-15.5) % Lymphocytes # (1.0-4.8) k/uL PT (9.0-12.0) sec Sodium (137-145) mmol/L Carbon Dioxide (22-30) mmol/L BUN (9-20) mg/dL Creatinine (0.66-1.25) mg/dL POC Glucose (mg/dL) 177 H (75-99) mg/dL Phosphorus (2.5-4.5) mg/dL Assessment and Plan Plan: 1. Acute cholecystitis: Status post laparoscopic cholecystectomy. Surgery following closely. Liver enzymes trending up 2. Paroxysmal atrial fibrillation on anticoagulation with Coumadin. I would restart his Coumadin tonight. 3. Ischemic cardiomyopathy with estimated ejection fraction of 20%: Now with suspected exacerbation. IV diuretics managed by nephrology 4. Type 2 diabetes mellitus, uncontrolled. A1c 10.6. continue home dose of Levemir and sliding scale insulin 5. elevated troponin: Trending down since last admission. 6. Acute kidney injury: Secondary to diuretic use, suspect ATN, suspect cardiorenal syndrome. Nephrology following closely. Today, I reviewed his medication list and will result. Patient was started on a dopamine drip by nephrology. BladderScan showed no significant post void residual was. Coumadin resumed, we will continue to monitor INR daily. Repeat lab work in the morning.
[2016-08-09] MEDS: MULTIVITAMINS, THERA 1 EACH TAB PO SCH (12:55)
[2016-08-09] MEDS: CHOLECALCIFEROL 1,000 UNIT TAB PO SCH (12:55)
[2016-08-09] MEDS: MAGNESIUM OXIDE 400 MG TAB PO SCH (12:55)
[2016-08-09] MEDS: MIDODRINE 5 MG TAB PO SCH ×2 (12:58→17:42)
--- NOTE | 2016-08-09 16:20 | P.PN ---
Subjective Principal diagnosis: Shortness of breath This is a 71-year-old gentleman who presented to the hospital with symptoms of progressively worsening shortness of breath but, he denied having any chest discomfort. Patient has known history of coronary artery disease with prior bypass surgery, ischemic cardiomyopathy with prior defibrillator. He follows with a engineering documentation specialist in the [place] area. Patient also has history of chronic persistent atrial fibrillation, hypertension, hyperlipidemia, and stable aortic aneurysm of less than 4.5 cm. After arrival here patient did complain of some right upper quadrant abdominal pain, ultrasound of the abdomen revealed gallstones with abnormal gallbladder wall thickening and positive sonographic Murphyy sign. All increasing the suspicion for acute cholecystitis. Patient was eating in consultation by surgery. He was also seen yesterday in consultation by SONYA Nolan and obudlia to proceed with surgery if necessary. 08/09/2016 Patient seen and examined this morning, more short of breath and the day prior. Oral intake overall has been improving. Patient's renal function has worsened with a creatinine up to 2.9 today, liver function tests also significantly worsened today. Stat chest x-ray has been ordered. Patient was also initiated on dopamine, blood pressure earlier in the s. We will decrease the dose of Coreg from 25 mg twice a day to 6.25 mg by mouth twice a day today as well. Patient was also initiated on midodrine. Objective - Vital Signs Vital signs: Vital Signs Temp 96.8 F L 08/09/16 12:00 Pulse 75 08/09/16 14:54 Resp 22 08/09/16 14:54 BP 121/69 08/09/16 14:54 Pulse Ox 99 08/09/16 14:54 Intake & Output 08/08/16 08/09/16 08/09/16 18:59 06:59 18:59 Intake Total 1230 1024 Output Total 674 840 2243 Balance 675 -100 -51 Weight 115.5 kg Intake: IV 290 480 Piperacillin-Tazobactam 3 50 .375 gm In Dextrose/Water 1 50ml.bag @ 12.5 mls/hr IVPB Q8HR [facility] Rx#: [id number] Sodium Chloride 0.9% 1, 240 480 000 ml @ 20 mls/hr IV . Q24H [facility] Rx#:[id number] Intake, IV Titration 264 Amount DOPamine DRIP 800 mg In 24 Dextrose/Water 1 500ml. bag @ 2 MCG/KG/MIN 8.66 mls/hr IV .Q24H [facility] Rx#: [id number] Sodium Chloride 0.9% 1, 240 000 ml @ 20 mls/hr IV . Q24H [facility] Rx#:[id number] Oral 940 280 Output: Urine 455 195 2063 Straight 125 Uretheral (Heerdia) 675 Post Void Residual 30 Other: Voiding Method Toilet Indwelling Catheter Urinal # Voids 1 1 # Bowel Movements 2 1 - Exam PHYSICAL EXAMINATION: HEENT: Head is atraumatic, normocephalic. Pupils equal, round. Neck is supple. There is no elevated jugular venous pressure. HEART EXAMINATION: Heart S1 S2 1 systolic murmur is heard. CHEST EXAMINATION: Lungs reveal diminished air entry bilaterally. ABDOMEN: Soft, postiive RUQ tenderness. Bowel sounds are heard. No organomegaly noted. EXTREMITIES: 2+ peripheral pulses with trace evidence of peripheral edema and no calf tenderness noted. NEUROLOGIC patient is awake, alert and oriented -3.] . - Labs CBC & Chem 7: 08/09/16 05:45 08/09/16 05:45 Labs: Abnormal Lab Results - Last 24 Hours (Table) 08/08/16 08/09/16 08/09/16 Range/Units 21:07 05:45 05:45 Hgb 12.0 L (13.0-17.5) gm/dL Hct 38.4 L (39.0-53.0) % RDW 18.2 H (11.5-15.5) % Lymphocytes # 0.9 L (1.0-4.8) k/uL PT (9.0-12.0) sec Sodium 134 L (137-145) mmol/L Carbon Dioxide 19 L (22-30) mmol/L BUN 64 H (9-20) mg/dL Creatinine 2.99 H (0.66-1.25) mg/dL POC Glucose (mg/dL) 125 H (75-99) mg/dL Phosphorus 6.2 H (2.5-4.5) mg/dL 08/09/16 08/09/16 08/09/16 Range/Units 05:45 06:01 06:07 Hgb (13.0-17.5) gm/dL Hct (39.0-53.0) % RDW (11.5-15.5) % Lymphocytes # (1.0-4.8) k/uL PT 13.9 H (9.0-12.0) sec Sodium (137-145) mmol/L Carbon Dioxide (22-30) mmol/L BUN (9-20) mg/dL Creatinine (0.66-1.25) mg/dL POC Glucose (mg/dL) 100 H 100 H (75-99) mg/dL Phosphorus (2.5-4.5) mg/dL 08/09/16 Range/Units 11:41 Hgb (13.0-17.5) gm/dL Hct (39.0-53.0) % RDW (11.5-15.5) % Lymphocytes # (1.0-4.8) k/uL PT (9.0-12.0) sec Sodium (137-145) mmol/L Carbon Dioxide (22-30) mmol/L BUN (9-20) mg/dL Creatinine (0.66-1.25) mg/dL POC Glucose (mg/dL) 177 H (75-99) mg/dL Phosphorus (2.5-4.5) mg/dL Assessment and Plan (1) Shortness of breath Status: Acute (2) Elevated troponin Status: Acute (3) Acute cholecystitis Status: Acute (4) Ischemic cardiomyopathy Status: Acute (5) AICD (automatic cardioverter/defibrillator) present Status: Acute (6) Ischemic cardiomyopathy Status: Acute Plan: From cardiology's perspective, we will decrease the dose according to 6.25 mg one tablet by mouth twice a day. Concur with the addition of dopamine. Continue to monitor blood pressure, urine output, BUN creatinine and liver functions. DNP note has been reviewed, I agree with a documented findings and plan of care. Patient was seen and examined.
[2016-08-09 16:46] LABS: Glucose,Whole Blood 177 mg/dL (75-99)
[2016-08-09] MEDS: CARVEDILOL 6.25 MG TAB PO SCH (17:51)
[2016-08-09] MEDS: WARFARIN 3 MG TAB PO SCH (17:51)
[2016-08-09] MEDS: MELATONIN 3 MG TABLET PO SCH (20:11)
[2016-08-09 21:01] LABS: Glucose,Whole Blood 81 mg/dL (75-99)
[2016-08-10 06:09] LABS: Glucose,Whole Blood 69 mg/dL (75-99)
[2016-08-10] MEDS: MIDODRINE 5 MG TAB PO SCH ×4 (06:09→17:05)
[2016-08-10] MEDS: PANTOPRAZOLE 40 MG TABLET PO SCH (06:09)
[2016-08-10] MEDS: INSULIN LISPRO (humaLOG) 300 UNIT/3 ML VIAL SQ SCH ×7 (06:10→21:08)
[2016-08-10] MEDS: CARVEDILOL 6.25 MG TAB PO SCH ×2 (06:10→17:05)
[2016-08-10 06:27] LABS: Glucose,Whole Blood 72 mg/dL (75-99)
[2016-08-10 07:12] LABS: Anisocytosis Slight; Basophils % (A) 1 %; CH 28.7; CHCM 31.8; Eosinophils # (A) 0.5 k/uL (0-0.7); Eosinophils % (A) 5 %; HCT 38.4 % (39.0-53.0); HDW 3.62; Hypochromasia Moderate; Luc # (Auto) 0.16; Luc % (Auto) 2; Lymphocytes # (A) 0.9 k/uL (1.0-4.8); Lymphocytes % (A) 11 %; MCH 28.4 pg (25.0-35.0); MCHC 31.2 g/dL (31.0-37.0); Mean Platelet Volume 7.7; Monocytes # (A) 0.5 k/uL (0-1.0); Monocytes % (A) 6 %; Neutrophils # (A) 6.3 k/uL (1.3-7.7); Neutrophils % (A) 76 %; Poikilocytosis Slight; RBC 4.22 m/uL (4.30-5.90); RDW 18.5 % (11.5-15.5); WBC 8.3 k/uL (3.8-10.6); WBC (Perox) 8.71
[2016-08-10 07:21] LABS: Calcium 8.8 mg/dL (8.4-10.2); Magnesium 2.4 mg/dL (1.6-2.3); Phosphorous 4.8 mg/dL (2.5-4.5); Potassium 3.8 mmol/L (3.5-5.1)
[2016-08-10] MEDS: IPRATROPIUM-ALBUTEROL 3 ML NEB INHALATION SCH ×4 (07:28→20:31)
[2016-08-10] MEDS: SYMBICORT 160-4.5 MCG INHALER INHALATION SCH ×2 (07:28→20:31)
[2016-08-10 07:31] LABS: INR 1.4 (<1.1); Prothrombin Time 13.6 sec (9.0-12.0)
[2016-08-10] MEDS: ENOXAPARIN 30 MG/0.3 ML SYRINGE SQ SCH (08:35)
[2016-08-10] MEDS: SIMETHICONE 80 MG CHEWABLE PO SCH ×4 (08:36→20:35)
[2016-08-10] MEDS: ISOSORBIDE DINITRATE 20 MG TAB PO SCH ×2 (08:36→20:35)
--- NOTE | 2016-08-10 10:18 | P.PN ---
Subjective Patient is seen in follow-up for acute kidney injury on chronic kidney disease. Patient has chronic kidney disease stage III with baseline creatinine in the range 1-1.2 secondary to nephrosclerosis. Patient underwent a laparoscopic cholecystectomy this admission. His oral intake is improving. Heredia catheter was discontinued and postvoid residual was only 30 mL and straight catheterization only drained 125 mL of urine. His renal function is also worsened with creatinine up to 2.99 on August 09. Does admit to dyspnea which is improved today. Patient does have history of systolic CHF with ejection fraction of 35%. Patient was hypotensive and was started on IV dopamine yesterday. His blood pressures improved and urine output was over 3 L in the last 24 hours. Creatinine is down to 1.94 today. Edema is improved. Vital signs are stable. General: The patient appeared well nourished and normally developed. HEENT: Head exam is unremarkable. Neck is without jugular venous distension. LUNGS: Lungs are clear to auscultation and percussion. Breath sounds decreased. HEART: Rate and Rhythm are regular. First and second heart sounds normal. No murmurs, rubs or gallops. ABDOMEN: Abdominal exam reveals normal bowel sounds. Obese. EXTREMITITES: Trace edema. Objective - Vital Signs Vital signs: Vital Signs Temp 97.9 F 08/10/16 08:00 Pulse 89 08/10/16 08:00 Resp 16 08/10/16 08:00 BP 121/70 08/10/16 08:00 Pulse Ox 98 08/10/16 08:00 Intake & Output 08/09/16 08/10/16 08/10/16 18:59 06:59 18:59 Intake Total 1124 407 180 Output Total 1075 2300 Balance 49 -1893 180 Weight 109.8 kg Intake: IV 480 200 Sodium Chloride 0.9% 1, 480 200 000 ml @ 20 mls/hr IV . Q24H [facility] Rx#:[id number] Intake, IV Titration 264 87 Amount DOPamine DRIP 800 mg In 24 87 Dextrose/Water 1 500ml. bag @ 2 MCG/KG/MIN 8.66 mls/hr IV .Q24H [facility] Rx#: [id number] Sodium Chloride 0.9% 1, 240 000 ml @ 20 mls/hr IV . Q24H [facility] Rx#:[id number] Oral 380 120 180 Output: Urine 1075 2300 Uretheral (Heredia) 675 1000 Other: Voiding Method Indwelling Catheter Indwelling Catheter - Labs CBC & Chem 7: 08/10/16 06:28 08/10/16 06:28 Labs: Abnormal Lab Results - Last 24 Hours (Table) 08/09/16 08/09/16 08/10/16 Range/Units 11:41 16:42 06:08 RBC (4.30-5.90) m/uL Hgb (13.0-17.5) gm/dL Hct (39.0-53.0) % RDW (11.5-15.5) % Lymphocytes # (1.0-4.8) k/uL PT (9.0-12.0) sec Carbon Dioxide (22-30) mmol/L BUN (9-20) mg/dL Creatinine (0.66-1.25) mg/dL Glucose (74-99) mg/dL POC Glucose (mg/dL) 177 H 177 H 69 L (75-99) mg/dL Phosphorus (2.5-4.5) mg/dL Magnesium (1.6-2.3) mg/dL 08/10/16 08/10/16 08/10/16 Range/Units 06:26 06:28 06:28 RBC 4.22 L (4.30-5.90) m/uL Hgb 12.0 L (13.0-17.5) gm/dL Hct 38.4 L (39.0-53.0) % RDW 18.5 H (11.5-15.5) % Lymphocytes # 0.9 L (1.0-4.8) k/uL PT (9.0-12.0) sec Carbon Dioxide 20 L (22-30) mmol/L BUN 53 H (9-20) mg/dL Creatinine 1.94 H (0.66-1.25) mg/dL Glucose 64 L (74-99) mg/dL POC Glucose (mg/dL) 72 L (75-99) mg/dL Phosphorus 4.8 H (2.5-4.5) mg/dL Magnesium 2.4 H (1.6-2.3) mg/dL 08/10/16 Range/Units 06:28 RBC (4.30-5.90) m/uL Hgb (13.0-17.5) gm/dL Hct (39.0-53.0) % RDW (11.5-15.5) % Lymphocytes # (1.0-4.8) k/uL PT 13.6 H (9.0-12.0) sec Carbon Dioxide (22-30) mmol/L BUN (9-20) mg/dL Creatinine (0.66-1.25) mg/dL Glucose (74-99) mg/dL POC Glucose (mg/dL) (75-99) mg/dL Phosphorus (2.5-4.5) mg/dL Magnesium (1.6-2.3) mg/dL Assessment and Plan Plan: Assessment: #1. Acute kidney injury secondary to ischemic ATN secondary to hypotension as well as component of urinary retention. Renal function worsened with creatinine up to 2.99 as of yesterday and is down to 1.94 today. Also component of underlying cardiorenal syndrome. Urinalysis noted to be benign. #2. Hyperkalemia secondary to acute kidney injury and potassium supplementation. Resolved. #3. Urinary retention status post Heredia catheter insertion and removal. Straight catheterization drained 125 mL of urine and postvoid residual was only 30 mL. Heredia catheter reinserted. #4. Systolic CHF with ejection fraction of 35%. #5. Insulin-dependent diabetes mellitus. #6. Constipation. Improved. #7. Status post laparoscopic cholecystectomy. #8. Elevated liver enzymes likely related to underlying hypotension. Plan: Continue dopamine infusion. Continue Midodrine 10 mg 3 times a day for now. Strict I's and os and daily weights. Continue Lasix 60 mg IV twice daily. Encourage oral intake. Avoid nephrotoxic agents and hypotensive episodes. Lactulose as needed for constipation. Repeat electrolytes in the morning.
--- NOTE | 2016-08-10 10:50 | P.PN ---
Subjective This is a 71-year-old white male with a remote smoking history, patient had a 30 -pack-year smoking history, quit smoking over 21 years ago. Patient is also known to have history of ischemic cardiomyopathy, documented coronary artery disease and previous CABG, history of ICD placement history of chronic atrial fibrillation, history of chronic congestive heart failure, previous MS, history of hypertension, and history of cardiorenal syndrome. Patient was recently in the hospital for acute on chronic systolic congestive heart failure, and acute on chronic kidney failure. Patient was discharged home on acute on chronic systolic heart failure multiple medications including Bumex 2 mg in a.m., and 4 mg in p.m. Coronary to the patient he was usually on a higher dose of Bumex which was given to him by his processing mgr Dr. Elias in [place]. Patient was also discharged home on multiple meds including Coreg, isosorbide dinitrate, Coumadin, and glipizide as well as insulin. Over the last few days, patient has been developing more shortness of breath, cough which is productive with whitish and sometimes brownish phlegm, a few pillows orthopnea, increased abdominal bloating and some swelling in lower extremities. patient has been using his nebulizer medication at home and seems to be making his shortness of breath even worse. Patient becomes more anxious and more tachycardic with every updraft treatment that he takes. Hence he was brought in back on 2016, chest x-ray showed mild prominence of the interstitium, no evidence of focal airspace disease or pleural effusion noted. His proBNP level was significantly elevated, ultrasound of the abdomen showed gallstones with abnormal gallbladder wall thickening and felt that the patient may have acute cholecystitis. Hence patient was seen by Dr. brewer on consultation, recommended antibiotics and recommended surgery was the patient is medically stable and cleared by cardiology for cholecystectomy. Cardiac consultation was done on 12/[address] SONYA Nolan, he recommended Lasix 40 mg IV push every 8 hours for 3 doses, and he planned to switch him to Bumex/his usual dose on outpatient basis. However the patient developed worsening renal profile and worsening liver profile over the last few days since admission. Chest x-ray done today continues to show mild prominence of the pulmonary vasculature, no evidence of pleural effusions, there is evidence of cardiomegaly, and possibly some component of COPD. D-dimer on admission was normal. Patient remains on DuoNeb which is not benefiting the patient much, he remains on Coreg, Lasix 20 mg IV push every 8 hours, insulin, Isordil, Cozaar, Zosyn, and Protonix. Patient continues to have shortness of breath, seems to be getting worse over the last 1 year, and more so in the last few days. Again the patient has symptoms of orthopnea, PND, and chronic intermittent swelling in lower extremities. Considering his shortness of breath, I was asked to see him on consultation. I have recommended a bedside PFT I have also recommended ABG on room air to be done on this patient. Clinically however, I believe his shortness of breath is mostly secondary to chronic LV dysfunction/ischemic cardiomyopathy and intermittently some component of congestive heart failure. The patient is seen again today 08/04/2016 in follow-up on the regular medical floor. He is awake and alert in no acute distress. He is breathing easier today as compared to yesterday. He is maintaining good O2 saturations in the 90s on room air. He's been afebrile. FEV1 value is 45% of predicted. Gold stage III COPD. Arterial blood gases revealed a PaO2 of 71, pCO2 29, pH 7.48. These were on room air. Bicarb is 25, no significant hypercapnia. He is tolerating his bronchodilators today. Continues to be diuresed with Lasix 20 mg IV every 8 hours. Currently in a negative balance. Current creatinine 1.71. LFTs continue to climb. The patient was seen again today 08/05/2016 in follow-up on the regular medical floor. He states he is feeling better today as compared to yesterday as his breathing is concerned. He is less short of breath. Dr. Dorsey does feel most of his dyspnea is secondary to his cardiac disease. He does have some restrictive lung disease which is also secondary to the congestive heart failure. He continues to diurese well. He remains in a negative balance. He is currently maintaining good O2 saturations in the 90s on room air. He is afebrile. No leukocytosis. He continues to have some epigastric discomfort. Liver enzymes and alk phos remain elevated. The plan is for possible cholecystectomy by Dr. Hernandez today. Patient was reevaluated yet today on 08/06/2016, patient is now in the intensive care unit, he underwent laparoscopic cholecystectomy yesterday, and postoperatively he was extubated and transferred to the ICU. Doing quite well, asymptomatic. No cough no wheezing no shortness of breath at rest, chest x-ray showed minimal left basilar atelectasis, no evidence of pulmonary edema, and no evidence of pneumonia. CBC is relatively unremarkable, electrolytes are normal BUN is 33 creatinine is 1.70 which is about his baseline. Patient was reevaluated today on 08/07/2016, doing quite well, no cough no wheezing no shortness of breath. Patient does have chronic dyspnea on exertion related to his underlying cardiomyopathy and systolic LV dysfunction. Labs are reviewed and his creatinine is up to 1.88. BUN is 40. CBC is relatively unremarkable. The patient is seen again today 08/09/2016 in follow-up on the selective care unit. He is awake and alert in no acute distress. He is sitting up at the bedside. He denies any worsening shortness of breath, cough or congestion. His surgical pain is well controlled. He denies any abdominal discomfort currently. His chest x-ray today reveals severe cardiomegaly with subsegmental changes at the left lung base most likely atelectasis versus pneumonia. No leukocytosis. Hemoglobin stable. Creatinine continues to rise at 2.99. The patient is seen again today 08/10/2016 in follow-up on the selective care unit. He is currently sitting up in a chair at the bedside. He is awake and alert in no acute distress. He has no complaints currently. His surgical pain is well controlled. He is not short of breath. No cough or congestion. He is maintaining good O2 saturations in the upper 90s on 2 L/m nasal cannula. He has been afebrile. Hemodynamically stable. He remains in a negative balance. Current creatinine 1.94. Objective - Vital Signs Vital signs: Vital Signs Temp 97.9 F 08/10/16 08:00 Pulse 89 08/10/16 08:00 Resp 16 08/10/16 08:00 BP 121/70 08/10/16 08:00 Pulse Ox 98 08/10/16 08:00 Intake & Output 08/09/16 08/10/16 08/10/16 18:59 06:59 18:59 Intake Total 1124 407 180 Output Total 1075 2300 Balance 49 -1893 180 Weight 109.8 kg Intake: IV 480 200 Sodium Chloride 0.9% 1, 480 200 000 ml @ 20 mls/hr IV . Q24H [facility] Rx#:[id number] Intake, IV Titration 264 87 Amount DOPamine DRIP 800 mg In 24 87 Dextrose/Water 1 500ml. bag @ 2 MCG/KG/MIN 8.66 mls/hr IV .Q24H [facility] Rx#: [id number] Sodium Chloride 0.9% 1, 240 000 ml @ 20 mls/hr IV . Q24H [facility] Rx#:[id number] Oral 380 120 180 Output: Urine 1075 2300 Uretheral ([place]redia) 675 1000 Other: Voiding Method Indwelling Catheter Indwelling Catheter - Exam GENERAL EXAM: Morbidly obese. Alert, comfortable in no apparent distress. HEAD: Normocephalic. EYES: Normal reaction of pupils, equal size. NOSE: Clear with pink turbinates. THROAT: Some crowding of the posterior pharynx. No erythema or exudates. NECK: Short. No masses, positive JVD. CHEST: No chest wall deformity. LUNGS: Equal air entry with no crackles, wheeze, rhonchi or dullness. Diminished. CVS: S1 and S2 normal with an audible murmur, regular rhythm. ABDOMEN: Obese, normal bowel sounds, no guarding or rigidity. SPINE: No scoliosis or deformity SKIN: No rashes CENTRAL NERVOUS SYSTEM: No focal deficits, tone is normal in all 4 extremities. Extremities: There is 1-2+ lower extremity peripheral edema. No clubbing, no cyanosis. Peripheral pulses are intact. - Labs CBC & Chem 7: 08/10/16 06:28 08/10/16 06:28 Labs: Abnormal Lab Results - Last 24 Hours (Table) 08/09/16 08/09/16 08/10/16 Range/Units 11:41 16:42 06:08 RBC (4.30-5.90) m/uL Hgb (13.0-17.5) gm/dL Hct (39.0-53.0) % RDW (11.5-15.5) % Lymphocytes # (1.0-4.8) k/uL PT (9.0-12.0) sec Carbon Dioxide (22-30) mmol/L BUN (9-20) mg/dL Creatinine (0.66-1.25) mg/dL Glucose (74-99) mg/dL POC Glucose (mg/dL) 177 H 177 H 69 L (75-99) mg/dL Phosphorus (2.5-4.5) mg/dL Magnesium (1.6-2.3) mg/dL 08/10/16 08/10/16 08/10/16 Range/Units 06:26 06:28 06:28 RBC 4.22 L (4.30-5.90) m/uL Hgb 12.0 L (13.0-17.5) gm/dL Hct 38.4 L (39.0-53.0) % RDW 18.5 H (11.5-15.5) % Lymphocytes # 0.9 L (1.0-4.8) k/uL PT (9.0-12.0) sec Carbon Dioxide 20 L (22-30) mmol/L BUN 53 H (9-20) mg/dL Creatinine 1.94 H (0.66-1.25) mg/dL Glucose 64 L (74-99) mg/dL POC Glucose (mg/dL) 72 L (75-99) mg/dL Phosphorus 4.8 H (2.5-4.5) mg/dL Magnesium 2.4 H (1.6-2.3) mg/dL 08/10/16 Range/Units 06:28 RBC (4.30-5.90) m/uL Hgb (13.0-17.5) gm/dL Hct (39.0-53.0) % RDW (11.5-15.5) % Lymphocytes # (1.0-4.8) k/uL PT 13.6 H (9.0-12.0) sec Carbon Dioxide (22-30) mmol/L BUN (9-20) mg/dL Creatinine (0.66-1.25) mg/dL Glucose (74-99) mg/dL POC Glucose (mg/dL) (75-99) mg/dL Phosphorus (2.5-4.5) mg/dL Magnesium (1.6-2.3) mg/dL Assessment and Plan Plan: Impression: 1 acute on chronic shortness of breath multifactorial, but mostly secondary to chronic systolic cardiac dysfunction and ischemic cardiomyopathy. Patient had a previous ICD placement over a year ago. 2 suspect some component of COPD, FEV1 45% of predicted. 3 acute cardiorenal syndrome, worsened with aggressive diuresis. Current creatinine 1.94. 4 morbid obesity and chronic deconditioning is also another contributing factor to his chronic shortness of breath. 5 acute cholecystitis status post laparoscopic cholecystectomy on 08/05/2016 6 worsening liver enzymes, suspect congestive hepatopathy. 7 acute on chronic renal failure related to his underlying congestive heart failure/cardiorenal, and worsened with diuretics/Lasix. 8 history of chronic atrial fibrillation, patient has been on anticoagulation therapy Plan: The patient was seen and evaluated by Dr. Jacobo. We will continue with DuoNeb inhalations 4 times a day and when necessary and Pulmicort and Perforomist inhalations twice a day. He is again encouraged regarding the increased use of the incentive spirometer and cough and deep breathing exercises. We will increase his activity as tolerated. We'll continue to follow and make further recommendations based on his clinical status.
[2016-08-10] MEDS: DOPamine DRIP 800 MG in DEXTROSE/WATER 1 500ML.BAG IV SCH (11:01)
[2016-08-10 11:33] LABS: Glucose,Whole Blood 200 mg/dL (75-99)
[2016-08-10] MEDS: FUROSEMIDE 10 MG/ML 10 ML VIAL IV SCH ×2 (12:02→20:35)
[2016-08-10] MEDS: INSULIN DETEMIR 100 UNIT/ML 10 ML VIAL SQ SCH ×2 (12:02→22:27)
[2016-08-10] MEDS: CHOLECALCIFEROL 1,000 UNIT TAB PO SCH (12:02)
[2016-08-10] MEDS: MAGNESIUM OXIDE 400 MG TAB PO SCH (12:03)
[2016-08-10] MEDS: MULTIVITAMINS, THERA 1 EACH TAB PO SCH (12:03)
--- NOTE | 2016-08-10 12:27 | P.PN ---
Subjective Principal diagnosis: Shortness of breath This is a 71-year-old gentleman who presented to the hospital with symptoms of progressively worsening shortness of breath but, he denied having any chest discomfort. Patient has known history of coronary artery disease with prior bypass surgery, ischemic cardiomyopathy with prior defibrillator. He follows with a kettle cleaner in the [place] area. Patient also has history of chronic persistent atrial fibrillation, hypertension, hyperlipidemia, and stable aortic aneurysm of less than 4.5 cm. After arrival here patient did complain of some right upper quadrant abdominal pain, ultrasound of the abdomen revealed gallstones with abnormal gallbladder wall thickening and positive sonographic Murphyy sign. All increasing the suspicion for acute cholecystitis. Patient was eating in consultation by surgery. He was also seen yesterday in consultation by SONYA Nolan and obdulia to proceed with surgery if necessary. 08/09/2016 Patient seen and examined this morning, more short of breath and the day prior. Oral intake overall has been improving. Patient's renal function has worsened with a creatinine up to 2.9 today, liver function tests also significantly worsened today. Stat chest x-ray has been ordered. Patient was also initiated on dopamine, blood pressure earlier in the s. We will decrease the dose of Coreg from 25 mg twice a day to 6.25 mg by mouth twice a day today as well. Patient was also initiated on midodrine. 08/10/2016 Patient seen and examined this morning, sitting in the chair at bedside, walking to the bathroom on his own. Overall doing much better today. Blood pressure today has improved, urine output over 3 L in the past 24 hours. Creatinine 1.9 today. Edema overall has improved significantly as well. Blood pressure 120/70. Objective - Vital Signs Vital signs: Vital Signs Temp 97 F L 08/10/16 12:00 Pulse 81 08/10/16 12:00 Resp 16 08/10/16 12:00 BP 120/62 08/10/16 12:00 Pulse Ox 100 08/10/16 12:00 Intake & Output 08/09/16 08/10/16 08/10/16 18:59 06:59 18:59 Intake Total 1124 407 180 Output Total 1075 2300 Balance 49 -1893 180 Weight 109.8 kg Intake: IV 480 200 Sodium Chloride 0.9% 1, 480 200 000 ml @ 20 mls/hr IV . Q24H [facility] Rx#:[id number] Intake, IV Titration 264 87 Amount DOPamine DRIP 800 mg In 24 87 Dextrose/Water 1 500ml. bag @ 2 MCG/KG/MIN 8.66 mls/hr IV .Q24H [facility] Rx#: [id number] Sodium Chloride 0.9% 1, 240 000 ml @ 20 mls/hr IV . Q24H [facility] Rx#:[id number] Oral 380 120 180 Output: Urine 1075 2300 Uretheral ([place]redia) 675 1000 Other: Voiding Method Indwelling Catheter Indwelling Catheter - Exam PHYSICAL EXAMINATION: HEENT: Head is atraumatic, normocephalic. Pupils equal, round. Neck is supple. There is no elevated jugular venous pressure. HEART EXAMINATION: Heart S1 S2 1 systolic murmur is heard. CHEST EXAMINATION: Lungs reveal diminished air entry bilaterally. ABDOMEN: Soft, postiive RUQ tenderness. Bowel sounds are heard. No organomegaly noted. EXTREMITIES: 2+ peripheral pulses with trace evidence of peripheral edema and no calf tenderness noted. NEUROLOGIC patient is awake, alert and oriented -3.] . - Labs CBC & Chem 7: 08/10/16 06:28 08/10/16 06:28 Labs: Abnormal Lab Results - Last 24 Hours (Table) 08/09/16 08/10/16 08/10/16 Range/Units 16:42 06:08 06:26 RBC (4.30-5.90) m/uL Hgb (13.0-17.5) gm/dL Hct (39.0-53.0) % RDW (11.5-15.5) % Lymphocytes # (1.0-4.8) k/uL PT (9.0-12.0) sec Carbon Dioxide (22-30) mmol/L BUN (9-20) mg/dL Creatinine (0.66-1.25) mg/dL Glucose (74-99) mg/dL POC Glucose (mg/dL) 177 H 69 L 72 L (75-99) mg/dL Phosphorus (2.5-4.5) mg/dL Magnesium (1.6-2.3) mg/dL 08/10/16 08/10/16 08/10/16 Range/Units 06:28 06:28 06:28 RBC 4.22 L (4.30-5.90) m/uL Hgb 12.0 L (13.0-17.5) gm/dL Hct 38.4 L (39.0-53.0) % RDW 18.5 H (11.5-15.5) % Lymphocytes # 0.9 L (1.0-4.8) k/uL PT 13.6 H (9.0-12.0) sec Carbon Dioxide 20 L (22-30) mmol/L BUN 53 H (9-20) mg/dL Creatinine 1.94 H (0.66-1.25) mg/dL Glucose 64 L (74-99) mg/dL POC Glucose (mg/dL) (75-99) mg/dL Phosphorus 4.8 H (2.5-4.5) mg/dL Magnesium 2.4 H (1.6-2.3) mg/dL 08/10/16 Range/Units 11:21 RBC (4.30-5.90) m/uL Hgb (13.0-17.5) gm/dL Hct (39.0-53.0) % RDW (11.5-15.5) % Lymphocytes # (1.0-4.8) k/uL PT (9.0-12.0) sec Carbon Dioxide (22-30) mmol/L BUN (9-20) mg/dL Creatinine (0.66-1.25) mg/dL Glucose (74-99) mg/dL POC Glucose (mg/dL) 200 H (75-99) mg/dL Phosphorus (2.5-4.5) mg/dL Magnesium (1.6-2.3) mg/dL Assessment and Plan (1) Shortness of breath Status: Acute (2) Elevated troponin Status: Acute (3) Acute cholecystitis Status: Acute (4) Ischemic cardiomyopathy Status: Acute (5) AICD (automatic cardioverter/defibrillator) present Status: Acute (6) Ischemic cardiomyopathy Status: Acute Plan: From cardiology's perspective, we will recommend to continue current medications. Overall the patient has improved significantly today. DNP note has been reviewed, I agree with a documented findings and plan of care. Patient was seen and examined.
[2016-08-10 16:58] LABS: Glucose,Whole Blood 113 mg/dL (75-99)
[2016-08-10] MEDS: WARFARIN 3 MG TAB PO SCH (17:05)
--- NOTE | 2016-08-10 18:10 | P.PN ---
Subjective Patient was seen and examined on 08/06/2016 patient is now in the intensive care unit, he underwent laparoscopic cholecystectomy yesterday, and postoperatively he was extubated and transferred to the ICU. On Review of systems No fever or chills, no chest pain No cough no wheezing no shortness of breath at rest No nausea or vomiting no abdominal pain Objective - Vital Signs Vital signs: Vital Signs Temp 97.5 F L 08/10/16 16:00 Pulse 88 08/10/16 16:00 Resp 16 08/10/16 16:00 BP 130/73 08/10/16 16:00 Pulse Ox 96 08/10/16 16:00 Intake & Output 08/09/16 08/10/16 08/10/16 18:59 06:59 18:59 Intake Total 1124 407 417 Output Total 1075 2300 Balance 49 -1893 417 Weight 109.8 kg Intake: IV 480 200 Sodium Chloride 0.9% 1, 480 200 000 ml @ 20 mls/hr IV . Q24H [facility] Rx#:[id number] Intake, IV Titration 264 87 Amount DOPamine DRIP 800 mg In 24 87 Dextrose/Water 1 500ml. bag @ 2 MCG/KG/MIN 8.66 mls/hr IV .Q24H [facility] Rx#: [id number] Sodium Chloride 0.9% 1, 240 000 ml @ 20 mls/hr IV . Q24H [facility] Rx#:[id number] Oral 380 120 417 Output: Urine 1075 2300 Uretheral ([place]red[place]) 675 1000 Other: Voiding Method Indwelling Catheter Indwelling Catheter - Exam In general patient is alert and oriented 3 in no apparent distress HEENT head normocephalic and atraumatic Neck is supple no JVD no goiter no lymphadenopathy Chest exam is clear to auscultation no crackles no wheezing Cardiac exam reveals regular heart sounds no gallops no murmurs Abdomen is soft nontender no organomegaly with normal bowel sounds Extremity exam reveals no edema no cyanosis or clubbing - Labs CBC & Chem 7: 08/10/16 06:28 08/10/16 06:28 Labs: Abnormal Lab Results - Last 24 Hours (Table) 08/10/16 08/10/16 08/10/16 Range/Units 06:08 06:26 06:28 RBC 4.22 L (4.30-5.90) m/uL Hgb 12.0 L (13.0-17.5) gm/dL Hct 38.4 L (39.0-53.0) % RDW 18.5 H (11.5-15.5) % Lymphocytes # 0.9 L (1.0-4.8) k/uL PT (9.0-12.0) sec Carbon Dioxide (22-30) mmol/L BUN (9-20) mg/dL Creatinine (0.66-1.25) mg/dL Glucose (74-99) mg/dL POC Glucose (mg/dL) 69 L 72 L (75-99) mg/dL Phosphorus (2.5-4.5) mg/dL Magnesium (1.6-2.3) mg/dL 08/10/16 08/10/16 08/10/16 Range/Units 06:28 06:28 11:21 RBC (4.30-5.90) m/uL Hgb (13.0-17.5) gm/dL Hct (39.0-53.0) % RDW (11.5-15.5) % Lymphocytes # (1.0-4.8) k/uL PT 13.6 H (9.0-12.0) sec Carbon Dioxide 20 L (22-30) mmol/L BUN 53 H (9-20) mg/dL Creatinine 1.94 H (0.66-1.25) mg/dL Glucose 64 L (74-99) mg/dL POC Glucose (mg/dL) 200 H (75-99) mg/dL Phosphorus 4.8 H (2.5-4.5) mg/dL Magnesium 2.4 H (1.6-2.3) mg/dL 08/10/16 Range/Units 16:46 RBC (4.30-5.90) m/uL Hgb (13.0-17.5) gm/dL Hct (39.0-53.0) % RDW (11.5-15.5) % Lymphocytes # (1.0-4.8) k/uL PT (9.0-12.0) sec Carbon Dioxide (22-30) mmol/L BUN (9-20) mg/dL Creatinine (0.66-1.25) mg/dL Glucose (74-99) mg/dL POC Glucose (mg/dL) 113 H (75-99) mg/dL Phosphorus (2.5-4.5) mg/dL Magnesium (1.6-2.3) mg/dL Assessment and Plan Plan: 1. Acute cholecystitis: Seen and evaluated by general surgery. Patient had lap cholecystectomy yesterday. Continue IV antibiotics today liver enzymes and bilirubin are more elevated we will monitor closely patient was evaluated by Dr. Rosen no intervention recommended at this time 2. Paroxysmal atrial fibrillation on anticoagulation with Coumadin at home. Coumadin still on hold post surgery 3. Ischemic cardiomyopathy with estimated ejection fraction of 20%: Now with suspected exacerbation. I am very limited with diuretic use given acute kidney failure. 4. Type 2 diabetes mellitus, uncontrolled. A1c 10.6. continue home dose of Levemir and sliding scale insulin 5. elevated troponin: Trending down since last admission. Recent myocardial infarction on last mission. Has been evaluated by cardiology. 6. Acute kidney injury: Finger to diuretics and hypoperfusion. Nephrology is following. They switched him over to oral Lasix. Cozaar on hold. Creatinine 1.70 7. Shortness of breath lately secondary to CHF exacerbation and ischemic cardiomyopathy. Patient was evaluated by pulmonary service and cardiology 8. Acute on chronic systolic CHF exacerbation. Patient is been switched over to oral Lasix. 9. Acute cardiorenal syndrome 10. Morbid obesity can also be contributing to patient's chronic shortness of breath. 11. COPD with mild exacerbation continue [facility]. Pulmonary following. They will follow with him outpatient for further pulmonary function test Coumadin was resumed INR is still subtherapeutic at 1.4 will recheck labs in a.m. Will recheck labs in a.m. Will follow very closely Patient is improving possible discharge to home in the next 2-3 days
[2016-08-10] MEDS: MELATONIN 3 MG TABLET PO SCH (20:35)
[2016-08-10 21:07] LABS: Glucose,Whole Blood 98 mg/dL (75-99)
[2016-08-11 06:13] LABS: Glucose,Whole Blood 187 mg/dL (75-99)
[2016-08-11] MEDS: MIDODRINE 5 MG TAB PO SCH ×3 (06:41→17:22)
[2016-08-11] MEDS: CARVEDILOL 6.25 MG TAB PO SCH ×2 (06:41→17:21)
[2016-08-11] MEDS: PANTOPRAZOLE 40 MG TABLET PO SCH (06:41)
[2016-08-11 06:54] LABS: Anisocytosis Slight; Basophils % (A) 0 %; CH 28.2; CHCM 31.7; Eosinophils # (A) 0.3 k/uL (0-0.7); Eosinophils % (A) 4 %; HCT 36.9 % (39.0-53.0); HDW 3.78; HGB 11.9 gm/dL (13.0-17.5); Hypochromasia Moderate; Luc # (Auto) 0.23; Luc % (Auto) 3; Lymphocytes % (A) 14 %; MCH 29.1 pg (25.0-35.0); MCHC 32.4 g/dL (31.0-37.0); MCV 89.8 fL (80.0-100.0); Mean Platelet Volume 7.4; Monocytes # (A) 0.5 k/uL (0-1.0); Monocytes % (A) 7 %; Neutrophils % (A) 72 %; Poikilocytosis Slight; RDW 18.5 % (11.5-15.5); WBC 6.9 k/uL (3.8-10.6); WBC (Perox) 7.35
[2016-08-11 07:04] LABS: ALT 568 U/L (21-72); AST 114 U/L (17-59); Alkaline Phosphatase 262 U/L (38-126); Anion Gap 10 mmol/L; Blood Urea Nitrogen 35 mg/dL (9-20); Calcium 8.9 mg/dL (8.4-10.2); Carbon Dioxide 22 mmol/L (22-30); Chloride 108 mmol/L (98-107); Glucose 181 mg/dL (74-99); Non-African American GFR(MDRD) 54 (>60 ml/min/1.73 sqM); Potassium 4.2 mmol/L (3.5-5.1); Sodium 140 mmol/L (137-145); Total Bilirubin 1.1 mg/dL (0.2-1.3)
[2016-08-11 07:06] LABS: INR 1.4 (<1.1); Prothrombin Time 13.7 sec (9.0-12.0)
[2016-08-11] MEDS: INSULIN LISPRO (humaLOG) 300 UNIT/3 ML VIAL SQ SCH ×7 (07:17→21:01)
[2016-08-11] MEDS: SYMBICORT 160-4.5 MCG INHALER INHALATION SCH ×2 (07:30→20:27)
[2016-08-11] MEDS: IPRATROPIUM-ALBUTEROL 3 ML NEB INHALATION SCH ×4 (07:30→20:27)
[2016-08-11] MEDS: FUROSEMIDE 10 MG/ML 10 ML VIAL IV SCH ×3 (08:29→21:06)
[2016-08-11] MEDS: ENOXAPARIN 30 MG/0.3 ML SYRINGE SQ SCH (08:29)
[2016-08-11] MEDS: ISOSORBIDE DINITRATE 20 MG TAB PO SCH ×2 (08:29→21:03)
[2016-08-11] MEDS: MAGNESIUM OXIDE 400 MG TAB PO SCH (09:13)
[2016-08-11] MEDS: INSULIN DETEMIR 100 UNIT/ML 10 ML VIAL SQ SCH ×2 (09:13→21:06)
[2016-08-11] MEDS: SIMETHICONE 80 MG CHEWABLE PO SCH ×4 (09:13→21:03)
[2016-08-11] MEDS: CHOLECALCIFEROL 1,000 UNIT TAB PO SCH (09:14)
[2016-08-11] MEDS: MULTIVITAMINS, THERA 1 EACH TAB PO SCH (09:14)
[2016-08-11] MEDS: DOPamine DRIP 800 MG in DEXTROSE/WATER 1 500ML.BAG IV SCH (09:15)
[2016-08-11 10:53] VITALS: BMI 34.4
--- NOTE | 2016-08-11 11:58 | P.PN ---
Subjective Patient is seen in follow-up for acute kidney injury on chronic kidney disease. Patient has chronic kidney disease stage III with baseline creatinine in the range 1-1.2 secondary to nephrosclerosis. Patient underwent a laparoscopic cholecystectomy this admission. His oral intake is improving. Heredia catheter was discontinued and postvoid residual was only 30 mL and straight catheterization only drained 125 mL of urine. His renal function is also worsened with creatinine up to 2.99 on August 09. Does admit to dyspnea which is improved today. Patient does have history of systolic CHF with ejection fraction of 35%. Patient was hypotensive and was started on IV dopamine on August 09. His blood pressures and urine output or post improved. Creatinine is down to 1.3 today. Edema is improved. Vital signs are stable. General: The patient appeared well nourished and normally developed. HEENT: Head exam is unremarkable. Neck is without jugular venous distension. LUNGS: Lungs are clear to auscultation and percussion. Breath sounds decreased. HEART: Rate and Rhythm are regular. First and second heart sounds normal. No murmurs, rubs or gallops. ABDOMEN: Abdominal exam reveals normal bowel sounds. Obese. EXTREMITITES: Trace edema. Objective - Vital Signs Vital signs: Vital Signs Temp 96.9 F L 08/11/16 08:00 Pulse 85 08/11/16 08:00 Resp 16 08/11/16 08:00 BP 134/67 08/11/16 08:00 Pulse Ox 97 08/11/16 08:00 Intake & Output 08/10/16 08/11/16 08/11/16 18:59 06:59 18:59 Intake Total 417 171 716.422 Output Total 1700 Balance 417 -1529 716.422 Weight 109 kg 109 kg Intake: IV 100 Sodium Chloride 0.9% 1, 100 000 ml @ 20 mls/hr IV . Q24H [facility] Rx#:[id number] Intake, IV Titration 71 418.422 Amount DOPamine DRIP 800 mg In 71 418.422 Dextrose/Water 1 500ml. bag @ 2 MCG/KG/MIN 8.66 mls/hr IV .Q24H [facility] Rx#: [id number] Oral 417 298 Output: Urine 1700 Other: Voiding Method Indwelling Catheter Indwelling Catheter - Labs CBC & Chem 7: 08/11/16 05:59 08/11/16 05:59 Labs: Abnormal Lab Results - Last 24 Hours (Table) 08/10/16 08/11/16 08/11/16 Range/Units 16:46 05:59 05:59 RBC (4.30-5.90) m/uL Hgb (13.0-17.5) gm/dL Hct (39.0-53.0) % RDW (11.5-15.5) % PT 13.7 H (9.0-12.0) sec Chloride 108 H (98-107) mmol/L BUN 35 H (9-20) mg/dL Creatinine 1.30 H (0.66-1.25) mg/dL Glucose 181 H (74-99) mg/dL POC Glucose (mg/dL) 113 H (75-99) mg/dL AST 114 H (17-59) U/L ALT 568 H (21-72) U/L Alkaline Phosphatase 262 H (38-126) U/L Total Protein 6.0 L (6.3-8.2) g/dL Albumin 3.1 L (3.5-5.0) g/dL 08/11/16 08/11/16 Range/Units 05:59 06:11 RBC 4.10 L (4.30-5.90) m/uL Hgb 11.9 L (13.0-17.5) gm/dL Hct 36.9 L (39.0-53.0) % RDW 18.5 H (11.5-15.5) % PT (9.0-12.0) sec Chloride (98-107) mmol/L BUN (9-20) mg/dL Creatinine (0.66-1.25) mg/dL Glucose (74-99) mg/dL POC Glucose (mg/dL) 187 H (75-99) mg/dL AST (17-59) U/L ALT (21-72) U/L Alkaline Phosphatase (38-126) U/L Total Protein (6.3-8.2) g/dL Albumin (3.5-5.0) g/dL Assessment and Plan Plan: Assessment: #1. Acute kidney injury secondary to ischemic ATN secondary to hypotension as well as component of urinary retention. Renal function worsened with creatinine up to 2.99 as of August 09 and is down to 1.3 today. Also component of underlying cardiorenal syndrome. Urinalysis noted to be benign. #2. Hyperkalemia secondary to acute kidney injury and potassium supplementation. Resolved. #3. Urinary retention status post Heredia catheter insertion and removal. Straight catheterization drained 125 mL of urine and postvoid residual was only 30 mL. Heredia catheter reinserted. #4. Systolic CHF with ejection fraction of 35%. #5. Insulin-dependent diabetes mellitus. #6. Constipation. Improved. #7. Status post laparoscopic cholecystectomy. #8. Elevated liver enzymes likely related to underlying hypotension. Improving. Plan: Discontinue dopamine today. Continue Midodrine 10 mg 3 times a day for now. Decrease dose of Lasix to 40 mg IV twice daily. Encourage oral intake. Maintain low salt diet. Avoid nephrotoxic agents and hypotensive episodes. Lactulose as needed for constipation. Repeat electrolytes in the morning. Potential discharge tomorrow.
[2016-08-11 12:27] LABS: Glucose,Whole Blood 207 mg/dL (75-99)
--- NOTE | 2016-08-11 13:33 | P.PN ---
Subjective Patient is doing fairly well today. He denies shortness of breath. Objective - Vital Signs Vital signs: Vital Signs Temp 96.9 F L 08/11/16 08:00 Pulse 85 08/11/16 08:00 Resp 16 08/11/16 08:00 BP 134/67 08/11/16 08:00 Pulse Ox 97 08/11/16 08:00 Intake & Output 08/10/16 08/11/16 08/11/16 18:59 06:59 18:59 Intake Total 417 171 716.422 Output Total 1700 Balance 417 -1529 716.422 Weight 109 kg 109 kg Intake: IV 100 Sodium Chloride 0.9% 1, 100 000 ml @ 20 mls/hr IV . Q24H [facility] Rx#:[id number] Intake, IV Titration 71 418.422 Amount DOPamine DRIP 800 mg In 71 418.422 Dextrose/Water 1 500ml. bag @ 2 MCG/KG/MIN 8.66 mls/hr IV .Q24H [facility] Rx#: [id number] Oral 417 298 Output: Urine 1700 Other: Voiding Method Indwelling Catheter Indwelling Catheter - Exam General: The patient is awake and alert, in no distress Eye: there is normal conjunctiva bilaterally. Neck: The neck is supple, there is no JVD. Cardiovascular: Normal S1-S2, no S3-S4, no murmurs. Respiratory: Lungs clear to auscultation bilaterally Gastrointestinal: Abdomen is soft, nontender Musculoskeletal: There is no pedal edema. Neurological:. Speech is normal. Skin: Skin is warm and dry - Labs CBC & Chem 7: 08/11/16 05:59 08/11/16 05:59 Labs: Abnormal Lab Results - Last 24 Hours (Table) 08/10/16 08/11/16 08/11/16 Range/Units 16:46 05:59 05:59 RBC (4.30-5.90) m/uL Hgb (13.0-17.5) gm/dL Hct (39.0-53.0) % RDW (11.5-15.5) % PT 13.7 H (9.0-12.0) sec Chloride 108 H (98-107) mmol/L BUN 35 H (9-20) mg/dL Creatinine 1.30 H (0.66-1.25) mg/dL Glucose 181 H (74-99) mg/dL POC Glucose (mg/dL) 113 H (75-99) mg/dL AST 114 H (17-59) U/L ALT 568 H (21-72) U/L Alkaline Phosphatase 262 H (38-126) U/L Total Protein 6.0 L (6.3-8.2) g/dL Albumin 3.1 L (3.5-5.0) g/dL 08/11/16 08/11/16 08/11/16 Range/Units 05:59 06:11 11:38 RBC 4.10 L (4.30-5.90) m/uL Hgb 11.9 L (13.0-17.5) gm/dL Hct 36.9 L (39.0-53.0) % RDW 18.5 H (11.5-15.5) % PT (9.0-12.0) sec Chloride (98-107) mmol/L BUN (9-20) mg/dL Creatinine (0.66-1.25) mg/dL Glucose (74-99) mg/dL POC Glucose (mg/dL) 187 H 207 H (75-99) mg/dL AST (17-59) U/L ALT (21-72) U/L Alkaline Phosphatase (38-126) U/L Total Protein (6.3-8.2) g/dL Albumin (3.5-5.0) g/dL Assessment and Plan Plan: 1. Acute cholecystitis: Status post laparoscopic cholecystectomy. Surgery following closely. Liver enzymes trending up 2. Paroxysmal atrial fibrillation on anticoagulation with Coumadin. I would restart his Coumadin tonight. 3. Ischemic cardiomyopathy with estimated ejection fraction of 20%: Now with suspected exacerbation. IV diuretics managed by nephrology 4. Type 2 diabetes mellitus, uncontrolled. A1c 10.6. continue home dose of Levemir and sliding scale insulin 5. elevated troponin: Trending down since last admission. 6. Acute kidney injury: Improved significantly. Creatinine is almost back to normal. Today, I reviewed his medication list and will result. - Discontinue dopamine drip - Discontinue Heredia catheter and check postvoid residuals every 8 hours - Discharge planning for tomorrow
--- NOTE | 2016-08-11 14:18 | P.PN ---
Subjective This is a 71-year-old white male with a remote smoking history, patient had a 30 -pack-year smoking history, quit smoking over 21 years ago. Patient is also known to have history of ischemic cardiomyopathy, documented coronary artery disease and previous CABG, history of ICD placement history of chronic atrial fibrillation, history of chronic congestive heart failure, previous IA, history of hypertension, and history of cardiorenal syndrome. Patient was recently in the hospital for acute on chronic systolic congestive heart failure, and acute on chronic kidney failure. Patient was discharged home on acute on chronic systolic heart failure multiple medications including Bumex 2 mg in a.m., and 4 mg in p.m. Coronary to the patient he was usually on a higher dose of Bumex which was given to him by his nougat candy maker helper Dr. Elias in [place]. Patient was also discharged home on multiple meds including Coreg, isosorbide dinitrate, Coumadin, and glipizide as well as insulin. Over the last few days, patient has been developing more shortness of breath, cough which is productive with whitish and sometimes brownish phlegm, a few pillows orthopnea, increased abdominal bloating and some swelling in lower extremities. patient has been using his nebulizer medication at home and seems to be making his shortness of breath even worse. Patient becomes more anxious and more tachycardic with every updraft treatment that he takes. Hence he was brought in back on 2016, chest x-ray showed mild prominence of the interstitium, no evidence of focal airspace disease or pleural effusion noted. His proBNP level was significantly elevated, ultrasound of the abdomen showed gallstones with abnormal gallbladder wall thickening and felt that the patient may have acute cholecystitis. Hence patient was seen by Dr. brewer on consultation, recommended antibiotics and recommended surgery was the patient is medically stable and cleared by cardiology for cholecystectomy. Cardiac consultation was done on 12/[address] SONYA Nolan, he recommended Lasix 40 mg IV push every 8 hours for 3 doses, and he planned to switch him to Bumex/his usual dose on outpatient basis. However the patient developed worsening renal profile and worsening liver profile over the last few days since admission. Chest x-ray done today continues to show mild prominence of the pulmonary vasculature, no evidence of pleural effusions, there is evidence of cardiomegaly, and possibly some component of COPD. D-dimer on admission was normal. Patient remains on DuoNeb which is not benefiting the patient much, he remains on Coreg, Lasix 20 mg IV push every 8 hours, insulin, Isordil, Cozaar, Zosyn, and Protonix. Patient continues to have shortness of breath, seems to be getting worse over the last 1 year, and more so in the last few days. Again the patient has symptoms of orthopnea, PND, and chronic intermittent swelling in lower extremities. Considering his shortness of breath, I was asked to see him on consultation. I have recommended a bedside PFT I have also recommended ABG on room air to be done on this patient. Clinically however, I believe his shortness of breath is mostly secondary to chronic LV dysfunction/ischemic cardiomyopathy and intermittently some component of congestive heart failure. The patient is seen again today 08/04/2016 in follow-up on the regular medical floor. He is awake and alert in no acute distress. He is breathing easier today as compared to yesterday. He is maintaining good O2 saturations in the 90s on room air. He's been afebrile. FEV1 value is 45% of predicted. Gold stage III COPD. Arterial blood gases revealed a PaO2 of 71, pCO2 29, pH 7.48. These were on room air. Bicarb is 25, no significant hypercapnia. He is tolerating his bronchodilators today. Continues to be diuresed with Lasix 20 mg IV every 8 hours. Currently in a negative balance. Current creatinine 1.71. LFTs continue to climb. The patient was seen again today 08/05/2016 in follow-up on the regular medical floor. He states he is feeling better today as compared to yesterday as his breathing is concerned. He is less short of breath. Dr. Dorsey does feel most of his dyspnea is secondary to his cardiac disease. He does have some restrictive lung disease which is also secondary to the congestive heart failure. He continues to diurese well. He remains in a negative balance. He is currently maintaining good O2 saturations in the 90s on room air. He is afebrile. No leukocytosis. He continues to have some epigastric discomfort. Liver enzymes and alk phos remain elevated. The plan is for possible cholecystectomy by Dr. Hernandez today. Patient was reevaluated yet today on 08/06/2016, patient is now in the intensive care unit, he underwent laparoscopic cholecystectomy yesterday, and postoperatively he was extubated and transferred to the ICU. Doing quite well, asymptomatic. No cough no wheezing no shortness of breath at rest, chest x-ray showed minimal left basilar atelectasis, no evidence of pulmonary edema, and no evidence of pneumonia. CBC is relatively unremarkable, electrolytes are normal BUN is 33 creatinine is 1.70 which is about his baseline. Patient was reevaluated today on 08/07/2016, doing quite well, no cough no wheezing no shortness of breath. Patient does have chronic dyspnea on exertion related to his underlying cardiomyopathy and systolic LV dysfunction. Labs are reviewed and his creatinine is up to 1.88. BUN is 40. CBC is relatively unremarkable. The patient is seen again today 08/09/2016 in follow-up on the selective care unit. He is awake and alert in no acute distress. He is sitting up at the bedside. He denies any worsening shortness of breath, cough or congestion. His surgical pain is well controlled. He denies any abdominal discomfort currently. His chest x-ray today reveals severe cardiomegaly with subsegmental changes at the left lung base most likely atelectasis versus pneumonia. No leukocytosis. Hemoglobin stable. Creatinine continues to rise at 2.99. The patient is seen again today 08/10/2016 in follow-up on the selective care unit. He is currently sitting up in a chair at the bedside. He is awake and alert in no acute distress. He has no complaints currently. His surgical pain is well controlled. He is not short of breath. No cough or congestion. He is maintaining good O2 saturations in the upper 90s on 2 L/m nasal cannula. He has been afebrile. Hemodynamically stable. He remains in a negative balance. Current creatinine 1.94. The patient is seen again today 08/11/2016 in follow-up on the selective care unit. He is awake and alert in no acute distress. He denies any shortness of breath cough or congestion. He is maintaining good O2 saturations in the mid 90s on room air. His been hemodynamically stable. Afebrile. Creatinine continues to improve currently at 1.30. His liver enzymes have improved significantly though remain elevated with an AST of 114 ALT 568 alk phos 262. Objective - Vital Signs Vital signs: Vital Signs Temp 96.9 F L 06/22/17 08:00 Pulse 83 08/11/16 12:00 Resp 18 08/11/16 12:00 BP 119/53 08/11/16 12:00 Pulse Ox 93 L 08/11/16 12:00 Intake & Output 08/10/16 08/11/16 08/11/16 18:59 06:59 18:59 Intake Total 417 171 716.422 Output Total 1700 Balance 417 -1529 716.422 Weight 109 kg 109 kg Intake: IV 100 Sodium Chloride 0.9% 1, 100 000 ml @ 20 mls/hr IV . Q24H [facility] Rx#:[id number] Intake, IV Titration 71 418.422 Amount DOPamine DRIP 800 mg In 71 418.422 Dextrose/Water 1 500ml. bag @ 2 MCG/KG/MIN 8.66 mls/hr IV .Q24H [facility] Rx#: [id number] Oral 417 298 Output: Urine 1700 Other: Voiding Method Indwelling Catheter Indwelling Catheter - Exam GENERAL EXAM: Morbidly obese. Alert, comfortable in no apparent distress. HEAD: Normocephalic. EYES: Normal reaction of pupils, equal size. NOSE: Clear with pink turbinates. THROAT: Some crowding of the posterior pharynx. No erythema or exudates. NECK: Short. No masses, positive JVD. CHEST: No chest wall deformity. LUNGS: Equal air entry with no crackles, wheeze, rhonchi or dullness. Diminished. CVS: S1 and S2 normal with an audible murmur, regular rhythm. ABDOMEN: Obese, normal bowel sounds, no guarding or rigidity. SPINE: No scoliosis or deformity SKIN: No rashes CENTRAL NERVOUS SYSTEM: No focal deficits, tone is normal in all 4 extremities. Extremities: There is 1-2+ lower extremity peripheral edema. No clubbing, no cyanosis. Peripheral pulses are intact. - Labs CBC & Chem 7: 08/11/16 05:59 08/11/16 05:59 Labs: Abnormal Lab Results - Last 24 Hours (Table) 08/10/16 08/11/16 08/11/16 Range/Units 16:46 05:59 05:59 RBC (4.30-5.90) m/uL Hgb (13.0-17.5) gm/dL Hct (39.0-53.0) % RDW (11.5-15.5) % PT 13.7 H (9.0-12.0) sec Chloride 108 H (98-107) mmol/L BUN 35 H (9-20) mg/dL Creatinine 1.30 H (0.66-1.25) mg/dL Glucose 181 H (74-99) mg/dL POC Glucose (mg/dL) 113 H (75-99) mg/dL AST 114 H (17-59) U/L ALT 568 H (21-72) U/L Alkaline Phosphatase 262 H (38-126) U/L Total Protein 6.0 L (6.3-8.2) g/dL Albumin 3.1 L (3.5-5.0) g/dL 08/11/16 08/11/16 08/11/16 Range/Units 05:59 06:11 11:38 RBC 4.10 L (4.30-5.90) m/uL Hgb 11.9 L (13.0-17.5) gm/dL Hct 36.9 L (39.0-53.0) % RDW 18.5 H (11.5-15.5) % PT (9.0-12.0) sec Chloride (98-107) mmol/L BUN (9-20) mg/dL Creatinine (0.66-1.25) mg/dL Glucose (74-99) mg/dL POC Glucose (mg/dL) 187 H 207 H (75-99) mg/dL AST (17-59) U/L ALT (21-72) U/L Alkaline Phosphatase (38-126) U/L Total Protein (6.3-8.2) g/dL Albumin (3.5-5.0) g/dL Assessment and Plan Plan: Impression: 1 acute on chronic shortness of breath multifactorial, but mostly secondary to chronic systolic cardiac dysfunction and ischemic cardiomyopathy. Patient had a previous ICD placement over a year ago. 2 suspect some component of COPD, FEV1 45% of predicted. 3 acute cardiorenal syndrome, worsened with aggressive diuresis. Current creatinine 1.30. 4 morbid obesity and chronic deconditioning is also another contributing factor to his chronic shortness of breath. 5 acute cholecystitis status post laparoscopic cholecystectomy on 08/05/2016, postoperative elevation in liver enzymes, recovering. 6 worsening liver enzymes, suspect congestive hepatopathy. 7 acute on chronic renal failure related to his underlying congestive heart failure/cardiorenal, and worsened with diuretics/Lasix. 8 history of chronic atrial fibrillation, patient has been on anticoagulation therapy Plan: The patient was seen and evaluated by Dr. Jacobo. We will continue with his current medications. Plan is for probable discharge in the a.m. We'll continue to follow and make further recommendations based on his clinical status.
[2016-08-11 14:58] LABS: ALT 514 U/L (21-72); AST 91 U/L (17-59); Alkaline Phosphatase 249 U/L (38-126); Anion Gap 13 mmol/L; Blood Urea Nitrogen 31 mg/dL (9-20); Calcium 8.6 mg/dL (8.4-10.2); Carbon Dioxide 23 mmol/L (22-30); Chloride 104 mmol/L (98-107); Glucose 157 mg/dL (74-99); Non-African American GFR(MDRD) 50 (>60 ml/min/1.73 sqM); Potassium 3.8 mmol/L (3.5-5.1); Sodium 140 mmol/L (137-145); Total Bilirubin 1.2 mg/dL (0.2-1.3); Total Protein 6.2 g/dL (6.3-8.2)
[2016-08-11 17:04] LABS: Glucose,Whole Blood 92 mg/dL (75-99)
[2016-08-11] MEDS ORDERED: WARFARIN 5 MG TAB PO ONE (18:00)
[2016-08-11 20:46] LABS: Glucose,Whole Blood 88 mg/dL (75-99)
[2016-08-11] MEDS: MELATONIN 3 MG TABLET PO SCH (21:03)
[2016-08-12 06:17] LABS: Glucose,Whole Blood 122 mg/dL (75-99)
[2016-08-12] MEDS: INSULIN LISPRO (humaLOG) 300 UNIT/3 ML VIAL SQ SCH ×4 (06:19→12:17)
[2016-08-12] MEDS: CARVEDILOL 6.25 MG TAB PO SCH (06:32)
[2016-08-12] MEDS: MIDODRINE 5 MG TAB PO SCH ×2 (06:32→12:18)
[2016-08-12] MEDS: PANTOPRAZOLE 40 MG TABLET PO SCH (06:32)
[2016-08-12 07:27] LABS: INR 1.5 (<1.1); Prothrombin Time 14.8 sec (9.0-12.0)
[2016-08-12] MEDS: INSULIN DETEMIR 100 UNIT/ML 10 ML VIAL SQ SCH (07:51)
[2016-08-12] MEDS: MULTIVITAMINS, THERA 1 EACH TAB PO SCH (07:52)
[2016-08-12] MEDS: SIMETHICONE 80 MG CHEWABLE PO SCH ×2 (07:52→12:17)
[2016-08-12] MEDS: CHOLECALCIFEROL 1,000 UNIT TAB PO SCH (07:52)
[2016-08-12] MEDS: FUROSEMIDE 10 MG/ML 10 ML VIAL IV SCH (07:53)
[2016-08-12] MEDS: ISOSORBIDE DINITRATE 20 MG TAB PO SCH (07:53)
[2016-08-12] MEDS: MAGNESIUM OXIDE 400 MG TAB PO SCH (07:54)
[2016-08-12] MEDS: SYMBICORT 160-4.5 MCG INHALER INHALATION SCH (07:58)
[2016-08-12] MEDS: IPRATROPIUM-ALBUTEROL 3 ML NEB INHALATION SCH ×2 (07:58→11:53)
[2016-08-12 08:32] LABS: Anion Gap 15 mmol/L; Blood Urea Nitrogen 31 mg/dL (9-20); Carbon Dioxide 22 mmol/L (22-30); Chloride 106 mmol/L (98-107); Glucose 107 mg/dL (74-99); Magnesium 1.9 mg/dL (1.6-2.3); Non-African American GFR(MDRD) 50 (>60 ml/min/1.73 sqM); Potassium 3.9 mmol/L (3.5-5.1); Sodium 143 mmol/L (137-145)
[2016-08-12 08:35] VITALS: RESP 18; TEMP 97.7
[2016-08-12] MEDS ORDERED: ENOXAPARIN 40 MG/0.4 ML SYRINGE SQ SCH (09:00)
--- NOTE | 2016-08-12 10:49 | P.PN ---
Subjective Patient is seen in follow-up for acute kidney injury on chronic kidney disease. Patient has chronic kidney disease stage III with baseline creatinine in the range 1-1.2 secondary to nephrosclerosis. Patient underwent a laparoscopic cholecystectomy this admission. His oral intake is improving. His renal function is also improved with creatinine at 1.4. Denies chest pain or shortness of breath. Patient does have history of systolic CHF with ejection fraction of 35%. Patient was hypotensive and was started on IV dopamine on August 09. His blood pressures and urine output both improved. Edema is improved. Heredia catheter has been discontinued and he has been voiding without problems. Vital signs are stable. General: The patient appeared well nourished and normally developed. HEENT: Head exam is unremarkable. Neck is without jugular venous distension. LUNGS: Lungs are clear to auscultation and percussion. Breath sounds decreased. HEART: Rate and Rhythm are regular. First and second heart sounds normal. No murmurs, rubs or gallops. ABDOMEN: Abdominal exam reveals normal bowel sounds. Obese. EXTREMITITES: No edema. Objective - Vital Signs Vital signs: Vital Signs Temp 97.7 F 08/12/16 08:00 Pulse 79 08/12/16 08:00 Resp 18 08/12/16 08:00 BP 103/60 08/12/16 08:00 Pulse Ox 96 08/12/16 08:00 Intake & Output 08/11/16 08/12/16 08/12/16 18:59 06:59 18:59 Intake Total 716.422 24 180 Output Total 400 1400 Balance 316.422 -1376 180 Weight 109 kg 108 kg Intake: IV 24 0.9% NS FLUSH 20 Lasix IVP 40mg 4 Intake, IV Titration 418.422 Amount DOPamine DRIP 800 mg In 418.422 Dextrose/Water 1 500ml. bag @ 2 MCG/KG/MIN 8.66 mls/hr IV .Q24H [facility] Rx#: [id number] Oral 298 180 Output: Urine 400 1400 Other: Voiding Method Urinal Urinal # Voids 1 - Labs CBC & Chem 7: 08/11/16 05:59 08/12/16 06:41 Labs: Abnormal Lab Results - Last 24 Hours (Table) 08/11/16 08/11/16 08/12/16 Range/Units 11:38 14:12 06:16 PT (9.0-12.0) sec BUN 31 H (9-20) mg/dL Creatinine 1.40 H (0.66-1.25) mg/dL Glucose 157 H (74-99) mg/dL POC Glucose (mg/dL) 207 H 122 H (75-99) mg/dL AST 91 H (17-59) U/L ALT 514 H (21-72) U/L Alkaline Phosphatase 249 H (38-126) U/L Total Protein 6.2 L (6.3-8.2) g/dL Albumin 3.2 L (3.5-5.0) g/dL 08/12/16 08/12/16 Range/Units 06:41 06:41 PT 14.8 H (9.0-12.0) sec BUN 31 H (9-20) mg/dL Creatinine 1.40 H (0.66-1.25) mg/dL Glucose 107 H (74-99) mg/dL POC Glucose (mg/dL) (75-99) mg/dL AST (17-59) U/L ALT (21-72) U/L Alkaline Phosphatase (38-126) U/L Total Protein (6.3-8.2) g/dL Albumin (3.5-5.0) g/dL Assessment and Plan Plan: Assessment: #1. Acute kidney injury secondary to ischemic ATN secondary to hypotension as well as component of urinary retention. Renal function worsened with creatinine up to 2.99 as of August 09 and is down to 1.3 yesterday. Creatinine 1.4 today. Also component of underlying cardiorenal syndrome. Dopamine discontinued yesterday. Urinalysis noted to be benign. #2. Hyperkalemia secondary to acute kidney injury and potassium supplementation. Resolved. #3. Urinary retention status post Heredia catheter insertion and removal. #4. Systolic CHF with ejection fraction of 35%. #5. Insulin-dependent diabetes mellitus. #6. Constipation. Improved. #7. Status post laparoscopic cholecystectomy. #8. Elevated liver enzymes likely related to underlying hypotension. Improving. Plan: Continue Midodrine 10 mg 3 times a day for now. I will change the Lasix to 40 mg orally twice daily. Encourage oral intake. Maintain low salt diet and 1.2 L fluid restriction. Avoid nephrotoxic agents and hypotensive episodes. Lactulose as needed for constipation. Repeat electrolytes in the morning. Stable to be discharged home from nephrology standpoint on Lasix 40 mg orally twice daily. I advised him to weigh himself daily and to double the dose of Lasix if gains more than 2-3 pounds or notices dyspnea/worsening swelling in his lower extremities. He is to get a basic metabolic panel checked in 3-4 days after discharge and follow-up as an outpatient in the next 1 week.
--- NOTE | 2016-08-12 11:45 | P.PN ---
Subjective This is a 71-year-old white male with a remote smoking history, patient had a 30 -pack-year smoking history, quit smoking over 21 years ago. Patient is also known to have history of ischemic cardiomyopathy, documented coronary artery disease and previous CABG, history of ICD placement history of chronic atrial fibrillation, history of chronic congestive heart failure, previous LA, history of hypertension, and history of cardiorenal syndrome. Patient was recently in the hospital for acute on chronic systolic congestive heart failure, and acute on chronic kidney failure. Patient was discharged home on acute on chronic systolic heart failure multiple medications including Bumex 2 mg in a.m., and 4 mg in p.m. 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 Elias in [place]. Patient was also discharged home on multiple meds including Coreg, isosorbide dinitrate, Coumadin, and glipizide as well as insulin. Over the last few days, patient has been developing more shortness of breath, cough which is productive with whitish and sometimes brownish phlegm, a few pillows orthopnea, increased abdominal bloating and some swelling in lower extremities. patient has been using his nebulizer medication at home and seems to be making his shortness of breath even worse. Patient becomes more anxious and more tachycardic with every updraft treatment that he takes. Hence he was brought in back on 2016, chest x-ray showed mild prominence of the interstitium, no evidence of focal airspace disease or pleural effusion noted. His proBNP level was significantly elevated, ultrasound of the abdomen showed gallstones with abnormal gallbladder wall thickening and felt that the patient may have acute cholecystitis. Hence patient was seen by Dr. brewer on consultation, recommended antibiotics and recommended surgery was the patient is medically stable and cleared by cardiology for cholecystectomy. Cardiac consultation was done on 12/[address] SONYA Nolan, he recommended Lasix 40 mg IV push every 8 hours for 3 doses, and he planned to switch him to Bumex/his usual dose on outpatient basis. However the patient developed worsening renal profile and worsening liver profile over the last few days since admission. Chest x-ray done today continues to show mild prominence of the pulmonary vasculature, no evidence of pleural effusions, there is evidence of cardiomegaly, and possibly some component of COPD. D-dimer on admission was normal. Patient remains on DuoNeb which is not benefiting the patient much, he remains on Coreg, Lasix 20 mg IV push every 8 hours, insulin, Isordil, Cozaar, Zosyn, and Protonix. Patient continues to have shortness of breath, seems to be getting worse over the last 1 year, and more so in the last few days. Again the patient has symptoms of orthopnea, PND, and chronic intermittent swelling in lower extremities. Considering his shortness of breath, I was asked to see him on consultation. I have recommended a bedside PFT I have also recommended ABG on room air to be done on this patient. Clinically however, I believe his shortness of breath is mostly secondary to chronic LV dysfunction/ischemic cardiomyopathy and intermittently some component of congestive heart failure. The patient is seen again today 08/04/2016 in follow-up on the regular medical floor. He is awake and alert in no acute distress. He is breathing easier today as compared to yesterday. He is maintaining good O2 saturations in the 90s on room air. He's been afebrile. FEV1 value is 45% of predicted. Gold stage III COPD. Arterial blood gases revealed a PaO2 of 71, pCO2 29, pH 7.48. These were on room air. Bicarb is 25, no significant hypercapnia. He is tolerating his bronchodilators today. Continues to be diuresed with Lasix 20 mg IV every 8 hours. Currently in a negative balance. Current creatinine 1.71. LFTs continue to climb. The patient was seen again today 08/05/2016 in follow-up on the regular medical floor. He states he is feeling better today as compared to yesterday as his breathing is concerned. He is less short of breath. Dr. Dorsey does feel most of his dyspnea is secondary to his cardiac disease. He does have some restrictive lung disease which is also secondary to the congestive heart failure. He continues to diurese well. He remains in a negative balance. He is currently maintaining good O2 saturations in the 90s on room air. He is afebrile. No leukocytosis. He continues to have some epigastric discomfort. Liver enzymes and alk phos remain elevated. The plan is for possible cholecystectomy by Dr. Hernandez today. Patient was reevaluated yet today on 08/06/2016, patient is now in the intensive care unit, he underwent laparoscopic cholecystectomy yesterday, and postoperatively he was extubated and transferred to the ICU. Doing quite well, asymptomatic. No cough no wheezing no shortness of breath at rest, chest x-ray showed minimal left basilar atelectasis, no evidence of pulmonary edema, and no evidence of pneumonia. CBC is relatively unremarkable, electrolytes are normal BUN is 33 creatinine is 1.70 which is about his baseline. Patient was reevaluated today on 08/07/2016, doing quite well, no cough no wheezing no shortness of breath. Patient does have chronic dyspnea on exertion related to his underlying cardiomyopathy and systolic LV dysfunction. Labs are reviewed and his creatinine is up to 1.88. BUN is 40. CBC is relatively unremarkable. The patient is seen again today 08/09/2016 in follow-up on the selective care unit. He is awake and alert in no acute distress. He is sitting up at the bedside. He denies any worsening shortness of breath, cough or congestion. His surgical pain is well controlled. He denies any abdominal discomfort currently. His chest x-ray today reveals severe cardiomegaly with subsegmental changes at the left lung base most likely atelectasis versus pneumonia. No leukocytosis. Hemoglobin stable. Creatinine continues to rise at 2.99. The patient is seen again today 08/10/2016 in follow-up on the selective care unit. He is currently sitting up in a chair at the bedside. He is awake and alert in no acute distress. He has no complaints currently. His surgical pain is well controlled. He is not short of breath. No cough or congestion. He is maintaining good O2 saturations in the upper 90s on 2 L/m nasal cannula. He has been afebrile. Hemodynamically stable. He remains in a negative balance. Current creatinine 1.94. The patient is seen again today 08/11/2016 in follow-up on the selective care unit. He is awake and alert in no acute distress. He denies any shortness of breath cough or congestion. He is maintaining good O2 saturations in the mid 90s on room air. His been hemodynamically stable. Afebrile. Creatinine continues to improve currently at 1.40. His liver enzymes have improved significantly though remain elevated with an AST of 114 ALT 568 alk phos 262. The patient is seen again today 08/12/2016 in follow-up on the selective care unit. He is currently sitting up in the chair at the bedside. He is awake and alert in no acute distress. He is hopeful to go home today. He is maintaining good O2 saturations in the mid to upper 90s on room air. He's been afebrile. His INR is 1.5. Creatinine stable at 1.40. He has been off the dopamine drip. Objective - Vital Signs Vital signs: Vital Signs Temp 97.7 F 08/12/16 08:00 Pulse 79 08/12/16 08:00 Resp 18 08/12/16 08:00 BP 103/60 08/12/16 08:00 Pulse Ox 96 08/12/16 08:00 Intake & Output 08/11/16 08/12/16 08/12/16 18:59 06:59 18:59 Intake Total 716.422 24 180 Output Total 400 1400 Balance 316.422 -1376 180 Weight 109 kg 108 kg Intake: IV 24 0.9% NS FLUSH 20 Lasix IVP 40mg 4 Intake, IV Titration 418.422 Amount DOPamine DRIP 800 mg In 418.422 Dextrose/Water 1 500ml. bag @ 2 MCG/KG/MIN 8.66 mls/hr IV .Q24H DAGO Rx#: [id number] Oral 298 180 Output: Urine 400 1400 Other: Voiding Method Urinal Urinal # Voids 1 - Exam GENERAL EXAM: Morbidly obese. Alert, comfortable in no apparent distress. HEAD: Normocephalic. EYES: Normal reaction of pupils, equal size. NOSE: Clear with pink turbinates. THROAT: Some crowding of the posterior pharynx. No erythema or exudates. NECK: Short. No masses, positive JVD. CHEST: No chest wall deformity. LUNGS: Equal air entry with no crackles, wheeze, rhonchi or dullness. Diminished. CVS: S1 and S2 normal with an audible murmur, regular rhythm. ABDOMEN: Obese, normal bowel sounds, no guarding or rigidity. SPINE: No scoliosis or deformity SKIN: No rashes CENTRAL NERVOUS SYSTEM: No focal deficits, tone is normal in all 4 extremities. Extremities: There is 1-2+ lower extremity peripheral edema. No clubbing, no cyanosis. Peripheral pulses are intact. - Labs CBC & Chem 7: 08/11/16 05:59 08/12/16 06:41 Labs: Abnormal Lab Results - Last 24 Hours (Table) 08/11/16 08/11/16 08/12/16 Range/Units 11:38 14:12 06:16 PT (9.0-12.0) sec BUN 31 H (9-20) mg/dL Creatinine 1.40 H (0.66-1.25) mg/dL Glucose 157 H (74-99) mg/dL POC Glucose (mg/dL) 207 H 122 H (75-99) mg/dL AST 91 H (17-59) U/L ALT 514 H (21-72) U/L Alkaline Phosphatase 249 H (38-126) U/L Total Protein 6.2 L (6.3-8.2) g/dL Albumin 3.2 L (3.5-5.0) g/dL 08/12/16 08/12/16 Range/Units 06:41 06:41 PT 14.8 H (9.0-12.0) sec BUN 31 H (9-20) mg/dL Creatinine 1.40 H (0.66-1.25) mg/dL Glucose 107 H (74-99) mg/dL POC Glucose (mg/dL) (75-99) mg/dL AST (17-59) U/L ALT (21-72) U/L Alkaline Phosphatase (38-126) U/L Total Protein (6.3-8.2) g/dL Albumin (3.5-5.0) g/dL Assessment and Plan Plan: Impression: 1 acute on chronic shortness of breath multifactorial, but mostly secondary to chronic systolic cardiac dysfunction and ischemic cardiomyopathy. Patient had a previous ICD placement over a year ago. 2 suspect some component of COPD, FEV1 45% of predicted. 3 acute cardiorenal syndrome, worsened with aggressive diuresis. Current creatinine 1.40. 4 morbid obesity and chronic deconditioning is also another contributing factor to his chronic shortness of breath. 5 acute cholecystitis status post laparoscopic cholecystectomy on 08/05/2016, postoperative elevation in liver enzymes, recovering. 6 worsening liver enzymes, suspect congestive hepatopathy. 7 acute on chronic renal failure related to his underlying congestive heart failure/cardiorenal, and worsened with diuretics/Lasix. 8 history of chronic atrial fibrillation, patient has been on anticoagulation therapy Plan: The patient was seen and evaluated by Dr. Jacobo. He is cleared for discharge from the pulmonary standpoint. He could follow-up in our office in 1-2 weeks' time. He is however encouraged to call sooner with any pulmonary complaints or other questions or concerns.
[2016-08-12 11:57] LABS: Glucose,Whole Blood 199 mg/dL (75-99)
[2016-08-12 12:22] VITALS: BP 118/72; PULSE 71
--- NOTE | 2016-08-12 14:13 | P.DS ---
Providers Date of admission: 07/30/16 10:41 Expected date of discharge: 08/12/16 Attending physician: Thomas Coy Consults: 07/30/16 10:41 Consult Physician Urgent Consulting Provider: Flower Phipps Consult Reason/Comments: Elevated troponin Do you want consulting provider notified?: Yes 07/30/16 12:46 Consult Physician Stat Consulting Provider: Jesus Hernandez Consult Reason/Comments: acute cholecystitis? Do you want consulting provider notified?: Yes 08/03/16 12:35 Consult Physician Routine Consulting Provider: Whitney Alvarado Consult Reason/Comments: SOB Do you want consulting provider notified?: Yes 08/03/16 12:36 Consult Physician Routine Consulting Provider: Ramandeep Stroud Consult Reason/Comments: MAGGIE Do you want consulting provider notified?: Yes Primary care physician: Anu Velasquez [facility] Course: This is a 71-year-old gentleman with a complex past medical history significant for underlying cardiomyopathy with ejection fraction of 20%, obstructive sleep apnea, underlying emphysema/COPD, essential hypertension, and uncontrolled type 2 diabetes mellitus who presented to the hospital with worsening shortness of breath and abdominal pain. Patient was found to have evidence of acute cholecystitis on computed tomography scan in the emergency room and was admitted to the hospital. He was also found to be in heart failure exacerbation. Patient was started on diuresis and subsequently sustained an acute kidney injury which delayed his cholecystectomy surgery several days. Eventually he underwent laparoscopic cholecystectomy that he tolerated with no complication. His overall condition improved significantly throughout his hospital stay. His kidney function also improved and his creatinine on the day of discharge was 1.4. This might be a new baseline for this patient. His regimen was adjusted and for an updated medication list please refer to the medication for consultation form. Patient will be discharged home in a stable condition. He will follow-up with his primary care physician, cardiology, and nephrology as that acted. Below is a list of his medical problems addressed during this hospitalization. 1. Acute cholecystitis: Status post laparoscopic cholecystectomy. 2. Paroxysmal atrial fibrillation on anticoagulation with Coumadin. 3. Ischemic cardiomyopathy with estimated ejection fraction of 20% 4. Type 2 diabetes mellitus, uncontrolled. A1c 10.6 5. Acute kidney injury: Improved significantly. Creatinine is almost back to normal. Patient Condition at Discharge: Poor Plan - Discharge Summary New Discharge Prescriptions: New Budesonide-Formot 160-4.5 Mcg [Symbicort 160-4.5 Mcg Inhaler] 1 puff INHALATION RT-BID #60 puff Carvedilol [Coreg] 6.25 mg PO BID-W/MEALS #60 tab Furosemide [Lasix] 40 mg PO BID@0900,1600 #60 tab INSULIN LISPRO (humaLOG) [humaLOG (formulary)] 15 unit SQ AC-TID #3 vial Isosorbide Mononitrate ER [Imdur] 15 mg PO DAILY #30 dose Midodrine [ProAmatine] 10 mg PO AC-TID #90 tab Warfarin Sodium [Coumadin] 3 mg PO DAILY #30 tab Continue Nitroglycerin Sl Tabs [Nitrostat] 0.4 mg SUBLINGUAL Q5M PRN PRN Reason: Chest Pain Magnesium Oxide [Mag-Ox] 250 mg PO DAILY Cholecalciferol [Vitamin D3] 5,000 unit PO DAILY Pantoprazole Sodium [Protonix] 40 mg PO DAILY Aspirin 81 mg PO DAILY Multivitamins, Thera [Multivitamin (formulary)] 1 tab PO DAILY glipiZIDE [Glucotrol] 5 mg PO AC-BID #60 tab Insulin Aspart [NovoLOG Flexpen] See Protocol SQ AC-TID Changed Insulin Detemir [Levemir] 45 unit SQ BID #0 Potassium Chloride ER [K-Dur 20] 20 meq PO DAILY #0 Discontinued Carvedilol [Coreg] 25 mg PO BID Isosorbide Dinitrate 40 mg PO BID Atorvastatin [Lipitor] 40 mg PO HS Warfarin Sodium [Coumadin] 2.5 mg PO HS #30 tablet Bumetanide [BUMEX] 4 mg PO QAM #0 Bumetanide [BUMEX] 2 mg PO DAILY@1830 #0 Discharge Medication List Cholecalciferol [Vitamin D3] 5,000 unit PO DAILY 01/21/16 [History] Magnesium Oxide [Mag-Ox] 250 mg PO DAILY 01/21/16 [History] Nitroglycerin Sl Tabs [Nitrostat] 0.4 mg SUBLINGUAL Q5M PRN 01/21/16 [History] Pantoprazole Sodium [Protonix] 40 mg PO DAILY 01/21/16 [History] Aspirin 81 mg PO DAILY 07/13/16 [History] Multivitamins, Thera [Multivitamin (formulary)] 1 tab PO DAILY 07/13/16 [History ] glipiZIDE [Glucotrol] 5 mg PO AC-BID #60 tab 07/21/16 [Rx] Insulin Aspart [NovoLOG Flexpen] See Protocol SQ AC-TID 07/30/16 [History] Budesonide-Formot 160-4.5 Mcg [Symbicort 160-4.5 Mcg Inhaler] 1 puff INHALATION RT-BID #60 puff 08/12/16 [Rx] Carvedilol [Coreg] 6.25 mg PO BID-W/MEALS #60 tab 08/12/16 [Rx] Furosemide [Lasix] 40 mg PO BID@0900,1600 #60 tab 08/12/16 [Rx] INSULIN LISPRO (humaLOG) [humaLOG (formulary)] 15 unit SQ AC-TID #3 vial [Rx] Insulin Detemir [Levemir] 45 unit SQ BID #0 08/12/16 [Rx] Isosorbide Mononitrate ER [Imdur] 15 mg PO DAILY #30 dose 08/12/16 [Rx] Midodrine [ProAmatine] 10 mg PO AC-TID #90 tab 08/12/16 [Rx] Potassium Chloride ER [K-Dur 20] 20 meq PO DAILY #0 08/12/16 [Rx] Warfarin Sodium [Coumadin] 3 mg PO DAILY #30 tab 08/12/16 [Rx] Follow up Appointment(s)/Referral(s): Anu Velasquez MD [Primary Care Provider] - 1-2 days
[2016-08-12] MEDS ORDERED: FUROSEMIDE 40 MG TAB PO SCH (16:00)
== END 2016-08-12 15:44 | disposition home or self-care (01) | DRG 417 ==
LOC: EC 07:45 → 6SEL 10:41 → 4MS4W 08-01 16:38 → 6ICU 08-05 19:38 → 6SEL 08-06 15:38
PROVIDERS: ADMIT Internal Medicine; ATTEND Internal Medicine
PROC: 0FT44ZZ Resection of Gallbladder, Percutaneous Endoscopic Approach (ICD-10-PCS; principal; 2016-08-05 18:02)
DX: K80.00 Calculus of gallbladder with acute cholecystitis without obstruction (principal); N17.0 Acute kidney failure with tubular necrosis; E11.22 Type 2 diabetes mellitus with diabetic chronic kidney disease; I13.0 Hypertensive heart and chronic kidney disease with heart failure and stage 1 through stage 4 chronic kidney disease, or unspecified chronic kidney disease; E11.65 Type 2 diabetes mellitus with hyperglycemia; I48.1 Persistent atrial fibrillation; I50.22 Chronic systolic (congestive) heart failure; K76.1 Chronic passive congestion of liver; N18.3 Chronic kidney disease, stage 3 (moderate); J44.1 Chronic obstructive pulmonary disease with (acute) exacerbation; E66.01 Morbid (severe) obesity due to excess calories; E78.5 Hyperlipidemia, unspecified; E87.5 Hyperkalemia; G47.33 Obstructive sleep apnea (adult) (pediatric); I25.10 Atherosclerotic heart disease of native coronary artery without angina pectoris; I25.2 Old myocardial infarction; I25.5 Ischemic cardiomyopathy; I48.0 Paroxysmal atrial fibrillation; I48.2 Chronic atrial fibrillation; J98.4 Other disorders of lung; K21.9 Gastro-esophageal reflux disease without esophagitis; K59.00 Constipation, unspecified; M19.90 Unspecified osteoarthritis, unspecified site; R33.9 Retention of urine, unspecified; Z79.01 Long term (current) use of anticoagulants; Z79.4 Long term (current) use of insulin; Z79.82 Long term (current) use of aspirin; Z79.899 Other long term (current) drug therapy; Z80.1 Family history of malignant neoplasm of trachea, bronchus and lung; Z82.49 Family history of ischemic heart disease and other diseases of the circulatory system; Z87.891 Personal history of nicotine dependence; Z95.1 Presence of aortocoronary bypass graft; Z95.810 Presence of automatic (implantable) cardiac defibrillator; Z96.653 Presence of artificial knee joint, bilateral
CPT/HCPCS: 36415; 36600; 71010; 71020; 74177; 76705; 80048; 80053; 80061; 81003; 82150; 82550; 82553; 82805; 83036; 83690; 83735; 83880; 84100; 84484; 85025; 85379; 85610; 85730; 87086; 88304; 93005; 93306; 94150; 94640; 94660; 94760; 96374; 99291

== ENCOUNTER 2016-08-14 18:23 | Inpatient (IN) | payer MEDICARE ==
[2016-08-14] MEDS ORDERED: SODIUM CHLORIDE 0.9% 1,000 ML IV STA (18:43)
[2016-08-14] MEDS ORDERED: IPRATROPIUM-ALBUTEROL 3 ML NEB INHALATION STA (18:43)
[2016-08-14] MEDS ORDERED: FUROSEMIDE 10 MG/ML 4 ML VIAL IV STA ×2 (18:43→18:44)
--- NOTE | 2016-08-14 18:49 | ED ---
SOB HPI - General Source: patient, RN notes reviewed Mode of arrival: wheelchair Limitations: no limitations - History of Present Illness MD Complaint: shortness of breath <Everette Bush - Last Filed: 08/14/16 18:51> <Marcio Bae - Last Filed: 08/14/16 20:18> - General Chief Complaint: Shortness of Breath Stated Complaint: KENNETH Time Seen by Provider: 08/14/16 18:35 - History of Present Illness Initial Comments: This is a 71-year-old male with a history of heart disease. Surgery and also history of a laparoscopic cholecystectomy 10 days ago was just discharged from the hospital 2 days ago who states when he went home 2 L Diagnoses abdomen seemed distended progressively worse he complains of shortness of breath and exertional dyspnea distended abdomen. He denies any fevers chills or sweats he states he has gained about 2 pounds last 2 days. Prior to this. Past was reports 2 weeks. He denies any overt fevers chills or sweats. (Everette Bush) - Related Data Home Medications Medication Instructions Recorded Confirmed Cholecalciferol [Vitamin D3] 5,000 unit PO DAILY 01/21/16 08/14/16 Magnesium Oxide [Mag-Ox] 250 mg PO DAILY 01/21/16 08/14/16 Nitroglycerin Sl Tabs [Nitrostat] 0.4 mg SUBLINGUAL Q5M PRN 01/21/16 08/14/16 Pantoprazole Sodium [Protonix] 40 mg PO DAILY 01/21/16 08/14/16 Multivitamins, Thera [Multivitamin 1 tab PO DAILY 07/13/16 08/14/16 (formulary)] Insulin Aspart [NovoLOG Flexpen] See Protocol SQ AC-TID 07/30/16 08/14/16 Aspirin EC [Ecotrin Low Dose] 81 mg PO DAILY 08/14/16 08/14/16 Previous Rx's Medication Instructions Recorded glipiZIDE [Glucotrol] 5 mg PO AC-BID #60 tab 07/21/16 Budesonide-Formot 160-4.5 Mcg 1 puff INHALATION RT-BID #60 puff 08/12/16 [Symbicort 160-4.5 Mcg Inhaler] Carvedilol [Coreg] 6.25 mg PO BID-W/MEALS #60 tab 08/12/16 Furosemide [Lasix] 40 mg PO BID@0900,1600 #60 tab 08/12/16 INSULIN LISPRO (humaLOG) [humaLOG 15 unit SQ AC-TID #3 vial 08/12/16 (formulary)] Insulin Detemir [Levemir] 45 unit SQ BID #0 08/12/16 Isosorbide Mononitrate ER [Imdur] 15 mg PO DAILY #30 dose 08/12/16 Midodrine [ProAmatine] 10 mg PO AC-TID #90 tab 08/12/16 Potassium Chloride ER [K-Dur 20] 20 meq PO DAILY #0 08/12/16 Warfarin Sodium [Coumadin] 3 mg PO DAILY #30 tab 08/12/16 Allergies Allergy/AdvReac Type Severity Reaction Status Date / Time alprazolam [From Xanax] AdvReac Confusion Verified 08/14/16 18:27 morphine AdvReac Hallucinati Verified 08/14/16 18:27 ons zolpidem [From Ambien] AdvReac Confusion Verified 08/14/16 18:27 Review of Systems ROS Other: All systems not noted in ROS Statement are negative. <Everette Bush - Last Filed: 08/14/16 18:51> ROS Other: All systems not noted in ROS Statement are negative. <Marcio Bae - Last Filed: 08/14/16 20:18> ROS Statement: Those systems with pertinent positive or pertinent negative responses have been documented in the HPI. Past Medical History Past Medical History: Atrial Fibrillation, Coronary Artery Disease (CAD), Heart Failure, Diabetes Mellitus, GERD/Reflux, Hyperlipidemia, Hypertension, Myocardial Infarction ([place]), Prostate Disorder, Renal Disease Additional Past Medical History / Comment(s): AAA 4.3 CM. ASKED IF PT HAD CHF BEFORE PT/ STATED NO BUT HE HAD OPEN HEART., cellulitis/abcess rt groin post porcedure. Last Myocardial Infarction Date:: 04/18/15 History of Any Multi-Drug Resistant Organisms: None Reported Past Surgical History: Coronary Bypass/CABG, Heart Catheterization, Joint Replacement, Orthopedic Surgery Additional Past Surgical History / Comment(s): bilateral knee replacement, RT ROTATOR CUFF SX, STATED:" I THINK HIS OPEN HEART WAS 3 VESSELS".'dec 2015 had a procedure rt groin arterypt stated haresh clenaed it out" Past Anesthesia/Blood Transfusion Reactions: No Reported Reaction Additional Past Anesthesia/Blood Transfusion Reaction / Comment(s): CLAUSTERPHOBIA Past Psychological History: No Psychological Hx Reported Smoking Status: Former smoker Past Alcohol Use History: Heavy Past Drug Use History: None Reported - Past Family History Father Family Medical History: Myocardial Infarction ([place]) Mother Family Medical History: Cancer Additional Family Medical History / Comment(s): LUNG CANCER <Everette Bush - Last Filed: 08/14/16 18:51> General Exam Limitations: no limitations General appearance: alert, anxious Head exam: Present: atraumatic, normocephalic, normal inspection Eye exam: Present: normal appearance, PERRL, EOMI. Absent: scleral icterus, conjunctival injection, periorbital swelling ENT exam: Present: normal exam, mucous membranes moist Neck exam: Present: normal inspection. Absent: tenderness, meningismus, lymphadenopathy Respiratory exam: Present: rales (Rales in the bases/mL left), decreased breath sounds. Absent: respiratory distress, wheezes, rhonchi, stridor Cardiovascular Exam: Present: normal rhythm, tachycardia, normal heart sounds. Absent: systolic murmur, diastolic murmur, rubs, gallop, clicks GI/Abdominal exam: Present: soft, distended, normal bowel sounds, other ( Evidence of ascites the surgical sites are well-healed with no evidence of any dehiscence or infection or drainage.). Absent: tenderness, guarding, rebound, rigid Rectal exam: Present: deferred Extremities exam: Present: normal inspection, full ROM, normal capillary refill , pedal edema (Trace edema). Absent: tenderness, joint swelling, calf tenderness Back exam: Present: normal inspection Neurological exam: Present: alert, oriented X3, CN II-XII intact Psychiatric exam: Present: normal affect, normal mood Skin exam: Present: warm, dry, intact, normal color. Absent: rash <Everette Bush - Last Filed: 08/14/16 18:51> <Marcio Bae - Last Filed: 08/14/16 20:18> - General Exam Comments Initial Comments: This is a well-developed well-nourished awake alert anxious appearing male (Everette Bush) Course <Everette Bush - Last Filed: 08/14/16 18:51> <Marcio Bae - Last Filed: 08/14/16 20:18> Vital Signs 08/14/16 08/14/16 08/14/16 18:25 18:45 19:06 Temperature 97.7 F Pulse Rate 101 H 98 Respiratory 30 H Rate Blood Pressure 142/76 158/89 O2 Sat by Pulse 94 L Oximetry 08/14/16 08/14/16 08/14/16 19:15 19:16 19:46 Temperature Pulse Rate 94 97 Respiratory 26 H 18 Rate Blood Pressure 130/75 135/82 O2 Sat by Pulse 97 99 Oximetry - Reevaluation(s) Reevaluation #1: 08/14/16 18:49 The patient's care was endorsed to Dr. Bae at our shift change. He will make the final disposition (Everette Bush) Medical Decision Making - EKG Data -: EKG Interpreted by Me (ABG will increased rhythm rate was 100. 36 QRS 140 QT /QTC of 394/508 nicole) <Everette Bush - Last Filed: 08/14/16 18:51> - Lab Data Result diagrams: 08/14/16 19:00 08/14/16 19:00 - Radiology Data Radiology results: image reviewed (Two-view chest x-ray shows mild congestive heart failure and pleural effusions, new since previous x-ray. X-ray of the abdomen shows no acute process.) <Marcio Bae - Last Filed: 08/14/16 20:18> - Medical Decision Making Patient reevaluated and resting upright in bed. Lung sounds are clear. Abdomen is distended. Patient states abdomen is more distended than normal and only states mild discomfort of the abdomen. Abdomen is with mild diffuse tenderness. Case discussed with Dr. Thomas, who will admit for Dr. marti. Case also discussed with Dr. Lucreo who will consult for Dr. Stout. He does agree to obtain computed tomography scan and requests repeat labs in the morning. (Marcio Bae) - Lab Data Lab Results 08/14/16 08/14/16 08/14/16 Range/Units 19:00 19:00 19:00 WBC 10.6 (3.8-10.6) k/uL RBC 4.72 (4.30-5.90) m/uL Hgb 13.9 (13.0-17.5) gm/dL Hct 42.0 (39.0-53.0) % MCV 89.1 (80.0-100.0) fL MCH 29.4 (25.0-35.0) pg MCHC 33.0 (31.0-37.0) g/dL RDW 18.2 H (11.5-15.5) % Plt Count 267 (150-450) k/uL Neutrophils % 81 % Lymphocytes % 9 % Monocytes % 5 % Eosinophils % 2 % Basophils % 0 % Neutrophils # 8.5 H (1.3-7.7) k/uL Lymphocytes # 1.0 (1.0-4.8) k/uL Monocytes # 0.6 (0-1.0) k/uL Eosinophils # 0.2 (0-0.7) k/uL Basophils # 0.1 (0-0.2) k/uL Hypochromasia Moderate Poikilocytosis Slight Anisocytosis Slight PT (9.0-12.0) sec INR (<1.1) APTT (22.0-30.0) sec Sodium 140 (137-145) mmol/L Potassium 4.1 (3.5-5.1) mmol/L Chloride 104 (98-107) mmol/L Carbon Dioxide 24 (22-30) mmol/L Anion Gap 12 mmol/L BUN 27 H (9-20) mg/dL Creatinine 1.37 H (0.66-1.25) mg/dL Est GFR (MDRD) Af Amer >60 (>60 ml/min/1.73 sqM) Est GFR (MDRD) Non-Af 51 (>60 ml/min/1.73 sqM) Glucose 129 H (74-99) mg/dL Calcium 9.1 (8.4-10.2) mg/dL Magnesium 1.7 (1.6-2.3) mg/dL Total Bilirubin 1.7 H (0.2-1.3) mg/dL AST 50 (17-59) U/L ALT 221 H (21-72) U/L Alkaline Phosphatase 186 H (38-126) U/L Total Creatine Kinase 75 (55-170) U/L CK-MB (CK-2) 2.0 (0.0-2.4) ng/mL CK-MB (CK-2) Rel Index 2.7 Troponin I 0.067 H* (0.000-0.034) ng/mL NT-Pro-B Natriuret Pep pg/mL Total Protein 7.0 (6.3-8.2) g/dL Albumin 3.6 (3.5-5.0) g/dL 08/14/16 08/14/16 Range/Units 19:00 19:00 WBC (3.8-10.6) k/uL RBC (4.30-5.90) m/uL Hgb (13.0-17.5) gm/dL Hct (39.0-53.0) % MCV (80.0-100.0) fL MCH (25.0-35.0) pg MCHC (31.0-37.0) g/dL RDW (11.5-15.5) % Plt Count (150-450) k/uL Neutrophils % % Lymphocytes % % Monocytes % % Eosinophils % % Basophils % % Neutrophils # (1.3-7.7) k/uL Lymphocytes # (1.0-4.8) k/uL Monocytes # (0-1.0) k/uL Eosinophils # (0-0.7) k/uL Basophils # (0-0.2) k/uL Hypochromasia Poikilocytosis Anisocytosis PT 18.4 H (9.0-12.0) sec INR 1.9 (<1.1) APTT 27.8 (22.0-30.0) sec Sodium (137-145) mmol/L Potassium (3.5-5.1) mmol/L Chloride (98-107) mmol/L Carbon Dioxide (22-30) mmol/L Anion Gap mmol/L BUN (9-20) mg/dL Creatinine (0.66-1.25) mg/dL Est GFR (MDRD) Af Amer (>60 ml/min/1.73 sqM) Est GFR (MDRD) Non-Af (>60 ml/min/1.73 sqM) Glucose (74-99) mg/dL Calcium (8.4-10.2) mg/dL Magnesium (1.6-2.3) mg/dL Total Bilirubin (0.2-1.3) mg/dL AST (17-59) U/L ALT (21-72) U/L Alkaline Phosphatase (38-126) U/L Total Creatine Kinase (55-170) U/L CK-MB (CK-2) (0.0-2.4) ng/mL CK-MB (CK-2) Rel Index Troponin I (0.000-0.034) ng/mL NT-Pro-B Natriuret Pep 45153 pg/mL Total Protein (6.3-8.2) g/dL Albumin (3.5-5.0) g/dL Disposition <Everette Bush - Last Filed: 08/14/16 18:51> Decision Time: 20:18 <Marcio Bae - Last Filed: 08/14/16 20:18> Clinical Impression: Congestive heart failure Disposition: ADMITTED IP TO THIS HOSP Referrals: Anu Velasquez MD [Primary Care Provider] - 1-2 days
[2016-08-14 19:14] LABS: Anisocytosis Slight; Basophils # (A) 0.1 k/uL (0-0.2); Basophils % (A) 0 %; CHCM 31.6; Eosinophils # (A) 0.2 k/uL (0-0.7); Eosinophils % (A) 2 %; HDW 3.96; HGB 13.9 gm/dL (13.0-17.5); Hypochromasia Moderate; Luc # (Auto) 0.23; Luc % (Auto) 2; Lymphocytes % (A) 9 %; MCH 29.4 pg (25.0-35.0); MCV 89.1 fL (80.0-100.0); Mean Platelet Volume 7.4; Monocytes # (A) 0.6 k/uL (0-1.0); Monocytes % (A) 5 %; Neutrophils # (A) 8.5 k/uL (1.3-7.7); Neutrophils % (A) 81 %; Poikilocytosis Slight; RBC 4.72 m/uL (4.30-5.90); RDW 18.2 % (11.5-15.5); WBC 10.6 k/uL (3.8-10.6); WBC (Perox) 10.53
[2016-08-14 19:26] LABS: INR 1.9 (<1.1); Partial Thromboplastin Time 27.8 sec (22.0-30.0); Prothrombin Time 18.4 sec (9.0-12.0)
[2016-08-14 19:33] LABS: AST 50 U/L (17-59); Alkaline Phosphatase 186 U/L (38-126); Anion Gap 12 mmol/L; Blood Urea Nitrogen 27 mg/dL (9-20); Calcium 9.1 mg/dL (8.4-10.2); Carbon Dioxide 24 mmol/L (22-30); Chloride 104 mmol/L (98-107); Glucose 129 mg/dL (74-99); Magnesium 1.7 mg/dL (1.6-2.3); Non-African American GFR(MDRD) 51 (>60 ml/min/1.73 sqM); Potassium 4.1 mmol/L (3.5-5.1); Sodium 140 mmol/L (137-145); Total Bilirubin 1.7 mg/dL (0.2-1.3)
[2016-08-14 19:35] LABS: ALT 221 U/L (21-72)
--- NOTE | 2016-08-14 19:40 | XR ---
EXAMINATION TYPE: XR abdomen 1V DATE OF EXAM: 08/14/2016 COMPARISON: NONE HISTORY: Abdominal pain TECHNIQUE: 2 views FINDINGS: There is no sign of intestinal obstruction or pneumoperitoneum. Fecal pattern is normal. Ex am is limited by the patient size. There is slight blunting of costophrenic angles. Heart is enlarged . There are clips from cholecystectomy. IMPRESSION: Nonacute abdomen. Pleural effusions and cardiomegaly could relate to heart failure. No fr ee air.
--- NOTE | 2016-08-14 19:41 | XR ---
EXAMINATION TYPE: XR chest 2V DATE OF EXAM: 08/14/2016 COMPARISON: 08/09/2016 HISTORY: Short of breath TECHNIQUE: Frontal and lateral views of the chest are obtained. FINDINGS: Heart is enlarged. There is prominent vascular congestion and blunting of costophrenic ang les. There are sternal wires. There is left axillary pacemaker with the lead tips in the right ventri nely. There are chest leads. IMPRESSION: Mild congestive heart failure with pleural effusions. This appears essentially new luis red to recent exam of 08/09/2016. Cardiomegaly.
[2016-08-14 19:52] LABS: Troponin I 0.067 ng/mL (0.000-0.034)
[2016-08-14] MEDS ORDERED: RX INFO: IV CONTRAST WAS GIVEN 1 EACH MISC MISCELLANE PRN (20:21)
[2016-08-14] MEDS ORDERED: IOHEXOL 350 MG/ML 25 ML BOTTLE (ORAL USE) PO PRN (20:21)
[2016-08-14] MEDS ORDERED: NITROGLYCERIN OINT 1 INCH/GM PACKET TOPICAL ONE (20:30)
[2016-08-14 20:46] LABS: Appearance,Urine Clear (Clear); Bilirubin,Urine Negative (Negative); Glucose,Urine (UA) Negative (Negative); Ketones,Urine Negative (Negative); Leukocyte Esterase,Urine Negative (Negative); Nitrite,Urine Negative (Negative); PH, Urine 6.5 (5.0-8.0); Protein,Urine Trace (Negative); Specific Gravity,Urine 1.006 (1.001-1.035); UA Billing (MACRO vs. MICRO) CHEM; Urobilinogen,Urine <2.0 mg/dL (<2.0)
--- NOTE | 2016-08-15 00:55 | CT ---
EXAM: CT Abdomen and Pelvis With Intravenous Contrast CLINICAL HISTORY: Reason: Abdominal distention, postoperative TECHNIQUE: Axial computed tomography images of the abdomen and pelvis with intravenous contrast. Coronal and sagittal reformats were obtained. CTDI is 42.50 MGy and DLP is 2928.40 MGy-cm. This CT exam was performed using one or more of the following dose reduction techniques: automated exposure control, adjustment of the mA and/or kV according to patient size, and/or use of iterative reconstruction technique. COMPARISON: CT abdomen and pelvis 07/30/16 FINDINGS: Lower thorax: Small bilateral pleural effusions. ABDOMEN: Liver: Unchanged heterogeneous geographic hypoattenuation in the central left hepatic lobe. Focal fatty deposition along the falciform ligament.. Gallbladder and bile ducts: Gallbladder is surgically absent. Small amount of free fluid in the gallbladder fossa, likely postsurgical seroma or hematoma. No biliary dilatation. Pancreas: Unremarkable. No mass. No ductal dilation. Spleen: Unremarkable. No splenomegaly. Adrenals: Unremarkable. No mass. Kidneys and ureters: Small right renal cyst. No hydronephrosis. Stomach and bowel: Unremarkable. No obstruction. No mucosal thickening. Appendix: No findings to suggest acute appendicitis. PELVIS: Bladder: Unremarkable. Reproductive: Unremarkable as visualized. ABDOMEN and PELVIS: Intraperitoneal space: [id number] amount of free fluid in the abdomen. Bones/joints: No acute findings. Vasculature: Stable focal infrarenal abdominal aortic aneurysm, 4.5 cm in diameter, previously 4.5 cm. Lymph nodes: Unremarkable. No enlarged lymph nodes. Other findings: Diffuse anasarca. IMPRESSION: 1. Gallbladder is surgically absent. Small amount of fluid in the gallbladder fossa, likely postsurgical seroma or hematoma. 2. [id number]-[id number] amount of free fluid in the abdomen. Small bilateral pleural effusions. Diffuse anasarca. 3. Unchanged heterogeneous geographic hypoattenuation in the central left hepatic lobe, suspect focal fatty deposition. Recommend comparison with priors. If long-term stability cannot be demonstrated, ultrasound and/or MRI could be used for further evaluation. 4. Stable focal infrarenal abdominal aortic aneurysm, 4.5 cm in diameter.
[2016-08-15 02:31] LABS: ALT 197 U/L (21-72); AST 48 U/L (17-59); Alkaline Phosphatase 176 U/L (38-126); Anion Gap 9 mmol/L; Blood Urea Nitrogen 26 mg/dL (9-20); Carbon Dioxide 24 mmol/L (22-30); Chloride 105 mmol/L (98-107); Glucose 77 mg/dL (74-99); Non-African American GFR(MDRD) 54 (>60 ml/min/1.73 sqM); Sodium 138 mmol/L (137-145); Total Bilirubin 1.8 mg/dL (0.2-1.3); Total Protein 6.3 g/dL (6.3-8.2)
[2016-08-15] MEDS ORDERED: FUROSEMIDE 10 MG/ML 4 ML VIAL IV SCH (04:00)
[2016-08-15 06:38] LABS: Glucose,Whole Blood 80 mg/dL (75-99)
[2016-08-15] MEDS: NITROGLYCERIN OINT 1 INCH/GM PACKET TOPICAL SCH ×4 (08:30→20:55)
--- NOTE | 2016-08-15 08:39 | P.CRDCN ---
History of Present Illness Consult date: 08/15/16 Requesting physician: Thomas Coy Consult reason: congestive heart failure Chief complaint: Shortness of breath And abdominal swelling History of present illness: This is a 71-year-old gentleman who follows with Dr. Elias at [facility] cardiology, primary care doctor is Dr. marti. He has a history of paroxysmal atrial fibrillation, coronary artery disease with prior bypass surgery in 2000, ischemic cardiomyopathy with AICD, diabetes, hypertension, hyperlipidemia, renal disease, AAA, he was recently in the hospital, just discharged home on Monday and he was here with acute cholecystitis, underwent a laparoscopic cholecystectomy. Patient also was treated for exacerbation of congestive heart failure. He was discharged home from the hospital on Monday and states that he started to become more short of breath and noticed increase in swelling in his abdomen, for this reason he came back to the hospital for further evaluation. Chest x-ray performed on admission revealed mild congestive heart failure with bilateral pleural effusions. New as compared with most recent echo done on August 09. X-ray of the abdomen was nonacute, revealed pleural effusions, no free air. CT of the abdomen and pelvis revealed a small amount of fluid in the gallbladder fossa. Small to moderate amount of free fluid in the abdomen, bilateral pleural effusions. White blood cell count 10.6, hemoglobin 13.9, platelet count 267. INR 1.9. Potassium 4.0, BUN 26, creatinine 1.3. Magnesium level I.7, total bilirubin 1.8, ALT 197, alk phos 176 , liver enzymes are on a downward trend from the recent admission. BNP level 33 ,100. Troponins 0.067, 0.073. Troponin on July 30 0.102. The pressure on admission 142/70, heart rate in the 100s. He is afebrile. Patient was initiated on IV Lasix in the emergency room as well as Nitropaste. Patient states he has been putting out urine but marginal. Past Medical History Past Medical History: Atrial Fibrillation, Coronary Artery Disease (CAD), Heart Failure, Diabetes Mellitus, GERD/Reflux, Hyperlipidemia, Hypertension, Myocardial Infarction ([place]), Prostate Disorder, Renal Disease Additional Past Medical History / Comment(s): AAA 4.3 CM. ASKED IF PT HAD CHF BEFORE PT/ STATED NO BUT HE HAD OPEN HEART., cellulitis/abcess rt groin post porcedure. Last Myocardial Infarction Date:: 04/18/15 History of Any Multi-Drug Resistant Organisms: None Reported Past Surgical History: Coronary Bypass/CABG, Heart Catheterization, Joint Replacement, Orthopedic Surgery Additional Past Surgical History / Comment(s): bilateral knee replacement, RT ROTATOR CUFF SX, STATED:" I THINK HIS OPEN HEART WAS 3 VESSELS".'dec 2015 had a procedure rt groin arterypt stated haresh faird it out" Past Anesthesia/Blood Transfusion Reactions: No Reported Reaction Additional Past Anesthesia/Blood Transfusion Reaction / Comment(s): CLAUSTERPHOBIA Past Psychological History: No Psychological Hx Reported Additional Psychological History / Comment(s): lives in the family home with his and grandson in [place]. 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 Tobacco smoker stopping about 16 years ago. Denied significant alcohol abuse. Denied animals in the home. Retired from the [employer] force many years ago. Relates mother of cancer and father of myocardial infarction in his 60s Smoking Status: Former smoker - Past Family History Father Family Medical History: Myocardial Infarction ([place]) Mother Family Medical History: Cancer Additional Family Medical History / Comment(s): LUNG CANCER Medications and Allergies Home Medications Medication Instructions Recorded Confirmed Type Cholecalciferol [Vitamin D3] 5,000 unit PO DAILY 01/21/16 08/14/16 History Magnesium Oxide [Mag-Ox] 250 mg PO DAILY 01/21/16 08/14/16 History Nitroglycerin Sl Tabs [Nitrostat] 0.4 mg SUBLINGUAL Q5M PRN 01/21/16 08/14/16 History Pantoprazole Sodium [Protonix] 40 mg PO DAILY 01/21/16 08/14/16 History Multivitamins, Thera [Multivitamin 1 tab PO DAILY 07/13/16 08/14/16 History (formulary)] Insulin Aspart [NovoLOG Flexpen] See Protocol SQ AC-TID 07/30/16 08/14/16 History Aspirin EC [Ecotrin Low Dose] 81 mg PO DAILY 08/14/16 08/14/16 History Allergies Allergy/AdvReac Type Severity Reaction Status Date / Time alprazolam [From Xanax] AdvReac Confusion Verified 08/14/16 18:27 morphine AdvReac Hallucinati Verified 08/14/16 18:27 ons zolpidem [From Ambien] AdvReac Confusion Verified 08/14/16 18:27 Physical Exam Vitals: Vital Signs Temp Pulse Pulse Resp BP BP Pulse Ox 08/15/16 04:00 97.2 F L 95 16 140/65 94 L 08/15/16 00:00 88 16 114/55 95 08/14/16 20:56 97.5 F L 101 H 22 152/94 99 08/14/16 20:49 97.0 F L 109 H 18 122/67 99 08/14/16 20:30 109 H 24 139/90 98 08/14/16 19:46 97 18 135/82 99 08/14/16 19:16 26 H 130/75 97 08/14/16 19:15 94 08/14/16 19:06 98 08/14/16 18:45 158/89 08/14/16 18:25 97.7 F 101 H 30 H 142/76 94 L Intake and Output 08/14/16 08/15/16 08/15/16 22:59 06:59 14:59 Intake Total 200 Output Total 400 600 Balance -400 -400 Intake: Oral 200 Output: Urine 400 600 Other: Weight 107.955 kg 110.7 kg PHYSICAL EXAMINATION: HEENT: Head is atraumatic, normocephalic. Pupils equal, round. Neck is supple. There is elevated jugular venous pressure. HEART EXAMINATION: Heart S1 and S2 systolic murmur is heard. CHEST EXAMINATION: Lungs are diminished to bilateral bases ABDOMEN: Soft, obese, firm, distended, Bowel sounds are heard. Positive hepatomegaly. EXTREMITIES: 2+ peripheral pulses with evidence of peripheral edema and no calf tenderness noted. NEUROLOGIC patient is awake, alert and oriented -3. . Results 08/14/16 19:00 08/15/16 02:02 Cardiac Enzymes 08/14/16 08/14/16 08/15/16 Range/Units 19:00 19:00 02:02 AST 50 (17-59) U/L CK-MB (CK-2) 2.0 (0.0-2.4) ng/mL Troponin I 0.067 H* 0.073 H* (0.000-0.034) ng/mL 08/15/16 Range/Units 02:02 AST 48 (17-59) U/L CK-MB (CK-2) (0.0-2.4) ng/mL Troponin I (0.000-0.034) ng/mL Coagulation 08/14/16 Range/Units 19:00 PT 18.4 H (9.0-12.0) sec APTT 27.8 (22.0-30.0) sec CBC 08/14/16 Range/Units 19:00 WBC 10.6 (3.8-10.6) k/uL RBC 4.72 (4.30-5.90) m/uL Hgb 13.9 (13.0-17.5) gm/dL Hct 42.0 (39.0-53.0) % Plt Count 267 (150-450) k/uL Comprehensive Metabolic Panel 08/14/16 08/15/16 Range/Units 19:00 02:02 Sodium 140 138 (137-145) mmol/L Potassium 4.1 4.0 (3.5-5.1) mmol/L Chloride 104 105 (98-107) mmol/L Carbon Dioxide 24 24 (22-30) mmol/L BUN 27 H 26 H (9-20) mg/dL Creatinine 1.37 H 1.30 H (0.66-1.25) mg/dL Glucose 129 H 77 (74-99) mg/dL Calcium 9.1 9.0 (8.4-10.2) mg/dL AST 50 48 (17-59) U/L ALT 221 H 197 H (21-72) U/L Alkaline Phosphatase 186 H 176 H (38-126) U/L Total Protein 7.0 6.3 (6.3-8.2) g/dL Albumin 3.6 3.3 L (3.5-5.0) g/dL Current Medications Generic Name Dose Route Start Last Admin Trade Name Freq PRN Reason Stop Dose Admin Furosemide 40 mg 08/15/16 04:00 08/15/16 05:03 Lasix IV 40 mg Q8H DAGO Administration Sodium Chloride 1,000 mls @ 20 mls/hr 08/14/16 18:43 08/14/16 19:12 Saline 0.9% IV 08/15/16 18:42 Not Given .Q24H STA Iohexol 25 ml 08/14/16 20:21 Omnipaque 350 Mg/Ml (For Oral Use) PO 08/15/16 20:[address] Scan Miscellaneous Information 1 each 08/14/16 20:21 Rx Info: Iv Contrast Was Given MISCELLANE 08/16/16 20:21 DAILY PRN Per Protocol Nitroglycerin 1 inch 08/15/16 09:00 Nitro-Bid Oint TOPICAL QID DAGO Sodium Chloride 10 ml 08/14/16 21:00 08/15/16 05:03 Saline Flush IV 10 ml BID DAGO Administration Intake and Output 08/14/16 08/15/16 08/15/16 22:59 06:59 14:59 Intake Total 200 Output Total 400 600 Balance -400 -400 Intake: Oral 200 Output: Urine 400 600 Other: Weight 107.955 kg 110.7 kg 08/14/16 19:00 08/15/16 02:02 EKG Interpretations (text) EKG shows a dual placed rhythm with occasional PVC. Assessment and Plan Plan: Assessment and plan #1 systolic congestive heart failure acute on chronic. Echocardiogram with Doppler study performed on July 30 revealed an ejection fraction of 35-40%. #2 diabetes #3 recent laparoscopic cholecystectomy #4 known history of coronary artery disease prior bypass surgery #5 ischemic cardiomyopathy with prior AICD #6 acute on chronic renal failure #7 hypertension #8 hyperlipidemia #9 paroxysmal atrial fibrillation on Coumadin, INR subtherapeutic #10 abnormal troponins, not suggestive of acute coronary syndrome, very to oxygen supply and demand mismatch Plan We will discontinue IV push Lasix and start the patient on a Lasix drip. Resume aspirin 81 mg daily, resume Coreg, accurate intake and output and daily weight. Daily lytes BUN and creatinine. We will start the patient on an interest oh today. Also add Aldactone 25 mg one tablet by mouth twice a day to his medication regime. Further recommendations to follow. DNP note has been reviewed, I agree with a documented findings and plan of care. Patient was seen and examined.
[2016-08-15] MEDS: ASPIRIN 81 MG CHEW PO SCH (09:55)
[2016-08-15] MEDS: CARVEDILOL 6.25 MG TAB PO SCH ×2 (09:55→18:04)
[2016-08-15] MEDS: FUROSEMIDE 250 MG in SODIUM CHLORIDE 0.9% 225 ML IVP SCH (10:04)
--- NOTE | 2016-08-15 11:44 | P.HPIM ---
History of Present Illness H&P Date: 08/15/16 Chief Complaint: Shortness of breath This is a 71-year-old gentleman with past medical history noted below significant for underlying cardiomyopathy of unclear etiology with systolic heart failure and known ejection fraction of 35% that was discharged from the hospital approximately 2 days ago after a prolonged hospitalization where he was treated for heart failure and underwent a laparoscopic cystectomy. Patient said that since his discharge she continued to feel short of breath. He was unable to lay flat area he was concerned and decided to come back to the emergency room. In the emergency room, initial lab work shows significantly elevated BNP level compared to 10 days ago. Chest x-ray showed evidence of cardiomegaly and fluid overload. Patient was noted to have abdominal distention and a computed tomography scan of the abdomen showed evidence of diffuse anasarca. Patient is currently admitted to telemetry floor. He was seen and evaluated by cardiology and was started on IV Lasix drip. Review of Systems Review of system: 14 points review of systems were obtained and were negative except to what were mentioned in the HPI. Past Medical History Past Medical History: Atrial Fibrillation, Coronary Artery Disease (CAD), Heart Failure, Diabetes Mellitus, GERD/Reflux, Hyperlipidemia, Hypertension, Myocardial Infarction ([place]), Prostate Disorder, Renal Disease Additional Past Medical History / Comment(s): AAA 4.3 CM. ASKED IF PT HAD CHF BEFORE PT/ STATED NO BUT HE HAD OPEN HEART., cellulitis/abcess rt groin post porcedure. Last Myocardial Infarction Date:: 04/18/15 History of Any Multi-Drug Resistant Organisms: None Reported Past Surgical History: Coronary Bypass/CABG, Heart Catheterization, Joint Replacement, Orthopedic Surgery Additional Past Surgical History / Comment(s): bilateral knee replacement, RT ROTATOR CUFF SX, STATED:" I THINK HIS OPEN HEART WAS 3 VESSELS".'dec 2015 had a procedure rt groin arterypt stated haresh faird it out" Past Anesthesia/Blood Transfusion Reactions: No Reported Reaction Additional Past Anesthesia/Blood Transfusion Reaction / Comment(s): CLAUSTERPHOBIA Past Psychological History: No Psychological Hx Reported Additional Psychological History / Comment(s): lives in the family home with his and grandson in [place]. 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 Tobacco smoker stopping about 16 years ago. Denied significant alcohol abuse. Denied animals in the home. Retired from the [employer] force many years ago. Relates mother of cancer and father of myocardial infarction in his 60s Smoking Status: Former smoker - Past Family History Father Family Medical History: Myocardial Infarction ([place]) Mother Family Medical History: Cancer Additional Family Medical History / Comment(s): LUNG CANCER Medications and Allergies Home Medications Medication Instructions Recorded Confirmed Type Cholecalciferol [Vitamin D3] 5,000 unit PO DAILY 01/21/16 08/14/16 History Magnesium Oxide [Mag-Ox] 250 mg PO DAILY 01/21/16 08/14/16 History Nitroglycerin Sl Tabs [Nitrostat] 0.4 mg SUBLINGUAL Q5M PRN 01/21/16 08/14/16 History Pantoprazole Sodium [Protonix] 40 mg PO DAILY 01/21/16 08/14/16 History Multivitamins, Thera [Multivitamin 1 tab PO DAILY 07/13/16 08/14/16 History (formulary)] Insulin Aspart [NovoLOG Flexpen] See Protocol SQ AC-TID 07/30/16 08/14/16 History Aspirin EC [Ecotrin Low Dose] 81 mg PO DAILY 08/14/16 08/14/16 History Allergies Allergy/AdvReac Type Severity Reaction Status Date / Time alprazolam [From Xanax] AdvReac Confusion Verified 08/14/16 18:27 morphine AdvReac Hallucinati Verified 08/14/16 18:27 ons zolpidem [From Ambien] AdvReac Confusion Verified 08/14/16 18:27 Physical Exam Vitals: Vital Signs Temp Pulse Pulse Resp BP BP Pulse Ox 08/15/16 08:00 97 F L 99 16 123/80 95 08/15/16 04:00 97.2 F L 95 16 140/65 94 L 08/15/16 00:00 88 16 114/55 95 08/14/16 20:56 97.5 F L 101 H 22 152/94 99 08/14/16 20:49 97.0 F L 109 H 18 122/67 99 08/14/16 20:30 109 H 24 139/90 98 08/14/16 19:46 97 18 135/82 99 08/14/16 19:16 26 H 130/75 97 08/14/16 19:15 94 08/14/16 19:06 98 08/14/16 18:45 158/89 08/14/16 18:25 97.7 F 101 H 30 H 142/76 94 L Intake and Output 08/14/16 08/15/16 08/15/16 22:59 06:59 14:59 Intake Total 200 Output Total 400 1200 Balance -400 -1000 Intake: Oral 200 Output: Urine 400 1200 Other: Weight 107.955 kg 110.7 kg General: The patient is awake and alert, in no distress Eye: there is normal conjunctiva bilaterally. Neck: The neck is supple, there is no JVD. Cardiovascular: Normal S1-S2, no S3-S4, no murmurs. Respiratory: Lungs clear to auscultation bilaterally Gastrointestinal: Abdomen is soft, but distended and nontender. There is evidence of anasarca. Musculoskeletal: There is +1-2 pedal edema. Neurological:. Speech is normal. Skin: Skin is warm and dry Results CBC & Chem 7: 08/14/16 19:00 08/15/16 02:02 Labs: Abnormal Lab Results - Last 24 Hours (Table) 08/14/16 08/14/16 08/14/16 Range/Units 19:00 19:00 19:00 RDW 18.2 H (11.5-15.5) % Neutrophils # 8.5 H (1.3-7.7) k/uL PT (9.0-12.0) sec BUN 27 H (9-20) mg/dL Creatinine 1.37 H (0.66-1.25) mg/dL Glucose 129 H (74-99) mg/dL Total Bilirubin 1.7 H (0.2-1.3) mg/dL ALT 221 H (21-72) U/L Alkaline Phosphatase 186 H (38-126) U/L Troponin I 0.067 H* (0.000-0.034) ng/mL Albumin (3.5-5.0) g/dL Urine Protein (Negative) 08/14/16 08/14/16 08/15/16 Range/Units 19:00 20:20 02:02 RDW (11.5-15.5) % Neutrophils # (1.3-7.7) k/uL PT 18.4 H (9.0-12.0) sec BUN (9-20) mg/dL Creatinine (0.66-1.25) mg/dL Glucose (74-99) mg/dL Total Bilirubin (0.2-1.3) mg/dL ALT (21-72) U/L Alkaline Phosphatase (38-126) U/L Troponin I 0.073 H* (0.000-0.034) ng/mL Albumin (3.5-5.0) g/dL Urine Protein Trace H (Negative) 08/15/16 08/15/16 Range/Units 02:02 08:05 RDW (11.5-15.5) % Neutrophils # (1.3-7.7) k/uL PT (9.0-12.0) sec BUN 26 H (9-20) mg/dL Creatinine 1.30 H (0.66-1.25) mg/dL Glucose (74-99) mg/dL Total Bilirubin 1.8 H (0.2-1.3) mg/dL ALT 197 H (21-72) U/L Alkaline Phosphatase 176 H (38-126) U/L Troponin I 0.072 H* (0.000-0.034) ng/mL Albumin 3.3 L (3.5-5.0) g/dL Urine Protein (Negative) Assessment and Plan Plan: 1. Acute systolic heart failure exacerbation 2. Underlying cardiomyopathy, most likely ischemic, with known ejection fraction of 35% on last echocardiogram on 07/30/2016 and previous EF of 20%. Months ago 3. Status post laparoscopic cholecystectomy during last admission approximately a week ago 4. Paroxysmal atrial fibrillation on anticoagulation with Coumadin. 5. Type 2 diabetes mellitus, uncontrolled. A1c 10.6 6. Acute on chronic kidney injury: I would consult nephrology for further evaluation. Monitor creatinine closely now that the patient is on Lasix drip. Today, reviewed his medication list and lab work results. Continue current regimen. Appreciate dairy nutrition consultant's recommendations. Repeat lab work in the morning.
[2016-08-15 12:04] LABS: Glucose,Whole Blood 178 mg/dL (75-99)
[2016-08-15] MEDS: SACUBITRIL/VALSARTAN 24 MG-26 MG TABLET PO SCH ×2 (12:37→12:40)
[2016-08-15] MEDS: MIDODRINE 5 MG TAB PO SCH ×2 (12:37→18:04)
[2016-08-15] MEDS: SPIRONOLACTONE 25 MG TAB PO SCH ×2 (12:37→20:54)
[2016-08-15] MEDS: INSULIN LISPRO (humaLOG) 300 UNIT/3 ML VIAL SQ SCH ×2 (13:12→18:04)
[2016-08-15 15:07] VITALS: BMI 35.0
[2016-08-15 16:55] LABS: Glucose,Whole Blood 122 mg/dL (75-99)
[2016-08-15] MEDS: WARFARIN 3 MG TAB PO SCH (18:04)
[2016-08-15] MEDS: SYMBICORT 160-4.5 MCG INHALER INHALATION SCH (20:34)
[2016-08-15 21:05] LABS: Glucose,Whole Blood 116 mg/dL (75-99)
[2016-08-15] MEDS: INSULIN DETEMIR 100 UNIT/ML 10 ML VIAL SQ SCH (21:13)
--- NOTE | 2016-08-15 22:42 | P.GSCN ---
History of Present Illness Consult date: 08/15/16 Reason for Consult: Cholecystitis History of present illness: Patient is well-nourished. He underwent an elective cholecystectomy one week ago. Patient returns to the hospital with complaints of progressive shortness of breath. At the time of the patient's surgery the patient had a distended liver and findings suggestive of right heart failure. He denies pain at this time. CAT scan shows some free fluid. The patient had spontaneous drainage of serous fluid from his umbilical incision. Liver enzymes are slightly elevated. Patient currently undergoing therapy for heart failure. Review of Systems The patient denies any acute changes in his vision or hearing, no dysphagia or odynophagia, no chest pain, no dysuria or hematuria, no headache, no runny nose , no rectal bleeding or melena, no unexplained weight loss Past Medical History Past Medical History: Atrial Fibrillation, Coronary Artery Disease (CAD), Heart Failure, Diabetes Mellitus, GERD/Reflux, Hyperlipidemia, Hypertension, Myocardial Infarction ([place]), Prostate Disorder, Renal Disease Additional Past Medical History / Comment(s): AAA 4.3 CM. ASKED IF PT HAD CHF BEFORE PT/ STATED NO BUT HE HAD OPEN HEART., cellulitis/abcess rt groin post porcedure. Last Myocardial Infarction Date:: 04/18/15 History of Any Multi-Drug Resistant Organisms: None Reported Past Surgical History: Coronary Bypass/CABG, Heart Catheterization, Joint Replacement, Orthopedic Surgery Additional Past Surgical History / Comment(s): bilateral knee replacement, RT ROTATOR CUFF SX, STATED:" I THINK HIS OPEN HEART WAS 3 VESSELS".'dec 2015 had a procedure rt groin arterypt stated haresh faird it out" Past Anesthesia/Blood Transfusion Reactions: No Reported Reaction Additional Past Anesthesia/Blood Transfusion Reaction / Comm: CLAUSTERPHOBIA Past Psychological History: No Psychological Hx Reported Additional Psychological History / Comment(s): lives in the family home with his and grandson in [place]. 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 Tobacco smoker stopping about 16 years ago. Denied significant alcohol abuse. Denied animals in the home. Retired from the [employer] force many years ago. Relates mother of cancer and father of myocardial infarction in his 60s Smoking Status: Former smoker - Past Family History Father Family Medical History: Myocardial Infarction ([place]) Mother Family Medical History: Cancer Additional Family Medical History / Comment(s): LUNG CANCER Medications and Allergies Home Medications Medication Instructions Recorded Confirmed Type Cholecalciferol [Vitamin D3] 5,000 unit PO DAILY 01/21/16 08/14/16 History Magnesium Oxide [Mag-Ox] 250 mg PO DAILY 01/21/16 08/14/16 History Nitroglycerin Sl Tabs [Nitrostat] 0.4 mg SUBLINGUAL Q5M PRN 01/21/16 08/14/16 History Pantoprazole Sodium [Protonix] 40 mg PO DAILY 01/21/16 08/14/16 History Multivitamins, Thera [Multivitamin 1 tab PO DAILY 07/13/16 08/14/16 History (formulary)] Insulin Aspart [NovoLOG Flexpen] See Protocol SQ AC-TID 07/30/16 08/14/16 History Aspirin EC [Ecotrin Low Dose] 81 mg PO DAILY 08/14/16 08/14/16 History Allergies Allergy/AdvReac Type Severity Reaction Status Date / Time alprazolam [From Xanax] AdvReac Confusion Verified 08/14/16 18:27 morphine AdvReac Hallucinati Verified 08/14/16 18:27 ons zolpidem [From Ambien] AdvReac Confusion Verified 08/14/16 18:27 Surgical - Exam Vital Signs Temp Pulse Resp BP Pulse Ox 97.7 F 101 H 30 H 142/76 94 L 08/14/16 18:25 08/14/16 18:25 08/14/16 18:25 08/14/16 18:25 08/14/16 18:25 Physical exam: General: Well-developed, well-nourished HEENT: Normocephalic, sclerae nonicteric Abdomen: Nontender, Pitting edema involving the abdominal wall, non-tender, umbilical incision site with serous drainage, remaining 3 incisions clean and dry Extremities: No edema Neuro: Alert and oriented Results - Labs 08/14/16 19:00 08/15/16 02:02 Abnormal Lab Results - Last 24 Hours (Table) 08/15/16 08/15/16 08/15/16 Range/Units 02:02 02:02 08:05 BUN 26 H (9-20) mg/dL Creatinine 1.30 H (0.66-1.25) mg/dL POC Glucose (mg/dL) (75-99) mg/dL Total Bilirubin 1.8 H (0.2-1.3) mg/dL ALT 197 H (21-72) U/L Alkaline Phosphatase 176 H (38-126) U/L Troponin I 0.073 H* 0.072 H* (0.000-0.034) ng/mL Albumin 3.3 L (3.5-5.0) g/dL 08/15/16 08/15/16 08/15/16 Range/Units 11:33 16:20 21:03 BUN (9-20) mg/dL Creatinine (0.66-1.25) mg/dL POC Glucose (mg/dL) 178 H 122 H 116 H (75-99) mg/dL Total Bilirubin (0.2-1.3) mg/dL ALT (21-72) U/L Alkaline Phosphatase (38-126) U/L Troponin I (0.000-0.034) ng/mL Albumin (3.5-5.0) g/dL Diabetes panel 08/15/16 Range/Units 02:02 Sodium 138 (137-145) mmol/L Potassium 4.0 (3.5-5.1) mmol/L Chloride 105 (98-107) mmol/L Carbon Dioxide 24 (22-30) mmol/L BUN 26 H (9-20) mg/dL Creatinine 1.30 H (0.66-1.25) mg/dL Glucose 77 (74-99) mg/dL Calcium 9.0 (8.4-10.2) mg/dL AST 48 (17-59) U/L ALT 197 H (21-72) U/L Alkaline Phosphatase 176 H (38-126) U/L Total Protein 6.3 (6.3-8.2) g/dL Albumin 3.3 L (3.5-5.0) g/dL Calcium panel 08/15/16 Range/Units 02:02 Calcium 9.0 (8.4-10.2) mg/dL Albumin 3.3 L (3.5-5.0) g/dL Pituitary panel 08/15/16 Range/Units 02:02 Sodium 138 (137-145) mmol/L Potassium 4.0 (3.5-5.1) mmol/L Chloride 105 (98-107) mmol/L Carbon Dioxide 24 (22-30) mmol/L BUN 26 H (9-20) mg/dL Creatinine 1.30 H (0.66-1.25) mg/dL Glucose 77 (74-99) mg/dL Calcium 9.0 (8.4-10.2) mg/dL Adrenal panel 08/15/16 Range/Units 02:02 Sodium 138 (137-145) mmol/L Potassium 4.0 (3.5-5.1) mmol/L Chloride 105 (98-107) mmol/L Carbon Dioxide 24 (22-30) mmol/L BUN 26 H (9-20) mg/dL Creatinine 1.30 H (0.66-1.25) mg/dL Glucose 77 (74-99) mg/dL Calcium 9.0 (8.4-10.2) mg/dL Total Bilirubin 1.8 H (0.2-1.3) mg/dL AST 48 (17-59) U/L ALT 197 H (21-72) U/L Alkaline Phosphatase 176 H (38-126) U/L Total Protein 6.3 (6.3-8.2) g/dL Albumin 3.3 L (3.5-5.0) g/dL Assessment and Plan (1) Acute cholecystitis Narrative/Plan: Patient's abdominal issues at this point seemed to be related to his extensive edema possibly on the basis of heart failure. Continue to optimize the patient' s fluid status, continue diet as tolerated, will follow with you. Status: Acute
[2016-08-16 06:16] LABS: Glucose,Whole Blood 60 mg/dL (75-99)
[2016-08-16 06:29] LABS: Anisocytosis Slight; Basophils % (A) 1 %; CHCM 31.7; Eosinophils # (A) 0.3 k/uL (0-0.7); Eosinophils % (A) 5 %; HCT 37.8 % (39.0-53.0); HDW 3.88; HGB 11.9 gm/dL (13.0-17.5); Hypochromasia Moderate; Luc # (Auto) 0.24; Luc % (Auto) 4; Lymphocytes # (A) 0.8 k/uL (1.0-4.8); Lymphocytes % (A) 11 %; MCHC 31.4 g/dL (31.0-37.0); MCV 89.1 fL (80.0-100.0); Monocytes # (A) 0.4 k/uL (0-1.0); Monocytes % (A) 6 %; Neutrophils # (A) 5.2 k/uL (1.3-7.7); Neutrophils % (A) 74 %; Poikilocytosis Slight; RBC 4.25 m/uL (4.30-5.90); RDW 18.1 % (11.5-15.5); WBC (Perox) 7.48
[2016-08-16 06:39] LABS: ALT 159 U/L (21-72); AST 44 U/L (17-59); Alkaline Phosphatase 158 U/L (38-126); Anion Gap 10 mmol/L; Blood Urea Nitrogen 31 mg/dL (9-20); Calcium 8.8 mg/dL (8.4-10.2); Carbon Dioxide 23 mmol/L (22-30); Chloride 104 mmol/L (98-107); Glucose 57 mg/dL (74-99); Magnesium 1.7 mg/dL (1.6-2.3); Non-African American GFR(MDRD) 54 (>60 ml/min/1.73 sqM); Phosphorous 3.9 mg/dL (2.5-4.5); Potassium 3.8 mmol/L (3.5-5.1); Sodium 137 mmol/L (137-145); Total Bilirubin 1.4 mg/dL (0.2-1.3); Total Protein 6.2 g/dL (6.3-8.2)
[2016-08-16 06:39] LABS: Glucose,Whole Blood 109 mg/dL (75-99)
[2016-08-16] MEDS: INSULIN LISPRO (humaLOG) 300 UNIT/3 ML VIAL SQ SCH ×3 (06:48→17:17)
[2016-08-16] MEDS: PANTOPRAZOLE 40 MG TABLET PO SCH (06:51)
[2016-08-16] MEDS: MIDODRINE 5 MG TAB PO SCH ×3 (06:51→17:18)
[2016-08-16] MEDS: CARVEDILOL 6.25 MG TAB PO SCH ×2 (06:51→17:18)
--- NOTE | 2016-08-16 08:20 | P.PN ---
Subjective Principal diagnosis: Acute systolic congestive heart failure exacerbation Today patient is feeling better he has less shortness of breath and less swelling in the abdomen He is still having some discharge from his umbilical surgical wound Otherwise he denies any chest pain there is no fever no chills no nausea or vomiting no abdominal pain and no urinary symptoms Objective - Vital Signs Vital signs: Vital Signs Temp 97.2 F L 08/16/16 03:15 Pulse 85 08/16/16 03:16 Resp 18 08/16/16 03:16 BP 112/63 08/16/16 03:15 Pulse Ox 92 L 08/16/16 03:15 Intake & Output 08/15/16 08/16/16 08/16/16 18:59 06:59 18:59 Intake Total 560 Output Total 1700 950 Balance -1140 -950 Weight 110.7 kg 109.3 kg Intake: Oral 560 Output: Gastric Drainage 300 Drainage 250 Medial Abdomen 250 Urine 1450 400 Other 250 - Exam In general patient is alert and oriented 3 in no apparent distress HEENT head normocephalic and atraumatic Neck is supple no JVD no goiter no lymphadenopathy Chest exam reveals a few scattered crackles in both lung fraga no wheezing Cardiac exam reveals irregular heart sounds S1 and S2 no gallops no murmurs Abdomen is soft nontender no organomegaly Extremity exam reveals minimal edema no cyanosis or clubbing - Labs CBC & Chem 7: 08/16/16 05:51 08/16/16 05:51 Labs: Abnormal Lab Results - Last 24 Hours (Table) 08/15/16 08/15/16 08/15/16 Range/Units 08:05 11:33 16:20 RBC (4.30-5.90) m/uL Hgb (13.0-17.5) gm/dL Hct (39.0-53.0) % RDW (11.5-15.5) % Lymphocytes # (1.0-4.8) k/uL PT (9.0-12.0) sec BUN (9-20) mg/dL Creatinine (0.66-1.25) mg/dL Glucose (74-99) mg/dL POC Glucose (mg/dL) 178 H 122 H (75-99) mg/dL Total Bilirubin (0.2-1.3) mg/dL ALT (21-72) U/L Alkaline Phosphatase (38-126) U/L Troponin I 0.072 H* (0.000-0.034) ng/mL Total Protein (6.3-8.2) g/dL Albumin (3.5-5.0) g/dL 08/15/16 08/16/16 08/16/16 Range/Units 21:03 05:51 05:51 RBC 4.25 L (4.30-5.90) m/uL Hgb 11.9 L (13.0-17.5) gm/dL Hct 37.8 L (39.0-53.0) % RDW 18.1 H (11.5-15.5) % Lymphocytes # 0.8 L (1.0-4.8) k/uL PT 19.0 H (9.0-12.0) sec BUN (9-20) mg/dL Creatinine (0.66-1.25) mg/dL Glucose (74-99) mg/dL POC Glucose (mg/dL) 116 H (75-99) mg/dL Total Bilirubin (0.2-1.3) mg/dL ALT (21-72) U/L Alkaline Phosphatase (38-126) U/L Troponin I (0.000-0.034) ng/mL Total Protein (6.3-8.2) g/dL Albumin (3.5-5.0) g/dL 08/16/16 08/16/16 08/16/16 Range/Units 05:51 05:57 06:34 RBC (4.30-5.90) m/uL Hgb (13.0-17.5) gm/dL Hct (39.0-53.0) % RDW (11.5-15.5) % Lymphocytes # (1.0-4.8) k/uL PT (9.0-12.0) sec BUN 31 H (9-20) mg/dL Creatinine 1.30 H (0.66-1.25) mg/dL Glucose 57 L (74-99) mg/dL POC Glucose (mg/dL) 60 L 109 H (75-99) mg/dL Total Bilirubin 1.4 H (0.2-1.3) mg/dL ALT 159 H (21-72) U/L Alkaline Phosphatase 158 H (38-126) U/L Troponin I (0.000-0.034) ng/mL Total Protein 6.2 L (6.3-8.2) g/dL Albumin 3.1 L (3.5-5.0) g/dL Assessment and Plan Plan: #1 acute systolic congestive heart failure exacerbation currently maintained on IV Lasix drip and is improving gradually #2 underlying history of cardiomyopathy last ejection fraction 35% about 2 weeks ago #3 recent laparoscopic cholecystectomy 1 week prior to this admission #4 paroxysmal atrial fibrillation maintained on Coumadin, INR today 2.0 maintained on Coumadin 3 mg daily continue #5 diabetes mellitus type 2 with poor control currently maintained on Levemir 45 mg subcu twice daily and Humalog 15 units before each meal Will monitor glucose level and adjust regimen as needed #6 acute on chronic renal failure currently maintained on Lasix drip nephrology following Medication and labs were reviewed continue with current management with IV Lasix drip continue same dose of Coumadin will recheck labs in a.m.
[2016-08-16] MEDS: SYMBICORT 160-4.5 MCG INHALER INHALATION SCH ×2 (08:47→19:56)
[2016-08-16] MEDS ORDERED: ISOSORBIDE MONONITRATE ER 15 MG TAB PO SCH (09:00)
--- NOTE | 2016-08-16 09:13 | P.NPCON ---
History of Present Illness - Reason for Consult acute renal failure - History of Present Illness Reason for consultation: Acute kidney injury on chronic kidney disease History of present illness: Patient is a 71-year-old male seen in renal consultation for acute kidney injury on chronic kidney disease. Patient has chronic kidney disease stage III secondary to cardiorenal syndrome with baseline creatinine near 1.2. Patient was recently admitted and underwent laparoscopic cholecystectomy earlier this month. His renal function and also worsened with creatinine up to 2.99. He was started on dobutamine drip as well as IV Lasix with improvement in renal function. Creatinine was 1.3 the time of discharge. When he got home patient noticed worsening swelling in his abdomen. He also noticed a weight gain of about 2-3 pounds. There for the patient came back to the hospital. He is currently on Lasix drip at 10 mL an hour and is diuresing well. His urine output is documented as 2.6 L in the last 24 hours and his weight is trending down. Patient does note improvement in the swelling. Denies chest pain or pressure. Still feels dyspneic. Appetite is good. Denies abdominal pain. Denies use of NSAIDs. No fever or chills. Patient does have systolic CHF with ejection fraction of 35%. Vital signs are stable. General: The patient appeared well nourished and normally developed. HEENT: Head exam is unremarkable. Neck is without jugular venous distension. LUNGS: Lungs are clear to auscultation and percussion. Breath sounds decreased. HEART: Rate and Rhythm are regular. First and second heart sounds normal. No murmurs, rubs or gallops. ABDOMEN: Abdominal exam reveals normal bowel sounds. Surgical drain noted. Mildly tender to palpation. EXTREMITITES: 1+ edema. Past Medical History Past Medical History: Atrial Fibrillation, Coronary Artery Disease (CAD), Heart Failure, Diabetes Mellitus, GERD/Reflux, Hyperlipidemia, Hypertension, Myocardial Infarction ([place]), Prostate Disorder, Renal Disease Additional Past Medical History / Comment(s): AAA 4.3 CM. ASKED IF PT HAD CHF BEFORE PT/ STATED NO BUT HE HAD OPEN HEART., cellulitis/abcess rt groin post porcedure. Last Myocardial Infarction Date:: 04/18/15 History of Any Multi-Drug Resistant Organisms: None Reported Past Surgical History: Coronary Bypass/CABG, Heart Catheterization, Joint Replacement, Orthopedic Surgery Additional Past Surgical History / Comment(s): bilateral knee replacement, RT ROTATOR CUFF SX, STATED:" I THINK HIS OPEN HEART WAS 3 VESSELS".'dec 2015 had a procedure rt groin arterypt stated haresh faird it out" Past Anesthesia/Blood Transfusion Reactions: No Reported Reaction Additional Past Anesthesia/Blood Transfusion Reaction / Comment(s): CLAUSTERPHOBIA Past Psychological History: No Psychological Hx Reported Additional Psychological History / Comment(s): lives in the family home with his and grandson in [place]. 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 Tobacco smoker stopping about 16 years ago. Denied significant alcohol abuse. Denied animals in the home. Retired from the [employer] many years ago. Relates mother of cancer and father of myocardial infarction in his 60s Smoking Status: Former smoker - Past Family History Father Family Medical History: Myocardial Infarction ([place]) Mother Family Medical History: Cancer Additional Family Medical History / Comment(s): LUNG CANCER Medications and Allergies Home Medications Medication Instructions Recorded Confirmed Type Cholecalciferol [Vitamin D3] 5,000 unit PO DAILY 01/21/16 08/14/16 History Magnesium Oxide [Mag-Ox] 250 mg PO DAILY 01/21/16 08/14/16 History Nitroglycerin Sl Tabs [Nitrostat] 0.4 mg SUBLINGUAL Q5M PRN 01/21/16 08/14/16 History Pantoprazole Sodium [Protonix] 40 mg PO DAILY 01/21/16 08/14/16 History Multivitamins, Thera [Multivitamin 1 tab PO DAILY 07/13/16 08/14/16 History (formulary)] Insulin Aspart [NovoLOG Flexpen] See Protocol SQ AC-TID 07/30/16 08/14/16 History Aspirin EC [Ecotrin Low Dose] 81 mg PO DAILY 08/14/16 08/14/16 History Allergies Allergy/AdvReac Type Severity Reaction Status Date / Time alprazolam [From Xanax] AdvReac Confusion Verified 08/14/16 18:27 morphine AdvReac Hallucinati Verified 08/14/16 18:27 ons zolpidem [From Ambien] AdvReac Confusion Verified 08/14/16 18:27 Physical Exam Vitals: Vital Signs Temp Pulse Resp BP Pulse Ox 08/16/16 03:16 85 18 08/16/16 03:15 97.2 F L 85 18 112/63 92 L 08/15/16 23:23 85 16 08/15/16 23:12 85 16 134/79 93 L 08/15/16 20:00 97.1 F L 82 16 129/67 94 L 08/15/16 15:57 96.2 F L 81 16 110/62 100 08/15/16 12:00 97.1 F L 86 16 123/82 86 L Intake and Output 08/15/16 08/16/16 08/16/16 22:59 06:59 14:59 Intake Total 360 Output Total 750 700 Balance -390 -700 Intake: Oral 360 Output: Gastric Drainage 300 Drainage 250 Medial Abdomen 250 Urine 250 400 Other 250 Other: Weight 110.7 kg 109.3 kg Results - Lab Results Most recent lab results Calcium 8.8 mg/dL (8.4-10.2) 08/16/16 05:51 Phosphorus 3.9 mg/dL (2.5-4.5) 08/16/16 05:51 Magnesium 1.7 mg/dL (1.6-2.3) 08/16/16 05:51 08/16/16 05:51 08/16/16 05:51 Assessment and Plan Plan: Assessment: #1. Mild acute kidney injury secondary to cardiorenal syndrome. Recent urinalysis noted to be benign. Creatinine 1.3 on admission. #2. Chronic kidney disease stage III secondary to cardiorenal syndrome with baseline creatinine near 1.2. #3. Volume overload. Improving. #4. Systolic CHF with ejection fraction of 35%. Plan: Continue Lasix drip at 10 mL an hour for now. Maintain low salt diet. I will also put him on a 1.5 L fluid restriction. Daily weights. Strict I's and os. Repeat electrolytes in the morning. Thank you for the consultation. I will continue to follow the patient with you during his hospital stay.
[2016-08-16] MEDS: SPIRONOLACTONE 25 MG TAB PO SCH ×2 (09:55→20:20)
[2016-08-16] MEDS: NITROGLYCERIN OINT 1 INCH/GM PACKET TOPICAL SCH ×2 (09:56→13:52)
[2016-08-16] MEDS: LISINOPRIL 5 MG TAB PO SCH (09:56)
[2016-08-16] MEDS: ASPIRIN 81 MG CHEW PO SCH (09:56)
[2016-08-16] MEDS: INSULIN DETEMIR 100 UNIT/ML 10 ML VIAL SQ SCH ×2 (09:56→21:10)
[2016-08-16] MEDS: FUROSEMIDE 250 MG in SODIUM CHLORIDE 0.9% 225 ML IVP SCH (10:06)
[2016-08-16 12:04] LABS: Glucose,Whole Blood 141 mg/dL (75-99)
[2016-08-16] MEDS: CHOLECALCIFEROL 1,000 UNIT TAB PO SCH (12:12)
[2016-08-16] MEDS: MAGNESIUM OXIDE 400 MG TAB PO SCH (12:12)
--- NOTE | 2016-08-16 15:27 | P.PN ---
Subjective Principal diagnosis: Congestive heart failure This is a 71-year-old gentleman who follows with Dr. Elias at [facility] cardiology, primary care doctor is Dr. marti. He has a history of paroxysmal atrial fibrillation, coronary artery disease with prior bypass surgery in 2000, ischemic cardiomyopathy with AICD, diabetes, hypertension, hyperlipidemia, renal disease, AAA, he was recently in the hospital, just discharged home on Monday and he was here with acute cholecystitis, underwent a laparoscopic cholecystectomy. Patient also was treated for exacerbation of congestive heart failure. He was discharged home from the hospital on Monday and states that he started to become more short of breath and noticed increase in swelling in his abdomen, for this reason he came back to the hospital for further evaluation. Patient was initiated on IV Lasix drip at 10 mg per hour yesterday. His weight today is down 1 kg, creatinine is 1.3 today. We will discontinue the Imdur, discontinue the Nitropaste. Increase Aldactone to 50 mg one tablet by mouth twice a day. Patient is feeling slightly better overall still complaining of bloating feeling in the belly especially after eating. Objective - Vital Signs Vital signs: Vital Signs Temp 97.2 F L 08/16/16 12:00 Pulse 93 08/16/16 12:00 Resp 18 08/16/16 12:00 BP 132/83 08/16/16 12:00 Pulse Ox 100 08/16/16 12:00 Intake & Output 08/15/16 08/16/16 08/16/16 18:59 06:59 18:59 Intake Total 560 792.333 Output Total 1700 950 650 Balance -1140 -950 142.333 Weight 110.7 kg 109.3 kg Intake: Intake, IV Titration 320.333 Amount Furosemide 250 mg In 240.333 Sodium Chloride 0.9% 225 ml @ 10 MG/HR 10 mls/hr IVP .Q24H [facility] Rx#: [id number] Sodium Chloride 0.9% 1, 80 000 ml @ 20 mls/hr IV . Q24H [facility] Rx#:[id number] Oral 560 472 Output: Gastric Drainage 300 Drainage 250 Medial Abdomen 250 Urine 1450 400 400 Other 250 250 - Exam PHYSICAL EXAMINATION: HEENT: Head is atraumatic, normocephalic. Pupils equal, round. Neck is supple. There is elevated jugular venous pressure. HEART EXAMINATION: Heart S1 and S2 systolic murmur is heard. CHEST EXAMINATION: Lungs are diminished to bilateral bases ABDOMEN: Soft, obese, firm, distended, Bowel sounds are heard. Positive hepatomegaly. EXTREMITIES: 2+ peripheral pulses with evidence of peripheral edema and no calf tenderness noted. NEUROLOGIC patient is awake, alert and oriented -3. - Labs CBC & Chem 7: 08/16/16 05:51 08/16/16 05:51 Labs: Abnormal Lab Results - Last 24 Hours (Table) 08/15/16 08/15/16 08/16/16 Range/Units 16:20 21:03 05:51 RBC 4.25 L (4.30-5.90) m/uL Hgb 11.9 L (13.0-17.5) gm/dL Hct 37.8 L (39.0-53.0) % RDW 18.1 H (11.5-15.5) % Lymphocytes # 0.8 L (1.0-4.8) k/uL PT (9.0-12.0) sec BUN (9-20) mg/dL Creatinine (0.66-1.25) mg/dL Glucose (74-99) mg/dL POC Glucose (mg/dL) 122 H 116 H (75-99) mg/dL Total Bilirubin (0.2-1.3) mg/dL ALT (21-72) U/L Alkaline Phosphatase (38-126) U/L Total Protein (6.3-8.2) g/dL Albumin (3.5-5.0) g/dL 08/16/16 08/16/16 08/16/16 Range/Units 05:51 05:51 05:57 RBC (4.30-5.90) m/uL Hgb (13.0-17.5) gm/dL Hct (39.0-53.0) % RDW (11.5-15.5) % Lymphocytes # (1.0-4.8) k/uL PT 19.0 H (9.0-12.0) sec BUN 31 H (9-20) mg/dL Creatinine 1.30 H (0.66-1.25) mg/dL Glucose 57 L (74-99) mg/dL POC Glucose (mg/dL) 60 L (75-99) mg/dL Total Bilirubin 1.4 H (0.2-1.3) mg/dL ALT 159 H (21-72) U/L Alkaline Phosphatase 158 H (38-126) U/L Total Protein 6.2 L (6.3-8.2) g/dL Albumin 3.1 L (3.5-5.0) g/dL 08/16/16 08/16/16 Range/Units 06:34 12:02 RBC (4.30-5.90) m/uL Hgb (13.0-17.5) gm/dL Hct (39.0-53.0) % RDW (11.5-15.5) % Lymphocytes # (1.0-4.8) k/uL PT (9.0-12.0) sec BUN (9-20) mg/dL Creatinine (0.66-1.25) mg/dL Glucose (74-99) mg/dL POC Glucose (mg/dL) 109 H 141 H (75-99) mg/dL Total Bilirubin (0.2-1.3) mg/dL ALT (21-72) U/L Alkaline Phosphatase (38-126) U/L Total Protein (6.3-8.2) g/dL Albumin (3.5-5.0) g/dL Assessment and Plan Plan: Assessment and plan #1 systolic congestive heart failure acute on chronic. Echocardiogram with Doppler study performed on July 30 revealed an ejection fraction of 35-40%. #2 diabetes #3 recent laparoscopic cholecystectomy #4 known history of coronary artery disease prior bypass surgery #5 ischemic cardiomyopathy with prior AICD #6 acute on chronic renal failure #7 hypertension #8 hyperlipidemia #9 paroxysmal atrial fibrillation on Coumadin, INR subtherapeutic #10 abnormal troponins, not suggestive of acute coronary syndrome, very to oxygen supply and demand mismatch Plan We'll continue current dose of IV Lasix drip. Discontinue Imdur, discontinue Nitropaste increase Aldactone to 50 mg one tablet by mouth twice a day. We will also repeat the chest x-ray. DNP note has been reviewed, I agree with a documented findings and plan of care. Patient was seen and examined.
[2016-08-16 17:13] LABS: Glucose,Whole Blood 62 mg/dL (75-99)
[2016-08-16] MEDS: WARFARIN 3 MG TAB PO SCH (17:18)
[2016-08-16 17:41] LABS: Glucose,Whole Blood 66 mg/dL (75-99)
[2016-08-16 18:02] LABS: Glucose,Whole Blood 79 mg/dL (75-99)
--- NOTE | 2016-08-16 19:11 | P.PN ---
Subjective Principal diagnosis: Cholecystitis Patient has no new complaints. Denies abdominal pain. His breathing seems improved. He is still having serous drainage from the umbilical site. Objective - Vital Signs Vital signs: Vital Signs Temp 96.3 F L 08/16/16 16:28 Pulse 53 L 08/16/16 16:28 Resp 18 08/16/16 16:28 BP 154/71 08/16/16 16:28 Pulse Ox 95 08/16/16 16:28 Intake & Output 08/16/16 08/16/16 08/17/16 06:59 18:59 06:59 Intake Total 1392.333 Output Total 950 650 Balance -950 742.333 Weight 109.3 kg Intake: Intake, IV Titration 320.333 Amount Furosemide 250 mg In 240.333 Sodium Chloride 0.9% 225 ml @ 10 MG/HR 10 mls/hr IVP .Q24H [facility] Rx#: [id number] Sodium Chloride 0.9% 1, 80 000 ml @ 20 mls/hr IV . Q24H [facility] Rx#:[id number] Oral 1072 Output: Gastric Drainage 300 Urine 400 400 Other 250 250 - Exam Abdomen: Soft, nondistended, edema on the abdominal wall persists, nontender - Labs CBC & Chem 7: 08/16/16 05:51 08/16/16 05:51 Labs: Abnormal Lab Results - Last 24 Hours (Table) 08/15/16 08/16/16 08/16/16 Range/Units 21:03 05:51 05:51 RBC 4.25 L (4.30-5.90) m/uL Hgb 11.9 L (13.0-17.5) gm/dL Hct 37.8 L (39.0-53.0) % RDW 18.1 H (11.5-15.5) % Lymphocytes # 0.8 L (1.0-4.8) k/uL PT 19.0 H (9.0-12.0) sec BUN (9-20) mg/dL Creatinine (0.66-1.25) mg/dL Glucose (74-99) mg/dL POC Glucose (mg/dL) 116 H (75-99) mg/dL Total Bilirubin (0.2-1.3) mg/dL ALT (21-72) U/L Alkaline Phosphatase (38-126) U/L Total Protein (6.3-8.2) g/dL Albumin (3.5-5.0) g/dL 08/16/16 08/16/16 08/16/16 Range/Units 05:51 05:57 06:34 RBC (4.30-5.90) m/uL Hgb (13.0-17.5) gm/dL Hct (39.0-53.0) % RDW (11.5-15.5) % Lymphocytes # (1.0-4.8) k/uL PT (9.0-12.0) sec BUN 31 H (9-20) mg/dL Creatinine 1.30 H (0.66-1.25) mg/dL Glucose 57 L (74-99) mg/dL POC Glucose (mg/dL) 60 L 109 H (75-99) mg/dL Total Bilirubin 1.4 H (0.2-1.3) mg/dL ALT 159 H (21-72) U/L Alkaline Phosphatase 158 H (38-126) U/L Total Protein 6.2 L (6.3-8.2) g/dL Albumin 3.1 L (3.5-5.0) g/dL 08/16/16 08/16/16 08/16/16 Range/Units 12:02 17:11 17:34 RBC (4.30-5.90) m/uL Hgb (13.0-17.5) gm/dL Hct (39.0-53.0) % RDW (11.5-15.5) % Lymphocytes # (1.0-4.8) k/uL PT (9.0-12.0) sec BUN (9-20) mg/dL Creatinine (0.66-1.25) mg/dL Glucose (74-99) mg/dL POC Glucose (mg/dL) 141 H 62 L 66 L (75-99) mg/dL Total Bilirubin (0.2-1.3) mg/dL ALT (21-72) U/L Alkaline Phosphatase (38-126) U/L Total Protein (6.3-8.2) g/dL Albumin (3.5-5.0) g/dL Assessment and Plan (1) Acute cholecystitis Narrative/Plan: Continue diuretics for fluid overload. Will monitor the patient's incision site along with you. Status: Acute
[2016-08-16 21:04] LABS: Glucose,Whole Blood 111 mg/dL (75-99)
[2016-08-17 02:50] LABS: Glucose,Whole Blood 69 mg/dL (75-99)
[2016-08-17 03:20] LABS: Glucose,Whole Blood 77 mg/dL (75-99)
[2016-08-17 04:05] LABS: Anisocytosis Slight; Basophils % (A) 0 %; CH 27.9; CHCM 32.2; Eosinophils # (A) 0.4 k/uL (0-0.7); Eosinophils % (A) 5 %; HCT 39.3 % (39.0-53.0); HDW 4.01; HGB 12.8 gm/dL (13.0-17.5); Hypochromasia Moderate; Luc # (Auto) 0.26; Luc % (Auto) 3; Lymphocytes % (A) 11 %; MCH 28.5 pg (25.0-35.0); MCHC 32.6 g/dL (31.0-37.0); MCV 87.4 fL (80.0-100.0); Monocytes # (A) 0.6 k/uL (0-1.0); Monocytes % (A) 7 %; Neutrophils # (A) 6.5 k/uL (1.3-7.7); Neutrophils % (A) 74 %; Poikilocytosis Moderate; WBC 8.8 k/uL (3.8-10.6); WBC (Perox) 8.91
[2016-08-17 04:20] LABS: ALT 147 U/L (21-72); AST 43 U/L (17-59); Alkaline Phosphatase 176 U/L (38-126); Anion Gap 12 mmol/L; Blood Urea Nitrogen 33 mg/dL (9-20); Calcium 9.3 mg/dL (8.4-10.2); Carbon Dioxide 27 mmol/L (22-30); Chloride 101 mmol/L (98-107); Glucose 56 mg/dL (74-99); Magnesium 1.8 mg/dL (1.6-2.3); Non-African American GFR(MDRD) 54 (>60 ml/min/1.73 sqM); Phosphorous 3.6 mg/dL (2.5-4.5); Potassium 3.7 mmol/L (3.5-5.1); Sodium 140 mmol/L (137-145); Total Bilirubin 1.3 mg/dL (0.2-1.3); Total Protein 6.8 g/dL (6.3-8.2)
[2016-08-17 04:53] LABS: INR 1.8 (<1.1); Prothrombin Time 17.8 sec (9.0-12.0)
[2016-08-17 06:16] LABS: Glucose,Whole Blood 79 mg/dL (75-99)
[2016-08-17] MEDS: MIDODRINE 5 MG TAB PO SCH ×3 (06:22→17:35)
[2016-08-17] MEDS: PANTOPRAZOLE 40 MG TABLET PO SCH (06:22)
[2016-08-17] MEDS: CARVEDILOL 6.25 MG TAB PO SCH ×2 (06:22→17:35)
[2016-08-17] MEDS: SYMBICORT 160-4.5 MCG INHALER INHALATION SCH ×2 (07:20→21:03)
[2016-08-17] MEDS ORDERED: INSULIN LISPRO (humaLOG) 300 UNIT/3 ML VIAL SQ SCH (07:30)
[2016-08-17] MEDS: FUROSEMIDE 250 MG in SODIUM CHLORIDE 0.9% 225 ML IVP SCH ×5 (08:41→23:31)
[2016-08-17] MEDS: LISINOPRIL 5 MG TAB PO SCH (08:41)
[2016-08-17] MEDS: ASPIRIN 81 MG CHEW PO SCH (08:41)
[2016-08-17] MEDS: SPIRONOLACTONE 25 MG TAB PO SCH ×2 (08:42→21:07)
[2016-08-17] MEDS: INSULIN DETEMIR 100 UNIT/ML 10 ML VIAL SQ SCH ×2 (08:46→21:07)
--- NOTE | 2016-08-17 09:05 | P.PN ---
Subjective Patient is seen in follow-up for acute kidney injury on chronic kidney disease. Patient has chronic kidney disease stage III secondary to cardiorenal syndrome with baseline creatinine near 1.2. His creatinine is stable at 1.3 today. He is currently maintained on Lasix drip running at 10 mL an hour and is diuresing well. Weight is trending down. Still feels edematous mostly in his abdomen. No vomiting or diarrhea. Oral intake is good. Patient does have systolic CHF with ejection fraction of 35%. Vital signs are stable. General: The patient appeared well nourished and normally developed. HEENT: Head exam is unremarkable. Neck is without jugular venous distension. LUNGS: Lungs are clear to auscultation and percussion. Breath sounds decreased. HEART: Rate and Rhythm are regular. First and second heart sounds normal. No murmurs, rubs or gallops. ABDOMEN: Abdominal exam reveals normal bowel sounds. Mildly distended. No evidence of peritonitis. EXTREMITITES: Trace edema. Objective - Vital Signs Vital signs: Vital Signs Temp 97.1 F L 08/17/16 03:30 Pulse 77 08/17/16 03:30 Resp 18 08/17/16 03:30 BP 121/72 08/17/16 03:30 Pulse Ox 98 08/17/16 03:30 Intake & Output 08/16/16 08/17/16 08/17/16 18:59 06:59 18:59 Intake Total 1392.333 120 405.833 Output Total 650 1495 0 Balance 742.333 -1375 405.833 Weight 107.3 kg Intake: IV 120 Furosemide 250 mg In 120 Sodium Chloride 0.9% 225 ml @ 10 MG/HR 10 mls/hr IVP .Q24H [facility] Rx#: [id number] Intake, IV Titration 320.333 225.833 Amount Furosemide 250 mg In 240.333 225.833 Sodium Chloride 0.9% 225 ml @ 10 MG/HR 10 mls/hr IVP .Q24H [facility] Rx#: [id number] Sodium Chloride 0.9% 1, 80 000 ml @ 20 mls/hr IV . Q24H [facility] Rx#:[id number] Oral 1072 180 Output: Drainage 95 Medial Abdomen 95 Urine 400 1400 Stool 0 Other 250 Other: # Voids 1 0 # Bowel Movements 0 - Labs CBC & Chem 7: 08/17/16 03:51 08/17/16 03:51 Labs: Abnormal Lab Results - Last 24 Hours (Table) 08/16/16 08/16/16 08/16/16 Range/Units 12:02 17:11 17:34 Hgb (13.0-17.5) gm/dL RDW (11.5-15.5) % PT (9.0-12.0) sec BUN (9-20) mg/dL Creatinine (0.66-1.25) mg/dL Glucose (74-99) mg/dL POC Glucose (mg/dL) 141 H 62 L 66 L (75-99) mg/dL ALT (21-72) U/L Alkaline Phosphatase (38-126) U/L 08/16/16 08/17/16 08/17/16 Range/Units 21:00 02:49 03:51 Hgb 12.8 L (13.0-17.5) gm/dL RDW 18.0 H (11.5-15.5) % PT (9.0-12.0) sec BUN (9-20) mg/dL Creatinine (0.66-1.25) mg/dL Glucose (74-99) mg/dL POC Glucose (mg/dL) 111 H 69 L (75-99) mg/dL ALT (21-72) U/L Alkaline Phosphatase (38-126) U/L 08/17/16 08/17/16 Range/Units 03:51 03:51 Hgb (13.0-17.5) gm/dL RDW (11.5-15.5) % PT 17.8 H (9.0-12.0) sec BUN 33 H (9-20) mg/dL Creatinine 1.30 H (0.66-1.25) mg/dL Glucose 56 L (74-99) mg/dL POC Glucose (mg/dL) (75-99) mg/dL ALT 147 H (21-72) U/L Alkaline Phosphatase 176 H (38-126) U/L Assessment and Plan Plan: Assessment: #1. Mild acute kidney injury secondary to cardiorenal syndrome. Recent urinalysis noted to be benign. Creatinine 1.3 today. #2. Chronic kidney disease stage III secondary to cardiorenal syndrome with baseline creatinine near 1.2. #3. Volume overload. Improving. #4. Systolic CHF with ejection fraction of 35%. Plan: I will increase Lasix drip to 15 mL an hour. I will add metolazone 5 mg once a day. Maintain low salt diet and 1.5 L fluid restriction. Daily weights. Strict I's and os. Repeat electrolytes in the morning.
--- NOTE | 2016-08-17 09:24 | P.PN ---
Subjective Principal diagnosis: Cholecystitis Patient has no new complaints. Denies abdominal pain. Tolerating diet. Still with some drainage from the umbilical incision site. Objective - Vital Signs Vital signs: Vital Signs Temp 97.1 F L 08/17/16 03:30 Pulse 77 08/17/16 03:30 Resp 18 08/17/16 03:30 BP 121/72 08/17/16 03:30 Pulse Ox 98 08/17/16 03:30 Intake & Output 08/16/16 08/17/16 08/17/16 18:59 06:59 18:59 Intake Total 1392.333 120 410.500 Output Total 650 1495 450 Balance 742.333 -1375 -39.500 Weight 107.3 kg Intake: IV 120 Furosemide 250 mg In 120 Sodium Chloride 0.9% 225 ml @ 15 MG/HR 15 mls/hr IVP .[id number] [facility] Rx#: [id number] Intake, IV Titration 320.333 230.500 Amount Furosemide 250 mg In 240.333 230.500 Sodium Chloride 0.9% 225 ml @ 15 MG/HR 15 mls/hr IVP .[id number] [facility] Rx#: [id number] Sodium Chloride 0.9% 1, 80 000 ml @ 20 mls/hr IV . Q24H [facility] Rx#:[id number] Oral 1072 180 Output: Drainage 95 Medial Abdomen 95 Urine 400 1400 450 Stool 0 Other 250 Other: # Voids 1 0 # Bowel Movements 0 - Exam Abdomen: Soft, nontender, nondistended, edema seems improved, drainage persists - Labs CBC & Chem 7: 08/17/16 03:51 08/17/16 03:51 Labs: Abnormal Lab Results - Last 24 Hours (Table) 08/16/16 08/16/16 08/16/16 Range/Units 12:02 17:11 17:34 Hgb (13.0-17.5) gm/dL RDW (11.5-15.5) % PT (9.0-12.0) sec BUN (9-20) mg/dL Creatinine (0.66-1.25) mg/dL Glucose (74-99) mg/dL POC Glucose (mg/dL) 141 H 62 L 66 L (75-99) mg/dL ALT (21-72) U/L Alkaline Phosphatase (38-126) U/L 08/16/16 08/17/16 08/17/16 Range/Units 21:00 02:49 03:51 Hgb 12.8 L (13.0-17.5) gm/dL RDW 18.0 H (11.5-15.5) % PT (9.0-12.0) sec BUN (9-20) mg/dL Creatinine (0.66-1.25) mg/dL Glucose (74-99) mg/dL POC Glucose (mg/dL) 111 H 69 L (75-99) mg/dL ALT (21-72) U/L Alkaline Phosphatase (38-126) U/L 08/17/16 08/17/16 Range/Units 03:51 03:51 Hgb (13.0-17.5) gm/dL RDW (11.5-15.5) % PT 17.8 H (9.0-12.0) sec BUN 33 H (9-20) mg/dL Creatinine 1.30 H (0.66-1.25) mg/dL Glucose 56 L (74-99) mg/dL POC Glucose (mg/dL) (75-99) mg/dL ALT 147 H (21-72) U/L Alkaline Phosphatase 176 H (38-126) U/L Assessment and Plan (1) Acute cholecystitis Narrative/Plan: Continue optimizing fluid status. May require a superficial skin stitch however would like to avoid if possible. Status: Acute
--- NOTE | 2016-08-17 10:13 | P.PN ---
Subjective Principal diagnosis: Acute systolic congestive heart failure exacerbation Today patient is feeling better he has less shortness of breath and less swelling in the abdomen He is still having significant discharge from his umbilical surgical wound Otherwise he denies any chest pain there is no fever no chills no nausea or vomiting no abdominal pain and no urinary symptoms During last night patient had episodes of hypoglycemia Objective - Vital Signs Vital signs: Vital Signs Temp 97.1 F L 08/17/16 03:30 Pulse 77 08/17/16 03:30 Resp 18 08/17/16 03:30 BP 121/72 08/17/16 03:30 Pulse Ox 98 08/17/16 03:30 Intake & Output 08/16/16 08/17/16 08/17/16 18:59 06:59 18:59 Intake Total 1392.333 120 410.500 Output Total 650 1495 450 Balance 742.333 -1375 -39.500 Weight 107.3 kg Intake: IV 120 Furosemide 250 mg In 120 Sodium Chloride 0.9% 225 ml @ 15 MG/HR 15 mls/hr IVP .[id number] [facility] Rx#: [id number] Intake, IV Titration 320.333 230.500 Amount Furosemide 250 mg In 240.333 230.500 Sodium Chloride 0.9% 225 ml @ 15 MG/HR 15 mls/hr IVP .[id number] [facility] Rx#: [id number] Sodium Chloride 0.9% 1, 80 000 ml @ 20 mls/hr IV . Q24H [facility] Rx#:[id number] Oral 1072 180 Output: Drainage 95 Medial Abdomen 95 Urine 400 1400 450 Stool 0 Other 250 Other: # Voids 1 0 # Bowel Movements 0 - Exam In general patient is alert and oriented 3 in no apparent distress HEENT head normocephalic and atraumatic Neck is supple no JVD no goiter no lymphadenopathy Chest exam reveals a few scattered crackles in both lung fraga no wheezing Cardiac exam reveals irregular heart sounds S1 and S2 no gallops no murmurs Abdomen is soft nontender no organomegaly Extremity exam reveals minimal edema no cyanosis or clubbing - Labs CBC & Chem 7: 08/17/16 03:51 08/17/16 03:51 Labs: Abnormal Lab Results - Last 24 Hours (Table) 08/16/16 08/16/16 08/16/16 Range/Units 12:02 17:11 17:34 Hgb (13.0-17.5) gm/dL RDW (11.5-15.5) % PT (9.0-12.0) sec BUN (9-20) mg/dL Creatinine (0.66-1.25) mg/dL Glucose (74-99) mg/dL POC Glucose (mg/dL) 141 H 62 L 66 L (75-99) mg/dL ALT (21-72) U/L Alkaline Phosphatase (38-126) U/L 08/16/16 08/17/16 08/17/16 Range/Units 21:00 02:49 03:51 Hgb 12.8 L (13.0-17.5) gm/dL RDW 18.0 H (11.5-15.5) % PT (9.0-12.0) sec BUN (9-20) mg/dL Creatinine (0.66-1.25) mg/dL Glucose (74-99) mg/dL POC Glucose (mg/dL) 111 H 69 L (75-99) mg/dL ALT (21-72) U/L Alkaline Phosphatase (38-126) U/L 08/17/16 08/17/16 Range/Units 03:51 03:51 Hgb (13.0-17.5) gm/dL RDW (11.5-15.5) % PT 17.8 H (9.0-12.0) sec BUN 33 H (9-20) mg/dL Creatinine 1.30 H (0.66-1.25) mg/dL Glucose 56 L (74-99) mg/dL POC Glucose (mg/dL) (75-99) mg/dL ALT 147 H (21-72) U/L Alkaline Phosphatase 176 H (38-126) U/L Assessment and Plan Plan: #1 acute systolic congestive heart failure exacerbation currently maintained on IV Lasix drip and is improving gradually #2 underlying history of cardiomyopathy last ejection fraction 35% about 2 weeks ago #3 recent laparoscopic cholecystectomy 1 week prior to this admission, currently patient is having leak from his umbilical surgical wound, Dr. Hernandez following #4 paroxysmal atrial fibrillation maintained on Coumadin, INR today 2.0 maintained on Coumadin 3 mg daily continue #5 diabetes mellitus type 2 with poor control currently maintained on Levemir 45 mg subcu twice daily and Humalog 10 units before each meal Will monitor glucose level and adjust regimen as needed. Patient is having episodes of hypoglycemia, he states his appetite is much less than what he used to be at home, at this time will decrease Levemir to 40 units twice a day, canceled NovoLog 10 units before each meal and use only a sliding scale before meals #6 acute on chronic renal failure currently maintained on Lasix drip nephrology following Medication and labs were reviewed continue with current management with IV Lasix drip continue same dose of Coumadin will recheck labs in a.m.
[2016-08-17] MEDS: METOLAZONE 5 MG TAB PO SCH (10:49)
[2016-08-17 11:34] LABS: Hemoglobin A1C 8.3 % (4.2-6.1)
[2016-08-17 11:47] LABS: Glucose,Whole Blood 86 mg/dL (75-99)
[2016-08-17] MEDS: CHOLECALCIFEROL 1,000 UNIT TAB PO SCH (12:28)
[2016-08-17] MEDS: MAGNESIUM OXIDE 400 MG TAB PO SCH (12:28)
[2016-08-17] MEDS: INSULIN LISPRO (humaLOG) 300 UNIT/3 ML VIAL SQ SCH ×3 (12:29→21:08)
--- NOTE | 2016-08-17 15:56 | P.PN ---
Subjective Principal diagnosis: Congestive heart failure This is a 71-year-old gentleman who follows with Dr. Elias at [facility] cardiology, primary care doctor is Dr. marti. He has a history of paroxysmal atrial fibrillation, coronary artery disease with prior bypass surgery in 2000, ischemic cardiomyopathy with AICD, diabetes, hypertension, hyperlipidemia, renal disease, AAA, he was recently in the hospital, just discharged home on Monday and he was here with acute cholecystitis, underwent a laparoscopic cholecystectomy. Patient also was treated for exacerbation of congestive heart failure. He was discharged home from the hospital on Monday and states that he started to become more short of breath and noticed increase in swelling in his abdomen, for this reason he came back to the hospital for further evaluation. Patient was initiated on IV Lasix drip at 10 mg per hour yesterday. His weight today is down 2 kg, creatinine is 1.3 today. Cristy and was added yesterday. We will continue current medications. Check lytes BUN and creatinine along with daily weights in the morning. Objective - Vital Signs Vital signs: Vital Signs Temp 96.4 F L 08/17/16 08:35 Pulse 75 08/17/16 11:25 Resp 18 08/17/16 11:25 BP 153/67 08/17/16 11:25 Pulse Ox 98 08/17/16 11:25 Intake & Output 08/16/16 08/17/16 08/17/16 18:59 06:59 18:59 Intake Total 1392.333 120 590.500 Output Total 650 1495 2150 Balance 742.333 -1375 -1559.500 Weight 107.3 kg Intake: IV 120 Furosemide 250 mg In 120 Sodium Chloride 0.9% 225 ml @ 15 MG/HR 15 mls/hr IVP .[id number] [facility] Rx#: [id number] Intake, IV Titration 320.333 230.500 Amount Furosemide 250 mg In 240.333 230.500 Sodium Chloride 0.9% 225 ml @ 15 MG/HR 15 mls/hr IVP .[id number] [facility] Rx#: [id number] Sodium Chloride 0.9% 1, 80 000 ml @ 20 mls/hr IV . Q24H [facility] Rx#:[id number] Oral 1072 360 Output: Drainage 95 200 Medial Abdomen 95 200 Urine 400 1400 1950 Stool 0 Other 250 Other: Voiding Method Urinal # Voids 1 0 # Bowel Movements 0 - Exam PHYSICAL EXAMINATION: HEENT: Head is atraumatic, normocephalic. Pupils equal, round. Neck is supple. There is elevated jugular venous pressure. HEART EXAMINATION: Heart S1 and S2 systolic murmur is heard. CHEST EXAMINATION: Lungs are diminished to bilateral bases ABDOMEN: Soft, obese, firm, distended, Bowel sounds are heard. Positive hepatomegaly. EXTREMITIES: 2+ peripheral pulses with evidence of peripheral edema and no calf tenderness noted. NEUROLOGIC patient is awake, alert and oriented -3. - Labs CBC & Chem 7: 08/17/16 03:51 08/17/16 03:51 Labs: Abnormal Lab Results - Last 24 Hours (Table) 08/16/16 08/16/16 08/16/16 Range/Units 17:11 17:34 21:00 Hgb (13.0-17.5) gm/dL RDW (11.5-15.5) % PT (9.0-12.0) sec BUN (9-20) mg/dL Creatinine (0.66-1.25) mg/dL Glucose (74-99) mg/dL POC Glucose (mg/dL) 62 L 66 L 111 H (75-99) mg/dL Hemoglobin A1c (4.2-6.1) % ALT (21-72) U/L Alkaline Phosphatase (38-126) U/L 08/17/16 08/17/16 08/17/16 Range/Units 02:49 03:51 03:51 Hgb 12.8 L (13.0-17.5) gm/dL RDW 18.0 H (11.5-15.5) % PT 17.8 H (9.0-12.0) sec BUN (9-20) mg/dL Creatinine (0.66-1.25) mg/dL Glucose (74-99) mg/dL POC Glucose (mg/dL) 69 L (75-99) mg/dL Hemoglobin A1c (4.2-6.1) % ALT (21-72) U/L Alkaline Phosphatase (38-126) U/L 08/17/16 08/17/16 Range/Units 03:51 03:51 Hgb (13.0-17.5) gm/dL RDW (11.5-15.5) % PT (9.0-12.0) sec BUN 33 H (9-20) mg/dL Creatinine 1.30 H (0.66-1.25) mg/dL Glucose 56 L (74-99) mg/dL POC Glucose (mg/dL) (75-99) mg/dL Hemoglobin A1c 8.3 H (4.2-6.1) % ALT 147 H (21-72) U/L Alkaline Phosphatase 176 H (38-126) U/L Assessment and Plan Plan: Assessment and plan #1 systolic congestive heart failure acute on chronic. Echocardiogram with Doppler study performed on July 30 revealed an ejection fraction of 35-40%. #2 diabetes #3 recent laparoscopic cholecystectomy #4 known history of coronary artery disease prior bypass surgery #5 ischemic cardiomyopathy with prior AICD #6 acute on chronic renal failure #7 hypertension #8 hyperlipidemia #9 paroxysmal atrial fibrillation on Coumadin, INR subtherapeutic #10 abnormal troponins, not suggestive of acute coronary syndrome, very to oxygen supply and demand mismatch Plan Continue current medications. Check lytes BUN creatinine and daily weights in the morning. DNP note has been reviewed, I agree with a documented findings and plan of care. Patient was seen and examined.
[2016-08-17 16:35] LABS: Glucose,Whole Blood 98 mg/dL (75-99)
[2016-08-17] MEDS: WARFARIN 3 MG TAB PO SCH (17:35)
--- NOTE | 2016-08-17 17:38 | P.CN ---
Psychiatric Consult - . Consult date: 08/17/16 Consult:: PSYCHIATRIC CONSULTATION DATE OF SERVICE: 08/17/2016 PURPOSE FOR CONSULTATION: Evaluate for confusion and disorganized behavior HISTORY OF PRESENTING ILLNESS: I reviewed the case briefly with Dr. Perez. He noted that the patient had an episode of confusion last evening and some disorganized behavior. He was admitted for exacerbation of CHF with shortness of breath. When I reviewed the patient's status with the nurse she indicated that he has had some times where he seems mixed up and having memory problems. She was not aware that he had any behavior difficulties last evening. Dr. Contreras did note that last evening he had episodes of hypoglycemia. There is a past history of "heavy alcohol use." The patient reported no alcohol use in an extended period of time. When I interviewed the patient he acknowledged that he has had some memory difficulty and feels that he is forgetful in a number of areas. He was not aware of any clear episode of confusion that he may have had yesterday evening. He is not aware of any episodes of confusion at home. He also says his has not made that indication either. He does note that he is feeling better today. He reports no history of any psychiatric issues such as mood or anxiety symptoms. He reported that he does not take any medications for mood or anxiety nor does he take medications for pain. MENTAL STATUS EXAM: The patient was laying in bed. He gave fair eye contact. He was a little slowed in thoughts. He answered questions appropriately. He clearly showed some memory difficulties, and sometimes had to think a bit before he could answer question. He could say was 08/17/2016 until he was slow to come up with the date. He was not able to remember the name of the president. He was slow in coming up with the name of the hospital. He knew he was in [place]. He was uncertain about which doctors were attending to him during this hospitalization. ASSESSMENT: At this point it is not clear if the patient is needing any immediate psychiatric intervention. I indicated to the nursing staff that they could contact me this evening if he does have more difficulties. I will review the case further with the Dr. Perez. 08/17/16 17:18 The
[2016-08-17 20:40] LABS: Glucose,Whole Blood 151 mg/dL (75-99)
[2016-08-18 05:34] LABS: Glucose,Whole Blood 132 mg/dL (75-99)
[2016-08-18 06:14] LABS: Anisocytosis Slight; Basophils % (A) 1 %; CH 27.4; CHCM 31.7; Eosinophils # (A) 0.3 k/uL (0-0.7); Eosinophils % (A) 5 %; HCT 41.1 % (39.0-53.0); HDW 4.01; HGB 13.3 gm/dL (13.0-17.5); Hypochromasia Moderate; Luc # (Auto) 0.23; Luc % (Auto) 3; Lymphocytes # (A) 0.9 k/uL (1.0-4.8); Lymphocytes % (A) 13 %; MCH 28.2 pg (25.0-35.0); MCHC 32.5 g/dL (31.0-37.0); Monocytes # (A) 0.4 k/uL (0-1.0); Monocytes % (A) 6 %; Neutrophils # (A) 5.1 k/uL (1.3-7.7); Neutrophils % (A) 73 %; Poikilocytosis Moderate; RBC 4.73 m/uL (4.30-5.90); WBC (Perox) 7.29
[2016-08-18 06:19] LABS: Prothrombin Time 19.5 sec (9.0-12.0)
[2016-08-18 06:49] LABS: Calcium 9.9 mg/dL (8.4-10.2); Phosphorous 4.2 mg/dL (2.5-4.5); Potassium 3.9 mmol/L (3.5-5.1); Total Bilirubin 1.5 mg/dL (0.2-1.3); Total Protein 7.1 g/dL (6.3-8.2)
[2016-08-18] MEDS: PANTOPRAZOLE 40 MG TABLET PO SCH (06:49)
[2016-08-18] MEDS: CARVEDILOL 6.25 MG TAB PO SCH ×2 (06:49→17:15)
[2016-08-18] MEDS: INSULIN LISPRO (humaLOG) 300 UNIT/3 ML VIAL SQ SCH ×4 (06:50→21:08)
[2016-08-18] MEDS: MIDODRINE 5 MG TAB PO SCH ×3 (06:50→17:15)
[2016-08-18] MEDS: SYMBICORT 160-4.5 MCG INHALER INHALATION SCH ×2 (08:22→20:20)
[2016-08-18] MEDS: INSULIN DETEMIR 100 UNIT/ML 10 ML VIAL SQ SCH ×2 (08:46→21:10)
[2016-08-18] MEDS: ASPIRIN 81 MG CHEW PO SCH (08:47)
[2016-08-18] MEDS: METOLAZONE 5 MG TAB PO SCH (08:48)
[2016-08-18] MEDS: LISINOPRIL 5 MG TAB PO SCH (08:48)
[2016-08-18] MEDS: SPIRONOLACTONE 25 MG TAB PO SCH ×2 (08:48→20:03)
--- NOTE | 2016-08-18 09:06 | P.PN ---
Subjective Patient is seen in follow-up for acute kidney injury on chronic kidney disease. Patient has chronic kidney disease stage III secondary to cardiorenal syndrome with baseline creatinine near 1.2. His creatinine was 1.3 on admission and is up to 1.5 today. He is currently maintained on Lasix drip running at 15 mL an hour and is diuresing well. Weight is trending down. Still feels edematous mostly in his abdomen but improved. No vomiting or diarrhea. Oral intake is good. Patient does have systolic CHF with ejection fraction of 35%. Vital signs are stable. General: The patient appeared well nourished and normally developed. HEENT: Head exam is unremarkable. Neck is without jugular venous distension. LUNGS: Lungs are clear to auscultation and percussion. Breath sounds decreased. HEART: Rate and Rhythm are regular. First and second heart sounds normal. No murmurs, rubs or gallops. ABDOMEN: Abdominal exam reveals normal bowel sounds. Mildly distended. No evidence of peritonitis. EXTREMITITES: Trace edema. Objective - Vital Signs Vital signs: Vital Signs Temp 96.7 F L 08/18/16 08:44 Pulse 93 08/18/16 08:44 Resp 16 08/18/16 08:44 BP 120/66 08/18/16 08:44 Pulse Ox 92 L 08/18/16 08:44 Intake & Output 08/17/16 08/18/16 08/18/16 18:59 06:59 18:59 Intake Total 590.500 465.5 Output Total 4275 6140 Balance -3684.500 -5674.5 Weight 101.3 kg Intake: IV 250 0.9 100 Furosemide 250 mg In 150 Sodium Chloride 0.9% 225 ml @ 15 MG/HR 15 mls/hr IVP .[id number] [facility] Rx#: [id number] Intake, IV Titration 230.500 215.5 Amount Furosemide 250 mg In 230.500 215.5 Sodium Chloride 0.9% 225 ml @ 15 MG/HR 15 mls/hr IVP .[id number] [facility] Rx#: [id number] Oral 360 Output: Drainage 325 Medial Abdomen 325 Urine 3950 6140 Stool 0 0 Other: Voiding Method Urinal Urinal # Voids 3 1 # Bowel Movements 0 - Labs CBC & Chem 7: 08/18/16 05:51 08/18/16 05:51 Labs: Abnormal Lab Results - Last 24 Hours (Table) 08/17/16 08/17/16 08/18/16 Range/Units 03:51 20:39 05:32 RDW (11.5-15.5) % Lymphocytes # (1.0-4.8) k/uL PT (9.0-12.0) sec BUN (9-20) mg/dL Creatinine (0.66-1.25) mg/dL Glucose (74-99) mg/dL POC Glucose (mg/dL) 151 H 132 H (75-99) mg/dL Hemoglobin A1c 8.3 H (4.2-6.1) % Total Bilirubin (0.2-1.3) mg/dL ALT (21-72) U/L Alkaline Phosphatase (38-126) U/L 08/18/16 08/18/16 08/18/16 Range/Units 05:51 05:51 05:51 RDW 18.0 H (11.5-15.5) % Lymphocytes # 0.9 L (1.0-4.8) k/uL PT 19.5 H (9.0-12.0) sec BUN 31 H (9-20) mg/dL Creatinine 1.50 H (0.66-1.25) mg/dL Glucose 123 H (74-99) mg/dL POC Glucose (mg/dL) (75-99) mg/dL Hemoglobin A1c (4.2-6.1) % Total Bilirubin 1.5 H (0.2-1.3) mg/dL ALT 126 H (21-72) U/L Alkaline Phosphatase 201 H (38-126) U/L Assessment and Plan Plan: Assessment: #1. Mild acute kidney injury secondary to cardiorenal syndrome. Recent urinalysis noted to be benign. Creatinine 1.5 today. #2. Chronic kidney disease stage III secondary to cardiorenal syndrome with baseline creatinine near 1.2. #3. Volume overload. Improving. #4. Systolic CHF with ejection fraction of 35%. Plan: Discontinue Lasix drip. Start IV Lasix 60 mg 3 times daily. Continue metolazone 5 mg once a day. Maintain low salt diet and 1.5 L fluid restriction. Daily weights. Strict I's and os. Repeat electrolytes in the morning.
[2016-08-18] MEDS: FUROSEMIDE 10 MG/ML 10 ML VIAL IV SCH ×3 (10:15→23:36)
--- NOTE | 2016-08-18 10:35 | P.CN ---
Psychiatric Consult - . Consult:: PSYCHIATRIC CONSULTATION DATE OF CONSULTATION: 08/18/2016 PURPOSE FOR CONSULTATION: Evaluate for confusion and disorganized behavior INTERVAL HISTORY: I reviewed the medical record, reviewed the patient's status with the evening nurse last evening and with the nurse today, and reviewed his care with Dr. Glover and Ms. Schmitt LOADING UNIT OPERATOR SEATING. It is noted that last evening the patient was able to discuss with his nurse the problems he was having the night before. He said he was aware that he was giving "antsy" and that he had some confusion. Today he was able to say that 2 nights ago his memory is spotty for the events and that he recalled bits and pieces. He says that sometimes he is aware that he is going to "blow up" and feels like he has to loosen his clothing in order to relax. He couldn't say more about what happened 2 nights ago. He apparently did not have any difficulties last evening. He is doing fairly well today. His thoughts are clear. He says that he wants to be sure things are stable for him medically so that he doesn't go home and then feel he needs to turn around and come back to the hospital. At this point I would not initiate any psychotropic medications. Nursing may call me if he does have any difficulties as he had 2 nights ago. Some of the issues that that time may have related to hypoglycemia. I advised the patient that when he gets home he should get on a walking program where he takes something like a 10 minute walk outdoors every hour. We discussed the benefits of this in regards to not only his physical function but also for his mental health as well. 08/18/16 10:26
[2016-08-18 11:39] LABS: Glucose,Whole Blood 163 mg/dL (75-99)
[2016-08-18] MEDS: MAGNESIUM OXIDE 400 MG TAB PO SCH (12:03)
[2016-08-18] MEDS: CHOLECALCIFEROL 1,000 UNIT TAB PO SCH (12:04)
--- NOTE | 2016-08-18 13:09 | P.PN ---
Subjective Acute systolic CHF exacerbation Patient presented with shortness of breath. His shortness of breath but showing improvement. Also had a discharge from an umbilical surgical wound in which surgical service is following. There is some serosanguineous drainage noted in the bag. Creatinine has increased to 1.50 and nephrology has discontinue the Lasix drip and his place patient on Lasix 60 mg IV 3 times a day. He has had no further episodes of hypoglycemia blood sugar this morning was 123. Patient denies any chest pain. Denies any nausea or vomiting. Reports having bowel movements. Denies any burning with urination. Reports ambulating in the hallway with some shortness of breath Objective - Vital Signs Vital signs: Vital Signs Temp 96.7 F L 08/18/16 08:44 Pulse 90 08/18/16 12:10 Resp 16 08/18/16 12:10 BP 108/54 08/18/16 12:10 Pulse Ox 95 08/18/16 12:10 Intake & Output 08/17/16 08/18/16 08/18/16 18:59 06:59 18:59 Intake Total 590.500 465.5 240 Output Total 4275 6140 1800 Balance -3684.500 -5674.5 -1560 Weight 101.3 kg Intake: IV 250 0.9 100 Furosemide 250 mg In 150 Sodium Chloride 0.9% 225 ml @ 15 MG/HR 15 mls/hr IVP .[id number] [facility] Rx#: [id number] Intake, IV Titration 230.500 215.5 Amount Furosemide 250 mg In 230.500 215.5 Sodium Chloride 0.9% 225 ml @ 15 MG/HR 15 mls/hr IVP .[id number] [facility] Rx#: [id number] Oral 360 240 Output: Drainage 325 Medial Abdomen 325 Urine 3950 6140 1800 Stool 0 0 0 Other: Voiding Method Urinal Urinal Urinal # Voids 3 1 # Bowel Movements 0 - Exam Head normocephalic Neck supple Lungs diminished with a few crackles at bases Heart regular rate and rhythm S1-S2, no rub or gallop Abdomen is soft nontender nondistended positive bowel sounds no hepatosplenomegaly. Drainage from umbilical's incision site with serosanguineous drainage Extremities no edema Neuro alert and orientated to 3 - Labs CBC & Chem 7: 08/18/16 05:51 08/18/16 05:51 Labs: Abnormal Lab Results - Last 24 Hours (Table) 08/17/16 08/18/16 08/18/16 Range/Units 20:39 05:32 05:51 RDW 18.0 H (11.5-15.5) % Lymphocytes # 0.9 L (1.0-4.8) k/uL PT (9.0-12.0) sec BUN (9-20) mg/dL Creatinine (0.66-1.25) mg/dL Glucose (74-99) mg/dL POC Glucose (mg/dL) 151 H 132 H (75-99) mg/dL Total Bilirubin (0.2-1.3) mg/dL ALT (21-72) U/L Alkaline Phosphatase (38-126) U/L 08/18/16 08/18/16 08/18/16 Range/Units 05:51 05:51 11:38 RDW (11.5-15.5) % Lymphocytes # (1.0-4.8) k/uL PT 19.5 H (9.0-12.0) sec BUN 31 H (9-20) mg/dL Creatinine 1.50 H (0.66-1.25) mg/dL Glucose 123 H (74-99) mg/dL POC Glucose (mg/dL) 163 H (75-99) mg/dL Total Bilirubin 1.5 H (0.2-1.3) mg/dL ALT 126 H (21-72) U/L Alkaline Phosphatase 201 H (38-126) U/L Assessment and Plan Plan: #1 acute systolic congestive heart failure exacerbation . Nephrology has discontinue Lasix drip and place patient on Lasix 60 mg IV 3 times a day. Continue Zaroxolyn daily. #2 underlying history of cardiomyopathy last ejection fraction 35% about 2 weeks ago #3 recent laparoscopic cholecystectomy 1 week prior to this admission, currently patient is having leak from his umbilical surgical wound, Dr. Hernandez following #4 paroxysmal atrial fibrillation maintained on Coumadin, INR today 2.0 maintained on Coumadin 3 mg daily continue #5 diabetes mellitus type 2 with poor control currently maintained on Levemir 45 mg subcu twice daily and Humalog 10 units before each meal Will monitor glucose level and adjust regimen as needed. Patient is having episodes of hypoglycemia, he states his appetite is much less than what he used to be at home, at this time will decrease Levemir to 40 units twice a day, canceled NovoLog 10 units before each meal and use only a sliding scale before meals. No further episodes of hypoglycemia with adjustment of insulin. Hemoglobin A1c 8.3 #6 acute kidney injury secondary to cardiorenal syndrome. Creatinine is 1.5 today nephrology adjusting the Lasix #7 chronic kidney disease stage III secondary to cardiorenal syndrome, baseline creatinine 1.2 I performed an examination of the patient and discussed their management with the physician [facility] Representative. I have reviewed the Physician [facility] Representative's notes and agree with the documented findings and plan of care
--- NOTE | 2016-08-18 14:48 | P.PN ---
Subjective patient is feeling much better. He has been diuresed fairly well he denies any orthopnea or PND patient is walking in the hallway Objective - Vital Signs Vital signs: Vital Signs Temp 96.7 F L 08/18/16 08:44 Pulse 90 08/18/16 12:10 Resp 16 08/18/16 12:10 BP 108/54 08/18/16 12:10 Pulse Ox 95 08/18/16 12:10 Intake & Output 08/17/16 08/18/16 08/18/16 18:59 06:59 18:59 Intake Total 590.500 465.5 720 Output Total 4275 6140 1800 Balance -3684.500 -5674.5 -1080 Weight 101.3 kg Intake: IV 250 0.9 100 Furosemide 250 mg In 150 Sodium Chloride 0.9% 225 ml @ 15 MG/HR 15 mls/hr IVP .[id number] [facility] Rx#: [id number] Intake, IV Titration 230.500 215.5 Amount Furosemide 250 mg In 230.500 215.5 Sodium Chloride 0.9% 225 ml @ 15 MG/HR 15 mls/hr IVP .[id number] [facility] Rx#: [id number] Oral 360 720 Output: Drainage 325 Medial Abdomen 325 Urine 3950 6140 1800 Stool 0 0 0 Other: Voiding Method Urinal Urinal Urinal # Voids 3 1 # Bowel Movements 0 - Exam vital signs and laboratory tests are reviewed. First and second heart sounds are normal. Lungs are clinically clear to auscultation and percuss and Abdomen is less distended. Extremities no leg edema. - Labs CBC & Chem 7: 08/18/16 05:51 08/18/16 05:51 Labs: Abnormal Lab Results - Last 24 Hours (Table) 08/17/16 08/18/16 08/18/16 Range/Units 20:39 05:32 05:51 RDW 18.0 H (11.5-15.5) % Lymphocytes # 0.9 L (1.0-4.8) k/uL PT (9.0-12.0) sec BUN (9-20) mg/dL Creatinine (0.66-1.25) mg/dL Glucose (74-99) mg/dL POC Glucose (mg/dL) 151 H 132 H (75-99) mg/dL Total Bilirubin (0.2-1.3) mg/dL ALT (21-72) U/L Alkaline Phosphatase (38-126) U/L 08/18/16 08/18/16 08/18/16 Range/Units 05:51 05:51 11:38 RDW (11.5-15.5) % Lymphocytes # (1.0-4.8) k/uL PT 19.5 H (9.0-12.0) sec BUN 31 H (9-20) mg/dL Creatinine 1.50 H (0.66-1.25) mg/dL Glucose 123 H (74-99) mg/dL POC Glucose (mg/dL) 163 H (75-99) mg/dL Total Bilirubin 1.5 H (0.2-1.3) mg/dL ALT 126 H (21-72) U/L Alkaline Phosphatase 201 H (38-126) U/L Assessment and Plan Plan: patient's congestive heart failure is improving. Patient can be switched to the by mouth Lasix from tomorrow.
[2016-08-18 16:36] LABS: Glucose,Whole Blood 125 mg/dL (75-99)
[2016-08-18] MEDS: WARFARIN 3 MG TAB PO SCH (17:15)
--- NOTE | 2016-08-18 20:20 | P.PN ---
Subjective Principal diagnosis: Cholecystitis Patient doing well today. His breathing is improved. His lower extremity and abdominal wall swelling is improved. The serous drainage from his umbilical incision site is decreased significantly. Objective - Vital Signs Vital signs: Vital Signs Temp 97.9 F 08/18/16 17:14 Pulse 77 08/18/16 17:14 Resp 18 08/18/16 17:14 BP 133/70 08/18/16 17:14 Pulse Ox 92 L 08/18/16 17:14 Intake & Output 08/18/16 08/18/16 08/19/16 06:59 18:59 06:59 Intake Total 465.5 960 Output Total 6140 2300 2800 Balance -5674.5 -1340 -2800 Weight 101.3 kg Intake: IV 250 0.9 100 Furosemide 250 mg In 150 Sodium Chloride 0.9% 225 ml @ 15 MG/HR 15 mls/hr IVP .[id number] [facility] Rx#: [id number] Intake, IV Titration 215.5 Amount Furosemide 250 mg In 215.5 Sodium Chloride 0.9% 225 ml @ 15 MG/HR 15 mls/hr IVP .[id number] [facility] Rx#: [id number] Oral 960 Output: Urine 6140 2300 2800 Stool 0 0 Other: Voiding Method Urinal Urinal # Voids 1 - Exam Abdomen: Soft, nondistended, incisions with scant drainage - Labs CBC & Chem 7: 08/18/16 05:51 08/18/16 05:51 Labs: Abnormal Lab Results - Last 24 Hours (Table) 08/17/16 08/18/16 08/18/16 Range/Units 20:39 05:32 05:51 RDW 18.0 H (11.5-15.5) % Lymphocytes # 0.9 L (1.0-4.8) k/uL PT (9.0-12.0) sec BUN (9-20) mg/dL Creatinine (0.66-1.25) mg/dL Glucose (74-99) mg/dL POC Glucose (mg/dL) 151 H 132 H (75-99) mg/dL Total Bilirubin (0.2-1.3) mg/dL ALT (21-72) U/L Alkaline Phosphatase (38-126) U/L 08/18/16 08/18/16 08/18/16 Range/Units 05:51 05:51 11:38 RDW (11.5-15.5) % Lymphocytes # (1.0-4.8) k/uL PT 19.5 H (9.0-12.0) sec BUN 31 H (9-20) mg/dL Creatinine 1.50 H (0.66-1.25) mg/dL Glucose 123 H (74-99) mg/dL POC Glucose (mg/dL) 163 H (75-99) mg/dL Total Bilirubin 1.5 H (0.2-1.3) mg/dL ALT 126 H (21-72) U/L Alkaline Phosphatase 201 H (38-126) U/L 08/18/16 Range/Units 16:34 RDW (11.5-15.5) % Lymphocytes # (1.0-4.8) k/uL PT (9.0-12.0) sec BUN (9-20) mg/dL Creatinine (0.66-1.25) mg/dL Glucose (74-99) mg/dL POC Glucose (mg/dL) 125 H (75-99) mg/dL Total Bilirubin (0.2-1.3) mg/dL ALT (21-72) U/L Alkaline Phosphatase (38-126) U/L Assessment and Plan (1) Acute cholecystitis Narrative/Plan: Continue treatment of overload. We'll remove the patient's dressing tomorrow. Status: Acute
[2016-08-18 20:48] LABS: Glucose,Whole Blood 187 mg/dL (75-99)
[2016-08-19 00:28] VITALS: TEMP 98.1
[2016-08-19 06:01] LABS: Glucose,Whole Blood 99 mg/dL (75-99)
[2016-08-19] MEDS: INSULIN LISPRO (humaLOG) 300 UNIT/3 ML VIAL SQ SCH ×2 (06:15→13:04)
[2016-08-19 06:16] LABS: Anisocytosis Slight; Basophils # (A) 0.1 k/uL (0-0.2); Basophils % (A) 1 %; CH 27.4; CHCM 32.2; Eosinophils # (A) 0.4 k/uL (0-0.7); Eosinophils % (A) 5 %; HCT 41.6 % (39.0-53.0); HDW 4.07; HGB 13.5 gm/dL (13.0-17.5); Hypochromasia Moderate; Luc % (Auto) 4; Lymphocytes # (A) 1.4 k/uL (1.0-4.8); Lymphocytes % (A) 16 %; MCH 27.8 pg (25.0-35.0); MCHC 32.4 g/dL (31.0-37.0); MCV 85.8 fL (80.0-100.0); Mean Platelet Volume 6.8; Monocytes # (A) 0.5 k/uL (0-1.0); Monocytes % (A) 6 %; Neutrophils # (A) 5.9 k/uL (1.3-7.7); Neutrophils % (A) 70 %; Poikilocytosis Moderate; RBC 4.85 m/uL (4.30-5.90); RDW 17.9 % (11.5-15.5); WBC 8.5 k/uL (3.8-10.6); WBC (Perox) 8.74
[2016-08-19] MEDS: PANTOPRAZOLE 40 MG TABLET PO SCH (06:17)
[2016-08-19] MEDS: CARVEDILOL 6.25 MG TAB PO SCH (06:17)
[2016-08-19] MEDS: MIDODRINE 5 MG TAB PO SCH ×2 (06:17→12:44)
[2016-08-19 06:22] LABS: Prothrombin Time 19.7 sec (9.0-12.0)
[2016-08-19 06:34] LABS: Calcium 9.6 mg/dL (8.4-10.2); Phosphorous 3.8 mg/dL (2.5-4.5); Potassium 3.4 mmol/L (3.5-5.1); Total Bilirubin 1.6 mg/dL (0.2-1.3); Total Protein 7.1 g/dL (6.3-8.2)
[2016-08-19] MEDS ORDERED: POTASSIUM CHLORIDE ER 20 MEQ TAB.ER PO STA (07:26)
--- NOTE | 2016-08-19 07:54 | P.PN ---
Subjective Patient is seen in follow-up for acute kidney injury on chronic kidney disease. Patient has chronic kidney disease stage III secondary to cardiorenal syndrome with baseline creatinine near 1.2. His creatinine was 1.3 on admission and is up to 1.69 today. He was maintained on Lasix drip and was transitioned over to IV push Lasix yesterday. Weight is trending down. Edema is improved. No vomiting or diarrhea. Oral intake is good. Patient does have systolic CHF with ejection fraction of 35%. Vital signs are stable. General: The patient appeared well nourished and normally developed. HEENT: Head exam is unremarkable. Neck is without jugular venous distension. LUNGS: Lungs are clear to auscultation and percussion. Breath sounds decreased. HEART: Rate and Rhythm are regular. First and second heart sounds normal. No murmurs, rubs or gallops. ABDOMEN: Abdominal exam reveals normal bowel sounds. Mildly distended. No evidence of peritonitis. EXTREMITITES: Trace edema. Objective - Vital Signs Vital signs: Vital Signs Temp 98.1 F 08/19/16 00:00 Pulse 96 08/19/16 04:00 Resp 18 08/19/16 04:00 BP 123/76 08/19/16 04:00 Pulse Ox 92 L 08/19/16 04:00 Intake & Output 08/18/16 08/19/16 08/19/16 18:59 06:59 18:59 Intake Total 960 10 Output Total 2300 4090 Balance -1340 -4080 Weight 101.1 kg Intake: IV 10 0.9 10 Oral 960 Output: Urine 2300 4090 Stool 0 Other: Voiding Method Urinal Toilet Urinal # Voids 1 - Labs CBC & Chem 7: 08/19/16 05:55 08/19/16 05:55 Labs: Abnormal Lab Results - Last 24 Hours (Table) 08/18/16 08/18/16 08/18/16 Range/Units 11:38 16:34 20:40 RDW (11.5-15.5) % PT (9.0-12.0) sec Potassium (3.5-5.1) mmol/L Chloride (98-107) mmol/L Carbon Dioxide (22-30) mmol/L BUN (9-20) mg/dL Creatinine (0.66-1.25) mg/dL Glucose (74-99) mg/dL POC Glucose (mg/dL) 163 H 125 H 187 H (75-99) mg/dL Total Bilirubin (0.2-1.3) mg/dL ALT (21-72) U/L Alkaline Phosphatase (38-126) U/L 08/19/16 08/19/16 08/19/16 Range/Units 05:55 05:55 05:55 RDW 17.9 H (11.5-15.5) % PT 19.7 H (9.0-12.0) sec Potassium 3.4 L (3.5-5.1) mmol/L Chloride 95 L (98-107) mmol/L Carbon Dioxide 32 H (22-30) mmol/L BUN 32 H (9-20) mg/dL Creatinine 1.69 H (0.66-1.25) mg/dL Glucose 100 H (74-99) mg/dL POC Glucose (mg/dL) (75-99) mg/dL Total Bilirubin 1.6 H (0.2-1.3) mg/dL ALT 101 H (21-72) U/L Alkaline Phosphatase 179 H (38-126) U/L Assessment and Plan Plan: Assessment: #1. Nonoliguric acute kidney injury secondary to cardiorenal syndrome. Recent urinalysis noted to be benign. Creatinine 1.69 today. #2. Chronic kidney disease stage III secondary to cardiorenal syndrome with baseline creatinine near 1.2. #3. Volume overload. Improving. #4. Systolic CHF with ejection fraction of 35%. #5. Hypokalemia secondary to diuresis. Magnesium normal. Plan: Discontinue Lasix drip. I will change Lasix to 60 mg orally twice daily. Continue metolazone 5 mg once a day. Maintain low salt diet and 1.5 L fluid restriction. Daily weights. I advised him to weigh himself daily. If notices worsening of edema or more than 2-3 pound of weight gain, then he is to increase the dose of Lasix to 3 times daily. He was also advised to follow a low-salt and a 50 oz fluid restricted diet. He will need to follow-up as an outpatient in the next 2 weeks.
[2016-08-19 08:18] LABS: Glucose,Whole Blood 169 mg/dL (75-99)
[2016-08-19] MEDS: INSULIN DETEMIR 100 UNIT/ML 10 ML VIAL SQ SCH (08:24)
[2016-08-19] MEDS: ASPIRIN 81 MG CHEW PO SCH (08:25)
[2016-08-19] MEDS: LISINOPRIL 5 MG TAB PO SCH (08:26)
[2016-08-19] MEDS: METOLAZONE 5 MG TAB PO SCH (08:26)
[2016-08-19] MEDS: SPIRONOLACTONE 25 MG TAB PO SCH (08:27)
[2016-08-19] MEDS ORDERED: FUROSEMIDE 20 MG TAB PO SCH (09:00)
[2016-08-19] MEDS: SYMBICORT 160-4.5 MCG INHALER INHALATION SCH (09:10)
[2016-08-19 12:00] LABS: Glucose,Whole Blood 216 mg/dL (75-99)
[2016-08-19] MEDS: CHOLECALCIFEROL 1,000 UNIT TAB PO SCH (12:44)
[2016-08-19] MEDS: MAGNESIUM OXIDE 400 MG TAB PO SCH (12:44)
[2016-08-19 12:48] VITALS: BP 138/64; PULSE 98; RESP 16
--- NOTE | 2016-08-19 14:08 | P.DS ---
Providers Date of admission: 08/14/16 20:21 Expected date of discharge: 08/19/16 Attending physician: Thomas Coy Consults: 08/14/16 20:19 Consult Physician Routine Consulting Provider: Jesus Hernandez Consult Reason/Comments: post operative care Do you want consulting provider notified?: Yes Consult Physician Routine Consulting Provider: Tyrel rFitz Consult Reason/Comments: chf Do you want consulting provider notified?: Yes 08/15/16 10:49 Consult Physician Routine Consulting Provider: Eleuterio Pathak Consult Reason/Comments: MAGGIE on CKD Do you want consulting provider notified?: Yes 08/17/16 14:58 Consult Physician Urgent Consulting Provider: Александр Zazueta Consult Reason/Comments: mental st changes Do you want consulting provider notified?: Already Contacted Primary care physician: Anu Velasquez Hospital Course: Discharge diagnosis #1 acute systolic congestive heart failure exacerbation . #2 underlying history of cardiomyopathy last ejection fraction 35% about 2 weeks ago #3 recent laparoscopic cholecystectomy 1 week prior to this admission, currently patient is having leak from his umbilical surgical wound, Dr. Hernandez following #4 paroxysmal atrial fibrillation maintained on Coumadin, INR today 2.0 maintained on Coumadin 3 mg daily continue #5 diabetes mellitus type 2 with poor control currently maintained on Levemir 45 mg subcu twice daily and Humalog 10 units before each meal Will monitor glucose level and adjust regimen as needed. Patient is having episodes of hypoglycemia, he states his appetite is much less than what he used to be at home, at this time will decrease Levemir to 40 units twice a day, canceled NovoLog 10 units before each meal . No further episodes of hypoglycemia with adjustment of insulin. Hemoglobin A1c 8.3 #6 acute kidney injury secondary to cardiorenal syndrome. Creatinine is 1.5 today nephrology adjusting the Lasix #7 chronic kidney disease stage III secondary to cardiorenal syndrome, baseline creatinine 1.2 Hospital course This is a 71-year-old male who presented with worsening shortness of breath. He is found to have an acute CHF exacerbation. Patient had elevated BNP and chest x-ray showed evidence of fluid overload. He was initially started on IV Lasix. He had be switched over to an IV Lasix drip. Cardiology and nephrology were consulted. Patient did have some worsening in kidney function due to cardiorenal syndrome. Patient also was seen by surgical service in regards to the umbilical surgical wound week. Colostomy bag was placed over that site and there was serous fluid draining. He was evaluated by surgical service. At this time the bag has been removed. And gauze has been placed. Continue to monitor will have patient follow-up with Dr. Stout outpatient. Patient was followed closely by nephrology and cardiology. Patient's shortness of breath did show improvement. And they adjusted the Lasix. He was switched over to IV Lasix and then this was able to be tapered as well. He was switched over to oral Lasix today at 60 mg twice a day. And during this admission both Aldactone , lisinopril, and Zaroxolyn were added to his regimen of medications for her CHF. Patient has tolerated these well. And he is stable for discharge. During this admission he had to have his blood pressure medications adjusted due to episodes of hypoglycemia. Therefore we will continue with the Levemir 40 units twice a day. The NovoLog scheduled with meals have been discontinued. Patient does need to follow a strict diet to help prevent his CHF as well as the fluctuating in his blood sugars. Patient has been educated to follow a low sodium and 50 ounce fluid restriction diet as well as a diabetic diet. Patient will be following up with nephrology in 2 weeks. He'll follow-up with cardiology and surgical service in 1 week. He is to follow up with his PCP Dr. Velasquez in about 3 days to evaluate his blood sugars. Creatinine at discharge is 1.69. Patient is medically stable for discharge please refer to chart for any further details Patient Condition at Discharge: Stable Plan - Discharge Summary New Discharge Prescriptions: New Furosemide [Lasix] 60 mg PO BID@0900,1600 #60 tab Insulin Detemir [Levemir] 40 unit SQ BID #1 vial Lisinopril [Zestril] 5 mg PO DAILY #30 tab Metolazone [Zaroxolyn] 5 mg PO DAILY #30 tab Spironolactone [Aldactone] 25 mg PO BID #60 tab Continue Nitroglycerin Sl Tabs [Nitrostat] 0.4 mg SUBLINGUAL Q5M PRN PRN Reason: Chest Pain Magnesium Oxide [Mag-Ox] 250 mg PO DAILY Cholecalciferol [Vitamin D3] 5,000 unit PO DAILY Pantoprazole Sodium [Protonix] 40 mg PO DAILY Multivitamins, Thera [Multivitamin (formulary)] 1 tab PO DAILY Budesonide-Formot 160-4.5 Mcg [Symbicort 160-4.5 Mcg Inhaler] 1 puff INHALATION RT-BID #60 puff Carvedilol [Coreg] 6.25 mg PO BID-W/MEALS #60 tab Isosorbide Mononitrate ER [Imdur] 15 mg PO DAILY #30 dose Midodrine [ProAmatine] 10 mg PO AC-TID #90 tab Warfarin Sodium [Coumadin] 3 mg PO DAILY #30 tab Insulin Detemir [Levemir] 45 unit SQ BID #0 Potassium Chloride ER [K-Dur 20] 20 meq PO DAILY #0 Aspirin EC [Ecotrin Low Dose] 81 mg PO DAILY Discontinued glipiZIDE [Glucotrol] 5 mg PO AC-BID #60 tab Insulin Aspart [NovoLOG Flexpen] See Protocol SQ AC-TID Furosemide [Lasix] 40 mg PO BID@0900,1600 #60 tab INSULIN LISPRO (humaLOG) [humaLOG (formulary)] 15 unit SQ AC-TID #3 vial Discharge Medication List Cholecalciferol [Vitamin D3] 5,000 unit PO DAILY 01/21/16 [History] Magnesium Oxide [Mag-Ox] 250 mg PO DAILY 01/21/16 [History] Nitroglycerin Sl Tabs [Nitrostat] 0.4 mg SUBLINGUAL Q5M PRN 01/21/16 [History] Pantoprazole Sodium [Protonix] 40 mg PO DAILY 01/21/16 [History] Multivitamins, Thera [Multivitamin (formulary)] 1 tab PO DAILY 07/13/16 [History ] Budesonide-Formot 160-4.5 Mcg [Symbicort 160-4.5 Mcg Inhaler] 1 puff INHALATION RT-BID #60 puff 08/12/16 [Rx] Carvedilol [Coreg] 6.25 mg PO BID-W/MEALS #60 tab 08/12/16 [Rx] Insulin Detemir [Levemir] 45 unit SQ BID #0 08/12/16 [Rx] Isosorbide Mononitrate ER [Imdur] 15 mg PO DAILY #30 dose 08/12/16 [Rx] Midodrine [ProAmatine] 10 mg PO AC-TID #90 tab 08/12/16 [Rx] Potassium Chloride ER [K-Dur 20] 20 meq PO DAILY #0 08/12/16 [Rx] Warfarin Sodium [Coumadin] 3 mg PO DAILY #30 tab 08/12/16 [Rx] Aspirin EC [Ecotrin Low Dose] 81 mg PO DAILY 08/14/16 [History] Furosemide [Lasix] 60 mg PO BID@0900,1600 #60 tab 08/19/16 [Rx] Insulin Detemir [Levemir] 40 unit SQ BID #1 vial 08/19/16 [Rx] Lisinopril [Zestril] 5 mg PO DAILY #30 tab 08/19/16 [Rx] Metolazone [Zaroxolyn] 5 mg PO DAILY #30 tab 08/19/16 [Rx] Spironolactone [Aldactone] 25 mg PO BID #60 tab 08/19/16 [Rx] Follow up Appointment(s)/Referral(s): Anu Velasquez MD [Primary Care Provider] - 3 Days Eleuterio Pathak DO [STAFF PHYSICIAN] - 3 Weeks Jesus Hernandez MD [Medical Doctor] - 1 Week Larry Perez MD [STAFF PHYSICIAN] - 1 Week Activity/Diet/Wound Care/Special Instructions: Diet: cardiac, diabetic, low salt, 50 oz fluid restriction Activity: as tolerated check daily weights at home. If you notice worsening edema or more than 2-3 pounds of weight gain then increase the dose of Lasix to 3 times a day Discharge Disposition: HOME WITH HOME HEALTH SERVICES
--- NOTE | 2016-08-19 16:02 | P.PN ---
Subjective Patient is feeling much better denies any shortness of breath or abdominal swelling and has been changed the by mouth Lasfelice is going to be discharged home today. Objective - Vital Signs Vital signs: Vital Signs Temp 98.1 F 08/19/16 08:17 Pulse 98 08/19/16 11:20 Resp 16 08/19/16 11:20 BP 138/64 08/19/16 11:20 Pulse Ox 93 L 08/19/16 11:20 Intake & Output 08/18/16 08/19/16 08/19/16 18:59 06:59 18:59 Intake Total 960 10 240 Output Total 2300 4090 1800 Balance -1340 -4080 -1560 Weight 101.1 kg Intake: IV 10 0.9 10 Oral 960 240 Output: Urine 2300 4090 1800 Stool 0 0 Other: Voiding Method Urinal Toilet Toilet Urinal Urinal # Voids 1 - Exam Vital signs are reviewed. Heart first and second heart sounds are normal Lungs clinically clear to auscultation and percussion. - Labs CBC & Chem 7: 08/19/16 05:55 08/19/16 05:55 Labs: Abnormal Lab Results - Last 24 Hours (Table) 08/18/16 08/18/16 08/19/16 Range/Units 16:34 20:40 05:55 RDW 17.9 H (11.5-15.5) % PT (9.0-12.0) sec Potassium (3.5-5.1) mmol/L Chloride (98-107) mmol/L Carbon Dioxide (22-30) mmol/L BUN (9-20) mg/dL Creatinine (0.66-1.25) mg/dL Glucose (74-99) mg/dL POC Glucose (mg/dL) 125 H 187 H (75-99) mg/dL Total Bilirubin (0.2-1.3) mg/dL ALT (21-72) U/L Alkaline Phosphatase (38-126) U/L 08/19/16 08/19/16 08/19/16 Range/Units 05:55 05:55 08:13 RDW (11.5-15.5) % PT 19.7 H (9.0-12.0) sec Potassium 3.4 L (3.5-5.1) mmol/L Chloride 95 L (98-107) mmol/L Carbon Dioxide 32 H (22-30) mmol/L BUN 32 H (9-20) mg/dL Creatinine 1.69 H (0.66-1.25) mg/dL Glucose 100 H (74-99) mg/dL POC Glucose (mg/dL) 169 H (75-99) mg/dL Total Bilirubin 1.6 H (0.2-1.3) mg/dL ALT 101 H (21-72) U/L Alkaline Phosphatase 179 H (38-126) U/L 08/19/16 Range/Units 11:59 RDW (11.5-15.5) % PT (9.0-12.0) sec Potassium (3.5-5.1) mmol/L Chloride (98-107) mmol/L Carbon Dioxide (22-30) mmol/L BUN (9-20) mg/dL Creatinine (0.66-1.25) mg/dL Glucose (74-99) mg/dL POC Glucose (mg/dL) 216 H (75-99) mg/dL Total Bilirubin (0.2-1.3) mg/dL ALT (21-72) U/L Alkaline Phosphatase (38-126) U/L Assessment and Plan Plan: Congestive heart failure improved patient currently is a euvolemic and is going to be discharged home today we will follow BMP as outpatient.
--- NOTE | 2016-08-20 08:14 | PN ---
This patient is admitted with congestive cardiac failure. He is feeling better. He has been diuresing fairly well and has lost 2 kg since yesterday. Patient had some problem with agitations during the night. First and second heart sounds are normal. Lungs are fairly clear to auscultation and percussion. Abdomen remains distended. There is 1+ pedal edema. Patient's creatinine is 1.30. We will continue the current medications. MTDD
== END 2016-08-19 15:59 | disposition home health service (06) | DRG 291 ==
LOC: EC 18:23 → 6SEL 20:21
PROVIDERS: ADMIT Internal Medicine; ATTEND Internal Medicine
DX: I13.0 Hypertensive heart and chronic kidney disease with heart failure and stage 1 through stage 4 chronic kidney disease, or unspecified chronic kidney disease (principal); I50.23 Acute on chronic systolic (congestive) heart failure; N17.9 Acute kidney failure, unspecified; E11.649 Type 2 diabetes mellitus with hypoglycemia without coma; E11.22 Type 2 diabetes mellitus with diabetic chronic kidney disease; N18.3 Chronic kidney disease, stage 3 (moderate); I48.0 Paroxysmal atrial fibrillation; I25.5 Ischemic cardiomyopathy; T50.2X5A Adverse effect of carbonic-anhydrase inhibitors, benzothiadiazides and other diuretics, initial encounter; E87.6 Hypokalemia; R41.3 Other amnesia; E66.9 Obesity, unspecified; R41.0 Disorientation, unspecified; E11.65 Type 2 diabetes mellitus with hyperglycemia; I25.10 Atherosclerotic heart disease of native coronary artery without angina pectoris; R74.8 Abnormal levels of other serum enzymes; I49.3 Ventricular premature depolarization; I71.4 Abdominal aortic aneurysm, without rupture; N42.9 Disorder of prostate, unspecified; E78.5 Hyperlipidemia, unspecified; K21.9 Gastro-esophageal reflux disease without esophagitis; I25.2 Old myocardial infarction; Z96.653 Presence of artificial knee joint, bilateral; Z95.1 Presence of aortocoronary bypass graft; Z79.01 Long term (current) use of anticoagulants; Z95.810 Presence of automatic (implantable) cardiac defibrillator; Z79.51 Long term (current) use of inhaled steroids; Z79.4 Long term (current) use of insulin; Z87.891 Personal history of nicotine dependence; Z82.49 Family history of ischemic heart disease and other diseases of the circulatory system; Z80.1 Family history of malignant neoplasm of trachea, bronchus and lung; Z90.49 Acquired absence of other specified parts of digestive tract; Z79.899 Other long term (current) drug therapy; Z88.5 Allergy status to narcotic agent; Z98.890 Other specified postprocedural states; Z88.8 Allergy status to other drugs, medicaments and biological substances; Z86.19 Personal history of other infectious and parasitic diseases; Z71.3 Dietary counseling and surveillance; Z68.32 Body mass index [BMI] 32.0-32.9, adult
CPT/HCPCS: 36415; 71020; 74000; 74177; 80053; 81003; 82550; 82553; 83036; 83735; 83880; 84100; 84484; 85025; 85610; 85730; 93005; 94640; 96374; 99285

== ENCOUNTER 2016-09-08 07:24 | Inpatient (IN) | payer MEDICARE ==
[2016-09-08] MEDS ORDERED: SODIUM CHLORIDE 0.9% 1,000 ML IV STA (08:24)
[2016-09-08] MEDS ORDERED: NITROGLYCERIN SL TABS 0.4 MG TAB SUBLINGUAL PRN (08:30)
--- NOTE | 2016-09-08 08:30 | ED ---
General Adult HPI - General Chief complaint: Arrhythmia/Palpitations Stated complaint: cardiac problems Time Seen by Provider: 09/08/16 07:26 Source: patient, EMS, RN notes reviewed, old records reviewed Mode of arrival: EMS Limitations: no limitations - History of Present Illness Initial comments: This is a 71-year-old male sent in transfer for evaluation regarding elevated potassium. Patient's defibrillator went off yesterday which is causing him to present to the emergency room. At this time patient's eye chest pain or shortness of breath. Denies any recent different Gonzalez firing. Per transfer records patient was given treatment for elevated potassium. Patient denies taking potassium supplementation. - Related Data Home Medications Medication Instructions Recorded Confirmed Cholecalciferol [Vitamin D3] 5,000 unit PO DAILY 01/21/16 08/14/16 Magnesium Oxide [Mag-Ox] 250 mg PO DAILY 01/21/16 08/14/16 Nitroglycerin Sl Tabs [Nitrostat] 0.4 mg SUBLINGUAL Q5M PRN 01/21/16 08/14/16 Pantoprazole Sodium [Protonix] 40 mg PO DAILY 01/21/16 08/14/16 Multivitamins, Thera [Multivitamin 1 tab PO DAILY 07/13/16 08/14/16 (formulary)] Aspirin EC [Ecotrin Low Dose] 81 mg PO DAILY 08/14/16 08/14/16 Previous Rx's Medication Instructions Recorded Budesonide-Formot 160-4.5 Mcg 1 puff INHALATION RT-BID #60 puff 08/12/16 [Symbicort 160-4.5 Mcg Inhaler] Carvedilol [Coreg] 6.25 mg PO BID-W/MEALS #60 tab 08/12/16 Insulin Detemir [Levemir] 45 unit SQ BID #0 08/12/16 Isosorbide Mononitrate ER [Imdur] 15 mg PO DAILY #30 dose 08/12/16 Midodrine [ProAmatine] 10 mg PO AC-TID #90 tab 08/12/16 Potassium Chloride ER [K-Dur 20] 20 meq PO DAILY #0 08/12/16 Warfarin Sodium [Coumadin] 3 mg PO DAILY #30 tab 08/12/16 Furosemide [Lasix] 60 mg PO BID@0900,1600 #60 tab 08/19/16 Insulin Detemir [Levemir] 40 unit SQ BID #1 vial 08/19/16 Lisinopril [Zestril] 5 mg PO DAILY #30 tab 08/19/16 Metolazone [Zaroxolyn] 5 mg PO DAILY #30 tab 08/19/16 Spironolactone [Aldactone] 25 mg PO BID #60 tab 08/19/16 Allergies Allergy/AdvReac Type Severity Reaction Status Date / Time alprazolam [From Xanax] AdvReac Confusion Verified 09/08/16 07:37 morphine AdvReac Hallucinati Verified 09/08/16 07:37 ons zolpidem [From Ambien] AdvReac Confusion Verified 09/08/16 07:37 Review of Systems ROS Statement: Those systems with pertinent positive or pertinent negative responses have been documented in the HPI. ROS Other: All systems not noted in ROS Statement are negative. Past Medical History Past Medical History: Atrial Fibrillation, Coronary Artery Disease (CAD), Heart Failure, Diabetes Mellitus, GERD/Reflux, Hyperlipidemia, Hypertension, Myocardial Infarction ([place]), Prostate Disorder, Renal Disease Additional Past Medical History / Comment(s): AAA 4.3 CM. ASKED IF PT HAD CHF BEFORE PT/ STATED NO BUT HE HAD OPEN HEART., cellulitis/abcess rt groin post porcedure. Last Myocardial Infarction Date:: 04/18/15 History of Any Multi-Drug Resistant Organisms: None Reported Past Surgical History: Coronary Bypass/CABG, Heart Catheterization, Joint Replacement, Orthopedic Surgery Additional Past Surgical History / Comment(s): bilateral knee replacement, RT ROTATOR CUFF SX, STATED:" I THINK HIS OPEN HEART WAS 3 VESSELS".'dec 2015 had a procedure rt groin arterypt stated haresh faird it out" Past Anesthesia/Blood Transfusion Reactions: No Reported Reaction Additional Past Anesthesia/Blood Transfusion Reaction / Comment(s): CLAUSTERPHOBIA Past Psychological History: No Psychological Hx Reported Smoking Status: Former smoker Past Alcohol Use History: Rare Past Drug Use History: None Reported - Past Family History Father Family Medical History: Myocardial Infarction ([place]) Mother Family Medical History: Cancer Additional Family Medical History / Comment(s): LUNG CANCER General Exam Limitations: no limitations General appearance: alert, in no apparent distress Head exam: Present: atraumatic, normocephalic, normal inspection Eye exam: Present: normal appearance, PERRL, EOMI. Absent: scleral icterus, conjunctival injection, periorbital swelling ENT exam: Present: normal exam, mucous membranes moist Neck exam: Present: normal inspection. Absent: tenderness, meningismus, lymphadenopathy Respiratory exam: Present: normal lung sounds bilaterally. Absent: respiratory distress, wheezes, rales, rhonchi, stridor Cardiovascular Exam: Present: regular rate, normal rhythm, normal heart sounds. Absent: systolic murmur, diastolic murmur, rubs, gallop, clicks GI/Abdominal exam: Present: soft, normal bowel sounds. Absent: distended, tenderness, guarding, rebound, rigid Extremities exam: Present: normal inspection, full ROM, normal capillary refill. Absent: tenderness, pedal edema, joint swelling, calf tenderness Back exam: Present: normal inspection Neurological exam: Present: alert, oriented X3, CN II-XII intact Psychiatric exam: Present: normal affect, normal mood Skin exam: Present: warm, dry, intact, normal color. Absent: rash Course Vital Signs 09/08/16 07:28 Temperature 97.1 F L Pulse Rate 90 Respiratory 18 Rate Blood Pressure 140/76 O2 Sat by Pulse 96 Oximetry - Reevaluation(s) Reevaluation #1: 09/08/16 08:29 Rechecking patient's potassium in regards to her prior elevation of 8.2 EKG Findings - EKG Comments: EKG Findings:: EKG shows paced rhythm rate of 90, MT 154, QRS 150, QTC 479 Critical Care Time Critical Care Time: Yes Total Critical Care Time: 31 Disposition Clinical Impression: Hyperkalemia, Defibrillator discharge Disposition: ADMITTED IP TO THIS HOSP Condition: Serious Referrals: Anu Velasquez MD [Primary Care Provider] - 1-2 days
[2016-09-08 08:47] LABS: Anisocytosis Slight; Basophils # (A) 0.1 k/uL (0-0.2); Basophils % (A) 1 %; CH 28.6; CHCM 33.3; Eosinophils # (A) 0.4 k/uL (0-0.7); Eosinophils % (A) 5 %; HCT 42.4 % (39.0-53.0); HDW 3.47; HGB 14.1 gm/dL (13.0-17.5); Luc # (Auto) 0.25; Luc % (Auto) 3; Lymphocytes # (A) 1.2 k/uL (1.0-4.8); Lymphocytes % (A) 12 %; MCH 28.6 pg (25.0-35.0); MCHC 33.1 g/dL (31.0-37.0); MCV 86.2 fL (80.0-100.0); Mean Platelet Volume 8.4; Monocytes # (A) 0.6 k/uL (0-1.0); Monocytes % (A) 6 %; Neutrophils # (A) 7.1 k/uL (1.3-7.7); Neutrophils % (A) 74 %; Poikilocytosis Slight; RBC 4.92 m/uL (4.30-5.90); RDW 18.3 % (11.5-15.5); WBC 9.6 k/uL (3.8-10.6); WBC (Perox) 9.13
[2016-09-08 08:55] LABS: INR 2.6 (<1.2); Partial Thromboplastin Time 32.7 sec (22.0-30.0); Prothrombin Time 24.7 sec (9.0-12.0)
[2016-09-08 09:03] LABS: Calcium 10.4 mg/dL (8.4-10.2); Magnesium 1.6 mg/dL (1.6-2.3); Phosphorous 4.1 mg/dL (2.5-4.5); Total Bilirubin 1.1 mg/dL (0.2-1.3); Total Protein 8.3 g/dL (6.3-8.2)
[2016-09-08 09:09] LABS: Potassium 7.5 mmol/L (3.5-5.1)
[2016-09-08] MEDS ORDERED: CALCIUM CHLORIDE 100 MG/ML 10 ML SYRINGE IVP STA (09:11)
[2016-09-08] MEDS ORDERED: ALBUTEROL NEBULIZED 2.5 MG/3 ML INHALATION STA (09:11)
[2016-09-08] MEDS ORDERED: DEXTROSE 50%-WATER 50 ML SYRINGE IVP STA ×2 (09:11→18:57)
[2016-09-08] MEDS ORDERED: SODIUM POLYSTYRENE SULFONATE 15 GM/60 ML BOTTLE PO STA (09:11)
[2016-09-08] MEDS ORDERED: INSULIN REGULAR 100 UNIT/ML VIAL IV ONE ×2 (09:11→18:56)
[2016-09-08] MEDS ORDERED: FUROSEMIDE 10 MG/ML 4 ML VIAL IV STA (09:14)
[2016-09-08 09:25] LABS: Creatine Kinase MB 3.2 ng/mL (0.0-2.4); Troponin I 0.09 ng/mL (0.000-0.034)
[2016-09-08] MEDS ORDERED: CALCIUM GLUCONATE 1,000 MG in SODIUM CHLORIDE 0.9% 100 ML IVPB ONE (10:00)
[2016-09-08 10:31] LABS: Glucose,Whole Blood 252 mg/dL (75-99)
--- NOTE | 2016-09-08 10:53 | P.NPCON ---
History of Present Illness - Reason for Consult acute renal failure - History of Present Illness Reason for consultation: Acute kidney injury on chronic kidney disease History of present illness: Patient is a 71-year-old male seen in renal consultation for acute kidney injury on chronic kidney disease. Patient has chronic kidney disease stage III secondary to cardiorenal syndrome with baseline creatinine in the range of 1.3- 1.5. His creatinine today is elevated at 1.92. Patient does of systolic CHF with ejection fraction of 35-40%. Patient states he's been having syncopal episodes. According to the he passed out on Monday for a few seconds and then again this morning. He went to get evaluated and he was noted to have a potassium level of 7.5. Patient does have a defibrillator but doesn't believe that it went off as he didn't feel anything. He denies chest pain. Denies any active dyspnea. He admits to good urine output. It is noted that he was taking an [place] inhibitor as well as Aldactone and potassium supplementation at home. No vomiting or diarrhea. No fever or chills. No cough. Hemodynamically stable. The hyperkalemia was treated with Kayexalate, nebulized albuterol, IV Lasix as well as IV insulin in the ER. Repeat level is pending. Vital signs are stable. General: The patient appeared well nourished and normally developed. HEENT: Head exam is unremarkable. Neck is without jugular venous distension. LUNGS: Lungs are clear to auscultation and percussion. Breath sounds decreased. HEART: Rate and Rhythm are regular. First and second heart sounds normal. No murmurs, rubs or gallops. ABDOMEN: Abdominal exam reveals normal bowel sounds. Non-tender and non- distended. No evidence of peritonitis. EXTREMITITES: No clubbing, cyanosis, or edema. Past Medical History Past Medical History: Atrial Fibrillation, Coronary Artery Disease (CAD), Heart Failure, Diabetes Mellitus, GERD/Reflux, Hyperlipidemia, Hypertension, Prostate Disorder, Renal Disease, Syncope Additional Past Medical History / Comment(s): Cardiomyopathy, IDDM type II, CKD stage III, BPH, AAA-4.3cm, past R groin infection, chronic low back pain. Last Myocardial Infarction Date:: 04/18/15 History of Any Multi-Drug Resistant Organisms: None Reported Past Surgical History: AICD, Cholecystectomy, Coronary Bypass/CABG, Heart Catheterization, Joint Replacement, Orthopedic Surgery Additional Past Surgical History / Comment(s): 1996 CABG, bilateral caratid surgery, bilateral multiple angioplasties/arthrectomies bilateral legs Past Anesthesia/Blood Transfusion Reactions: No Reported Reaction Additional Past Anesthesia/Blood Transfusion Reaction / Comment(s): CLAUSTERPHOBIA Type of Cardiac Device: AICD Device Placement Date:: unknown Smoking Status: Former smoker - Past Family History Father Family Medical History: Myocardial Infarction ([place]) Additional Family Medical History / Comment(s): Father shortley after a [place] at the age of 54yrs. Mother Family Medical History: Cancer Additional Family Medical History / Comment(s): LUNG CANCER Medications and Allergies Home Medications Medication Instructions Recorded Confirmed Type Cholecalciferol [Vitamin D3] 5,000 unit PO DAILY 01/21/16 09/08/16 History Magnesium Oxide [Mag-Ox] 250 mg PO DAILY 01/21/16 09/08/16 History Nitroglycerin Sl Tabs [Nitrostat] 0.4 mg SUBLINGUAL Q5M PRN 01/21/16 09/08/16 History Pantoprazole Sodium [Protonix] 40 mg PO DAILY 01/21/16 09/08/16 History Multivitamins, Thera [Multivitamin 1 tab PO DAILY 07/13/16 09/08/16 History (formulary)] Aspirin EC [Ecotrin Low Dose] 81 mg PO DAILY 08/14/16 09/08/16 History Insulin Aspart [NovoLOG] 40 unit SQ AC-TID 09/08/16 09/08/16 History Allergies Allergy/AdvReac Type Severity Reaction Status Date / Time alprazolam [From Xanax] AdvReac Confusion Verified 09/08/16 07:37 morphine AdvReac Hallucinati Verified 09/08/16 07:37 ons zolpidem [From Ambien] AdvReac Confusion Verified 09/08/16 07:37 Physical Exam Vitals: Vital Signs Temp Pulse Resp BP Pulse Ox 09/08/16 10:22 99 09/08/16 10:02 114 H 09/08/16 09:55 97.2 F L 09/08/16 09:45 111 H 09/08/16 09:40 99 18 126/62 100 09/08/16 09:30 112 H 09/08/16 09:15 108 H 09/08/16 08:36 87 18 114/64 95 09/08/16 07:28 97.1 F L 90 18 140/76 96 Intake and Output 09/07/16 09/08/16 09/08/16 22:59 06:59 14:59 Intake Total 100 Balance 100 Intake: Amount of Fluid Infused ( 100 ml) Other: Weight 94.347 kg Patient Weight 09/09/16 06:59 Weight 94.347 kg Results - Lab Results Most recent lab results Calcium 10.4 mg/dL (8.4-10.2) H 09/08/16 08:34 Phosphorus 4.1 mg/dL (2.5-4.5) 09/08/16 08:34 Magnesium 1.6 mg/dL (1.6-2.3) 09/08/16 08:34 09/08/16 08:34 09/08/16 08:34 Assessment and Plan Plan: Assessment: #1. Nonoliguric acute kidney injury mostly prerenal from diuresis. Creatinine up to 1.92 today. Recent urinalysis benign. Rule out urinary retention. #2. Systolic CHF with ejection fraction of 35-40%. Appears compensated at this time. #3. Hyperkalemia secondary to use of potassium supplementation as well as Aldactone and [place] inhibitor. Metabolic acidosis and acute kidney injury also contribute factors. #4. Chronic kidney disease stage III secondary to cardiorenal syndrome with baseline creatinine in the range of 1.3-1.5. #5. Metabolic acidosis secondary to chronic kidney disease. Plan: Resume Lasix 60 mg orally twice daily. Aldactone, [place] inhibitor and potassium supplementation held for now. Hyperkalemia was medically treated and repeat level is pending at this time. Start oral sodium bicarbonate supplementation. Follow-up echocardiogram results. Check postvoid residual and to insert Heredia catheter greater than 250 mL present. Thank you for the consultation. I will continue to follow the patient with you during his hospital stay.
[2016-09-08] MEDS: SODIUM CHLORIDE 0.9% 1,000 ML IV SCH (11:43)
[2016-09-08 11:55] LABS: Calcium 11.4 mg/dL (8.4-10.2); Magnesium 1.6 mg/dL (1.6-2.3); Potassium 5.7 mmol/L (3.5-5.1)
[2016-09-08 12:05] LABS: Glucose,Whole Blood 219 mg/dL (75-99)
--- NOTE | 2016-09-08 12:05 | P.HPIM ---
History of Present Illness H&P Date: 09/08/16 Chief Complaint: Generalized weakness This is a 71-year-old gentleman with a very complex past medical history noted below significant for paroxysmal atrial fibrillation, ischemic cardiomyopathy, history of defibrillator implantation, and uncontrolled type 2 diabetes mellitus who presented to the emergency room with generalized weakness and fatigue. Patient says that his symptoms started yesterday and is been having more muscle cramps. He denies any chest pain or shortness of breath. No nausea or vomiting. According to his , patient most consciousness for a short period of time last night and then again this morning. He was rushed by EMS to an outside emergency room and was hospitalized a potassium level of 7.5. Patient was treated medically and then transferred to [facility] emergency room for further evaluation. He was found to have persistent hyperkalemia and was treated again this morning medically in the emergency room. We are currently waiting for repeat potassium level. Patient himself does not recall losing consciousness. He denies any chest pain or discomfort at this time. He is not aware that the defibrillator went off. Review of Systems Review of system: 14 points review of systems were obtained and were negative except to what were mentioned in the HPI. Past Medical History Past Medical History: Atrial Fibrillation, Coronary Artery Disease (CAD), Heart Failure, Diabetes Mellitus, GERD/Reflux, Hyperlipidemia, Hypertension, Prostate Disorder, Renal Disease, Syncope Additional Past Medical History / Comment(s): Cardiomyopathy, IDDM type II, CKD stage III, BPH, AAA-4.3cm, past R groin infection, chronic low back pain. Last Myocardial Infarction Date:: 04/18/15 History of Any Multi-Drug Resistant Organisms: None Reported Past Surgical History: AICD, Cholecystectomy, Coronary Bypass/CABG, Heart Catheterization, Joint Replacement, Orthopedic Surgery Additional Past Surgical History / Comment(s): 1996 CABG, bilateral caratid surgery, bilateral multiple angioplasties/arthrectomies bilateral legs Past Anesthesia/Blood Transfusion Reactions: No Reported Reaction Additional Past Anesthesia/Blood Transfusion Reaction / Comment(s): CLAUSTERPHOBIA Type of Cardiac Device: AICD Device Placement Date:: unknown Smoking Status: Former smoker - Past Family History Father Family Medical History: Myocardial Infarction ([place]) Additional Family Medical History / Comment(s): Father shortley after a [place] at the age of 54yrs. Mother Family Medical History: Cancer Additional Family Medical History / Comment(s): LUNG CANCER Medications and Allergies Home Medications Medication Instructions Recorded Confirmed Type Cholecalciferol [Vitamin D3] 5,000 unit PO DAILY 01/21/16 09/08/16 History Magnesium Oxide [Mag-Ox] 250 mg PO DAILY 01/21/16 09/08/16 History Nitroglycerin Sl Tabs [Nitrostat] 0.4 mg SUBLINGUAL Q5M PRN 01/21/16 09/08/16 History Pantoprazole Sodium [Protonix] 40 mg PO DAILY 01/21/16 09/08/16 History Multivitamins, Thera [Multivitamin 1 tab PO DAILY 07/13/16 09/08/16 History (formulary)] Aspirin EC [Ecotrin Low Dose] 81 mg PO DAILY 08/14/16 09/08/16 History Insulin Aspart [NovoLOG] 40 unit SQ AC-TID 09/08/16 09/08/16 History Allergies Allergy/AdvReac Type Severity Reaction Status Date / Time alprazolam [From Xanax] AdvReac Confusion Verified 09/08/16 07:37 morphine AdvReac Hallucinati Verified 09/08/16 07:37 ons zolpidem [From Ambien] AdvReac Confusion Verified 09/08/16 07:37 Physical Exam Vitals: Vital Signs Temp Pulse Resp BP Pulse Ox 09/08/16 11:15 94 19 146/78 97 09/08/16 11:00 102 H 18 150/70 97 09/08/16 10:45 100 20 148/81 97 09/08/16 10:30 99 13 160/106 98 09/08/16 10:22 99 09/08/16 10:15 92 15 162/72 99 09/08/16 10:02 114 H 09/08/16 09:55 97.2 F L 09/08/16 09:45 111 H 09/08/16 09:40 99 18 126/62 100 09/08/16 09:30 112 H 09/08/16 09:15 108 H 09/08/16 08:36 87 18 114/64 95 09/08/16 07:28 97.1 F L 90 18 140/76 96 Intake and Output 09/07/16 09/08/16 09/08/16 22:59 06:59 14:59 Intake Total 150 Output Total 950 Balance -800 Intake: IV 50 Sodium Chloride 0.9% 1, 50 000 ml @ 50 mls/hr IV . Q20H [facility] Rx#:[id number] Amount of Fluid Infused ( 100 ml) Output: Urine 950 Other: Voiding Method Bedside Commode Weight 93 kg Patient Weight 09/09/16 06:59 Weight 93 kg General: The patient is awake and alert, in no distress Eye: there is normal conjunctiva bilaterally. Neck: The neck is supple, there is no JVD. Cardiovascular: Normal S1-S2, no S3-S4, no murmurs. Respiratory: Lungs clear to auscultation bilaterally Gastrointestinal: Abdomen is soft, nontender Musculoskeletal: There is no pedal edema. Neurological:. Speech is normal. Skin: Skin is warm and dry Results CBC & Chem 7: 09/08/16 08:34 09/08/16 11:03 Labs: Abnormal Lab Results - Last 24 Hours (Table) 09/08/16 09/08/16 09/08/16 Range/Units 08:34 08:34 08:34 RDW 18.3 H (11.5-15.5) % Plt Count 139 L (150-450) k/uL PT (9.0-12.0) sec INR (<1.2) APTT (22.0-30.0) sec Sodium 136 L (137-145) mmol/L Potassium 7.5 H* (3.5-5.1) mmol/L Chloride 108 H (98-107) mmol/L Carbon Dioxide 15 L (22-30) mmol/L BUN 74 H (9-20) mg/dL Creatinine 1.92 H (0.66-1.25) mg/dL Glucose 212 H (74-99) mg/dL POC Glucose (mg/dL) (75-99) mg/dL Calcium 10.4 H (8.4-10.2) mg/dL CK-MB (CK-2) 3.2 H* (0.0-2.4) ng/mL Troponin I 0.090 H* (0.000-0.034) ng/mL Total Protein 8.3 H (6.3-8.2) g/dL 09/08/16 09/08/16 09/08/16 Range/Units 08:34 10:10 11:03 RDW (11.5-15.5) % Plt Count (150-450) k/uL PT 24.7 H (9.0-12.0) sec INR 2.6 H (<1.2) APTT 32.7 H (22.0-30.0) sec Sodium (137-145) mmol/L Potassium 5.7 H (3.5-5.1) mmol/L Chloride (98-107) mmol/L Carbon Dioxide 15 L (22-30) mmol/L BUN 70 H (9-20) mg/dL Creatinine 1.81 H (0.66-1.25) mg/dL Glucose 245 H (74-99) mg/dL POC Glucose (mg/dL) 252 H (75-99) mg/dL Calcium 11.4 H (8.4-10.2) mg/dL CK-MB (CK-2) (0.0-2.4) ng/mL Troponin I (0.000-0.034) ng/mL Total Protein (6.3-8.2) g/dL Thrombosis Risk Factor Assmnt - Choose All That Apply Any of the Below Risk Factors Present?: Yes Each Factor Represents 1 point: Obesity (BMI >25) Other Risk Factors: Yes Each Risk Factor Represents 2 Points: Age 61-74 years Other congenital or acquired thrombophilia - If yes, enter type in comment: No Thrombosis Risk Factor Assessment Total Risk Factor Score: 3 Thrombosis Risk Factor Assessment Level: Moderate Risk Assessment and Plan Plan: 1. Critical hyperkalemia with no reported EKG changes. Patient was treated medically in the emergency room. Hyperkalemia is most likely attributed to acute on chronic kidney failure, spironolactone and potassium supplement use. Repeat potassium level is 5.7. We will continue to monitor closely. 2. Acute on chronic kidney failure 3. Paroxysmal atrial fibrillation on anticoagulation with Coumadin 4. Ischemic cardiomyopathy with estimated EF of 20% 5. Type 2 diabetes mellitus Today, I reviewed his medication list and lab work results. Continue current regimen. Appreciate job service consultant's recommendations. Plan to interrogate his defibrillator. Discontinue spironolactone and potassium supplements. Repeat electrolytes in the morning.
[2016-09-08] MEDS ORDERED: INSULIN LISPRO (humaLOG) 300 UNIT/3 ML VIAL SQ SCH (12:30)
[2016-09-08] MEDS: INSULIN LISPRO (humaLOG) 300 UNIT/3 ML VIAL SQ SCH ×4 (12:37→21:00)
[2016-09-08] MEDS ORDERED: Magnesium Replacement Protocol 1 EACH MISC MISCELLANE PRN (12:46)
--- NOTE | 2016-09-08 13:13 | ECHOF ---
Referral Reason:eval LV function, syncope. defibrilator firing MEASUREMENTS -------- HEIGHT: 182.9 cm WEIGHT: 94.3 kg BP: 126/62 IVSd: 1.7 cm (0.6 - 1.1) LVIDd: 5.0 cm (3.9 - 5.3) LVPWd: 1.7 cm (0.6 - 1.1) IVSs: 2.3 cm LVIDs: 4.5 cm LVPWs: 1.2 cm Ao Diam: 3.5 cm (2.0 - 3.7) AV Cusp: 1.8 cm (1.5 - 2.6) LA Diam: 4.7 cm (2.7 - 3.8) MV EXCURSION: 5.857 mm (> 18.000) MV EF SLOPE: 42 mm/s (70 - 150) EPSS: 1.4 cm MV E Jad: 0.50 m/s MV DecT: 174 ms MV A Jad: 0.46 m/s MV E/A Ratio: 1.11 AV maxP.65 mmHg AV meanP.54 mmHg RAP: 5.00 mmHg RVSP: 7.79 mmHg FINDINGS -------- AICD This was a technically difficult study with suboptimal views. There is moderate concentric left ventricular hypertrophy. There is severe global hypokinesis of LV . Overall left ventricular systolic function is severely impaired with, an EF between 20 - 25 %. The RV was not well visualized. The left atrium is moderately dilated. The right atrium was not well visualized. 1.5mg of Definity was utilized for enhancement of images There is mild aortic valve sclerosis. Peak/mean gradient across the Aortic Valve is 14.65mmHg / 7.54mmHg. Mild mitral annular calcification present. Mild mitral regurgitation is present. Mild tricuspid regurgitation present. The right ventricular systolic pressure, as measured by Doppler, is 7.79mmHg. The pulmonic valve was not well visualized. The aortic root size is normal. There is no pericardial effusion. CONCLUSIONS -------- 1. AICD 2. There is mild aortic valve sclerosis. 3. Peak/mean gradient across the Aortic Valve is 14.65mmHg / 7.54mmHg. 4. Mild mitral annular calcification present. 5. Mild mitral regurgitation is present. 6. Mild tricuspid regurgitation present. 7. The right ventricular systolic pressure, as measured by Doppler, is 7.79mmHg. 8. The pulmonic valve was not well visualized. 9. The aortic root size is normal. 10. There is no pericardial effusion. 11. This was a technically difficult study with suboptimal views. 12. There is moderate concentric left ventricular hypertrophy. 13. There is severe global hypokinesis of LV . 14. Overall left ventricular systolic function is severely impaired with, an EF between 20 - 25 %. 15. The RV was not well visualized. 16. The left atrium is moderately dilated. 17. The right atrium was not well visualized. 18. 1.5mg of Definity was utilized for enhancement of images NURSERY NURSE: Yadira Toscano RDCS
--- NOTE | 2016-09-08 13:18 | P.CNPUL ---
History of Present Illness Consult date: 09/08/16 Chief complaint: Acute hyperkalemia History of present illness: 71-year-old male patient with known history of ischemic cardiomyopathy, coronary artery disease, previous bypass surgery, previous AICD placement, paroxysmal atrial fibrillation and various other comorbidities including diabetes mellitus and chronic renal failure with stage III chronic kidney disease. The patient was transferred to our hospital because of generalized weakness and arrhythmias and acute hyperkalemia. Last night the patient was having some episodes of diarrhea. The patient noted that he was having difficulties moving around back and forth to the bathroom at one point he was unable to be moved and he was cared by family members. Subsequently he felt his AICD could've been discharging. He is not sure however. He presented to [facility] he was found to be acutely hypokalemic with a potassium level of 8.2. No cardiac arrhythmias have been noted. He was given Kayexalate and he was also given treatment for his hyperkalemia unsure if he was given calcium. Following that the patient got transferred to our hospital where the patient was again found to be hyperkalemic with a potassium level of 7.5. The patient was given Kayexalate, 50 mg of albuterol treatment, an amp of bicarb, an amp of calcium gluconate and following that he was moved to the intensive care unit. At time of my evaluation, the patient was not having any respiratory distress. No edema in lower extremities. No headaches. No change in mental status. His EKG showed paced rhythm. With did not with this any AICD discharge from this patient. Note that he did not lose any consciousness. No syncope. Echocardiogram is pending for now. The patient also be seen by cardiology. He is currently in the intensive care unit for monitoring. Review of Systems Constitutional: Reports fatigue, Reports lethargy, Reports weakness Eyes: denies blurred vision, denies bulging eye, denies decreased vision, denies diplopia Ears: deny: decreased hearing Cardiovascular: Reports decreased exercise tolerance, Reports dyspnea on exertion, Reports orthopnea, Reports paroxysmal nocturnal dyspnea Respiratory: Reports dyspnea Gastrointestinal: Reports as per HPI Genitourinary: Reports as per HPI Musculoskeletal: Denies myalgias Musculoskeletal: absent: ankle pain, ankle stiffness, ankle swelling Integumentary: Denies pruritus, Denies rash Neurological: Reports vertigo Psychiatric: Denies anxiety, Denies depression Endocrine: Denies fatigue, Denies weight change Past Medical History Past Medical History: Atrial Fibrillation, Coronary Artery Disease (CAD), Heart Failure, Diabetes Mellitus, GERD/Reflux, Hyperlipidemia, Hypertension, Prostate Disorder, Renal Disease, Syncope Additional Past Medical History / Comment(s): Coronary artery disease with previous past surgery, ischemic cardiomyopathy, AICD placement, diabetes mellitus type 2, paroxysmal atrial fibrillation, acid reflux, hyperlipidemia, BPH, stage III chronic renal failure, abdominal aortic aneurysm measuring 4.3 cm in size, chronic back pain, Last Myocardial Infarction Date:: 04/18/15 History of Any Multi-Drug Resistant Organisms: None Reported Past Surgical History: AICD, Cholecystectomy, Coronary Bypass/CABG, Heart Catheterization, Joint Replacement, Orthopedic Surgery Additional Past Surgical History / Comment(s): 1996 CABG, bilateral caratid surgery, bilateral multiple angioplasties/arthrectomies bilateral legs Past Anesthesia/Blood Transfusion Reactions: No Reported Reaction Additional Past Anesthesia/Blood Transfusion Reaction / Comment(s): CLAUSTERPHOBIA Type of Cardiac Device: AICD Device Placement Date:: unknown Smoking Status: Former smoker - Past Family History Father Family Medical History: Myocardial Infarction (NM) Additional Family Medical History / Comment(s): Father shortley after a NM at the age of 54yrs. Mother Family Medical History: Cancer Additional Family Medical History / Comment(s): LUNG CANCER Medications and Allergies Home Medications Medication Instructions Recorded Confirmed Type Cholecalciferol [Vitamin D3] 5,000 unit PO DAILY 01/21/16 09/08/16 History Magnesium Oxide [Mag-Ox] 250 mg PO DAILY 01/21/16 09/08/16 History Nitroglycerin Sl Tabs [Nitrostat] 0.4 mg SUBLINGUAL Q5M PRN 01/21/16 09/08/16 History Pantoprazole Sodium [Protonix] 40 mg PO DAILY 01/21/16 09/08/16 History Multivitamins, Thera [Multivitamin 1 tab PO DAILY 07/13/16 09/08/16 History (formulary)] Aspirin EC [Ecotrin Low Dose] 81 mg PO DAILY 08/14/16 09/08/16 History Insulin Aspart [NovoLOG] 40 unit SQ AC-TID 09/08/16 09/08/16 History Allergies Allergy/AdvReac Type Severity Reaction Status Date / Time alprazolam [From Xanax] AdvReac Confusion Verified 09/08/16 07:37 morphine AdvReac Hallucinati Verified 09/08/16 07:37 ons zolpidem [From Ambien] AdvReac Confusion Verified 09/08/16 07:37 Physical Exam Vitals: Vital Signs Temp Pulse Resp BP Pulse Ox 09/08/16 11:15 94 19 146/78 97 09/08/16 11:00 102 H 18 150/70 97 09/08/16 10:45 100 20 148/81 97 09/08/16 10:30 99 13 160/106 98 09/08/16 10:22 99 09/08/16 10:15 92 15 162/72 99 09/08/16 10:02 114 H 09/08/16 09:55 97.2 F L 09/08/16 09:45 111 H 09/08/16 09:40 99 18 126/62 100 09/08/16 09:30 112 H 09/08/16 09:15 108 H 09/08/16 08:36 87 18 114/64 95 09/08/16 07:28 97.1 F L 90 18 140/76 96 Intake and Output 09/07/16 09/08/16 09/08/16 22:59 06:59 14:59 Intake Total 150 Output Total 950 Balance -800 Intake: IV 50 Sodium Chloride 0.9% 1, 50 000 ml @ 50 mls/hr IV . Q20H [facility] Rx#:[id number] Amount of Fluid Infused ( 100 ml) Output: Urine 950 Other: Voiding Method Bedside Commode Weight 93 kg Patient Weight 09/09/16 06:59 Weight 93 kg Head exam was generally normal. There was no scleral icterus or corneal arcus. Mucous membranes were moist.Neck was supple and without jugular venous distension, thyromegaly, or carotid bruits. Carotids were easily palpable bilaterally. There was no adenopathy. Lung sounds are diminished bilaterally otherwise clear. There is no crackles or rhonchi or any wheezes. Heart sounds are regular, there is a positive S3 gallop. There is no significant murmurs. The patient is a positive S1 and S2.Abdominal exam revealed normal bowel sounds. The abdomen was soft, non-tender, and without masses, organomegaly, or appreciable enlargement of the abdominal aorta.Examination of the extremities revealed easily palpable radial, femoral and pedal pulses. There was no cyanosis , clubbing or edema. The pacemaker pocket over the left anterior chest area is clean and dry and intact. Sternum stable treatment intact also. Results - Laboratory Findings CBC and BMP: 09/08/16 08:34 09/08/16 11:03 PT/INR, D-dimer PT 24.7 sec (9.0-12.0) H 09/08/16 08:34 INR 2.6 (<1.2) H 09/08/16 08:34 Abnormal lab findings: Abnormal Labs 09/08/16 09/08/16 09/08/16 08:34 08:34 08:34 RDW 18.3 H Plt Count 139 L PT INR APTT Sodium 136 L Potassium 7.5 H* Chloride 108 H Carbon Dioxide 15 L BUN 74 H Creatinine 1.92 H Glucose 212 H POC Glucose (mg/dL) Calcium 10.4 H CK-MB (CK-2) 3.2 H* Troponin I 0.090 H* Total Protein 8.3 H 09/08/16 09/08/16 09/08/16 08:34 10:10 11:03 RDW Plt Count PT 24.7 H INR 2.6 H APTT 32.7 H Sodium Potassium 5.7 H Chloride Carbon Dioxide 15 L BUN 70 H Creatinine 1.81 H Glucose 245 H POC Glucose (mg/dL) 252 H Calcium 11.4 H CK-MB (CK-2) Troponin I Total Protein 09/08/16 12:03 RDW Plt Count PT INR APTT Sodium Potassium Chloride Carbon Dioxide BUN Creatinine Glucose POC Glucose (mg/dL) 219 H Calcium CK-MB (CK-2) Troponin I Total Protein - Diagnostic Findings Chest x-ray: image reviewed Assessment and Plan Plan: Assessment 1 acute hyperkalemia, also factorial, due to a combination of intravascular volume depletion, acute on top of chronic renal failure, Aldactone, and Ethan inhibitors and potassium supplementation. Initial potassium level was high as 8.2 and dropped down to 7.5 and now is down to 5.7. His weakness is gradually improving 2 generalized body weakness secondary to hyperkalemia 3 questionable AICD discharge, under investigation and AICD will be interrogated 4 CHF with ischemic cardiomyopathy 5 chronic renal failure stage III chronic kidney disease 6 paroxysmal atrial fibrillation 7 diabetes mellitus 8 coronary artery disease with previous bypass surgery 9 hypertension 10 COPD suspected 11 chronic back pain 12 abdominal aortic aneurysm measuring 4.3 cm in size 13 hyperlipidemia Plan Will stop potassium supplementation. Stop Aldactone. Stop ETHAN inhibitor's. Monitor the potassium level. Levels avoid improved and will continue to see further improvement still the potassium level normalizes. Meanwhile, the patient will have his pacemaker interrogated. The patient also be gently hydrated with normal saline at the rate of 50 mL an hour. Cardiac consultation. We'll continue to follow.
[2016-09-08] MEDS: MAGNESIUM SULFATE-D5W PMX 1 GM in DEXTROSE/WATER 1 100ML.BAG IVPB SCH ×2 (13:48→15:17)
--- NOTE | 2016-09-08 15:18 | CONS ---
REASON FOR CONSULTATION: Hyperkalemia, ischemic cardiomyopathy. This is a patient with a known diagnosis of ischemic cardiomyopathy who has an AICD. He has been having nausea and some dry heaves and diarrhea, became weak, dehydrated, was unable to get around and finally came into the hospital, actually was transferred and after arrival apparently his potassium level was quite elevated. He received Kayexalate both in [place] as well as here and I am seeing him in the emergency room. Patient actually feels better. He is able to give me a meaningful history. He is not having any chest pain. His weakness has also improved. He received Kayexalate in glucose, insulin and also calcium chloride and the repeat potassium is pending. PAST MEDICAL HISTORY: CAD with previous bypass surgery and PCI, details are unclear. He is known to have a defibrillator and is being followed at [facility] by Dr. Emil Elias. He has history of underlying atrial fibrillation , whether it is paroxysmal or persistent seems unclear. He is now in a paced rhythm. He also has history of type 2 diabetes, hypertension, hyperlipidemia as well. Medications include Carvedilol, insulin, Imdur, midodrine, Coumadin, Lasix, insulin, lisinopril, Zaroxolyn, Aldactone. ALLERGIES: Allergic to XANAX, MORPHINE and AMBIEN. On examination, blood pressure is 140/70, pulse rate is about 80 per minute. HEENT unremarkable. Fundus was not examined by me. Neck is supple. JVD is not easily evident. Heart exam reveals S1, S2 with a short systolic murmur at the base. Lungs reveal bilateral descent air entry. No significant rales. Abdomen is soft, distended. Lower extremities reveal palpable pulses, trace edema. Central nervous system, grossly no focal deficits. IMPRESSION: 1. Diarrhea and dehydration with hyperkalemia. 2. History of ischemic cardiomyopathy with previous bypass surgery and AICD. 3. Type 2 diabetes mellitus. 4. Hypertension. 5. Hyperlipidemia. RECOMMENDATIONS: I am recommending that we repeat his electrolytes and magnesium. I would also recommend an echocardiogram to assess LV function, continue his IV Lasix, seek Nephrology input and based on clinical course, I will make further recommendations. Will obtain additional troponin level in the morning and also echocardiogram at bedside. We will also do a device check. Thank you very much for the consult. CRUZ
[2016-09-08 15:51] LABS: Creatine Kinase MB 3.4 ng/mL (0.0-2.4); Troponin I 0.087 ng/mL (0.000-0.034)
[2016-09-08] MEDS: SODIUM BICARBONATE TAB 650 MG TAB PO SCH ×2 (16:21→21:09)
[2016-09-08] MEDS: FUROSEMIDE 20 MG TAB PO SCH (16:22)
[2016-09-08 17:09] LABS: Glucose,Whole Blood 201 mg/dL (75-99)
[2016-09-08] MEDS: CARVEDILOL 6.25 MG TAB PO SCH (17:50)
[2016-09-08] MEDS ORDERED: SODIUM BICARB 8.4% 50 ML SYR (1 MEQ/ML) IV ONE (19:15)
[2016-09-08] MEDS: SYMBICORT 160-4.5 MCG INHALER INHALATION SCH (19:42)
[2016-09-08 20:59] LABS: Hemoglobin A1C 8.7 % (4.2-6.1)
[2016-09-08 21:00] LABS: Glucose,Whole Blood 241 mg/dL (75-99)
[2016-09-08] MEDS ORDERED: SPIRONOLACTONE 25 MG TAB PO SCH (21:00)
[2016-09-08] MEDS: INSULIN DETEMIR 100 UNIT/ML 10 ML VIAL SQ SCH (21:05)
[2016-09-08 21:20] LABS: Troponin I 0.108 ng/mL (0.000-0.034)
[2016-09-09] MEDS ORDERED: METOPROLOL TARTRATE 5 MG/5 ML VIAL IVP ONE ×2 (00:30→00:45)
[2016-09-09] MEDS ORDERED: METOPROLOL TARTRATE 25 MG TAB PO STA ×2 (00:33→19:43)
[2016-09-09] MEDS: SODIUM CHLORIDE 0.9% 1,000 ML IV SCH (05:26)
[2016-09-09 05:45] LABS: Anisocytosis Slight; Basophils % (A) 0 %; CH 28.9; CHCM 33.7; Eosinophils # (A) 0.5 k/uL (0-0.7); Eosinophils % (A) 5 %; HCT 44.7 % (39.0-53.0); HDW 3.43; HGB 14.7 gm/dL (13.0-17.5); Luc # (Auto) 0.18; Luc % (Auto) 2; Lymphocytes # (A) 1.3 k/uL (1.0-4.8); Lymphocytes % (A) 12 %; MCH 28.3 pg (25.0-35.0); MCHC 32.9 g/dL (31.0-37.0); MCV 86.1 fL (80.0-100.0); Mean Platelet Volume 7.6; Monocytes # (A) 0.5 k/uL (0-1.0); Monocytes % (A) 5 %; Neutrophils # (A) 8.2 k/uL (1.3-7.7); Neutrophils % (A) 77 %; Poikilocytosis Slight; RDW 18.7 % (11.5-15.5); WBC 10.7 k/uL (3.8-10.6); WBC (Perox) 10.33
[2016-09-09 05:53] LABS: INR 2.6 (<1.2); Prothrombin Time 25.5 sec (9.0-12.0)
[2016-09-09 06:01] LABS: Calcium 10.4 mg/dL (8.4-10.2); Magnesium 1.9 mg/dL (1.6-2.3); Phosphorous 5.3 mg/dL (2.5-4.5)
[2016-09-09 07:14] LABS: Glucose,Whole Blood 186 mg/dL (75-99)
[2016-09-09] MEDS: INSULIN LISPRO (humaLOG) 300 UNIT/3 ML VIAL SQ SCH ×7 (07:16→21:03)
[2016-09-09] MEDS: CARVEDILOL 6.25 MG TAB PO SCH ×2 (07:47→17:00)
[2016-09-09] MEDS: PANTOPRAZOLE 40 MG TABLET PO SCH (07:47)
--- NOTE | 2016-09-09 07:49 | P.PN ---
Subjective Patient is seen in follow-up for acute kidney injury on chronic kidney disease. Patient has chronic kidney disease stage III secondary to cardiorenal syndrome with baseline creatinine near 1.5. Patient presented with weakness and syncopal episode. He was noted to have a potassium level of 7.5 which was medically treated. Potassium level is down to 5.0 today. He is currently having breakfast. Denies any chest pain or shortness of breath. No vomiting or diarrhea. He is nonoliguric. Renal function is improved with creatinine down to 1.6 today. Patient does have systolic CHF with ejection fraction of 25% . Vital signs are stable. General: The patient appeared well nourished and normally developed. HEENT: Head exam is unremarkable. Neck is without jugular venous distension. LUNGS: Lungs are clear to auscultation and percussion. Breath sounds decreased. HEART: Rate and Rhythm are regular. First and second heart sounds normal. No murmurs, rubs or gallops. ABDOMEN: Abdominal exam reveals normal bowel sounds. Non-tender and non- distended. No evidence of peritonitis. EXTREMITITES: No clubbing, cyanosis, or edema. Objective - Vital Signs Vital signs: Vital Signs Temp 98.3 F 09/09/16 04:00 Pulse 79 09/09/16 07:00 Resp 16 09/09/16 07:00 BP 105/72 09/09/16 07:00 Pulse Ox 94 L 09/09/16 07:00 Intake & Output 09/08/16 09/09/16 09/09/16 18:59 06:59 18:59 Intake Total 600 550 Output Total 1951 375 0 Balance -1351 175 0 Weight 93 kg 93.3 kg Intake: IV 500 50 Magnesium Sulfate-D5w Pmx 200 1 gm In Dextrose/Water 1 100ml.bag @ 100 mls/hr IVPB Q1H [facility] Rx#: [id number] Sodium Chloride 0.9% 1, 300 50 000 ml @ 50 mls/hr IV . Q20H [facility] Rx#:[id number] Amount of Fluid Infused ( 100 ml) Oral 500 Output: Urine 1950 375 0 Urine/Stool Mix 1 Other: Voiding Method Bedside Commode Bedside Commode # Voids 1 # Bowel Movements 1 1 - Labs CBC & Chem 7: 09/09/16 05:25 09/09/16 05:25 Labs: Abnormal Lab Results - Last 24 Hours (Table) 07/20/17 07/20/17 07/20/17 Range/Units 08:34 08:34 08:34 WBC (3.8-10.6) k/uL RDW 18.3 H (11.5-15.5) % Plt Count 139 L (150-450) k/uL Neutrophils # (1.3-7.7) k/uL PT (9.0-12.0) sec INR (<1.2) APTT (22.0-30.0) sec Sodium 136 L (137-145) mmol/L Potassium 7.5 H* (3.5-5.1) mmol/L Chloride 108 H (98-107) mmol/L Carbon Dioxide 15 L (22-30) mmol/L BUN 74 H (9-20) mg/dL Creatinine 1.92 H (0.66-1.25) mg/dL Glucose 212 H (74-99) mg/dL POC Glucose (mg/dL) (75-99) mg/dL Hemoglobin A1c (4.2-6.1) % Calcium 10.4 H (8.4-10.2) mg/dL Phosphorus (2.5-4.5) mg/dL CK-MB (CK-2) 3.2 H* (0.0-2.4) ng/mL Troponin I 0.090 H* (0.000-0.034) ng/mL Total Protein 8.3 H (6.3-8.2) g/dL Triglycerides (<150) mg/dL Cholesterol (<200) mg/dL HDL Cholesterol (40-60) mg/dL 09/08/16 09/08/16 09/08/16 Range/Units 08:34 08:34 10:10 WBC (3.8-10.6) k/uL RDW (11.5-15.5) % Plt Count (150-450) k/uL Neutrophils # (1.3-7.7) k/uL PT 24.7 H (9.0-12.0) sec INR 2.6 H (<1.2) APTT 32.7 H (22.0-30.0) sec Sodium (137-145) mmol/L Potassium (3.5-5.1) mmol/L Chloride (98-107) mmol/L Carbon Dioxide (22-30) mmol/L BUN (9-20) mg/dL Creatinine (0.66-1.25) mg/dL Glucose (74-99) mg/dL POC Glucose (mg/dL) 252 H (75-99) mg/dL Hemoglobin A1c 8.7 H (4.2-6.1) % Calcium (8.4-10.2) mg/dL Phosphorus (2.5-4.5) mg/dL CK-MB (CK-2) (0.0-2.4) ng/mL Troponin I (0.000-0.034) ng/mL Total Protein (6.3-8.2) g/dL Triglycerides (<150) mg/dL Cholesterol (<200) mg/dL HDL Cholesterol (40-60) mg/dL 09/08/16 09/08/16 09/08/16 Range/Units 11:03 12:03 14:57 WBC (3.8-10.6) k/uL RDW (11.5-15.5) % Plt Count (150-450) k/uL Neutrophils # (1.3-7.7) k/uL PT (9.0-12.0) sec INR (<1.2) APTT (22.0-30.0) sec Sodium (137-145) mmol/L Potassium 5.7 H (3.5-5.1) mmol/L Chloride (98-107) mmol/L Carbon Dioxide 15 L (22-30) mmol/L BUN 70 H (9-20) mg/dL Creatinine 1.81 H (0.66-1.25) mg/dL Glucose 245 H (74-99) mg/dL POC Glucose (mg/dL) 219 H (75-99) mg/dL Hemoglobin A1c (4.2-6.1) % Calcium 11.4 H (8.4-10.2) mg/dL Phosphorus (2.5-4.5) mg/dL CK-MB (CK-2) 3.4 H* (0.0-2.4) ng/mL Troponin I 0.087 H* (0.000-0.034) ng/mL Total Protein (6.3-8.2) g/dL Triglycerides (<150) mg/dL Cholesterol (<200) mg/dL HDL Cholesterol (40-60) mg/dL 09/08/16 09/08/16 09/08/16 Range/Units 17:07 17:08 20:27 WBC (3.8-10.6) k/uL RDW (11.5-15.5) % Plt Count (150-450) k/uL Neutrophils # (1.3-7.7) k/uL PT (9.0-12.0) sec INR (<1.2) APTT (22.0-30.0) sec Sodium (137-145) mmol/L Potassium 5.9 H (3.5-5.1) mmol/L Chloride (98-107) mmol/L Carbon Dioxide (22-30) mmol/L BUN (9-20) mg/dL Creatinine (0.66-1.25) mg/dL Glucose (74-99) mg/dL POC Glucose (mg/dL) 201 H (75-99) mg/dL Hemoglobin A1c (4.2-6.1) % Calcium (8.4-10.2) mg/dL Phosphorus (2.5-4.5) mg/dL CK-MB (CK-2) 3.0 H* (0.0-2.4) ng/mL Troponin I 0.108 H* (0.000-0.034) ng/mL Total Protein (6.3-8.2) g/dL Triglycerides (<150) mg/dL Cholesterol (<200) mg/dL HDL Cholesterol (40-60) mg/dL 09/08/16 09/09/16 09/09/16 Range/Units 20:52 05:25 05:25 WBC 10.7 H (3.8-10.6) k/uL RDW 18.7 H (11.5-15.5) % Plt Count (150-450) k/uL Neutrophils # 8.2 H (1.3-7.7) k/uL PT (9.0-12.0) sec INR (<1.2) APTT (22.0-30.0) sec Sodium 136 L (137-145) mmol/L Potassium (3.5-5.1) mmol/L Chloride (98-107) mmol/L Carbon Dioxide 19 L (22-30) mmol/L BUN 65 H (9-20) mg/dL Creatinine 1.60 H (0.66-1.25) mg/dL Glucose 246 H (74-99) mg/dL POC Glucose (mg/dL) 241 H (75-99) mg/dL Hemoglobin A1c (4.2-6.1) % Calcium 10.4 H (8.4-10.2) mg/dL Phosphorus 5.3 H (2.5-4.5) mg/dL CK-MB (CK-2) (0.0-2.4) ng/mL Troponin I (0.000-0.034) ng/mL Total Protein (6.3-8.2) g/dL Triglycerides 714 H (<150) mg/dL Cholesterol 258 H (<200) mg/dL HDL Cholesterol 31 L (40-60) mg/dL 09/09/16 09/09/16 09/09/16 Range/Units 05:25 05:25 07:12 WBC (3.8-10.6) k/uL RDW (11.5-15.5) % Plt Count (150-450) k/uL Neutrophils # (1.3-7.7) k/uL PT 25.5 H (9.0-12.0) sec INR 2.6 H (<1.2) APTT (22.0-30.0) sec Sodium (137-145) mmol/L Potassium (3.5-5.1) mmol/L Chloride (98-107) mmol/L Carbon Dioxide (22-30) mmol/L BUN (9-20) mg/dL Creatinine (0.66-1.25) mg/dL Glucose (74-99) mg/dL POC Glucose (mg/dL) 186 H (75-99) mg/dL Hemoglobin A1c (4.2-6.1) % Calcium (8.4-10.2) mg/dL Phosphorus (2.5-4.5) mg/dL CK-MB (CK-2) (0.0-2.4) ng/mL Troponin I 0.228 H* (0.000-0.034) ng/mL Total Protein (6.3-8.2) g/dL Triglycerides (<150) mg/dL Cholesterol (<200) mg/dL HDL Cholesterol (40-60) mg/dL Assessment and Plan Plan: Assessment: #1. Nonoliguric acute kidney injury mostly prerenal from diuresis. Creatinine was 1.92 on admission and is down to 1.6 today. Recent urinalysis benign. No evidence of urinary retention. #2. Systolic CHF with ejection fraction of 35-40%. Appears compensated at this time. #3. Hyperkalemia secondary to use of potassium supplementation as well as Aldactone and [place] inhibitor. Metabolic acidosis and acute kidney injury also contribute factors. Improved. #4. Chronic kidney disease stage III secondary to cardiorenal syndrome with baseline creatinine in the range of 1.3-1.5. #5. Metabolic acidosis secondary to chronic kidney disease. Improving. Plan: Continue Lasix 60 mg orally twice daily. Aldactone, [place] inhibitor and potassium supplementation held for now. Maintain oral sodium bicarbonate supplementation. Hep-Lock IV fluids as his oral intake is good.
--- NOTE | 2016-09-09 08:29 | XR ---
EXAMINATION TYPE: XR chest 1V portable DATE OF EXAM: 09/09/2016 COMPARISON: 09/08/2016, 08/14/2016 HISTORY: Cough TECHNIQUE: Single frontal view of the chest is obtained. FINDINGS: Heart is enlarged and there is multiple lead cardiac device with postsurgical change and c ardiomegaly. Arthropathies of the shoulders with postsurgical change right shoulder. No consolidation or pneumotho rax. No interstitial edema. Underlying hyperinflation suggested correlate for COPD. IMPRESSION: No definite acute process.
[2016-09-09] MEDS: SYMBICORT 160-4.5 MCG INHALER INHALATION SCH ×2 (08:35→20:51)
[2016-09-09] MEDS: CHOLECALCIFEROL 1,000 UNIT TAB PO SCH (08:41)
[2016-09-09] MEDS: SODIUM BICARBONATE TAB 650 MG TAB PO SCH ×3 (08:41→20:00)
[2016-09-09] MEDS: ASPIRIN 325 MG TAB PO SCH (08:41)
[2016-09-09] MEDS: FUROSEMIDE 20 MG TAB PO SCH ×2 (08:41→17:00)
[2016-09-09] MEDS: MAGNESIUM OXIDE 400 MG TAB PO SCH (08:42)
[2016-09-09] MEDS: ISOSORBIDE MONONITRATE ER 15 MG TAB PO SCH (08:42)
[2016-09-09] MEDS: INSULIN DETEMIR 100 UNIT/ML 10 ML VIAL SQ SCH ×2 (08:48→21:09)
[2016-09-09] MEDS ORDERED: LISINOPRIL 5 MG TAB PO SCH (09:00)
[2016-09-09] MEDS ORDERED: NON-FORMULARY DRUG (Aspirin Ec 81 MG) PO SCH (09:00)
--- NOTE | 2016-09-09 11:28 | P.PN ---
Subjective This is a 71-year-old gentleman with a very complex past medical history noted below significant for paroxysmal atrial fibrillation, ischemic cardiomyopathy, history of defibrillator implantation, and uncontrolled type 2 diabetes mellitus who presented to the emergency room with generalized weakness and fatigue. Patient says that his symptoms started yesterday and is been having more muscle cramps. He denies any chest pain or shortness of breath. No nausea or vomiting. According to his , patient most consciousness for a short period of time last night and then again this morning. He was rushed by EMS to an outside emergency room and was hospitalized a potassium level of 7.5. Patient was treated medically and then transferred to [facility] emergency room for further evaluation. He was found to have persistent hyperkalemia and was treated again this morning medically in the emergency room. We are currently waiting for repeat potassium level. Patient himself does not recall losing consciousness. He denies any chest pain or discomfort at this time. He is not aware that the defibrillator went off. 09/09/2016 patient is lying in bed comfortably. Potassium has normalized at 5.0. Patient denies any chest pain, nausea or vomiting. He has had a few episodes of diarrhea. But he was also given Kayexalate. Patient does report having diarrhea prior to admission. Does admit to having some shortness of breath through the evening while eating that now has resolved. Fibrillator was checked per nursing staff at did show evidence of V. tach. We will await cardiology evaluation Objective - Vital Signs Vital signs: Vital Signs Temp 97.7 F 09/09/16 08:00 Pulse 75 09/09/16 10:00 Resp 19 09/09/16 10:00 BP 105/63 09/09/16 10:00 Pulse Ox 97 09/09/16 10:37 Intake & Output 09/08/16 09/09/16 09/09/16 18:59 06:59 18:59 Intake Total 600 550 400 Output Total 1951 375 0 Balance -1351 175 400 Weight 93 kg 93.3 kg Intake: IV 500 50 150 Magnesium Sulfate-D5w Pmx 200 1 gm In Dextrose/Water 1 100ml.bag @ 100 mls/hr IVPB Q1H ADGO Rx#: [id number] Sodium Chloride 0.9% 1, 300 50 150 000 ml @ 50 mls/hr IV . Q20H DAGO Rx#:[id number] Amount of Fluid Infused ( 100 ml) Oral 500 250 Output: Urine 1950 375 0 Urine/Stool Mix 1 Other: Voiding Method Bedside Commode Bedside Commode Bedside Commode # Voids 1 # Bowel Movements 1 1 - Exam Head normocephalic Neck supple Lungs clear to auscultation bilaterally no wheezing or crackles Heart regular rate and rhythm S1-S2, no rub or gallop Abdomen is soft nontender nondistended positive bowel sounds no hepatosplenomegaly Extremities no edema Neuro alert and orientated to 3 - Labs CBC & Chem 7: 09/09/16 05:25 09/09/16 05:25 Labs: Abnormal Lab Results - Last 24 Hours (Table) 09/08/16 09/08/16 09/08/16 Range/Units 08:34 11:03 12:03 WBC (3.8-10.6) k/uL RDW (11.5-15.5) % Neutrophils # (1.3-7.7) k/uL PT (9.0-12.0) sec INR (<1.2) Sodium (137-145) mmol/L Potassium 5.7 H (3.5-5.1) mmol/L Carbon Dioxide 15 L (22-30) mmol/L BUN 70 H (9-20) mg/dL Creatinine 1.81 H (0.66-1.25) mg/dL Glucose 245 H (74-99) mg/dL POC Glucose (mg/dL) 219 H (75-99) mg/dL Hemoglobin A1c 8.7 H (4.2-6.1) % Calcium 11.4 H (8.4-10.2) mg/dL Phosphorus (2.5-4.5) mg/dL CK-MB (CK-2) (0.0-2.4) ng/mL Troponin I (0.000-0.034) ng/mL Triglycerides (<150) mg/dL Cholesterol (<200) mg/dL HDL Cholesterol (40-60) mg/dL 09/08/16 09/08/16 09/08/16 Range/Units 14:57 17:07 17:08 WBC (3.8-10.6) k/uL RDW (11.5-15.5) % Neutrophils # (1.3-7.7) k/uL PT (9.0-12.0) sec INR (<1.2) Sodium (137-145) mmol/L Potassium 5.9 H (3.5-5.1) mmol/L Carbon Dioxide (22-30) mmol/L BUN (9-20) mg/dL Creatinine (0.66-1.25) mg/dL Glucose (74-99) mg/dL POC Glucose (mg/dL) 201 H (75-99) mg/dL Hemoglobin A1c (4.2-6.1) % Calcium (8.4-10.2) mg/dL Phosphorus (2.5-4.5) mg/dL CK-MB (CK-2) 3.4 H* (0.0-2.4) ng/mL Troponin I 0.087 H* (0.000-0.034) ng/mL Triglycerides (<150) mg/dL Cholesterol (<200) mg/dL HDL Cholesterol (40-60) mg/dL 09/08/16 09/08/16 09/09/16 Range/Units 20:27 20:52 05:25 WBC (3.8-10.6) k/uL RDW (11.5-15.5) % Neutrophils # (1.3-7.7) k/uL PT (9.0-12.0) sec INR (<1.2) Sodium 136 L (137-145) mmol/L Potassium (3.5-5.1) mmol/L Carbon Dioxide 19 L (22-30) mmol/L BUN 65 H (9-20) mg/dL Creatinine 1.60 H (0.66-1.25) mg/dL Glucose 246 H (74-99) mg/dL POC Glucose (mg/dL) 241 H (75-99) mg/dL Hemoglobin A1c (4.2-6.1) % Calcium 10.4 H (8.4-10.2) mg/dL Phosphorus 5.3 H (2.5-4.5) mg/dL CK-MB (CK-2) 3.0 H* (0.0-2.4) ng/mL Troponin I 0.108 H* (0.000-0.034) ng/mL Triglycerides 714 H (<150) mg/dL Cholesterol 258 H (<200) mg/dL HDL Cholesterol 31 L (40-60) mg/dL 09/09/16 09/09/16 09/09/16 Range/Units 05:25 05:25 05:25 WBC 10.7 H (3.8-10.6) k/uL RDW 18.7 H (11.5-15.5) % Neutrophils # 8.2 H (1.3-7.7) k/uL PT 25.5 H (9.0-12.0) sec INR 2.6 H (<1.2) Sodium (137-145) mmol/L Potassium (3.5-5.1) mmol/L Carbon Dioxide (22-30) mmol/L BUN (9-20) mg/dL Creatinine (0.66-1.25) mg/dL Glucose (74-99) mg/dL POC Glucose (mg/dL) (75-99) mg/dL Hemoglobin A1c (4.2-6.1) % Calcium (8.4-10.2) mg/dL Phosphorus (2.5-4.5) mg/dL CK-MB (CK-2) (0.0-2.4) ng/mL Troponin I 0.228 H* (0.000-0.034) ng/mL Triglycerides (<150) mg/dL Cholesterol (<200) mg/dL HDL Cholesterol (40-60) mg/dL 09/09/16 Range/Units 07:12 WBC (3.8-10.6) k/uL RDW (11.5-15.5) % Neutrophils # (1.3-7.7) k/uL PT (9.0-12.0) sec INR (<1.2) Sodium (137-145) mmol/L Potassium (3.5-5.1) mmol/L Carbon Dioxide (22-30) mmol/L BUN (9-20) mg/dL Creatinine (0.66-1.25) mg/dL Glucose (74-99) mg/dL POC Glucose (mg/dL) 186 H (75-99) mg/dL Hemoglobin A1c (4.2-6.1) % Calcium (8.4-10.2) mg/dL Phosphorus (2.5-4.5) mg/dL CK-MB (CK-2) (0.0-2.4) ng/mL Troponin I (0.000-0.034) ng/mL Triglycerides (<150) mg/dL Cholesterol (<200) mg/dL HDL Cholesterol (40-60) mg/dL Assessment and Plan Plan: 1. Critical hyperkalemia with no reported EKG changes. Patient was treated medically in the emergency room. Hyperkalemia is most likely attributed to acute on chronic kidney failure, spironolactone, V[place] inhibitor and potassium supplement use. Repeat potassium level is 5.7. We will continue to monitor closely. Potassium has normalized at 5.0. Nephrology is following continue to monitor 2. Acute on chronic kidney failure nephrology following 3. Paroxysmal atrial fibrillation on anticoagulation with Coumadin 4. Ischemic cardiomyopathy with estimated EF of 20% 5. Type 2 diabetes mellitus : Hemoglobin A1c 8.7. Currently on Levemir 40 twice a day and Humalog 20 units with each meal. Continue sliding scale coverage. 6. Diarrhea: Continue to monitor. Kayexalate may be a contributing factor. The patient did have diarrhea prior to admission. If continues will need to check a stool for C. diff. 7. Metabolic acidosis secondary to the chronic kidney injury. Nephrology following continue with sodium bicarbonate 8. Hypercholesterolemia and hypertriglyceridemia: Patient will be started on Lipitor 40 mg at bedtime. 9. Elevated troponins: No chest pain. Await cardiology evaluation 10. Defibrillator checked showing ventricle tachycardia. Await further recommendations per cardiology I performed an examination of the patient and discussed their management with the physician Performance Improvement Consultant. I have reviewed the Physician Performance Improvement Consultant's notes and agree with the documented findings and plan of care
[2016-09-09] MEDS: METOLAZONE 5 MG TAB PO SCH (11:29)
[2016-09-09 12:30] LABS: Glucose,Whole Blood 145 mg/dL (75-99)
--- NOTE | 2016-09-09 12:39 | P.PN ---
Subjective Principal diagnosis: Hyperkalemia 71-year-old male patient with known history of ischemic cardiomyopathy, coronary artery disease, previous bypass surgery, previous AICD placement, paroxysmal atrial fibrillation and various other comorbidities including diabetes mellitus and chronic renal failure with stage III chronic kidney disease. The patient was transferred to our hospital because of generalized weakness and arrhythmias and acute hyperkalemia. Last night the patient was having some episodes of diarrhea. The patient noted that he was having difficulties moving around back and forth to the bathroom at one point he was unable to be moved and he was cared by family members. Subsequently he felt his AICD could've been discharging. He is not sure however. He presented to [facility] he was found to be acutely hypokalemic with a potassium level of 8.2. No cardiac arrhythmias have been noted. He was given Kayexalate and he was also given treatment for his hyperkalemia unsure if he was given calcium. Following that the patient got transferred to our hospital where the patient was again found to be hyperkalemic with a potassium level of 7.5. The patient was given Kayexalate, 50 mg of albuterol treatment, an amp of bicarb, an amp of calcium gluconate and following that he was moved to the intensive care unit. At time of my evaluation, the patient was not having any respiratory distress. No edema in lower extremities. No headaches. No change in mental status. His EKG showed paced rhythm. With did not with this any AICD discharge from this patient. Note that he did not lose any consciousness. No syncope. Echocardiogram is pending for now. The patient also be seen by cardiology. He is currently in the intensive care unit for monitoring. The patient is seen again today 09/09/2016 in follow-up in the intensive care unit. He is awake and alert in no acute distress. He has not had any sustained arrhythmias. His device was interrogated and did reveal evidence of ventricular tachycardia requiring defibrillation 1 on September 04 approximate 5:15 AM. This was a time the patient's had heard him fall to the ground while in the bathroom. His hyperkalemia has been corrected, currently 5.0. Renal function improving currently creatinine 1.60. Peak troponin 0.228. Cardiology is following as well. He denies any worsening shortness of breath, cough or congestion. No chest pain, palpitations lightheadedness or dizziness. He is maintaining good O2 saturations in the mid to upper 90s on room air. He has been hemodynamically stable. Rhythm remains regular. Objective - Vital Signs Vital signs: Vital Signs Temp 98.7 F 09/09/16 12:00 Pulse 104 H 09/09/16 12:00 Resp 17 09/09/16 12:00 BP 98/63 09/09/16 12:00 Pulse Ox 97 09/09/16 12:00 Intake & Output 09/08/16 09/09/16 09/09/16 18:59 06:59 18:59 Intake Total 600 550 700 Output Total 1951 375 0 Balance -1351 175 700 Weight 93 kg 93.3 kg Intake: IV 500 50 200 Magnesium Sulfate-D5w Pmx 200 1 gm In Dextrose/Water 1 100ml.bag @ 100 mls/hr IVPB Q1H [facility]AGO Rx#: [id number] Sodium Chloride 0.9% 1, 300 50 200 000 ml @ 50 mls/hr IV . Q20H DAGO Rx#:[id number] Amount of Fluid Infused ( 100 ml) Oral 500 500 Output: Urine 1950 375 0 Urine/Stool Mix 1 Other: Voiding Method Bedside Commode Bedside Commode Bedside Commode # Voids 1 # Bowel Movements 1 1 - Exam Head exam was generally normal. There was no scleral icterus or corneal arcus. Mucous membranes were moist.Neck was supple and without jugular venous distension, thyromegaly, or carotid bruits. Carotids were easily palpable bilaterally. There was no adenopathy. Lung sounds are diminished bilaterally otherwise clear. There is no crackles or rhonchi or any wheezes. Heart sounds are regular, there is a positive S3 gallop. There is no significant murmurs. The patient is a positive S1 and S2.Abdominal exam revealed normal bowel sounds. The abdomen was soft, non-tender, and without masses, organomegaly, or appreciable enlargement of the abdominal aorta.Examination of the extremities revealed easily palpable radial, femoral and pedal pulses. There was no cyanosis , clubbing or edema. The pacemaker pocket over the left anterior chest area is clean and dry and intact. Sternum stable treatment intact also. - Labs CBC & Chem 7: 09/09/16 05:25 09/09/16 05:25 Labs: Abnormal Lab Results - Last 24 Hours (Table) 09/08/16 09/08/16 09/08/16 Range/Units 08:34 14:57 17:07 WBC (3.8-10.6) k/uL RDW (11.5-15.5) % Neutrophils # (1.3-7.7) k/uL PT (9.0-12.0) sec INR (<1.2) Sodium (137-145) mmol/L Potassium 5.9 H (3.5-5.1) mmol/L Carbon Dioxide (22-30) mmol/L BUN (9-20) mg/dL Creatinine (0.66-1.25) mg/dL Glucose (74-99) mg/dL POC Glucose (mg/dL) (75-99) mg/dL Hemoglobin A1c 8.7 H (4.2-6.1) % Calcium (8.4-10.2) mg/dL Phosphorus (2.5-4.5) mg/dL CK-MB (CK-2) 3.4 H* (0.0-2.4) ng/mL Troponin I 0.087 H* (0.000-0.034) ng/mL Triglycerides (<150) mg/dL Cholesterol (<200) mg/dL HDL Cholesterol (40-60) mg/dL 09/08/16 09/08/16 09/08/16 Range/Units 17:08 20:27 20:52 WBC (3.8-10.6) k/uL RDW (11.5-15.5) % Neutrophils # (1.3-7.7) k/uL PT (9.0-12.0) sec INR (<1.2) Sodium (137-145) mmol/L Potassium (3.5-5.1) mmol/L Carbon Dioxide (22-30) mmol/L BUN (9-20) mg/dL Creatinine (0.66-1.25) mg/dL Glucose (74-99) mg/dL POC Glucose (mg/dL) 201 H 241 H (75-99) mg/dL Hemoglobin A1c (4.2-6.1) % Calcium (8.4-10.2) mg/dL Phosphorus (2.5-4.5) mg/dL CK-MB (CK-2) 3.0 H* (0.0-2.4) ng/mL Troponin I 0.108 H* (0.000-0.034) ng/mL Triglycerides (<150) mg/dL Cholesterol (<200) mg/dL HDL Cholesterol (40-60) mg/dL 09/09/16 09/09/16 09/09/16 Range/Units 05:25 05:25 05:25 WBC 10.7 H (3.8-10.6) k/uL RDW 18.7 H (11.5-15.5) % Neutrophils # 8.2 H (1.3-7.7) k/uL PT 25.5 H (9.0-12.0) sec INR 2.6 H (<1.2) Sodium 136 L (137-145) mmol/L Potassium (3.5-5.1) mmol/L Carbon Dioxide 19 L (22-30) mmol/L BUN 65 H (9-20) mg/dL Creatinine 1.60 H (0.66-1.25) mg/dL Glucose 246 H (74-99) mg/dL POC Glucose (mg/dL) (75-99) mg/dL Hemoglobin A1c (4.2-6.1) % Calcium 10.4 H (8.4-10.2) mg/dL Phosphorus 5.3 H (2.5-4.5) mg/dL CK-MB (CK-2) (0.0-2.4) ng/mL Troponin I (0.000-0.034) ng/mL Triglycerides 714 H (<150) mg/dL Cholesterol 258 H (<200) mg/dL HDL Cholesterol 31 L (40-60) mg/dL 09/09/16 09/09/16 09/09/16 Range/Units 05:25 07:12 12:17 WBC (3.8-10.6) k/uL RDW (11.5-15.5) % Neutrophils # (1.3-7.7) k/uL PT (9.0-12.0) sec INR (<1.2) Sodium (137-145) mmol/L Potassium (3.5-5.1) mmol/L Carbon Dioxide (22-30) mmol/L BUN (9-20) mg/dL Creatinine (0.66-1.25) mg/dL Glucose (74-99) mg/dL POC Glucose (mg/dL) 186 H 145 H (75-99) mg/dL Hemoglobin A1c (4.2-6.1) % Calcium (8.4-10.2) mg/dL Phosphorus (2.5-4.5) mg/dL CK-MB (CK-2) (0.0-2.4) ng/mL Troponin I 0.228 H* (0.000-0.034) ng/mL Triglycerides (<150) mg/dL Cholesterol (<200) mg/dL HDL Cholesterol (40-60) mg/dL Assessment and Plan Plan: Assessment 1 acute hyperkalemia, also factorial, due to a combination of intravascular volume depletion, acute on top of chronic renal failure, Aldactone, and Ethan inhibitors and potassium supplementation. Initial potassium level was high as 8.2 and dropped down to 7.5 and now is down to 5.0. His weakness is gradually improving 2 generalized body weakness secondary to hyperkalemia 3 sustained ventricular tachycardia requiring defibrillation 1 on 09/04/2016 at 5 AM per AICD interrogation. 4 CHF with ischemic cardiomyopathy 5 chronic renal failure stage III chronic kidney disease 6 paroxysmal atrial fibrillation anticoagulated with warfarin, therapeutic. 7 diabetes mellitus 8 coronary artery disease with previous bypass surgery 9 hypertension 10 COPD suspected 11 chronic back pain 12 abdominal aortic aneurysm measuring 4.3 cm in size 13 hyperlipidemia Plan The patient was seen and evaluated by Dr. Gray. His potassium level has improved. Cardiology is on the case regarding antiarrhythmics. The patient is stable for transfer out of the intensive care unit today. We'll continue to follow.
--- NOTE | 2016-09-09 12:43 | PN ---
Mr. Taylor is a 71-year-old gentleman with history of coronary artery disease, status post CABG, ischemic cardiomyopathy, status post AICD, chronic atrial fibrillation who presented to the hospital having had episodes of ventricular tachycardia fibrillation and AICD discharge. This happened in the context of a potassium of 8.4 and we believe this is related to the ( ). He ruled out for myocardial infarction. A mild troponin elevation could be due to the renal insufficiency and the defibrillator discharge. He has not had any episodes of chest pain, not short of breath, not in failure. This morning, he is comfortable at rest and is free of symptoms. Potassium had come down to 5. INR is therapeutic at 2.6. I reviewed the AICD data. On exam, comfortable at rest. Vital signs are stable. There is no jugular venous distention. Carotid upstroke is normal. There is no bruit. Chest exam reveals diminished air entry bilaterally. Heart exam reveals first and second heart sounds. No gallop, no murmur, no rub. Abdomen is soft, nontender. Examination of extremities did not reveal any edema. Peripheral pulses are felt. Labs show that hemoglobin is 14.7. INR is 2.6. Potassium is 5. BUN is 65. Creatinine is 1.6. Troponin is at 0.1 and 0.2. Total cholesterol is elevated at 258. ASSESSMENT: 1. Ventricular tachycardia secondary to hyperkalemia, status post AICD discharge. 2. Ischemic cardiomyopathy, status post AICD. 3. Coronary artery disease, status post CABG. 4. Renal failure. PLAN: Will start the Aldactone, hold the Zaroxolyn this morning. Continue with the statin that had been started. We can transfer the patient to sixth floor and hopefully discharge home over the next couple of days. He will need an outpatient stress test and we have to review his outpatient records. CRUZ
[2016-09-09] MEDS: WARFARIN 3 MG TAB PO SCH (17:01)
[2016-09-09 17:16] LABS: Glucose,Whole Blood 129 mg/dL (75-99)
[2016-09-09] MEDS ORDERED: METOPROLOL TARTRATE 5 MG/5 ML VIAL IVP STA (19:42)
[2016-09-09] MEDS: ATORVASTATIN 40 MG TAB PO SCH (20:00)
[2016-09-09 20:52] LABS: Glucose,Whole Blood 165 mg/dL (75-99)
[2016-09-10 05:59] LABS: Glucose,Whole Blood 136 mg/dL (75-99)
[2016-09-10] MEDS: INSULIN LISPRO (humaLOG) 300 UNIT/3 ML VIAL SQ SCH ×7 (06:33→20:57)
[2016-09-10] MEDS: CARVEDILOL 6.25 MG TAB PO SCH ×2 (06:57→17:46)
[2016-09-10] MEDS: PANTOPRAZOLE 40 MG TABLET PO SCH (06:58)
[2016-09-10 07:03] LABS: Anisocytosis Slight; Basophils # (A) 0.1 k/uL (0-0.2); Basophils % (A) 1 %; CH 28.8; CHCM 33.8; Eosinophils # (A) 0.7 k/uL (0-0.7); Eosinophils % (A) 7 %; HCT 40.2 % (39.0-53.0); HDW 3.38; HGB 13.6 gm/dL (13.0-17.5); Luc % (Auto) 3; Lymphocytes # (A) 1.9 k/uL (1.0-4.8); Lymphocytes % (A) 19 %; MCH 28.8 pg (25.0-35.0); MCHC 33.8 g/dL (31.0-37.0); MCV 85.3 fL (80.0-100.0); Mean Platelet Volume 8.2; Monocytes # (A) 0.6 k/uL (0-1.0); Monocytes % (A) 6 %; Neutrophils # (A) 6.5 k/uL (1.3-7.7); Neutrophils % (A) 65 %; RBC 4.72 m/uL (4.30-5.90); RDW 18.2 % (11.5-15.5); WBC (Perox) 9.49
[2016-09-10 07:10] LABS: INR 2.1 (<1.2); Prothrombin Time 19.9 sec (9.0-12.0)
[2016-09-10 07:36] LABS: Calcium 9.9 mg/dL (8.4-10.2); Magnesium 1.7 mg/dL (1.6-2.3); Phosphorous 5.5 mg/dL (2.5-4.5); Potassium 4.8 mmol/L (3.5-5.1)
[2016-09-10] MEDS: INSULIN DETEMIR 100 UNIT/ML 10 ML VIAL SQ SCH ×2 (08:10→21:04)
[2016-09-10] MEDS: ASPIRIN 325 MG TAB PO SCH (08:11)
[2016-09-10] MEDS: FUROSEMIDE 20 MG TAB PO SCH ×2 (08:11→17:46)
[2016-09-10] MEDS: CHOLECALCIFEROL 1,000 UNIT TAB PO SCH (08:11)
[2016-09-10] MEDS: MAGNESIUM SULFATE-D5W PMX 1 GM in DEXTROSE/WATER 1 100ML.BAG IVPB SCH ×2 (08:11→09:26)
[2016-09-10] MEDS: MAGNESIUM OXIDE 400 MG TAB PO SCH (08:12)
[2016-09-10] MEDS: METOLAZONE 5 MG TAB PO SCH (08:12)
[2016-09-10] MEDS: SODIUM BICARBONATE TAB 650 MG TAB PO SCH ×3 (08:12→19:54)
[2016-09-10] MEDS: ISOSORBIDE MONONITRATE ER 15 MG TAB PO SCH (08:12)
[2016-09-10] MEDS: SYMBICORT 160-4.5 MCG INHALER INHALATION SCH ×2 (08:44→19:21)
--- NOTE | 2016-09-10 09:26 | PN ---
Patient is seen for followup for acute kidney injury and chronic kidney disease. He was admitted to the hospital with hyperkalemia. Potassium was 7.5, which has improved now. Patient also has severe cardiomyopathy and is maintained on oral Lasix and remains stable. His creatinine has been fluctuating between 1.9 and 1.7 mg/dL since admission. Previous creatinine has been as low as 1.3 and 1.4 mg/dL. On examination today, blood pressure is 107/73, heart rate 98 per minute. He is afebrile. EXAMINATION OF THE HEART: S1, S2. EXAMINATION OF LUNGS: Bilateral breath sounds are heard. Abdomen is soft, non-tender. Examination of lower extremities shows no evidence of edema. [employer] SAL[employer] SEASONAL exam is grossly intact. Labs reveal sodium of 139, potassium 4.8, BUN 70, creatinine 1.75. Hemoglobin 13.6 grams/dL. ASSESSMENT: 1. Chronic kidney disease, stage III, secondary to nephrosclerosis and element of cardiorenal syndrome as well, with baseline creatinine about 1.3 to 1.5 mg/ dL. 2. Acute kidney injury, fairly stable; creatinine fluctuating between 1.9 and 1.7 mg/dL. Patient remains on diuretics. He is off of V[place] inhibitors. He will need adjustment of his diuretic dose, which can be done as outpatient. Continue current dose of diuretics for now. We will follow up with labs as outpatient. 3. Systolic heart failure with ejection fraction 35% to 40%. 4. Hyperkalemia associated with VIRGINIA inhibitors, Aldactone and acute kidney injury at the time of admission, currently resolved. PLAN: Follow up as outpatient. May continue current diuretics. Repeat labs as outpatient in about 3 to 4 days' time. Patient will likely need the Zaroxolyn dose to be decreased and his diuretics adjusted, depending on his volume status as outpatient. Continue off of VIRGINIA inhibitors. MTDD
--- NOTE | 2016-09-10 10:59 | P.PN ---
Subjective No events overnight. Patient is doing fairly well. Objective - Vital Signs Vital signs: Vital Signs Temp 98 F 09/10/16 08:00 Pulse 98 09/10/16 08:00 Resp 12 09/10/16 08:00 BP 107/73 09/10/16 08:00 Pulse Ox 94 L 09/10/16 08:00 Intake & Output 09/09/16 09/10/16 09/10/16 18:59 06:59 18:59 Intake Total 880 40 Output Total 600 Balance 280 40 Weight 94.2 kg Intake: IV 200 40 0.9% NS FLUSH 40 Sodium Chloride 0.9% 1, 200 000 ml @ 50 mls/hr IV . Q20H DAGO Rx#:[id number] Oral 680 Output: Urine 600 Other: Voiding Method Bedside Commode # Voids 0 - Exam General: The patient is awake and alert, in no distress Eye: there is normal conjunctiva bilaterally. Neck: The neck is supple, there is no JVD. Cardiovascular: Normal S1-S2, no S3-S4, no murmurs. Respiratory: Lungs clear to auscultation bilaterally Gastrointestinal: Abdomen is soft, nontender Musculoskeletal: There is no pedal edema. Neurological:. Speech is normal. Skin: Skin is warm and dry - Labs CBC & Chem 7: 09/10/16 06:49 09/10/16 06:49 Labs: Abnormal Lab Results - Last 24 Hours (Table) 09/09/16 09/09/16 09/09/16 Range/Units 12:17 17:14 20:51 RDW (11.5-15.5) % Plt Count (150-450) k/uL PT (9.0-12.0) sec INR (<1.2) BUN (9-20) mg/dL Creatinine (0.66-1.25) mg/dL Glucose (74-99) mg/dL POC Glucose (mg/dL) 145 H 129 H 165 H (75-99) mg/dL Phosphorus (2.5-4.5) mg/dL 09/10/16 09/10/16 09/10/16 Range/Units 05:58 06:49 06:49 RDW 18.2 H (11.5-15.5) % Plt Count 133 L (150-450) k/uL PT (9.0-12.0) sec INR (<1.2) BUN 70 H (9-20) mg/dL Creatinine 1.75 H (0.66-1.25) mg/dL Glucose 136 H (74-99) mg/dL POC Glucose (mg/dL) 136 H (75-99) mg/dL Phosphorus 5.5 H (2.5-4.5) mg/dL 09/10/16 Range/Units 06:49 RDW (11.5-15.5) % Plt Count (150-450) k/uL PT 19.9 H (9.0-12.0) sec INR 2.1 H (<1.2) BUN (9-20) mg/dL Creatinine (0.66-1.25) mg/dL Glucose (74-99) mg/dL POC Glucose (mg/dL) (75-99) mg/dL Phosphorus (2.5-4.5) mg/dL Assessment and Plan Plan: 1. Critical hyperkalemia on presentation with no reported EKG changes. Now resolved. Patient was treated medically in the emergency room. Hyperkalemia is most likely attributed to acute on chronic kidney failure, spironolactone, V[place] inhibitor and potassium supplement use. Nephrology is following continue to monitor 2. Acute on chronic kidney failure 3. Paroxysmal atrial fibrillation on anticoagulation with Coumadin 4. Ischemic cardiomyopathy with estimated EF of 20% 5. Type 2 diabetes mellitus : Hemoglobin A1c 8.7. Currently on Levemir 40 twice a day and Humalog 20 units with each meal. Continue sliding scale coverage. 6. Diarrhea: Continue to monitor. Now resolved. Kayexalate may be a contributing factor. The patient did have diarrhea prior to admission. If continues will need to check a stool for C. diff. 7. Metabolic acidosis secondary to the chronic kidney injury. Nephrology following continue with sodium bicarbonate 8. Hypercholesterolemia and hypertriglyceridemia: Patient will be started on Lipitor 40 mg at bedtime. 9. Elevated troponins: No chest pain. Most likely thrombotic troponin leak. Seen and evaluated by cardiology. 10. Defibrillator checked showing ventricle tachycardia. Await further recommendations per cardiology
[2016-09-10] MEDS ORDERED: DEXTROSE 5% IN WATER 100 ML with AMIODARONE 150 MG IV ONE (11:00)
[2016-09-10] MEDS: AMIODARONE 450 MG in DEXTROSE 5% IN WATER 250 ML IV SCH ×6 (11:30→19:53)
[2016-09-10 12:05] LABS: Glucose,Whole Blood 227 mg/dL (75-99)
--- NOTE | 2016-09-10 12:36 | P.PN ---
Subjective Is a 71-year-old gentleman with history of coronary artery disease prior bypass surgery, ischemic cardio myopathy with prior AICD, chronic atrial fibrillation, who presented to the hospital following AICD discharge. His device was interrogated and did reveal episodes of ventricular tachycardia as well as atrial flutter with rapid ventricular response. Today the patient was initiated on IV amiodarone bolus and drip per protocol. Overall the patient feels well, he denies any palpitations, no dizziness or lightheadedness. Amiodarone education was provided to the patient in detail. Objective - Vital Signs Vital signs: Vital Signs Temp 98 F 09/10/16 08:00 Pulse 77 09/10/16 11:37 Resp 16 09/10/16 11:40 BP 118/63 09/10/16 11:37 Pulse Ox 95 09/10/16 11:37 Intake & Output 09/09/16 09/10/16 09/10/16 18:59 06:59 18:59 Intake Total 880 40 Output Total 600 Balance 280 40 Weight 94.2 kg Intake: IV 200 40 0.9% NS FLUSH 40 Sodium Chloride 0.9% 1, 200 000 ml @ 50 mls/hr IV . Q20H [facility] Rx#:[id number] Oral 680 Output: Urine 600 Other: Voiding Method Bedside Commode Bedside Commode # Voids 0 - Exam PHYSICAL EXAMINATION: HEENT: Head is atraumatic, normocephalic. Pupils equal, round. Neck is supple. There is no elevated jugular venous pressure. HEART EXAMINATION: Heart S1, S2 normal. No murmur or gallop heard. CHEST EXAMINATION: Lungs are clear to auscultation and precussion. No chest wall tenderness is noted on palpation or with deep breathing. ABDOMEN: Soft, nontender. Bowel sounds are heard. No organomegaly noted. EXTREMITIES: 2+ peripheral pulses with no evidence of peripheral edema and no calf tenderness noted. NEUROLOGIC patient is awake, alert and oriented -3. . - Labs CBC & Chem 7: 09/10/16 06:49 09/10/16 06:49 Labs: Abnormal Lab Results - Last 24 Hours (Table) 09/09/16 09/09/16 09/10/16 Range/Units 17:14 20:51 05:58 RDW (11.5-15.5) % Plt Count (150-450) k/uL PT (9.0-12.0) sec INR (<1.2) BUN (9-20) mg/dL Creatinine (0.66-1.25) mg/dL Glucose (74-99) mg/dL POC Glucose (mg/dL) 129 H 165 H 136 H (75-99) mg/dL Phosphorus (2.5-4.5) mg/dL 09/10/16 09/10/16 09/10/16 Range/Units 06:49 06:49 06:49 RDW 18.2 H (11.5-15.5) % Plt Count 133 L (150-450) k/uL PT 19.9 H (9.0-12.0) sec INR 2.1 H (<1.2) BUN 70 H (9-20) mg/dL Creatinine 1.75 H (0.66-1.25) mg/dL Glucose 136 H (74-99) mg/dL POC Glucose (mg/dL) (75-99) mg/dL Phosphorus 5.5 H (2.5-4.5) mg/dL 09/10/16 Range/Units 11:48 RDW (11.5-15.5) % Plt Count (150-450) k/uL PT (9.0-12.0) sec INR (<1.2) BUN (9-20) mg/dL Creatinine (0.66-1.25) mg/dL Glucose (74-99) mg/dL POC Glucose (mg/dL) 227 H (75-99) mg/dL Phosphorus (2.5-4.5) mg/dL Assessment and Plan (1) AICD discharge Status: Acute (2) V-tach Status: Acute (3) Atrial flutter Status: Acute (4) Atrial flutter with rapid ventricular response Status: Acute (5) Ischemic cardiomyopathy Status: Acute Plan: Cardiology's perspective, patient has been initiated on IV amiodarone. We will continue to monitor for further arrhythmias. Monitor INR closely as the patient is also on Coumadin. DNP note has been reviewed, I agree with a documented findings and plan of care. Patient was seen and examined.
[2016-09-10 17:17] LABS: Glucose,Whole Blood 226 mg/dL (75-99)
[2016-09-10] MEDS: WARFARIN 3 MG TAB PO SCH (17:46)
[2016-09-10] MEDS ORDERED: CARVEDILOL 6.25 MG TAB PO STA (19:19)
[2016-09-10] MEDS: ATORVASTATIN 40 MG TAB PO SCH (19:53)
[2016-09-10 20:46] LABS: Glucose,Whole Blood 201 mg/dL (75-99)
[2016-09-11] MEDS: AMIODARONE 450 MG in DEXTROSE 5% IN WATER 250 ML IV SCH ×6 (02:15→12:22)
[2016-09-11 06:22] LABS: Glucose,Whole Blood 180 mg/dL (75-99)
[2016-09-11] MEDS: CARVEDILOL 6.25 MG TAB PO SCH (06:42)
[2016-09-11] MEDS: PANTOPRAZOLE 40 MG TABLET PO SCH (06:42)
[2016-09-11 06:56] LABS: Anisocytosis Slight; Basophils # (A) 0.1 k/uL (0-0.2); Basophils % (A) 1 %; CH 28.9; CHCM 34.5; Eosinophils # (A) 0.6 k/uL (0-0.7); Eosinophils % (A) 6 %; HCT 39.6 % (39.0-53.0); HDW 3.43; HGB 13.7 gm/dL (13.0-17.5); Luc # (Auto) 0.25; Luc % (Auto) 3; Lymphocytes # (A) 1.5 k/uL (1.0-4.8); Lymphocytes % (A) 15 %; MCH 29.1 pg (25.0-35.0); MCHC 34.6 g/dL (31.0-37.0); MCV 84.1 fL (80.0-100.0); Mean Platelet Volume 7.9; Monocytes # (A) 0.5 k/uL (0-1.0); Monocytes % (A) 5 %; Neutrophils % (A) 71 %; Poikilocytosis Slight; RBC 4.71 m/uL (4.30-5.90); WBC 9.9 k/uL (3.8-10.6)
[2016-09-11] MEDS: INSULIN LISPRO (humaLOG) 300 UNIT/3 ML VIAL SQ SCH ×7 (06:57→21:26)
[2016-09-11 07:00] LABS: INR 1.9 (<1.2); Prothrombin Time 18.2 sec (9.0-12.0)
[2016-09-11 07:11] LABS: Calcium 9.6 mg/dL (8.4-10.2); Magnesium 1.8 mg/dL (1.6-2.3); Phosphorous 4.7 mg/dL (2.5-4.5); Potassium 3.7 mmol/L (3.5-5.1)
[2016-09-11] MEDS: SYMBICORT 160-4.5 MCG INHALER INHALATION SCH ×2 (08:18→19:29)
[2016-09-11] MEDS: MAGNESIUM SULFATE-D5W PMX 1 GM in DEXTROSE/WATER 1 100ML.BAG IVPB SCH ×2 (08:30→09:42)
[2016-09-11] MEDS: INSULIN DETEMIR 100 UNIT/ML 10 ML VIAL SQ SCH ×2 (08:31→21:28)
[2016-09-11] MEDS: FUROSEMIDE 20 MG TAB PO SCH ×2 (08:31→17:26)
[2016-09-11] MEDS: CHOLECALCIFEROL 1,000 UNIT TAB PO SCH (08:31)
[2016-09-11] MEDS: METOLAZONE 5 MG TAB PO SCH (08:32)
[2016-09-11] MEDS: MAGNESIUM OXIDE 400 MG TAB PO SCH (08:32)
[2016-09-11] MEDS: ISOSORBIDE MONONITRATE ER 15 MG TAB PO SCH (08:32)
[2016-09-11] MEDS: SODIUM BICARBONATE TAB 650 MG TAB PO SCH ×3 (08:32→20:38)
[2016-09-11] MEDS ORDERED: CARVEDILOL 6.25 MG TAB PO STA (11:10)
[2016-09-11 12:20] LABS: Glucose,Whole Blood 255 mg/dL (75-99)
--- NOTE | 2016-09-11 12:30 | PN ---
Patient is seen for follow up for acute kidney injury. His renal function is currently stable and slightly improved since admission. However, patient's heart rate was elevated and he is currently on amiodarone drip. On examination, blood pressure is 113/65, heart rate 80 per minute. He is afebrile. Examination of the heart: S1, S2. Examination of the lungs: Bilateral breath sounds are heard. Abdomen is soft, nontender. Examination of lower extremities show no evidence of edema. [employer] exam is grossly intact. Labs show sodium of 135, potassium 3.7, serum creatinine 1.6, hemoglobin 13.7 g/ dL. ASSESSMENT: 1. Acute kidney injury currently improved with serum creatinine down to 1.6 mg/ dL mainly secondary to hemodynamic and volume status changes. 2. Chronic kidney disease stage III secondary to nephrosclerosis and element of cardiorenal syndrome with baseline creatinine of 1.3 to 1.5 mg/dL. 3. Systolic heart failure with ejection fraction of 35 to 40%. 4. Hyperkalemia on initial admission, currently improved. 5. Atrial flutter with rapid ventricular response, currently maintained on amiodarone drip. PLAN: No changes from nephrology standpoint. Continue off of [place] inhibitors for now. Repeat labs in a.m. MTDD
--- NOTE | 2016-09-11 15:53 | P.PN ---
Subjective Heart rate not well controlled today. Patient is going to rapid ventricular response with heart rate up to 150. He denies feeling heart palpitations or pounding. He cannot tell when his heart is racing. He is hemodynamically stable. He was started on amiodarone drip by cardiology. Objective - Vital Signs Vital signs: Vital Signs Temp 97.1 F L 09/11/16 08:24 Pulse 117 H 09/11/16 14:20 Resp 16 09/11/16 14:20 BP 114/59 09/11/16 14:20 Pulse Ox 96 09/11/16 14:20 Intake & Output 09/10/16 09/11/16 09/11/16 18:59 06:59 18:59 Intake Total 207.757 839.841 560 Output Total 900 400 Balance -692.243 839.841 160 Weight 94.1 kg Intake: IV 620 180 0.9% NS 10 mL/hr 160 0.9% NS FLUSH 10 Amiodarone 450 mg In 60 Dextrose 5% in Water 250 ml @ 0.5 MG/MIN 16.66 mls /hr IV .Q15H1M [facility] Rx#: [id number] Amiodarone 450 mg In 450 120 Dextrose 5% in Water 250 ml @ 1 MG/MIN 33.33 mls/ hr IV .Q7H31M [facility] Rx#: [id number] Intake, IV Titration 207.757 219.841 200 Amount Amiodarone 450 mg In 207.757 Dextrose 5% in Water 250 ml @ 1 MG/MIN 33.33 mls/ hr IV .Q7H31M [facility] Rx#: [id number] Amiodarone 450 mg In 219.841 Dextrose 5% in Water 250 ml @ 1 MG/MIN 34.53 mls/ hr IV .Q7H31M [facility] Rx#: [id number] Magnesium Sulfate-D5w Pmx 200 1 gm In Dextrose/Water 1 100ml.bag @ 100 mls/hr IVPB Q1H [facility] Rx#: [id number] Oral 180 Output: Urine 900 400 Other: Voiding Method Bedside Commode Toilet Toilet # Voids 3 3 - Exam General: The patient is awake and alert, in no distress Eye: there is normal conjunctiva bilaterally. Neck: The neck is supple, there is no JVD. Cardiovascular: Normal S1-S2, no S3-S4, no murmurs. Respiratory: Lungs clear to auscultation bilaterally Gastrointestinal: Abdomen is soft, nontender Musculoskeletal: There is no pedal edema. Neurological:. Speech is normal. Skin: Skin is warm and dry - Labs CBC & Chem 7: 09/11/16 06:32 09/11/16 06:32 Labs: Abnormal Lab Results - Last 24 Hours (Table) 09/10/16 09/10/16 09/11/16 Range/Units 16:48 20:45 06:21 RDW (11.5-15.5) % Plt Count (150-450) k/uL PT (9.0-12.0) sec INR (<1.2) Sodium (137-145) mmol/L Chloride (98-107) mmol/L BUN (9-20) mg/dL Creatinine (0.66-1.25) mg/dL Glucose (74-99) mg/dL POC Glucose (mg/dL) 226 H 201 H 180 H (75-99) mg/dL Phosphorus (2.5-4.5) mg/dL 09/11/16 09/11/16 09/11/16 Range/Units 06:32 06:32 06:32 RDW 18.0 H (11.5-15.5) % Plt Count 116 L (150-450) k/uL PT 18.2 H (9.0-12.0) sec INR 1.9 H (<1.2) Sodium 135 L (137-145) mmol/L Chloride 96 L (98-107) mmol/L BUN 66 H (9-20) mg/dL Creatinine 1.66 H (0.66-1.25) mg/dL Glucose 161 H (74-99) mg/dL POC Glucose (mg/dL) (75-99) mg/dL Phosphorus 4.7 H (2.5-4.5) mg/dL 09/11/16 Range/Units 12:02 RDW (11.5-15.5) % Plt Count (150-450) k/uL PT (9.0-12.0) sec INR (<1.2) Sodium (137-145) mmol/L Chloride (98-107) mmol/L BUN (9-20) mg/dL Creatinine (0.66-1.25) mg/dL Glucose (74-99) mg/dL POC Glucose (mg/dL) 255 H (75-99) mg/dL Phosphorus (2.5-4.5) mg/dL Assessment and Plan Plan: 1. Critical hyperkalemia on presentation with no reported EKG changes. Now resolved. Patient was treated medically in the emergency room. Hyperkalemia is most likely attributed to acute on chronic kidney failure, spironolactone, [place] inhibitor and potassium supplement use. Nephrology is following continue to monitor 2. Acute on chronic kidney failure 3. Paroxysmal atrial fibrillation on anticoagulation with Coumadin 4. Ischemic cardiomyopathy with estimated EF of 20% 5. Type 2 diabetes mellitus : Hemoglobin A1c 8.7. Currently on Levemir 40 twice a day and Humalog 20 units with each meal. Continue sliding scale coverage. 6. Diarrhea: Continue to monitor. Now resolved. Kayexalate may be a contributing factor. The patient did have diarrhea prior to admission. If continues will need to check a stool for C. diff. 7. Metabolic acidosis secondary to the chronic kidney injury. Nephrology following continue with sodium bicarbonate 8. Hypercholesterolemia and hypertriglyceridemia: Patient will be started on Lipitor 40 mg at bedtime. 9. Elevated troponins: No chest pain. Most likely thrombotic troponin leak. Seen and evaluated by cardiology. 10. Defibrillator checked showing ventricle tachycardia. Await further recommendations per cardiology
[2016-09-11 17:15] LABS: Glucose,Whole Blood 121 mg/dL (75-99)
[2016-09-11] MEDS: CARVEDILOL 12.5 MG TAB PO SCH (17:26)
[2016-09-11] MEDS: WARFARIN 3 MG TAB PO SCH (17:27)
[2016-09-11] MEDS: ATORVASTATIN 40 MG TAB PO SCH (20:38)
[2016-09-11 21:20] LABS: Glucose,Whole Blood 158 mg/dL (75-99)
[2016-09-12] MEDS: AMIODARONE 450 MG in DEXTROSE 5% IN WATER 250 ML IV SCH ×2 (02:26)
[2016-09-12 06:10] LABS: Anisocytosis Slight; Basophils % (A) 0 %; CH 28.9; CHCM 34.3; Eosinophils # (A) 0.5 k/uL (0-0.7); Eosinophils % (A) 5 %; HCT 41.2 % (39.0-53.0); HDW 3.39; HGB 13.7 gm/dL (13.0-17.5); Luc # (Auto) 0.17; Luc % (Auto) 2; Lymphocytes # (A) 1.3 k/uL (1.0-4.8); Lymphocytes % (A) 12 %; MCHC 33.2 g/dL (31.0-37.0); MCV 84.3 fL (80.0-100.0); Mean Platelet Volume 7.7; Monocytes # (A) 0.5 k/uL (0-1.0); Monocytes % (A) 5 %; Neutrophils # (A) 7.6 k/uL (1.3-7.7); Neutrophils % (A) 75 %; RBC 4.89 m/uL (4.30-5.90); RDW 17.7 % (11.5-15.5); WBC 10.1 k/uL (3.8-10.6)
[2016-09-12 06:14] LABS: INR 2.2 (<1.2); Prothrombin Time 21.2 sec (9.0-12.0)
[2016-09-12 06:16] LABS: Glucose,Whole Blood 132 mg/dL (75-99)
[2016-09-12] MEDS: INSULIN LISPRO (humaLOG) 300 UNIT/3 ML VIAL SQ SCH ×7 (06:20→21:30)
[2016-09-12] MEDS: AMIODARONE 200 MG TAB PO SCH ×3 (06:41→21:31)
[2016-09-12 06:42] LABS: Calcium 9.5 mg/dL (8.4-10.2); Phosphorous 4.3 mg/dL (2.5-4.5); Potassium 3.4 mmol/L (3.5-5.1)
[2016-09-12] MEDS: PANTOPRAZOLE 40 MG TABLET PO SCH (06:42)
[2016-09-12] MEDS: CARVEDILOL 12.5 MG TAB PO SCH (06:42)
[2016-09-12] MEDS: SYMBICORT 160-4.5 MCG INHALER INHALATION SCH ×2 (08:37→19:56)
--- NOTE | 2016-09-12 09:06 | P.PN ---
Subjective Patient is seen in follow-up for acute kidney injury on chronic kidney disease. Patient has chronic kidney disease stage III secondary to cardiorenal syndrome with baseline creatinine near 1.5. Patient presented with weakness and syncopal episode. He was noted to have a potassium level of 7.5 which was medically treated. Hyperkalemia is resolved. Denies any chest pain or shortness of breath. No vomiting or diarrhea. He is nonoliguric. Renal function is improved with creatinine down to 1.53 today. Patient does have systolic CHF with ejection fraction of 25%. Vital signs are stable. General: The patient appeared well nourished and normally developed. HEENT: Head exam is unremarkable. Neck is without jugular venous distension. LUNGS: Lungs are clear to auscultation and percussion. Breath sounds decreased. HEART: Rate and Rhythm are regular. First and second heart sounds normal. No murmurs, rubs or gallops. ABDOMEN: Abdominal exam reveals normal bowel sounds. Non-tender and non- distended. No evidence of peritonitis. EXTREMITITES: No clubbing, cyanosis, or edema. Objective - Vital Signs Vital signs: Vital Signs Temp 97 F L 09/12/16 04:00 Pulse 100 09/12/16 06:44 Resp 16 09/12/16 04:00 BP 113/66 09/12/16 06:44 Pulse Ox 96 09/12/16 04:00 Intake & Output 09/11/16 09/12/16 09/12/16 18:59 06:59 18:59 Intake Total 560 740.628 360 Output Total 800 Balance -240 740.628 360 Intake: IV 180 506 0.9% NS 10 mL/hr 240 Amiodarone 450 mg In 60 266 Dextrose 5% in Water 250 ml @ 0.5 MG/MIN 16.66 mls /hr IV .Q15H1M [facility] Rx#: [id number] Amiodarone 450 mg In 120 Dextrose 5% in Water 250 ml @ 1 MG/MIN 33.33 mls/ hr IV .Q7H31M [facility] Rx#: [id number] Intake, IV Titration 200 234.628 Amount Amiodarone 450 mg In 234.628 Dextrose 5% in Water 250 ml @ 0.5 MG/MIN 16.66 mls /hr IV .Q15H1M [facility] Rx#: [id number] Magnesium Sulfate-D5w Pmx 200 1 gm In Dextrose/Water 1 100ml.bag @ 100 mls/hr IVPB Q1H [facility] Rx#: [id number] Oral 180 360 Output: Urine 800 Other: Voiding Method Toilet # Voids 3 - Labs CBC & Chem 7: 09/12/16 05:51 09/12/16 05:51 Labs: Abnormal Lab Results - Last 24 Hours (Table) 09/11/16 09/11/16 09/11/16 Range/Units 12:02 17:12 21:19 RDW (11.5-15.5) % Plt Count (150-450) k/uL PT (9.0-12.0) sec INR (<1.2) Sodium (137-145) mmol/L Potassium (3.5-5.1) mmol/L Chloride (98-107) mmol/L BUN (9-20) mg/dL Creatinine (0.66-1.25) mg/dL Glucose (74-99) mg/dL POC Glucose (mg/dL) 255 H 121 H 158 H (75-99) mg/dL 09/12/16 09/12/16 09/12/16 Range/Units 05:51 05:51 05:51 RDW 17.7 H (11.5-15.5) % Plt Count 120 L (150-450) k/uL PT 21.2 H (9.0-12.0) sec INR 2.2 H (<1.2) Sodium 135 L (137-145) mmol/L Potassium 3.4 L (3.5-5.1) mmol/L Chloride 97 L (98-107) mmol/L BUN 65 H (9-20) mg/dL Creatinine 1.53 H (0.66-1.25) mg/dL Glucose 111 H (74-99) mg/dL POC Glucose (mg/dL) (75-99) mg/dL 09/12/16 Range/Units 06:15 RDW (11.5-15.5) % Plt Count (150-450) k/uL PT (9.0-12.0) sec INR (<1.2) Sodium (137-145) mmol/L Potassium (3.5-5.1) mmol/L Chloride (98-107) mmol/L BUN (9-20) mg/dL Creatinine (0.66-1.25) mg/dL Glucose (74-99) mg/dL POC Glucose (mg/dL) 132 H (75-99) mg/dL Assessment and Plan Plan: Assessment: #1. Nonoliguric acute kidney injury mostly prerenal from diuresis. Creatinine was 1.92 on admission and is down to 1.6 today. Recent urinalysis benign. No evidence of urinary retention. #2. Systolic CHF with ejection fraction of 35-40%. Appears compensated at this time. #3. Hyperkalemia secondary to use of potassium supplementation as well as Aldactone and [place] inhibitor. Metabolic acidosis and acute kidney injury also contribute factors. Resolved. Now actually hypokalemic from diuresis. #4. Chronic kidney disease stage III secondary to cardiorenal syndrome with baseline creatinine in the range of 1.3-1.5. #5. Metabolic acidosis secondary to chronic kidney disease. Improving. Plan: Continue Lasix 60 mg orally twice daily. Maintain oral sodium bicarbonate supplementation. Replace potassium. Resume lisinopril 2.5 mg once daily. Resume Aldactone 25 mg once daily. Monitor potassium level.
[2016-09-12] MEDS: POTASSIUM CHLORIDE ER 20 MEQ TAB.ER PO SCH ×2 (09:19→10:25)
[2016-09-12] MEDS: CHOLECALCIFEROL 1,000 UNIT TAB PO SCH (09:21)
[2016-09-12] MEDS: INSULIN DETEMIR 100 UNIT/ML 10 ML VIAL SQ SCH ×2 (09:21→21:30)
[2016-09-12] MEDS: MAGNESIUM OXIDE 400 MG TAB PO SCH (09:22)
[2016-09-12] MEDS: SODIUM BICARBONATE TAB 650 MG TAB PO SCH ×3 (09:22→21:31)
[2016-09-12 11:36] LABS: Glucose,Whole Blood 210 mg/dL (75-99)
--- NOTE | 2016-09-12 11:59 | PN ---
Mr. Taylor is a 71-year-old gentleman with history of coronary artery disease with the previous bypass surgery, ischemic cardiomyopathy and prior AICD placement. Patient came to the hospital after AICD discharge. He was found to have episodes of ventricular tachycardia and also A. fib with rapid ventricular response. We initiated IV amiodarone yesterday. Patient is still having atrial fibrillation with RVR. Will continue the IV Cordarone drip until tomorrow and then change it to p.o. Cordarone. We are also going to increase the dose of Coreg to 12.5 mg p.o. b.i.d. Patient is otherwise doing much better. Patient's potassium was high on admission, that seemed to be gradually improving also. Lab work showed potassium level of 3.7. His creatinine is 1.66 which seemed to be better than when he came in with 1.92 range. His blood pressure is 113/70, heart rate is 117, respirations are 12 to 16. Neck is supple. Heart, S1, S2 heard. Lungs appear to be clear. Abdomen is soft. Extremities no significant edema. FINAL IMPRESSION: 1. Episodes of ventricular tachycardia requiring cardiac shock. 2. Atrial fibrillation with rapid ventricular rate. 3. Ischemic cardiomyopathy. 4. Renal failure. 5. Hyperkalemia. PLAN: Patient is seen to be more stable. Will continue amiodarone one more day than change to p.o. amiodarone. Also will discharge within the next 24 to 4 hours. MTDD
--- NOTE | 2016-09-12 13:14 | P.PN ---
Subjective Patient is doing fairly well today. He had an episode of dizziness this morning when he was using the restroom events on the monitor. Objective - Vital Signs Vital signs: Vital Signs Temp 98.1 F 09/12/16 12:00 Pulse 80 09/12/16 12:00 Resp 18 09/12/16 12:00 BP 102/60 09/12/16 12:00 Pulse Ox 97 09/12/16 12:00 Intake & Output 09/11/16 09/12/16 09/12/16 18:59 06:59 18:59 Intake Total 560 740.628 700 Output Total 800 Balance -240 740.628 700 Intake: IV 180 506 0.9% NS 10 mL/hr 240 Amiodarone 450 mg In 60 266 Dextrose 5% in Water 250 ml @ 0.5 MG/MIN 16.66 mls /hr IV .Q15H1M [facility] Rx#: [id number] Amiodarone 450 mg In 120 Dextrose 5% in Water 250 ml @ 1 MG/MIN 33.33 mls/ hr IV .Q7H31M [facility] Rx#: [id number] Intake, IV Titration 200 234.628 Amount Amiodarone 450 mg In 234.628 Dextrose 5% in Water 250 ml @ 0.5 MG/MIN 16.66 mls /hr IV .Q15H1M [facility] Rx#: [id number] Magnesium Sulfate-D5w Pmx 200 1 gm In Dextrose/Water 1 100ml.bag @ 100 mls/hr IVPB Q1H [facility] Rx#: [id number] Oral 180 700 Output: Urine 800 Other: Voiding Method Toilet Toilet # Voids 3 - Exam General: The patient is awake and alert, in no distress Eye: there is normal conjunctiva bilaterally. Neck: The neck is supple, there is no JVD. Cardiovascular: Normal S1-S2, no S3-S4, no murmurs. Respiratory: Lungs clear to auscultation bilaterally Gastrointestinal: Abdomen is soft, nontender Musculoskeletal: There is no pedal edema. Neurological:. Speech is normal. Skin: Skin is warm and dry - Labs CBC & Chem 7: 09/12/16 05:51 09/12/16 05:51 Labs: Abnormal Lab Results - Last 24 Hours (Table) 09/11/16 09/11/16 09/12/16 Range/Units 17:12 21:19 05:51 RDW 17.7 H (11.5-15.5) % Plt Count 120 L (150-450) k/uL PT (9.0-12.0) sec INR (<1.2) Sodium (137-145) mmol/L Potassium (3.5-5.1) mmol/L Chloride (98-107) mmol/L BUN (9-20) mg/dL Creatinine (0.66-1.25) mg/dL Glucose (74-99) mg/dL POC Glucose (mg/dL) 121 H 158 H (75-99) mg/dL 09/12/16 09/12/16 09/12/16 Range/Units 05:51 05:51 06:15 RDW (11.5-15.5) % Plt Count (150-450) k/uL PT 21.2 H (9.0-12.0) sec INR 2.2 H (<1.2) Sodium 135 L (137-145) mmol/L Potassium 3.4 L (3.5-5.1) mmol/L Chloride 97 L (98-107) mmol/L BUN 65 H (9-20) mg/dL Creatinine 1.53 H (0.66-1.25) mg/dL Glucose 111 H (74-99) mg/dL POC Glucose (mg/dL) 132 H (75-99) mg/dL 09/12/16 Range/Units 11:35 RDW (11.5-15.5) % Plt Count (150-450) k/uL PT (9.0-12.0) sec INR (<1.2) Sodium (137-145) mmol/L Potassium (3.5-5.1) mmol/L Chloride (98-107) mmol/L BUN (9-20) mg/dL Creatinine (0.66-1.25) mg/dL Glucose (74-99) mg/dL POC Glucose (mg/dL) 210 H (75-99) mg/dL Assessment and Plan Plan: 1. Critical hyperkalemia on presentation with no reported EKG changes. Now resolved. Patient was treated medically in the emergency room. Hyperkalemia is most likely attributed to acute on chronic kidney failure, spironolactone, [place] inhibitor and potassium supplement use. Nephrology is following continue to monitor 2. Acute on chronic kidney failure 3. Paroxysmal atrial fibrillation on anticoagulation with Coumadin 4. Ischemic cardiomyopathy with estimated EF of 20% 5. Type 2 diabetes mellitus : Hemoglobin A1c 8.7. Currently on Levemir 40 twice a day and Humalog 23 units with each meal. Continue sliding scale coverage. 6. Diarrhea: Now resolved. 7. Metabolic acidosis secondary to the chronic kidney injury. Nephrology following continue with sodium bicarbonate 8. Hypercholesterolemia and hypertriglyceridemia: Patient will be started on Lipitor 40 mg at bedtime. 9. Elevated troponins: No chest pain. Most likely thrombotic troponin leak. Seen and evaluated by cardiology. 10. Defibrillator checked showing ventricle tachycardia. Await further recommendations per cardiology amiodarone drip was switched to oral amiodarone today. We will monitor closely. Repeat Work in the morning. Anticipate discharge home tomorrow
--- NOTE | 2016-09-12 14:37 | P.PN ---
Subjective Is a 71-year-old gentleman with history of coronary artery disease prior bypass surgery, ischemic cardiomyopathy with prior AICD, chronic atrial fibrillation, who presented to the hospital following AICD discharge. His device was interrogated and did reveal episodes of ventricular tachycardia as well as atrial flutter with rapid ventricular response. Patient had an episode this morning where he became dizzy and felt as though he may pass out. He was in the restroom at the time this occurred. Blood pressure at that time was 80 systolic. Patient was walked back to his bed, orthostatics were then obtained, 80 systolic while sitting, blood pressure didn't register when the patient was standing and he again became extremely dizzy and lightheaded. Patient's dose of Coreg yesterday was increased to 12-1/2 twice a day and he did get a dose this morning. The other medications today were placed on hold. We will hold the patient's Zaroxolyn and decrease the dose of coronary back to the 6.25 if the patient's blood pressure remained stable he may be able to be discharged home tomorrow. Objective - Vital Signs Vital signs: Vital Signs Temp 98.1 F 09/12/16 12:00 Pulse 80 09/12/16 12:00 Resp 18 09/12/16 12:00 BP 102/60 09/12/16 12:00 Pulse Ox 97 09/12/16 12:00 Intake & Output 09/11/16 09/12/16 09/12/16 18:59 06:59 18:59 Intake Total 560 544.747 5559 Output Total 800 Balance -240 104.878 1824 Intake: IV 180 506 0.9% NS 10 mL/hr 240 Amiodarone 450 mg In 60 266 Dextrose 5% in Water 250 ml @ 0.5 MG/MIN 16.66 mls /hr IV .Q15H1M [facility] Rx#: [id number] Amiodarone 450 mg In 120 Dextrose 5% in Water 250 ml @ 1 MG/MIN 33.33 mls/ hr IV .Q7H31M [facility] Rx#: [id number] Intake, IV Titration 200 234.628 Amount Amiodarone 450 mg In 234.628 Dextrose 5% in Water 250 ml @ 0.5 MG/MIN 16.66 mls /hr IV .Q15H1M [facility] Rx#: [id number] Magnesium Sulfate-D5w Pmx 200 1 gm In Dextrose/Water 1 100ml.bag @ 100 mls/hr IVPB Q1H [facility] Rx#: [id number] Oral 180 1300 Output: Urine 800 Other: Voiding Method Toilet Toilet # Voids 3 - Exam PHYSICAL EXAMINATION: HEENT: Head is atraumatic, normocephalic. Pupils equal, round. Neck is supple. There is no elevated jugular venous pressure. HEART EXAMINATION: Heart S1, S2 normal. No murmur or gallop heard. CHEST EXAMINATION: Lungs are clear to auscultation and precussion. No chest wall tenderness is noted on palpation or with deep breathing. ABDOMEN: Soft, nontender. Bowel sounds are heard. No organomegaly noted. EXTREMITIES: 2+ peripheral pulses with no evidence of peripheral edema and no calf tenderness noted. NEUROLOGIC patient is awake, alert and oriented -3. . - Labs CBC & Chem 7: 09/12/16 05:51 09/12/16 05:51 Labs: Abnormal Lab Results - Last 24 Hours (Table) 09/11/16 09/11/16 09/12/16 Range/Units 17:12 21:19 05:51 RDW 17.7 H (11.5-15.5) % Plt Count 120 L (150-450) k/uL PT (9.0-12.0) sec INR (<1.2) Sodium (137-145) mmol/L Potassium (3.5-5.1) mmol/L Chloride (98-107) mmol/L BUN (9-20) mg/dL Creatinine (0.66-1.25) mg/dL Glucose (74-99) mg/dL POC Glucose (mg/dL) 121 H 158 H (75-99) mg/dL 09/12/16 09/12/16 09/12/16 Range/Units 05:51 05:51 06:15 RDW (11.5-15.5) % Plt Count (150-450) k/uL PT 21.2 H (9.0-12.0) sec INR 2.2 H (<1.2) Sodium 135 L (137-145) mmol/L Potassium 3.4 L (3.5-5.1) mmol/L Chloride 97 L (98-107) mmol/L BUN 65 H (9-20) mg/dL Creatinine 1.53 H (0.66-1.25) mg/dL Glucose 111 H (74-99) mg/dL POC Glucose (mg/dL) 132 H (75-99) mg/dL 09/12/16 Range/Units 11:35 RDW (11.5-15.5) % Plt Count (150-450) k/uL PT (9.0-12.0) sec INR (<1.2) Sodium (137-145) mmol/L Potassium (3.5-5.1) mmol/L Chloride (98-107) mmol/L BUN (9-20) mg/dL Creatinine (0.66-1.25) mg/dL Glucose (74-99) mg/dL POC Glucose (mg/dL) 210 H (75-99) mg/dL Assessment and Plan (1) AICD discharge Status: Acute (2) V-tach Status: Acute (3) Atrial flutter Status: Acute (4) Atrial flutter with rapid ventricular response Status: Acute (5) Ischemic cardiomyopathy Status: Acute Plan: Cardiology's perspective, we will hold on the patient's Zaroxolyn, decrease the dose of Coreg back to 6.25 twice a day. Monitor blood pressure and orthostatics. Plan for possible discharge home in 24 hours if stable. DNP note has been reviewed, I agree with a documented findings and plan of care. Patient was seen and examined.
[2016-09-12] MEDS: LISINOPRIL 2.5 MG TAB PO SCH (14:45)
[2016-09-12] MEDS: ISOSORBIDE MONONITRATE ER 15 MG TAB PO SCH (14:45)
[2016-09-12] MEDS: METOLAZONE 5 MG TAB PO SCH (14:45)
[2016-09-12] MEDS: FUROSEMIDE 20 MG TAB PO SCH ×2 (14:45→16:04)
[2016-09-12] MEDS: SPIRONOLACTONE 25 MG TAB PO SCH (14:45)
[2016-09-12 16:33] LABS: Glucose,Whole Blood 242 mg/dL (75-99)
[2016-09-12] MEDS: WARFARIN 3 MG TAB PO SCH (16:59)
[2016-09-12] MEDS: CARVEDILOL 6.25 MG TAB PO SCH (17:00)
[2016-09-12 21:18] LABS: Glucose,Whole Blood 190 mg/dL (75-99)
[2016-09-12] MEDS: ATORVASTATIN 40 MG TAB PO SCH (21:30)
[2016-09-13 06:15] LABS: Glucose,Whole Blood 153 mg/dL (75-99)
[2016-09-13 06:38] LABS: Anisocytosis Slight; Basophils # (A) 0.1 k/uL (0-0.2); Basophils % (A) 1 %; CH 29.2; CHCM 34.8; Eosinophils # (A) 0.4 k/uL (0-0.7); Eosinophils % (A) 4 %; HCT 38.2 % (39.0-53.0); HDW 3.41; HGB 13.2 gm/dL (13.0-17.5); Luc % (Auto) 2; Lymphocytes # (A) 1.1 k/uL (1.0-4.8); Lymphocytes % (A) 10 %; MCH 29.1 pg (25.0-35.0); MCHC 34.5 g/dL (31.0-37.0); MCV 84.2 fL (80.0-100.0); Mean Platelet Volume 8.2; Monocytes # (A) 0.5 k/uL (0-1.0); Monocytes % (A) 5 %; Neutrophils # (A) 8.6 k/uL (1.3-7.7); Neutrophils % (A) 79 %; Poikilocytosis Slight; RBC 4.53 m/uL (4.30-5.90); RDW 18.3 % (11.5-15.5); WBC 10.8 k/uL (3.8-10.6); WBC (Perox) 10.88
[2016-09-13 06:43] LABS: Prothrombin Time 19.4 sec (9.0-12.0)
[2016-09-13 07:02] LABS: Calcium 9.7 mg/dL (8.4-10.2); Potassium 3.4 mmol/L (3.5-5.1)
[2016-09-13] MEDS: INSULIN LISPRO (humaLOG) 300 UNIT/3 ML VIAL SQ SCH ×2 (07:10)
[2016-09-13] MEDS: CARVEDILOL 6.25 MG TAB PO SCH (07:10)
[2016-09-13] MEDS: PANTOPRAZOLE 40 MG TABLET PO SCH (07:11)
[2016-09-13] MEDS: SYMBICORT 160-4.5 MCG INHALER INHALATION SCH (08:15)
[2016-09-13] MEDS: FUROSEMIDE 20 MG TAB PO SCH (08:39)
[2016-09-13] MEDS: SODIUM BICARBONATE TAB 650 MG TAB PO SCH (08:39)
[2016-09-13] MEDS: SPIRONOLACTONE 25 MG TAB PO SCH (08:39)
[2016-09-13] MEDS: ISOSORBIDE MONONITRATE ER 15 MG TAB PO SCH (08:39)
[2016-09-13] MEDS: MAGNESIUM OXIDE 400 MG TAB PO SCH (08:40)
[2016-09-13] MEDS: CHOLECALCIFEROL 1,000 UNIT TAB PO SCH (08:40)
[2016-09-13] MEDS: AMIODARONE 200 MG TAB PO SCH (08:40)
[2016-09-13] MEDS: LISINOPRIL 2.5 MG TAB PO SCH (08:41)
[2016-09-13] MEDS ORDERED: POTASSIUM CHLORIDE ER 20 MEQ TAB.ER PO STA (08:59)
[2016-09-13] MEDS: INSULIN DETEMIR 100 UNIT/ML 10 ML VIAL SQ SCH (09:03)
--- NOTE | 2016-09-13 09:41 | P.PN ---
Subjective Patient is seen in follow-up for acute kidney injury on chronic kidney disease. Patient has chronic kidney disease stage III secondary to cardiorenal syndrome with baseline creatinine near 1.5. Patient presented with weakness and syncopal episode. He was noted to have a potassium level of 7.5 which was medically treated. Hyperkalemia is resolved. Denies any chest pain or shortness of breath. No vomiting or diarrhea. He is nonoliguric. Renal function is worse today with creatinine at 1.7. Patient does have systolic CHF with ejection fraction of 25%. Low dose [place] inhibitor as well as Aldactone have also been resumed. Vital signs are stable. General: The patient appeared well nourished and normally developed. HEENT: Head exam is unremarkable. Neck is without jugular venous distension. LUNGS: Lungs are clear to auscultation and percussion. Breath sounds decreased. HEART: Rate and Rhythm are regular. First and second heart sounds normal. No murmurs, rubs or gallops. ABDOMEN: Abdominal exam reveals normal bowel sounds. Non-tender and non- distended. No evidence of peritonitis. EXTREMITITES: No clubbing, cyanosis, or edema. Objective - Vital Signs Vital signs: Vital Signs Temp 97.3 F L 09/13/16 04:00 Pulse 74 09/13/16 04:00 Resp 16 09/13/16 04:00 BP 107/57 09/13/16 04:00 Pulse Ox 96 09/13/16 04:00 Intake & Output 09/12/16 09/13/16 09/13/16 18:59 06:59 18:59 Intake Total 1522 360 Output Total 1000 Balance 1522 -1000 360 Weight 94 kg Intake: Oral 1522 360 Output: Urine 1000 Other: Voiding Method Toilet Toilet Urinal - Labs CBC & Chem 7: 09/13/16 05:31 09/13/16 05:31 Labs: Abnormal Lab Results - Last 24 Hours (Table) 09/12/16 09/12/16 09/12/16 Range/Units 11:35 16:31 21:18 WBC (3.8-10.6) k/uL Hct (39.0-53.0) % RDW (11.5-15.5) % Plt Count (150-450) k/uL Neutrophils # (1.3-7.7) k/uL PT (9.0-12.0) sec INR (<1.2) Sodium (137-145) mmol/L Potassium (3.5-5.1) mmol/L Chloride (98-107) mmol/L BUN (9-20) mg/dL Creatinine (0.66-1.25) mg/dL Glucose (74-99) mg/dL POC Glucose (mg/dL) 210 H 242 H 190 H (75-99) mg/dL 09/13/16 09/13/16 09/13/16 Range/Units 05:31 05:31 05:31 WBC 10.8 H (3.8-10.6) k/uL Hct 38.2 L (39.0-53.0) % RDW 18.3 H (11.5-15.5) % Plt Count 116 L (150-450) k/uL Neutrophils # 8.6 H (1.3-7.7) k/uL PT 19.4 H (9.0-12.0) sec INR 2.0 H (<1.2) Sodium 135 L (137-145) mmol/L Potassium 3.4 L (3.5-5.1) mmol/L Chloride 95 L (98-107) mmol/L BUN 63 H (9-20) mg/dL Creatinine 1.70 H (0.66-1.25) mg/dL Glucose 124 H (74-99) mg/dL POC Glucose (mg/dL) (75-99) mg/dL 09/13/16 Range/Units 06:13 WBC (3.8-10.6) k/uL Hct (39.0-53.0) % RDW (11.5-15.5) % Plt Count (150-450) k/uL Neutrophils # (1.3-7.7) k/uL PT (9.0-12.0) sec INR (<1.2) Sodium (137-145) mmol/L Potassium (3.5-5.1) mmol/L Chloride (98-107) mmol/L BUN (9-20) mg/dL Creatinine (0.66-1.25) mg/dL Glucose (74-99) mg/dL POC Glucose (mg/dL) 153 H (75-99) mg/dL Assessment and Plan Plan: Assessment: #1. Nonoliguric acute kidney injury mostly prerenal from diuresis. Creatinine was 1.92 on admission and is 1.7 today. Recent urinalysis benign. No evidence of urinary retention. #2. Systolic CHF with ejection fraction of 35-40%. Appears compensated at this time. #3. Hyperkalemia secondary to use of potassium supplementation as well as Aldactone and [place] inhibitor. Metabolic acidosis and acute kidney injury also contribute factors. Resolved. Now actually hypokalemic from diuresis. Magnesium replete. #4. Chronic kidney disease stage III secondary to cardiorenal syndrome with baseline creatinine in the range of 1.3-1.5. #5. Metabolic acidosis secondary to chronic kidney disease. Resolved. Plan: Continue Lasix 60 mg orally twice daily. Maintain oral sodium bicarbonate supplementation. Replace potassium. 40 mEq today. Monitor potassium level as V[place] inhibitor as well as Aldactone have been resumed.
[2016-09-13 11:31] LABS: Glucose,Whole Blood 213 mg/dL (75-99)
--- NOTE | 2016-09-13 12:05 | P.DS ---
Providers Date of admission: 09/08/16 08:30 Expected date of discharge: 09/13/16 Attending physician: Thomas Comerria Consults: 09/08/16 08:30 Consult Physician Routine Consulting Provider: Ramandeep Stroud Consult Reason/Comments: hyperK Do you want consulting provider notified?: Yes Consult Physician Urgent Consulting Provider: Mor Nolan Consult Reason/Comments: defib Do you want consulting provider notified?: Yes 09/08/16 09:15 Consult Physician Urgent Consulting Provider: Lima Gray Consult Reason/Comments: icu Do you want consulting provider notified?: Yes Primary care physician: [facility] Hospital Course: This is a 71-year-old gentleman with very complex past medical history noted below who presented to the hospital with an episode of loss of consciousness and firing of his defibrillator. He was found to have a critical potassium on presentation greater than 7.3. He was treated medically and was admitted to the intensive care unit. His overall condition improved significantly throughout his hospital stay. His defibrillator was interrogated and his regimen was adjusted. He was seen and evaluated by different specialists including cardiology, pulmonology, and nephrology. Below is a list of his medical problems addressed during this hospitalization. 1. Critical hyperkalemia on presentation with no reported EKG changes. Now resolved. Patient was treated medically in the emergency room. Hyperkalemia is most likely attributed to acute on chronic kidney failure, spironolactone, [place] inhibitor and potassium supplement use. Nephrology is following continue to monitor 2. Acute on chronic kidney failure 3. Paroxysmal atrial fibrillation on anticoagulation with Coumadin 4. Ischemic cardiomyopathy with estimated EF of 20% 5. Type 2 diabetes mellitus : Hemoglobin A1c 8.7. Currently on Levemir 40 twice a day and Humalog 23 units with each meal. Continue sliding scale coverage. 6. Diarrhea: Now resolved. 7. Metabolic acidosis secondary to the chronic kidney injury. Nephrology following continue with sodium bicarbonate 8. Hypercholesterolemia and hypertriglyceridemia: Patient will be started on Lipitor 40 mg at bedtime. 9. Elevated troponins: No chest pain. Most likely thrombotic troponin leak. Seen and evaluated by cardiology. 10. Defibrillator checked showing ventricle tachycardia. Await further recommendations per cardiology Patient Condition at Discharge: Serious Plan - Discharge Summary New Discharge Prescriptions: New Amiodarone [Cordarone] 200 mg PO TID #60 tab Atorvastatin [Lipitor] 40 mg PO HS #30 tab Sodium Bicarbonate Tab 1,300 mg PO BID #60 tab Continue Nitroglycerin Sl Tabs [Nitrostat] 0.4 mg SUBLINGUAL Q5M PRN PRN Reason: Chest Pain Magnesium Oxide [Mag-Ox] 250 mg PO DAILY Cholecalciferol [Vitamin D3] 5,000 unit PO DAILY Pantoprazole Sodium [Protonix] 40 mg PO DAILY Multivitamins, Thera [Multivitamin (formulary)] 1 tab PO DAILY Budesonide-Formot 160-4.5 Mcg [Symbicort 160-4.5 Mcg Inhaler] 1 puff INHALATION RT-BID #60 puff Carvedilol [Coreg] 6.25 mg PO BID-W/MEALS #60 tab Isosorbide Mononitrate ER [Imdur] 15 mg PO DAILY #30 dose Warfarin Sodium [Coumadin] 3 mg PO DAILY #30 tab Aspirin EC [Ecotrin Low Dose] 81 mg PO DAILY Furosemide [Lasix] 60 mg PO BID@0900,1600 #60 tab Insulin Detemir [Levemir] 40 unit SQ BID #1 vial Lisinopril [Zestril] 5 mg PO DAILY #30 tab Spironolactone [Aldactone] 25 mg PO BID #60 tab Changed Insulin Aspart [NovoLOG] 23 unit SQ AC-TID #0 Discontinued Potassium Chloride ER [K-Dur 20] 20 meq PO DAILY #0 Metolazone [Zaroxolyn] 5 mg PO DAILY #30 tab Discharge Medication List Cholecalciferol [Vitamin D3] 5,000 unit PO DAILY 01/21/16 [History] Magnesium Oxide [Mag-Ox] 250 mg PO DAILY 01/21/16 [History] Nitroglycerin Sl Tabs [Nitrostat] 0.4 mg SUBLINGUAL Q5M PRN 01/21/16 [History] Pantoprazole Sodium [Protonix] 40 mg PO DAILY 01/21/16 [History] Multivitamins, Thera [Multivitamin (formulary)] 1 tab PO DAILY 07/13/16 [History ] Budesonide-Formot 160-4.5 Mcg [Symbicort 160-4.5 Mcg Inhaler] 1 puff INHALATION RT-BID #60 puff 08/12/16 [Rx] Carvedilol [Coreg] 6.25 mg PO BID-W/MEALS #60 tab 08/12/16 [Rx] Isosorbide Mononitrate ER [Imdur] 15 mg PO DAILY #30 dose 08/12/16 [Rx] Warfarin Sodium [Coumadin] 3 mg PO DAILY #30 tab 08/12/16 [Rx] Aspirin EC [Ecotrin Low Dose] 81 mg PO DAILY 08/14/16 [History] Furosemide [Lasix] 60 mg PO BID@0900,1600 #60 tab 08/19/16 [Rx] Insulin Detemir [Levemir] 40 unit SQ BID #1 vial 08/19/16 [Rx] Lisinopril [Zestril] 5 mg PO DAILY #30 tab 08/19/16 [Rx] Spironolactone [Aldactone] 25 mg PO BID #60 tab 08/19/16 [Rx] Amiodarone [Cordarone] 200 mg PO TID #60 tab 09/13/16 [Rx] Atorvastatin [Lipitor] 40 mg PO HS #30 tab 09/13/16 [Rx] Insulin Aspart [NovoLOG] 23 unit SQ AC-TID #0 09/13/16 [Rx] Sodium Bicarbonate Tab 1,300 mg PO BID #60 tab 09/13/16 [Rx] Follow up Appointment(s)/Referral(s): Anu Velasquez MD [STAFF PHYSICIAN] - 1-2 days Flower Phipps MD [STAFF PHYSICIAN] - 1 Week Discharge Disposition: HOME SELF-CARE
[2016-09-13 12:38] VITALS: BP 116/64; PULSE 81; RESP 16; TEMP 97.6
--- NOTE | 2016-09-13 13:06 | P.PN ---
Subjective This is a 71-year-old gentleman with history of coronary artery disease prior bypass surgery, ischemic cardiomyopathy with prior AICD, chronic atrial fibrillation, who presented to the hospital following AICD discharge. His device was interrogated and did reveal episodes of ventricular tachycardia as well as atrial flutter with rapid ventricular response. Patient had an episode this morning where he became dizzy and felt as though he may pass out. He was in the restroom at the time this occurred. Blood pressure at that time was 80 systolic. Patient was walked back to his bed, orthostatics were then obtained, 80 systolic while sitting, blood pressure didn't register when the patient was standing and he again became extremely dizzy and lightheaded. Patient's dose of Coreg yesterday was increased to 12-1/2 twice a day and he did get a dose this morning. The other medications today were placed on hold. We will hold the patient's Zaroxolyn and decrease the dose of coronary back to the 6.25 if the patient's blood pressure remained stable he may be able to be discharged home tomorrow. 09/13/2016 Patient seen and examined this morning, no further symptoms of dizziness or lightheadedness. Blood pressure 116/60 with a heart rate in the 80s. He may be able to be discharged home today. We will make him a follow-up appointment in the office one week post discharge. Objective - Vital Signs Vital signs: Vital Signs Temp 97.6 F 09/13/16 12:00 Pulse 81 09/13/16 12:00 Resp 16 09/13/16 12:00 BP 116/64 09/13/16 12:00 Pulse Ox 96 09/13/16 12:00 Intake & Output 09/12/16 09/13/16 09/13/16 18:59 06:59 18:59 Intake Total 1522 582 Output Total 1000 Balance 1522 -1000 582 Weight 94 kg Intake: Oral 1522 582 Output: Urine 1000 Other: Voiding Method Toilet Toilet Urinal - Exam PHYSICAL EXAMINATION: HEENT: Head is atraumatic, normocephalic. Pupils equal, round. Neck is supple. There is no elevated jugular venous pressure. HEART EXAMINATION: Heart S1, S2 normal. No murmur or gallop heard. CHEST EXAMINATION: Lungs are clear to auscultation and precussion. No chest wall tenderness is noted on palpation or with deep breathing. ABDOMEN: Soft, nontender. Bowel sounds are heard. No organomegaly noted. EXTREMITIES: 2+ peripheral pulses with no evidence of peripheral edema and no calf tenderness noted. NEUROLOGIC patient is awake, alert and oriented -3. . - Labs CBC & Chem 7: 09/13/16 05:31 09/13/16 05:31 Labs: Abnormal Lab Results - Last 24 Hours (Table) 09/12/16 09/12/16 09/13/16 Range/Units 16:31 21:18 05:31 WBC 10.8 H (3.8-10.6) k/uL Hct 38.2 L (39.0-53.0) % RDW 18.3 H (11.5-15.5) % Plt Count 116 L (150-450) k/uL Neutrophils # 8.6 H (1.3-7.7) k/uL PT (9.0-12.0) sec INR (<1.2) Sodium (137-145) mmol/L Potassium (3.5-5.1) mmol/L Chloride (98-107) mmol/L BUN (9-20) mg/dL Creatinine (0.66-1.25) mg/dL Glucose (74-99) mg/dL POC Glucose (mg/dL) 242 H 190 H (75-99) mg/dL 09/13/16 09/13/16 09/13/16 Range/Units 05:31 05:31 06:13 WBC (3.8-10.6) k/uL Hct (39.0-53.0) % RDW (11.5-15.5) % Plt Count (150-450) k/uL Neutrophils # (1.3-7.7) k/uL PT 19.4 H (9.0-12.0) sec INR 2.0 H (<1.2) Sodium 135 L (137-145) mmol/L Potassium 3.4 L (3.5-5.1) mmol/L Chloride 95 L (98-107) mmol/L BUN 63 H (9-20) mg/dL Creatinine 1.70 H (0.66-1.25) mg/dL Glucose 124 H (74-99) mg/dL POC Glucose (mg/dL) 153 H (75-99) mg/dL 09/13/16 Range/Units 11:29 WBC (3.8-10.6) k/uL Hct (39.0-53.0) % RDW (11.5-15.5) % Plt Count (150-450) k/uL Neutrophils # (1.3-7.7) k/uL PT (9.0-12.0) sec INR (<1.2) Sodium (137-145) mmol/L Potassium (3.5-5.1) mmol/L Chloride (98-107) mmol/L BUN (9-20) mg/dL Creatinine (0.66-1.25) mg/dL Glucose (74-99) mg/dL POC Glucose (mg/dL) 213 H (75-99) mg/dL Assessment and Plan (1) AICD discharge Status: Acute (2) V-tach Status: Acute (3) Atrial flutter Status: Acute (4) Atrial flutter with rapid ventricular response Status: Acute (5) Ischemic cardiomyopathy Status: Acute Plan: Cardiology's perspective, patient may be able to be discharged home today. We will make a follow-up appointment in the office post discharge. DNP note has been reviewed, I agree with a documented findings and plan of care. Patient was seen and examined.
[2016-09-13] MEDS ORDERED: SODIUM BICARBONATE TAB 650 MG TAB PO SCH (21:00)
== END 2016-09-13 15:16 | disposition home or self-care (01) | DRG 683 ==
LOC: EC 07:24 → 6ICU 08:30 → 6SEL 09-09 14:40
PROVIDERS: ADMIT Internal Medicine; ATTEND Internal Medicine
DX: N17.9 Acute kidney failure, unspecified (principal); I47.2 Ventricular tachycardia; E87.2 Acidosis; I48.92 Unspecified atrial flutter; I13.0 Hypertensive heart and chronic kidney disease with heart failure and stage 1 through stage 4 chronic kidney disease, or unspecified chronic kidney disease; I50.22 Chronic systolic (congestive) heart failure; I48.0 Paroxysmal atrial fibrillation; E11.22 Type 2 diabetes mellitus with diabetic chronic kidney disease; E86.0 Dehydration; E87.5 Hyperkalemia; N18.3 Chronic kidney disease, stage 3 (moderate); I48.2 Chronic atrial fibrillation; E78.1 Pure hyperglyceridemia; E78.00 Pure hypercholesterolemia, unspecified; E78.5 Hyperlipidemia, unspecified; G89.29 Other chronic pain; I25.10 Atherosclerotic heart disease of native coronary artery without angina pectoris; I25.2 Old myocardial infarction; I25.5 Ischemic cardiomyopathy; I71.4 Abdominal aortic aneurysm, without rupture; J44.9 Chronic obstructive pulmonary disease, unspecified; K21.9 Gastro-esophageal reflux disease without esophagitis; N40.0 Benign prostatic hyperplasia without lower urinary tract symptoms; M54.5 Low back pain; R19.7 Diarrhea, unspecified; R74.8 Abnormal levels of other serum enzymes; T50.0X5A Adverse effect of mineralocorticoids and their antagonists, initial encounter; T46.4X5A Adverse effect of angiotensin-converting-enzyme inhibitors, initial encounter; T50.3X5A Adverse effect of electrolytic, caloric and water-balance agents, initial encounter; T50.2X5A Adverse effect of carbonic-anhydrase inhibitors, benzothiadiazides and other diuretics, initial encounter; Z79.01 Long term (current) use of anticoagulants; Z79.4 Long term (current) use of insulin; Z79.82 Long term (current) use of aspirin; Z79.899 Other long term (current) drug therapy; Z88.5 Allergy status to narcotic agent; Z88.8 Allergy status to other drugs, medicaments and biological substances; Z87.891 Personal history of nicotine dependence; Z95.1 Presence of aortocoronary bypass graft; Z95.810 Presence of automatic (implantable) cardiac defibrillator; Z96.653 Presence of artificial knee joint, bilateral; Z82.49 Family history of ischemic heart disease and other diseases of the circulatory system; Y92.009 Unspecified place in unspecified non-institutional (private) residence as the place of occurrence of the external cause
CPT/HCPCS: 36415; 71010; 80048; 80053; 80061; 82550; 82553; 83036; 83735; 84100; 84132; 84484; 85025; 85610; 85730; 93005; 93306; 94644; 96361; 96374; 96375; 99291